=== PATIENT | female | born 1950 | race Caucasian/White ===

== ENCOUNTER 2020-09-02 12:26 | Outpatient (REF) | payer MEDICARE, OTHER, SELFPAY ==
--- NOTE | ~2020-09-02 | XR_ITS ---
EXAMINATION: XR KNEES, STANDING AP SR KNEE, RIGHT CLINICAL INFORMATION: Knee pain COMPARISON: Radiographs standing AP knees and right knee 07/14/2013. TECHNIQUE: Standing AP view of both knees is performed. The right knee is also imaged in lateral and axial patella views. FINDINGS: Right: Right knee has tricompartment osteoarthritis, greatest lateral patellofemoral joint with associated lateral tilting patella, lateralization patella, and lateral patellar spurring. There is also moderate to prominent narrowing medial knee joint compartment and fine articular chondrocalcinosis and marginal osteophytes in the medial and lateral compartments. No erosive changes. There is no fracture or dislocation or destructive process. Small suprapatellar effusion is present. Hoffa's fat pad appears normal. Left: Left knee shows degenerative changes, greater medial side with moderate to prominent narrowing medial compartment and with chondrocalcinosis articular cartilage and marginal osteophytes. No visible erosive changes. No fracture or destructive process. Bilateral arthropathy has progressed since prior exam 2013. The chondrocalcinosis articular cartilage suggests calcium pyrophosphate deposition disease. XR/XR knee standing BI IMPRESSION: Right: Tricompartment arthropathy with joint narrowing, osteophytes, and chondrocalcinosis articular cartilage. Small suprapatellar effusion. No erosive changes. Left: Similar arthropathy with narrowing medial compartment and chondrocalcinosis articular cartilage. No erosive change.
--- NOTE | ~2020-09-02 | XR_ITS ---
EXAMINATION: XR KNEES, STANDING AP SR KNEE, RIGHT CLINICAL INFORMATION: Knee pain COMPARISON: Radiographs standing AP knees and right knee 07/14/2013. TECHNIQUE: Standing AP view of both knees is performed. The right knee is also imaged in lateral and axial patella views. FINDINGS: Right: Right knee has tricompartment osteoarthritis, greatest lateral patellofemoral joint with associated lateral tilting patella, lateralization patella, and lateral patellar spurring. There is also moderate to prominent narrowing medial knee joint compartment and fine articular chondrocalcinosis and marginal osteophytes in the medial and lateral compartments. No erosive changes. There is no fracture or dislocation or destructive process. Small suprapatellar effusion is present. Hoffa's fat pad appears normal. Left: Left knee shows degenerative changes, greater medial side with moderate to prominent narrowing medial compartment and with chondrocalcinosis articular cartilage and marginal osteophytes. No visible erosive changes. No fracture or destructive process. Bilateral arthropathy has progressed since prior exam 2013. The chondrocalcinosis articular cartilage suggests calcium pyrophosphate deposition disease. XR/XR knee RT 2V IMPRESSION: Right: Tricompartment arthropathy with joint narrowing, osteophytes, and chondrocalcinosis articular cartilage. Small suprapatellar effusion. No erosive changes. Left: Similar arthropathy with narrowing medial compartment and chondrocalcinosis articular cartilage. No erosive change.
--- NOTE | ~2020-09-02 | XR_ITS ---
EXAMINATION: XR PELVIS CLINICAL INFORMATION: Hip pain COMPARISON: Radiograph pelvis 02/17/2019. TECHNIQUE: AP view of the pelvis. FINDINGS: There is no fracture, dislocation, or destructive process. Again, there are degenerative changes lower lumbar spine L3-S1 with disc narrowing and vertebral spurring. There are osteoarthritic changes bilateral hips with joint narrowing and mild subchondral sclerosis and osteophytes. Hip arthropathy has increased since 2019. There is again mild osteitis pubis. There are numerous calcifications in the central pelvis again noted likely combination of phleboliths and calcified uterine fibroids. XR/XR pelvis 1-2V IMPRESSION: 1. Osteoarthritis bilateral hips, increased in prior exam 02/17/2019. 2. Degenerative disc changes lumbosacral spine. 3. Mild osteitis pubis. 4. Numerous calcifications central pelvis likely combination of phleboliths and calcified uterine fibroids.
== END 2020-09-02 12:27 | disposition home or self-care (01) ==
LOC: HO.HOSX 12:26
PROVIDERS: Visit Provider Orthopaedic Surgery
DX: M25.561 Pain in right knee (principal); M25.552 Pain in left hip; M16.12 Unilateral primary osteoarthritis, left hip; M17.11 Unilateral primary osteoarthritis, right knee; Z86.718 Personal history of other venous thrombosis and embolism
CPT/HCPCS: 20610; 72170; 73560; 73565; 99212; J1100

== ENCOUNTER → 2020-12-24 14:46 | Outpatient (BNVA) | payer MEDICARE, OTHER, SELFPAY | PROVIDERS: PCP Internal Medicine; Visit Provider Hospitalist | DX: J45.40 Moderate persistent asthma, uncomplicated (principal); I27.82 Chronic pulmonary embolism; I26.09 Other pulmonary embolism with acute cor pulmonale; R06.00 Dyspnea, unspecified | CPT/HCPCS: Q3014 ==

== ENCOUNTER 2020-12-28 08:48 | Outpatient (REF) | payer MEDICARE, OTHER, SELFPAY ==
--- NOTE | 2020-12-28 13:25 | PFT_ITS ---
FLOWS: FEV1 92% of predicted at 2.04 L. FVC 80% of predicted at 2.36 L. FEV1 to FVC ratio of 0.86. No bronchodilator response. LUNG VOLUMES: Total lung capacity 93% of predicted at 4.55 L. Residual volume 97% of predicted at 2.06 L. Slow vital capacity 89% of predicted at 2.49 L. Expiratory reserve volume 21% of predicted at 0.15 L. Diffusion capacity is normal. IMPRESSION: No obstructive or restrictive ventilatory defect. No bronchodilator response. Decreased expiratory reserve volume suggests extrathoracic restriction likely secondary to abdominal obesity. Goyo Russell MD AP/MODL / [id number]
== END 2020-12-28 08:49 | disposition home or self-care (01) ==
LOC: HO.RESP 08:48
PROVIDERS: PCP Internal Medicine; Visit Provider Hospitalist
DX: J45.40 Moderate persistent asthma, uncomplicated (principal); R06.00 Dyspnea, unspecified; I27.82 Chronic pulmonary embolism; I26.09 Other pulmonary embolism with acute cor pulmonale
CPT/HCPCS: 94060; 94727; 94729

== ENCOUNTER → 2021-01-13 09:46 | Outpatient (BNVA) | payer MEDICARE, OTHER, SELFPAY | PROVIDERS: PCP Internal Medicine; Visit Provider Hospitalist | DX: J45.40 Moderate persistent asthma, uncomplicated (principal); I27.82 Chronic pulmonary embolism; I26.09 Other pulmonary embolism with acute cor pulmonale; R06.00 Dyspnea, unspecified; R78.89 Finding of other specified substances, not normally found in blood | CPT/HCPCS: 99212 ==

== ENCOUNTER 2021-01-17 15:03 | Outpatient (REF) | payer MEDICARE, OTHER, SELFPAY ==
--- NOTE | ~2021-01-17 | CT_ITS ---
EXAMINATION: CT ANGIOGRAM OF THE CHEST WITH AND WITHOUT CONTRAST (CT PULMONARY ANGIOGRAM FOR PE) CLINICAL INFORMATION: Reason for Exam I26.99 - Other pulmonary embolism without acute cor pulmo... COMPARISON: None TECHNIQUE: Prior to contrast administration, noncontrast localization images were obtained. Subsequently, multidetector volumetric imaging was performed from the thoracic inlet to below the diaphragms following the administration of 65 mL Omnipaque 350 intravenous contrast. No contrast reaction reported Sagittal, coronal, and MIP oblique sagittal reformatted images were obtained on the CT workstation, uploaded to PACS, and reviewed. This CT examination was performed using dose optimization techniques as appropriate, variously including the following: *Automated exposure control *Adjustment of mA and/or kV according to patient size (this includes techniques or standardized protocols for targeted exams where dose is matched to indication/reason for exam; i.e. extremities or head) *Use of iterative reconstruction technique Total exam dose-length product 127 mGy-cm FINDINGS: QUALITY OF STUDY/CONTRAST BOLUS: Satisfactory. PULMONARY ARTERIES: No central or segmental pulmonary emboli. THORACIC AORTA: No aneurysm or dissection. LUNG: The lungs are well-expanded with platelike atelectatic changes in the right lower lobe. Rest of lungs are clear. PLEURA: No pleural effusion or pneumothorax. MEDIASTINUM: Normal heart size. No pericardial effusion. No hilar or mediastinal lymphadenopathy. No evidence of septal bowing or right heart strain. CHEST WALL/AXILLA: No axillary or internal mammary lymphadenopathy. OSSEOUS STRUCTURES: There are mild degenerative disc changes with ventral spondylosis. UPPER ABDOMEN: Visualized liver, spleen, pancreas and bilateral adrenal glands are unremarkable. No reflux of contrast into the hepatic veins to suggest elevated right heart pressures. CT/CT angio chest PE protocol IMPRESSION: No evidence of PE. No evidence of aortic dissection. VTE: negative
[2021-01-17 15:53] LABS: Anion Gap 13 (12-20); Blood Urea Nitrogen 18 mg/dL (9-16); Calcium 9.7 mg/dL (8.4-10.2); Carbon Dioxide 20 mmol/L (22-29); Chloride 113 mmol/L (96-108); Estimated Glomerular Filt Rate 55; Glucose Random 94 mg/dL (60-115); Potassium 4.2 mmol/L (3.3-5.1); Sodium 142 mmol/L (135-145)
[2021-01-17] MEDS: iohexoL 350 MG/ML 100 ML INFUS..BTL IV (16:22)
== END 2021-01-17 15:04 | disposition home or self-care (01) ==
LOC: HO.CT 15:03
PROVIDERS: PCP Internal Medicine; Visit Provider Hospitalist
DX: I26.99 Other pulmonary embolism without acute cor pulmonale (principal); J45.909 Unspecified asthma, uncomplicated; R06.00 Dyspnea, unspecified; R78.89 Finding of other specified substances, not normally found in blood
CPT/HCPCS: 36415; 71275; 80048; Q9967

== ENCOUNTER → 2021-03-01 13:24 | Outpatient (BNVA) | payer MEDICARE, OTHER, SELFPAY | PROVIDERS: PCP Internal Medicine; Visit Provider Hospitalist | DX: J45.40 Moderate persistent asthma, uncomplicated (principal); R06.00 Dyspnea, unspecified | CPT/HCPCS: 99212 ==

== ENCOUNTER → 2021-07-29 11:47 | Outpatient (BNVA) | payer MEDICARE, OTHER, SELFPAY | PROVIDERS: PCP Internal Medicine; Visit Provider Orthopaedic Surgery | DX: M17.11 Unilateral primary osteoarthritis, right knee (principal) | CPT/HCPCS: 99212 ==

== ENCOUNTER → 2021-10-27 13:06 | Outpatient (BNVA) | payer MEDICARE, OTHER, SELFPAY | PROVIDERS: PCP Internal Medicine; Visit Provider Physician Assistant | DX: M17.11 Unilateral primary osteoarthritis, right knee (principal); Z96.651 Presence of right artificial knee joint | CPT/HCPCS: 99212 ==

== ENCOUNTER 2021-11-01 07:31 | Inpatient (IN) | payer MEDICARE, OTHER, SELFPAY ==
[2021-10-11 14:27] LABS: MANUAL DIFF FLAG NO
[2021-10-11 14:42] LABS: Basophils Absolute Auto 0.1 X10*3/uL (0.0-0.2); Basophils Percent Auto 0.6 % (0-2); Eosinophils Absolute Auto 0.2 X10*3/uL (0.0-0.4); Eosinophils Percent Auto 2.4 % (0-4); Hematocrit 45.8 % (37.0-47.0); Hemoglobin 15.3 g/dl (12.0-16.0); Imm Gran Abs Auto 0.02 X10*3/uL (0.00-0.03); Imm Gran Pct Auto 0.3 % (0.0-0.4); Lymphocytes Absolute Auto 3.5 X10*3/uL (1.2-4.9); Lymphocytes Percent Auto 44.9 % (20-40); Mean Corpuscular HGB Conc 33.4 g/dl (31.0-35.0); Mean Corpuscular Hemoglobin 32.1 pg (27.0-33.0); Mean Platelet Volume 9.5 fL (9.4-12.3); Monocytes Absolute Auto 0.8 X10*3/uL (0.1-1.2); Monocytes Percent Auto 10.1 % (2-11); Neutrophils Absolute Auto 3.2 x10*3/uL (2.0-8.3); Neutrophils Percent Auto 41.7 % (45-73); Platelet Count 228 X10*3/uL (160-400); Red Blood Count 4.77 X10*6/uL (4.20-5.50); Red Cell Distribution Width 13.2 % (11.0-16.0); White Blood Count 7.8 X10*3/uL (4.8-10.8)
--- NOTE | 2021-10-11 14:46 | ECG_ITS ---
Test Reason : PREOP Blood Pressure : / mmHG Vent. Rate : 076 BPM Atrial Rate : 076 BPM P-R Int : 168 ms QRS Dur : 094 ms QT Int : 398 ms P-R-T Axes : 065 -42 049 degrees QTc Int : 447 ms Normal sinus rhythm Left axis deviation Abnormal ECG No previous ECGs available Referred By: Ayad Nelson Electronically Signed By:TEE LUJAN MD
[2021-10-11 15:19] LABS: Anion Gap 14 (12-20); Blood Urea Nitrogen 15 mg/dL (9-16); Calcium 9.6 mg/dL (8.4-10.2); Carbon Dioxide 19 mmol/L (22-29); Chloride 109 mmol/L (96-108); Estimated Glomerular Filt Rate > 60; Glucose Random 94 mg/dL (60-115); Sodium 138 mmol/L (135-145)
[2021-10-25 12:18] VITALS: BP 124/84; PULSE 84; RESP 20; O2SAT 96; BMI 34.3
[2021-10-25 14:50] LABS: MRSA Nasal PCR NEGATIVE (Negative); SA Nasal PCR NEGATIVE (Negative)
[2021-11-01] VITALS (22 sets, daily range): BP systolic 94–122; BP diastolic 57–83; PULSE 59–102; RESP 17–22; TEMP 36.2–36.9; O2SAT 95–100
--- NOTE | ~2021-11-01 | XR_ITS ---
EXAMINATION: XR KNEE, RIGHT CLINICAL INFORMATION: Postop right total knee COMPARISON: None TECHNIQUE: Four views of the right knee. FINDINGS: Prosthetic components of the right total knee arthroplasty are appropriately aligned. No periprosthetic fracture. Gas from recent surgery is present in the joint and surrounding soft tissues. A joint effusion is present. XR/XR knee RT 2V IMPRESSION: Appropriate alignment of the right total knee arthroplasty.
[2021-11-01 07:54] LABS: Hematocrit 44.2 % (37.0-47.0); Hemoglobin 15.1 g/dl (12.0-16.0)
[2021-11-01 08:16] LABS: Glucose, Whole Blood 102 mg/dL (60-115)
[2021-11-01 08:18] LABS: COVID-19 Test Negative (Negative); IDNOW Serial# 16C4AD1C
--- NOTE | 2021-11-01 08:58 | PHA.MEDREC ---
Pharmacy Consult ? Medication Reconciliation Pharmacy has reviewed the medication reconciliation done by Diamond.
--- NOTE | 2021-11-01 09:45 | MHC.SHP ---
Pre-Procedural Eval Section A Date of Service: 11/01/21 The patient is an INPATIENT: No Changes since office visit: Yes Patient answered all questions; No Cold of Flu in the past 2 weeks, No New Medical Problems and No Changes in Medication The History & Physical has been completed within 30 days and I have reviewed it.: Yes Section B Chief Complaint: RTKA Allergies: Allergies Allergy/AdvReac Type Severity Reaction Status Date / Time No Known Allergies Allergy Verified 10/24/21 09:12 Plan I have reviewed the history and physical and performed a pertinent physical examination on my patient. No changes have occurred unless specified.
--- NOTE | 2021-11-01 10:22 | HO.ANESPROP2 ---
HPI - Anesthesia Eval Consult details Narrative: 71 F for tkr PMFSH Active Problems Active Problems: All Active Problems (Updated 10/25/21 @ 12:17 by Diamond Antonio RN) Status post total right knee replacement (Acute) Osteoarthritis of left hip (Acute) Primary osteoarthritis of right knee (Acute) Blood D-dimer assay positive (Acute) Asthma (Acute) Pulmonary emboli (Acute) Dyspnea (Acute) Past Medical History Medical History Arthritis Asthma Dyspnea Hearing loss Hereditary hemochromatosis History of blood clots Hypercholesterolemia Prediabetes Pulmonary emboli Family History Family history of problems with anesthesia: No Surgical History Surgical History Hx of colonoscopy History of Problems with Anesthesia: No Social History Social History Are you a primary career placement services counselor to a significant other at home: No Do you presently have visiting nurse or other home services: No Alcohol intake: current Alcohol intake frequency: a few times a week Patient Tobacco Use Status: Never used Tobacco Use of substances other than those prescribed or required for medical reasons: No Have you been hit, kicked, punched, or otherwise hurt by someone within the past year? If so, by whom?: No Are you DNR?: No Advance Directives: No (to bring DOS-) Advance Directives Information Provided: Yes (to bring DOS) Advance Directives on File: No Recently lost weight without trying: No Eating poorly because of decreased appetite: No Nutrition Risks: No Nutritional Risk Patient : No : No Poor oral hygiene: No (Intact teeth) Current occupational status: retired Current occupation: right handed Meds Allergies Allergy/AdvReac Type Severity Reaction Status Date / Time No Known Allergies Allergy Verified 10/24/21 09:12 Home Medications Medication Instructions Recorded Confirmed Last Taken Type budesonide-formoterol HFA 160 2 puff inhalation BID 09/02/20 10/24/21 Unknown History mcg-4.5 mcg/actuation aerosol inhaler (Symbicort) inhalational spacing device #1 ea 09/02/20 Unknown History montelukast 10 mg tablet 10 mg PO DAILY 09/02/20 10/24/21 Unknown History albuterol sulfate 90 mcg/actuation 2 puff inhalation Q4-6H PRN 12/24/20 10/24/21 Unknown History aerosol inhaler (Ventolin HFA) Wheezing aspirin 81 mg tablet,delayed 81 mg PO DAILY 12/24/20 10/24/21 Unknown History release cholecalciferol (vitamin D3) 25 25 mcg PO DAILY 12/24/20 10/24/21 Unknown History mcg (1,000 unit) capsule fexofenadine 60 mg tablet (Humera 60 mg PO BID 12/24/20 10/24/21 Unknown History Allergy) ginkgo biloba 120 mg tablet 120 mg PO DAILY 12/24/20 10/24/21 Unknown History magnesium 250 mg tablet 250 mg PO DAILY 12/24/20 10/24/21 Unknown History tumeric 100 mg-himanshu 150 mg-olive 1 cap PO DAILY 12/24/20 10/24/21 Unknown History 50 mg-oreg 150 mg-caprylate capsule vitamin B complex (B-Complex 1 tab PO DAILY 12/24/20 10/24/21 Unknown History tablet) metformin 500 mg tablet 1 tab PO BEDTIME 10/24/21 10/24/21 Unknown History metronidazole 0.75 % topical cream 1 appl topical BID 10/24/21 10/24/21 Unknown History docusate sodium 100 mg tablet 100 mg PO DAILY 10/25/21 10/25/21 Unknown History (Stool Softener) omega 1-iuv-dad-fish oil 1,000 mg 1 cap PO DAILY 10/25/21 10/25/21 Unknown History (120 mg-180 mg) capsule (Fish Oil) Exam Exam Date and Time: November 01, 2021 102 Height,Weight and Vital Signs: Height 5 ft 3 in Weight 194 lb Last Vital Signs Temp 97.8 F 11/01/21 08:20 Pulse 102 H 11/01/21 08:20 Resp 18 11/01/21 08:20 BP 110/75 11/01/21 08:20 Pulse Ox 96 11/01/21 08:20 O2 Del Method 11/01/21 08:20 Pertinent Lab Results Pertinent Lab Results: Laboratory Tests 10/11/21 10/11/21 10/25/21 14:26 14:26 13:08 WBC 7.8 RBC 4.77 Hgb 15.3 Hct 45.8 MCV 96.0 MCH 32.1 MCHC 33.4 RDW 13.2 Plt Count 228 MPV 9.5 Immature Gran % (Auto) 0.3 Neut % (Auto) 41.7 L Lymph % (Auto) 44.9 H [place] % (Auto) 10.1 Eos % (Auto) 2.4 Baso % (Auto) 0.6 Lymph # (Auto) 3.5 [place] # (Auto) 0.8 Eos # (Auto) 0.2 Baso # (Auto) 0.1 Abs Immat Gran (auto) 0.02 Absolute Neuts (auto) 3.2 Absolute Nucleated RBC 0.000 Nucleated RBC % (auto) 0.0 Sodium 138 Potassium 4.0 Chloride 109 H Carbon Dioxide 19 L Anion Gap 14 BUN 15 Creatinine 0.79 Estim Creat Clear Calc TNP Estimated GFR > 60 POC Glucose Random Glucose 94 Calcium 9.6 Nasal Screen MRSA (PCR) Nasal S. aureus Screen Nasal MRSA/S.aureus Interp COVID-19 ([facility]) COVID-19 Clin Com Blood Type A Positive Antibody Screen NEGATIVE 10/25/21 11/01/21 11/01/21 Unknown 07:35 07:48 WBC RBC Hgb 15.1 Hct 44.2 MCV MCH MCHC RDW Plt Count MPV Immature Gran % (Auto) Neut % (Auto) Lymph % (Auto) [place] % (Auto) Eos % (Auto) Baso % (Auto) Lymph # (Auto) [place] # (Auto) Eos # (Auto) Baso # (Auto) Abs Immat Gran (auto) Absolute Neuts (auto) Absolute Nucleated RBC Nucleated RBC % (auto) Sodium Potassium Chloride Carbon Dioxide Anion Gap BUN Creatinine Estim Creat Clear Calc Estimated GFR POC Glucose Random Glucose Calcium Nasal Screen MRSA (PCR) NEGATIVE Nasal S. aureus Screen NEGATIVE Nasal MRSA/S.aureus Interp SEE NOTE COVID-19 ([facility]) Negative COVID-19 Clin Com See Note Blood Type Antibody Screen 11/01/21 08:10 WBC RBC Hgb Hct MCV MCH MCHC RDW Plt Count MPV Immature Gran % (Auto) Neut % (Auto) Lymph % (Auto) [place] % (Auto) Eos % (Auto) Baso % (Auto) Lymph # (Auto) [place] # (Auto) Eos # (Auto) Baso # (Auto) Abs Immat Gran (auto) Absolute Neuts (auto) Absolute Nucleated RBC Nucleated RBC % (auto) Sodium Potassium Chloride Carbon Dioxide Anion Gap BUN Creatinine Estim Creat Clear Calc Estimated GFR POC Glucose 102 Random Glucose Calcium Nasal Screen MRSA (PCR) Nasal S. aureus Screen Nasal MRSA/S.aureus Interp COVID-19 ([facility]) COVID-19 Clin Com Blood Type Antibody Screen Airway Mallampati Class: II TM Dist: >3cm Neck ROM: Full Assessment and Plan Assessment Anesthesia Assessment: Anesthesia Plan Discussed and Chart Reviewed Final Anesthetic Review Family History of Problems with Anesthesia: No History of Problems with Anesthesia: No NPO: Yes ASA Class: II Final Preanesthetic Review: No Changes in Pt Med Stat, Meds/Allgs Chart Reviewed, Consent Obtained/Reviewed and Anes Risks/Benef Reviewed Patient Risk: Low Procedure Risk: Intermediate Anesthetic Plan Anesthetic Plan: MAC:, Spinal and Regional Block Disposition: Standard PACU
--- NOTE | 2021-11-01 11:28 | PM.OP ---
Brief Operative Note Date of Service: 11/01/21 Pre-op diagnosis: Right knee OA Post-op diagnosis: same Procedure: Right TKA Implants: [place] Triathalon press fit cruciate retaining 06/03/11 Surgeon: Ayad Nelson MD Anesthesia: regional and spinal Was an Barrel Ribs Solderer used for this Procedure?: Yes Barrel Ribs Solderer: Roberto Wu Estimated blood loss (mL): 150 IV fluids (mL): 1,000 Pathology: other Condition: stable Disposition: PACU
--- NOTE | 2021-11-01 11:31 | P.OP_ITS ---
Operative Note Operative Note Date of Service: 11/01/21 Narrative: Date of Service: 11/01/21 Pre-op diagnosis: Right knee OA Post-op diagnosis: same Procedure: Right TKA Implants: [place] Triathalon press fit cruciate retaining 06/03/11 Surgeon: Ayad Nelson MD Anesthesia: regional and spinal Was an Domestic Freight Forwarder used for this Procedure?: Yes Domestic Freight Forwarder: Roberto Wu Estimated blood loss (mL): 150 IV fluids (mL): 1,000 Pathology: other Condition: stable Disposition: PACU Procedure in detail: The patient was brought to the operating room and prepped and draped in standard sterile fashion. A time-out was called to identify proper site proper procedure proper surgeon and IV antibiotics were administered. 1 g of IV tranexamic acid was not administered. I began by making a midline incision to the retinaculum and performed a medial parapatellar arthrotomy. The patella was translated laterally and the knee was flexed up.There was tricompartmental eburnation. I performed a small medial peel and resected the infrapatellar fat pad. Tr's line was then used to drill my intramedullary femoral guide and my distal femur cut of 10 mm was made in 5 degrees of valgus while protecting the soft tissues. I then measured a # 3 femur and placed my cutting guide and made my anterior posterior and chamfer cuts protecting the soft tissues at all times. Once I was satisfied with my cuts I turned my attention to the tibia. I removed the meniscus medially and laterally and , using an external cutting guide, in line with the tibial crest and the third ray, I made my distal tibial cut in 3 deg slope of while protecting the PCL the posterior soft tissues at all times. An extension block was used to confirm appropriate amount of bony resection. I then sized a #3 tibia and once I was satisfied that there was complete tibial coverage I placed my trial and with the trial femur in place took the knee through range of motion. I was satisfied with the extension and flexion as well as the stability and balance at 0, 30 and 90 degrees. I then turned my attention to the patella where I removed 1 cm from the undersurface of the patella and then trialed a 29a patellar button. Again the knee was taken through range of motion I was satisfied with the tracking. I then returned to the femur and drilled my femoral lug holes and prepared the tibia. A femoral bone plug was placed and the knee was irrigated copiously. I then press fit the patella, tibia and femur in standard fashion. I trialed different inserts until I selected a #12 insert. The final insert was placed and a 3 minutes iodine soak with local TXA was performed. The knee was then closed with a running Quill suture, a 3 0 Vicryl and nikki on the skin. Patient was then placed in sterile dressing and brought to recovery room in stable condition there were no known complications.
[2021-11-01] MEDS: HYDROmorphone HCl 0.5 MG/0.5 ML SYRINGE 0.25 MG IVPUSH ×6 (12:04→23:31)
[2021-11-01] MEDS: ondansetron HCL 4 MG/2 ML VIAL IVPUSH (12:07)
[2021-11-01] MEDS: HYDROmorphone HCl 0.5 MG/0.5 ML SYRINGE IVPUSH ×4 (12:33→14:40)
[2021-11-01] MEDS: Lactated Ringers 1,000 ML 100 ML IVCONT (15:23)
[2021-11-01] MEDS: ceFAZolin Sodium/Dextrose,Iso 2 GM/50 ML PIGGYBACK IV (15:24)
[2021-11-01] MEDS: Celecoxib 200 MG CAPSULE PO (20:56)
[2021-11-01] MEDS: oxyCODONE HCl ER 10 MG TAB.ER.12H PO (20:56)
[2021-11-01] MEDS: Docusate Sodium 100 MG CAPSULE PO (20:56)
[2021-11-01] MEDS: oxyCODONE HCl Immed Release 5 MG TABLET PO (21:07)
[2021-11-02] VITALS (9 sets, daily range): BP systolic 112–142; BP diastolic 56–84; PULSE 66–93; RESP 16–18; TEMP 35.9–37.3; O2SAT 94–99
[2021-11-02] MEDS: Lactated Ringers 1,000 ML 100 ML IVCONT ×3 (01:05→21:33)
[2021-11-02] MEDS: oxyCODONE HCl Immed Release 5 MG TABLET PO ×2 (01:05→06:19)
[2021-11-02] MEDS: HYDROmorphone HCl 0.5 MG/0.5 ML SYRINGE 0.25 MG IVPUSH ×4 (03:54→19:50)
[2021-11-02 06:06] LABS: MANUAL DIFF FLAG NO
[2021-11-02 06:23] LABS: Basophils Percent Auto 0.5 % (0-2); Eosinophils Absolute Auto 0.1 X10*3/uL (0.0-0.4); Eosinophils Percent Auto 0.9 % (0-4); Hematocrit 35.5 % (37.0-47.0); Hemoglobin 12.2 g/dl (12.0-16.0); Imm Gran Abs Auto 0.03 X10*3/uL (0.00-0.03); Imm Gran Pct Auto 0.3 % (0.0-0.4); Lymphocytes Absolute Auto 3.2 X10*3/uL (1.2-4.9); Mean Corpuscular HGB Conc 34.4 g/dl (31.0-35.0); Mean Corpuscular Hemoglobin 33.2 pg (27.0-33.0); Mean Corpuscular Volume 96.5 fL (80.0-98.0); Mean Platelet Volume 9.8 fL (9.4-12.3); Monocytes Percent Auto 11.9 % (2-11); Neutrophils Absolute Auto 4.3 x10*3/uL (2.0-8.3); Neutrophils Percent Auto 49.4 % (45-73); Platelet Count 204 X10*3/uL (160-400); Red Blood Count 3.68 X10*6/uL (4.20-5.50); Red Cell Distribution Width 12.7 % (11.0-16.0); White Blood Count 8.8 X10*3/uL (4.8-10.8)
[2021-11-02 06:34] LABS: Anion Gap 14 (12-20); Blood Urea Nitrogen 17 mg/dL (9-16); Calcium 8.5 mg/dL (8.4-10.2); Carbon Dioxide 23 mmol/L (22-29); Chloride 106 mmol/L (96-108); Creatinine Clr Calc Pharmacy 76.5; Estimated Glomerular Filt Rate > 60; Glucose Fasting 137 mg/dL (60-99); Potassium 4.1 mmol/L (3.3-5.1); Sodium 139 mmol/L (135-145)
--- NOTE | 2021-11-02 07:40 | P.PNOP_ITS ---
Subjective Subjective Date of Service: 11/02/21 Interval history: POD 1 s/p RT TKA No overnight events she states she had diff controlling her pain has not been out of bed with PT as of yet denies sob, cp, palpitations Physical Exam Vital Signs: Vital Signs: Last Vital Signs Temp 96.7 F L 11/02/21 07:39 Pulse 66 11/02/21 07:39 Resp 18 11/02/21 07:39 BP 112/61 11/02/21 07:39 Pulse Ox 98 11/02/21 07:39 O2 Del Method 11/02/21 07:39 O2 Flow Rate 2 11/02/21 04:06 BMI result Body Mass Index 34.3 Const: General: cooperative, healthy appearing and no acute distress Resp: Effort & Inspection: normal respiratory effort and able to speak in complete sentences Cardio: Rate: regular rate Peripheral pulses: Peripheral pulses 2+ throughout GI: Palpation (GI): Soft to palpation Skin: General skin exam: no rashes or lesions noted Extrem: Other: bandage clean dry and intact. [place] intact. No erythema or joint effusion. Calf supple nontender. Neurovascularly intact. Procedures Date of Service Date of Service: 11/02/21 Progress Note: A&P Assessment and plan (1) Status post total right knee replacement: Status: Acute Assessment and Plan: * Continue pain mgmnt * Begin lovenox for dvt ppx * begin PT for RT TKA * Dispo planning-Pending PT eval, pain mgmnt Time Spent With Patient Time: Total time spent is greater than 50% in coordination of care (as documented) at patient's floor/unit and/or counseling patient: Quality Stroke Does the patient have a stroke diagnosis?: No VTE Prior VTE?: Yes VTE Risk Level:: Surgical - very high VTE Device Contraindication: N/A - Device Ordered VTE Drug Contraindication: N/A - Med Ordered
[2021-11-02] MEDS: Celecoxib 200 MG CAPSULE PO ×2 (07:51→21:28)
[2021-11-02] MEDS: Magnesium Oxide 400 MG TABLET 200 MG PO (07:51)
[2021-11-02] MEDS: Docusate Sodium 100 MG CAPSULE PO ×2 (07:52→21:28)
[2021-11-02] MEDS: Montelukast Sodium 10 MG TABLET PO (07:52)
[2021-11-02] MEDS: oxyCODONE HCl ER 10 MG TAB.ER.12H PO ×2 (07:52→21:28)
[2021-11-02] MEDS: Loratadine 10 MG TABLET PO (07:53)
[2021-11-02] MEDS: 0.9 % Sodium Chloride Flush 3 ML SYRINGE IVFLUSH (07:54)
--- NOTE | 2021-11-02 09:06 | HO.PM.IMCN ---
History of Present Illness Data of Consult Service Date: 11/02/21 Primary Care Provider: Daniela Mariscal MD HPI Reason for consult: Diabetes This is a 71 year old female with a PMH of prior PE (in 2017, off OAC now), asthma, pre-DM, OA who is admitted under the orthopedic services post R TKA. Medical consult requested for mgmt of her DM. Pt seen and examined this AM. She reports her pain is better controlled with the adjustments made by the ortho team this AM. SHe worked up PT this AM which she was able to tolerate with some shortness of breath and pain. Review of Systems Review of Systems: negative except [facility]PI [facility] Medical History Arthritis Asthma Dyspnea Hearing loss Hereditary hemochromatosis History of blood clots Hypercholesterolemia Prediabetes Pulmonary emboli Surgical History Hx of colonoscopy Social History Household Members: Spouse Housing: House Are you a primary animal care provider to a significant other at home: No Do you presently have visiting nurse or other home services: No Alcohol intake: current Alcohol intake frequency: a few times a week Patient Tobacco Use Status: Never used Tobacco Smoked in Last 30 Days: No Use of substances other than those prescribed or required for medical reasons: No Have you been hit, kicked, punched, or otherwise hurt by someone within the past year? If so, by whom?: No Do you feel safe in your current relationship?: Yes Is there a partner from a previous relationship who is making you feel unsafe now?: No Are you made to feel afraid or neglected: No Are you DNR?: No Advance Directives: No (to bring DOS-) Advance Directives Information Provided: Yes (to bring DOS) Advance Directives on File: No Do you have thoughts of harming others: None Do you have a plan to hurt others: No Plan Recently lost weight without trying: No Eating poorly because of decreased appetite: No Nutrition Risks: No Nutritional Risk Patient : No : No Poor oral hygiene: No Current occupational status: retired Current occupation: right handed Meds Allergies Allergy/AdvReac Type Severity Reaction Status Date / Time No Known Allergies Allergy Verified 10/24/21 09:12 Active Medications: Current Medications Acetaminophen (Acetaminophen 325 Mg Tablet) 650 mg PO Q6H PRN PRN Reason: Pain, Mild (Pain Scale 1-3) Albuterol Sulfate (Albuterol Sulfate 90 Mcg 8 Gm Inhaler) 2 puff INHALE Q4H PRN PRN Reason: Wheezing Celecoxib (Celecoxib 200 Mg Capsule) 200 mg PO BID [facility] Last Admin: 11/02/21 07:51 Dose: 200 mg Docusate Sodium (Docusate Sodium 100 Mg Capsule) 100 mg PO BID [facility] Last Admin: 11/02/21 07:52 Dose: 100 mg Enoxaparin Sodium (Enoxaparin Sodium 40 Mg/0.4 Ml Syringe) 40 mg SUBCUT Q24H [facility] Hydromorphone HCl (Hydromorphone Hcl 0.5 Mg/0.5 Ml Syringe) 0.5 mg IVPUSH Q10M PRN; Protocol PRN Reason: Pain, Moderate (Pain Scale 4-6 Last Admin: 11/01/21 14:30 Dose: 0.5 mg Hydromorphone HCl (Hydromorphone Hcl 0.5 Mg/0.5 Ml Syringe) 0.5 mg IVPUSH Q10M PRN; Protocol PRN Reason: Pain, Moderate (Pain Scale 4-6 Last Admin: 11/01/21 14:40 Dose: 0.5 mg Hydromorphone HCl (Hydromorphone Hcl 0.5 Mg/0.5 Ml Syringe) 0.25 mg IVPUSH Q4H PRN; Protocol PRN Reason: Pain, Severe (Pain Scale 7-10) Last Admin: 11/02/21 07:55 Dose: 0.25 mg Lactated Ringer's (Lr) 1,000 mls @ 100 mls/hr IVCONT .Q10H [facility] Last Admin: 11/02/21 01:05 Dose: 100 mls/hr Loratadine (Loratadine 10 Mg Tablet) 10 mg PO DAILY [facility] Last Admin: 11/02/21 07:53 Dose: 10 mg Magnesium Oxide (Magnesium Oxide 400 Mg Tablet) 200 mg PO DAILY [facility] Last Admin: 11/02/21 07:51 Dose: 200 mg Montelukast Sodium (Montelukast Sodium 10 Mg Tablet) 10 mg PO DAILY [facility] Last Admin: 11/02/21 07:52 Dose: 10 mg Pt Own Med ( Levalbuterol Tartrate 45 Mcg/Actuation Hfa Aerosol Inhaler) 2 puff INHALE RDAILY [facility] Non-Formulary Medication (Metronidazole) 1 appl TOPICAL BID [facility] Non-Formulary Medication (Symbicort 160/4.5) 2 puff INHALE RBID [facility] Ondansetron HCl (Ondansetron Hcl 4 Mg/2 Ml Vial) 4 mg IVPUSH Q8H PRN PRN Reason: Nausea and Vomiting Oxycodone HCl (Oxycodone Hcl Er 10 Mg Tab.Er.12h) 10 mg PO BID [facility] Last Admin: 11/02/21 07:52 Dose: 10 mg Oxycodone HCl (Oxycodone Hcl Immed Release 5 Mg Tablet) 10 mg PO Q4H PRN PRN Reason: Pain, Moderate (Pain Scale 4-6 Sodium Chloride (0.9 % Sodium Chloride Flush 3 Ml Syringe) 3 ml IVFLUSH QSHIFT [facility] Last Admin: 11/02/21 07:54 Dose: 3 ml Home Medications Medication Instructions Recorded Confirmed Last Taken Type budesonide-formoterol HFA 160 2 puff inhalation BID 09/02/20 10/24/21 Unknown History mcg-4.5 mcg/actuation aerosol inhaler (Symbicort) inhalational spacing device #1 ea 09/02/20 Unknown History montelukast 10 mg tablet 10 mg PO DAILY 09/02/20 10/24/21 Unknown History albuterol sulfate 90 mcg/actuation 2 puff inhalation Q4-6H PRN 12/24/20 10/24/21 Unknown History aerosol inhaler (Ventolin HFA) Wheezing aspirin 81 mg tablet,delayed 81 mg PO DAILY 12/24/20 10/24/21 Unknown History release cholecalciferol (vitamin D3) 25 25 mcg PO DAILY 12/24/20 10/24/21 Unknown History mcg (1,000 unit) capsule fexofenadine 60 mg tablet (Humera 60 mg PO BID 12/24/20 10/24/21 Unknown History Allergy) ginkgo biloba 120 mg tablet 120 mg PO DAILY 12/24/20 10/24/21 Unknown History magnesium 250 mg tablet 250 mg PO DAILY 12/24/20 10/24/21 Unknown History tumeric 100 mg-himanshu 150 mg-olive 1 cap PO DAILY 12/24/20 10/24/21 Unknown History 50 mg-oreg 150 mg-caprylate capsule vitamin B complex (B-Complex 1 tab PO DAILY 12/24/20 10/24/21 Unknown History tablet) metformin 500 mg tablet 1 tab PO BEDTIME 10/24/21 10/24/21 Unknown History metronidazole 0.75 % topical cream 1 appl topical BID 10/24/21 10/24/21 Unknown History docusate sodium 100 mg tablet 100 mg PO DAILY 10/25/21 10/25/21 Unknown History (Stool Softener) omega 4-uoi-zbs-fish oil 1,000 mg 1 cap PO DAILY 10/25/21 10/25/21 Unknown History (120 mg-180 mg) capsule (Fish Oil) Physical Exam Vital Signs and Narrative: Vital Signs: Last Vital Signs Temp 96.7 F L 11/02/21 07:39 Pulse 66 11/02/21 07:45 Resp 18 11/02/21 07:39 BP 112/61 11/02/21 07:45 Pulse Ox 98 11/02/21 07:45 O2 Del Method 11/02/21 07:39 O2 Flow Rate 2 11/02/21 04:06 BMI result Body Mass Index 34.3 Const: Other: General - no acute distress, appears comfortable Cardiovascular - regular rate and rhythm, S1-S2 Lungs - normal respiratory effort, clear to auscultation bilaterally, no wheezing Abdomen - soft, nontender, no rebound or guarding Extremities - no edema bilaterally Neuro - awake and alert, no focal deficits Results Labs CBC and Chem 7: 11/02/21 05:40 11/02/21 05:40 Labs: Laboratory Results - last 24 hr 11/02/21 11/02/21 05:40 05:40 MCV 96.5 MCH 33.2 H MCHC 34.4 RDW 12.7 Plt Count 204 MPV 9.8 Immature Gran % (Auto) 0.3 Neut % (Auto) 49.4 Lymph % (Auto) 37.0 [place] % (Auto) 11.9 H Eos % (Auto) 0.9 Baso % (Auto) 0.5 Lymph # (Auto) 3.2 [place] # (Auto) 1.0 Eos # (Auto) 0.1 Baso # (Auto) 0.0 Abs Immat Gran (auto) 0.03 Absolute Neuts (auto) 4.3 Absolute Nucleated RBC 0.000 Nucleated RBC % (auto) 0.0 Anion Gap 14 Estim Creat Clear Calc 76.5 Estimated GFR > 60 Fasting Glucose 137 H Calcium 8.5 D Imaging Radiologist's Impressions: Impressions Knee X-Ray 11/01/21 12:48 IMPRESSION: Appropriate alignment of the right total knee arthroplasty. Assessment and Plan (1) Status post total right knee replacement: Status: Acute Plan 71 yo F admitted post R TKA. Medical consult requested for mgmt of Diabetes 1. Pre-DM (per documented history) continue metformin upon d/c for now, sliding scale + humalog as needed diabetic diet 2. Asthma continue her baseline inhalers 3. R TKA mgmt per ortho Will sign off. Please reconsult/tigerconnect with questions.
[2021-11-02] MEDS: Enoxaparin Sodium 40 MG/0.4 ML SYRINGE SUBCUT (10:50)
[2021-11-02 11:32] LABS: Glucose, Whole Blood 111 mg/dL (60-115)
--- NOTE | 2021-11-02 14:37 | HO.POSTANES ---
Post Anesthesia Evaluation Post Anesthesia Evaluation Vital Signs: Vital Signs Temp Pulse Resp BP Pulse Ox O2 Del Method O2 Flow Rate 11/02/21 13:50 75 118/57 L 97 11/02/21 11:51 97.3 F 75 17 118/57 L 97 Room Air 11/02/21 07:45 66 112/61 98 11/02/21 07:39 96.7 F L 66 18 112/61 98 Room Air 11/02/21 04:06 97.9 F 73 17 122/60 99 Nasal Cannula 2 Anesthesia: Spinal and Nerve Block Mental Status: Awake Pain Control: Satisfactory (difficulty controlling pain) Nausea/Vomiting: None Hydration: Adequate Anesthesia-Related Issues: No Anes. Related Issues
--- NOTE | 2021-11-02 14:43 | MHC.CM.PN ---
IMM 11/02/21, EMR REVIEWED, PT ADMITTED S/P R TKA, CM MET WITH PT WHO REPORTS SHE LIVES W/HER , PT REPORTS SHE HAS A WALKER WITH WHEELS AND GRAB BARS IN [place], PT DENIES HOME SERVICES AND REPORTS SHE WOULD LIKE TO D/C HOME W/HVNA, PT VERIFIES [facility] X4, HCP IS EZEKIEL TUCKER [phone] OR [phone], COPY REQUESTED AND PCP ON FILE IS CORRECT. D/C PLAN: HOME W/NEW [facility] IN 1-2 DAYS W/ FOR TRANSPORT
[2021-11-02] MEDS: oxyCODONE HCl Immed Release 5 MG TABLET 10 MG PO ×2 (15:37→21:29)
[2021-11-02 15:56] LABS: Glucose, Whole Blood 124 mg/dL (60-115)
[2021-11-02 20:08] LABS: Glucose, Whole Blood 101 mg/dL (60-115)
[2021-11-03] MEDS: HYDROmorphone HCl 0.5 MG/0.5 ML SYRINGE 0.25 MG IVPUSH ×2 (00:08→05:01)
[2021-11-03 04:38] VITALS: BP 116/56; PULSE 92; RESP 18; TEMP 36.8; O2SAT 94
[2021-11-03 05:50] LABS: MANUAL DIFF FLAG NO
[2021-11-03 05:57] LABS: Basophils Absolute Auto 0.1 X10*3/uL (0.0-0.2); Basophils Percent Auto 0.7 % (0-2); Eosinophils Absolute Auto 0.3 X10*3/uL (0.0-0.4); Eosinophils Percent Auto 3.2 % (0-4); Hematocrit 32.5 % (37.0-47.0); Hemoglobin 10.9 g/dl (12.0-16.0); Imm Gran Abs Auto 0.03 X10*3/uL (0.00-0.03); Imm Gran Pct Auto 0.4 % (0.0-0.4); Lymphocytes Absolute Auto 3.1 X10*3/uL (1.2-4.9); Lymphocytes Percent Auto 37.7 % (20-40); Mean Corpuscular HGB Conc 33.5 g/dl (31.0-35.0); Mean Corpuscular Hemoglobin 32.2 pg (27.0-33.0); Mean Corpuscular Volume 96.2 fL (80.0-98.0); Mean Platelet Volume 9.7 fL (9.4-12.3); Monocytes Percent Auto 12.9 % (2-11); Neutrophils Absolute Auto 3.7 x10*3/uL (2.0-8.3); Neutrophils Percent Auto 45.1 % (45-73); Platelet Count 174 X10*3/uL (160-400); Red Blood Count 3.38 X10*6/uL (4.20-5.50); Red Cell Distribution Width 12.9 % (11.0-16.0); White Blood Count 8.1 X10*3/uL (4.8-10.8)
[2021-11-03 06:24] LABS: Anion Gap 14 (12-20); Blood Urea Nitrogen 12 mg/dL (9-16); Calcium 8.1 mg/dL (8.4-10.2); Carbon Dioxide 24 mmol/L (22-29); Chloride 108 mmol/L (96-108); Creatinine Clr Calc Pharmacy 78.6; Estimated Glomerular Filt Rate > 60; Glucose Fasting 115 mg/dL (60-99); Potassium 3.9 mmol/L (3.3-5.1); Sodium 142 mmol/L (135-145)
[2021-11-03] MEDS: Lactated Ringers 1,000 ML 100 ML IVCONT (06:43)
[2021-11-03 07:22] LABS: Glucose, Whole Blood 105 mg/dL (60-115)
[2021-11-03 07:49] VITALS: PULSE 78; RESP 18; O2SAT 96
[2021-11-03] MEDS: Acetaminophen 325 MG TABLET 650 MG PO (07:57)
[2021-11-03] MEDS: Docusate Sodium 100 MG CAPSULE PO (07:58)
[2021-11-03] MEDS: Celecoxib 200 MG CAPSULE PO (07:58)
[2021-11-03] MEDS: Loratadine 10 MG TABLET PO (07:58)
[2021-11-03] MEDS: Magnesium Oxide 400 MG TABLET 200 MG PO (07:58)
[2021-11-03] MEDS: Montelukast Sodium 10 MG TABLET PO (07:58)
[2021-11-03] MEDS: oxyCODONE HCl ER 10 MG TAB.ER.12H PO (07:58)
[2021-11-03] MEDS: oxyCODONE HCl Immed Release 5 MG TABLET 10 MG PO ×2 (07:59→12:21)
[2021-11-03 08:44] VITALS: PULSE 78
--- NOTE | 2021-11-03 08:49 | P.DS_ITS ---
DS: Providers Provider Date of Service: 11/03/21 Date of admission: 11/01/21 07:31 Primary care physician: Daniela Mariscal MD Consults: 11/01/21 17:14 Consult to Hospitalist Routine Consulting Provider: Hospitalist Reason For Exam: diabetes DS: Diagnosis Discharge Diagnosis (1) Status post total right knee replacement: Status: Acute DS: Summary Hospital Course Hospital Course: The patient underwent a successful right total knee arthroplasty, they were transferred to PACU and then to the floor to recover. During their stay, their vitals were stable, afebrile at 98.3. Labs were unremarkable, H/H 10.9/32.5. POD 1 they were started on Lovenox due to history of PE for DVT ppx, they also received Physical Therapy services twice a day. Prior to discharge, their dressing was changed, incision clean dry and intact, new Aquacel dressing applied and the plan was to be discharged home with VNA services. Time Spent with Patient Time attestation: Total time spent providing and/or coordinating discharge services: Discharge coordination time: Less than 30 minutes Quality: Safe Use of Opioids Does Pt have an Active Cancer Diagnosis on the Problem List?: No Quality: Stroke Does the patient have a stroke diagnosis?: No Physical Exam Vital Signs: Vital Signs: Last Vital Signs Temp 98.3 F 11/03/21 04:38 Pulse 78 11/03/21 08:44 Resp 18 11/03/21 07:49 BP 116/56 L 11/03/21 04:38 Pulse Ox 94 11/03/21 04:38 O2 Del Method 11/03/21 04:38 O2 Flow Rate 2 11/02/21 04:06 BMI result Body Mass Index 34.3 Const: General: cooperative, healthy appearing and no acute distress Resp: Effort & Inspection: normal respiratory effort and able to speak in complete sentences Cardio: Rate: regular rate Peripheral pulses: Peripheral pulses 2+ throughout GI: Palpation (GI): Soft to palpation Skin: Lesions: no lesions Rashes: no rashes Extrem: Other: Right knee NEw Aquacel dressing applied. Marcelo intact. No drainage. Able to dorsiflex and plantarflex. NVI. DS: Data Data Completed and Pending Pending studies at discharge: Pending at discharge 11/01/21 11:12 Surgical [PTH] Routine Labs on day of discharge: Laboratory Results - last 24 hr 11/02/21 11/02/21 11/02/21 11:28 15:30 19:49 WBC RBC Hgb Hct MCV MCH MCHC RDW Plt Count MPV Immature Gran % (Auto) Neut % (Auto) Lymph % (Auto) [place] % (Auto) Eos % (Auto) Baso % (Auto) Lymph # (Auto) [place] # (Auto) Eos # (Auto) Baso # (Auto) Abs Immat Gran (auto) Absolute Neuts (auto) Absolute Nucleated RBC Nucleated RBC % (auto) Sodium Potassium Chloride Carbon Dioxide Anion Gap BUN Creatinine Estim Creat Clear Calc Estimated GFR POC Glucose 111 124 H 101 Fasting Glucose Calcium 11/03/21 11/03/21 11/03/21 05:19 05:19 07:12 WBC 8.1 RBC 3.38 L Hgb 10.9 L Hct 32.5 L MCV 96.2 MCH 32.2 MCHC 33.5 RDW 12.9 Plt Count 174 MPV 9.7 Immature Gran % (Auto) 0.4 Neut % (Auto) 45.1 Lymph % (Auto) 37.7 [place] % (Auto) 12.9 H Eos % (Auto) 3.2 Baso % (Auto) 0.7 Lymph # (Auto) 3.1 [place] # (Auto) 1.0 Eos # (Auto) 0.3 Baso # (Auto) 0.1 Abs Immat Gran (auto) 0.03 Absolute Neuts (auto) 3.7 Absolute Nucleated RBC 0.000 Nucleated RBC % (auto) 0.0 Sodium 142 Potassium 3.9 Chloride 108 Carbon Dioxide 24 Anion Gap 14 BUN 12 Creatinine 0.71 Estim Creat Clear Calc 78.6 Estimated GFR > 60 POC Glucose 105 Fasting Glucose 115 H Calcium 8.1 L Discharge Plan Discharge Patient Disposition: Home Health Service Discharge Diagnosis: s/p RTKA Referrals: Roberto Wu PA-C [Physician [employer] [place]] - 2 Weeks (11/17/21 1:30 [facility] Roberto Wu PA-C) Discharge Medications: New celecoxib 200 mg Capsule 200 mg PO BID 30 Days Qty: 60 0RF acetaminophen 325 mg Tablet 650 mg PO Q6H PRN (Reason: Pain, Mild (Pain Scale 1-3)) 30 Days Qty: 240 0RF docusate sodium 100 mg Capsule 100 mg PO BID 30 Days Qty: 60 0RF oxycodone 5 mg Tablet 10 mg PO Q4H PRN (Reason: Pain, Moderate (Pain Scale 4-6) 7 Days Qty: 42 0RF Rx Instructions: Partial Fill upon patient request. enoxaparin 40 mg/0.4 mL Syringe 40 mg subcut Q24H 42 Days Qty: 16.8 0RF Continued levalbuterol tartrate 45 mcg/actuation HFA aerosol inhaler 2 puff inhalation DAILY Qty: 15 0RF metformin 500 mg tablet 1 tab PO BEDTIME metronidazole 0.75 % cream 1 appl topical BID docusate sodium [Stool Softener] 100 mg Tablet 100 mg PO DAILY omega 8-qrk-cdi-fish oil [Fish Oil] 1,000 mg (120 mg-180 mg) Capsule 1 cap PO DAILY budesonide-formoterol [Symbicort] 160-4.5 mcg/actuation HFA aerosol inhaler 2 puff inhalation BID (DME) inhalational spacing device Spacer See Rx Instructions inhalation .MEDSUPPLY Qty: 1 Rx Instructions: As directed montelukast 10 mg tablet 10 mg PO DAILY magnesium 250 mg tablet 250 mg PO DAILY vitamin B complex [B-Complex] Tablet 1 tab PO DAILY fexofenadine [Humera Allergy] 60 mg tablet 60 mg PO BID cholecalciferol (vitamin D3) 25 mcg (1,000 unit) capsule 25 mcg PO DAILY albuterol sulfate [Ventolin HFA] 90 mcg/actuation HFA aerosol inhaler 2 puff inhalation Q4-6H PRN (Reason: Wheezing) mbajsbx-zfoh-ezbgy-oreg-capryl 100 mg-150 mg- 50 mg-150 mg capsule 1 cap PO DAILY ginkgo biloba 120 mg tablet 120 mg PO DAILY Rx Instructions: give with meal/snack Discontinued aspirin 81 mg tablet,delayed release (DR/EC) 81 mg PO DAILY Discharge Orders: Discharge Order (Routine); Ordered 11/03/21 Ordered By: Bianca Victoria Diet: Regular diet Activity on Discharge: Use cane or walker Stand Alone Forms: Patient Portal Discharge page Care Plan Goals: Restore function of joint Health Concerns: none Plan of Treatment: Physical Therapy Pain management DVT prophylaxis Assessment: Physical Therapy for Total knee arthroplasty: WBAT, gait training, ROM 0-12, quad strength * Limit stair climbing * No showering, no tub bath-keep dressing clean, dry and intact * No driving x6 weeks * Continue Lovenox once a day x 6 weeks * Follow up with [facility] in 2 weeks: * --you will also have your first out patient PT eval on the day of your post op appt-so please plan on being in the office that day for an extended period of time.
--- NOTE | 2021-11-03 08:51 | P.F2F_ITS ---
Service Date Service Date: 11/03/21 Encounter Date of encounter: 11/03/21 Reasons for Services Signs and symptoms assessed: Pt. is considered homebound due to recent surgery. Unable to drive, poor balance, poor gait mechanics. Reason for jail: other (lovenox injections) Reason for physical therapy: home safety and mobility, therapeutic exercises, restore joint function, gait/transfer training, assess need for DME and ADL training Homebound: Leaving the home is medically contraindicated at this time without the asist of a device and/or another person due th the listed conditions above and below. Reason homebound: unsteady gait / fall risk, leg weakness, pain with ambulation, pain with transfers, poor balance / fall risk and unable to drive Homebound supporting statement: Pt. is considered homebound due to recent surgery. Unable to drive, poor balance, poor gait mechanics. Certification: Based on the above findings, I certify that this patient is confined to the home and needs intermittent jail care, physical therapy and/or speech therapy, or continues to need occupational therapy. The patient is under my care, and I have initiated the establishment of the plan of care. The patient will be followed by a physician who will periodically review the plan of care.
[2021-11-03 09:00] VITALS: BP 124/62; PULSE 80; RESP 18; TEMP 36.4; O2SAT 96
--- NOTE | 2021-11-03 09:19 | MHC.CM.PN ---
PT MEDICALLY CLEARED FOR D/C HOME W/NEW [facility]NA FOR HALFWAY AND HOME PT, FAMILY FOR TRANSPORT.
[2021-11-03] MEDS: Enoxaparin Sodium 40 MG/0.4 ML SYRINGE SUBCUT (10:32)
[2021-11-03 11:25] LABS: Glucose, Whole Blood 116 mg/dL (60-115)
== END 2021-11-03 12:56 | disposition home health service (06) | DRG 470 ==
LOC: HO.SSSA 08:56 → HO.S3 14:47
PROVIDERS: Physician Assistant; Absent Provider Physician Assistant; Admitting Provider Physician Assistant; PCP Internal Medicine; Visit Provider Orthopaedic Surgery
PROC: 0SRC0JA Replacement of Right Knee Joint with Synthetic Substitute, Uncemented, Open Approach (ICD-10-PCS; CPT 27447; principal; 2021-11-01 09:30)
DX: M17.11 Unilateral primary osteoarthritis, right knee (principal); E83.110 Hereditary hemochromatosis; R73.03 Prediabetes; Z20.822 Contact with and (suspected) exposure to COVID-19; Z86.711 Personal history of pulmonary embolism; Z79.84 Long term (current) use of oral hypoglycemic drugs; Z79.899 Other long term (current) drug therapy
CPT/HCPCS: 27447; 36415; 73560; 80048; 82947; 85014; 85018; 85025; 86850; 86900; 86901; 87635; 87640; 87641; 88305; 88311; 93005; 94640; 97110; 97116; 97162; 97530; C1776; J0690; J1100; J1170; J1650; J2250; J2405; J2795

== ENCOUNTER → 2021-11-17 13:24 | Outpatient (BNVA) | payer MEDICARE, OTHER, SELFPAY | PROVIDERS: PCP Internal Medicine; Visit Provider Physician Assistant | DX: Z96.651 Presence of right artificial knee joint (principal) | CPT/HCPCS: 99212 ==

== ENCOUNTER → 2021-11-21 14:43 | Outpatient (BNVA) | payer MEDICARE, OTHER, SELFPAY | PROVIDERS: PCP Internal Medicine; Visit Provider Physician Assistant | DX: M25.561 Pain in right knee (principal); R60.0 Localized edema; Z96.651 Presence of right artificial knee joint | CPT/HCPCS: 99212 ==

== ENCOUNTER 2021-11-21 14:50 | Outpatient (REF) | payer MEDICARE, OTHER, SELFPAY ==
--- NOTE | ~2021-11-21 | XR_ITS ---
EXAMINATION: XR KNEE, BILATERAL XR KNEE, RIGHT CLINICAL INFORMATION: Pain COMPARISON: 11/01/2021 TECHNIQUE: AP standing view of both knees. Lateral and sunrise views of the right knee. FINDINGS: Total right knee arthroplasty. The femoral component articulates appropriately with the tibial and patellar components. No periprosthetic lucency or fracture. Small joint effusion. The left knee is appropriately aligned. Moderate medial compartment joint space narrowing with marginal osteophytes of the medial and lateral compartments. Chondrocalcinosis noted. XR/XR knee RT 2V IMPRESSION: Total right knee arthroplasty in typical positioning and alignment.
--- NOTE | ~2021-11-21 | XR_ITS ---
EXAMINATION: XR KNEE, BILATERAL XR KNEE, RIGHT CLINICAL INFORMATION: Pain COMPARISON: 11/01/2021 TECHNIQUE: AP standing view of both knees. Lateral and sunrise views of the right knee. FINDINGS: Total right knee arthroplasty. The femoral component articulates appropriately with the tibial and patellar components. No periprosthetic lucency or fracture. Small joint effusion. The left knee is appropriately aligned. Moderate medial compartment joint space narrowing with marginal osteophytes of the medial and lateral compartments. Chondrocalcinosis noted. XR/XR knee standing BI IMPRESSION: Total right knee arthroplasty in typical positioning and alignment.
== END 2021-11-21 14:51 | disposition home or self-care (01) ==
LOC: HO.HOSX 14:50
PROVIDERS: Visit Provider Physician Assistant
DX: M25.561 Pain in right knee (principal); M25.562 Pain in left knee
CPT/HCPCS: 73560; 73565

== ENCOUNTER 2021-12-08 07:41 | Outpatient (REF) | payer MEDICARE, OTHER, SELFPAY ==
--- NOTE | ~2021-12-08 | XR_ITS ---
EXAMINATION: XR BOTH KNEES AP STANDING XR RIGHT KNEE, 2 VIEWS CLINICAL INFORMATION: Pain COMPARISON: Right knee radiographs dated 11/21/2021. TECHNIQUE: Standing AP view of both knees and lateral and sunrise views of the right knee. FINDINGS: Right knee: Total right knee arthroplasty in expected anatomic alignment. No hardware fracture. No perihardware lucency to suggest loosening or infection. No significant joint effusion. No osseous fracture. No abnormal soft tissue calcification. Left knee: Moderate medial compartment joint space narrowing. Medial and lateral compartment marginal osteophytes and chondrocalcinosis. No acute fracture or dislocation. No concerning lytic or blastic osseous lesion. XR/XR knee RT 2V IMPRESSION: Right knee: Total right knee arthroplasty without evidence of complication. Left knee: Medial and lateral compartment osteoarthritis with chondrocalcinosis, unchanged.
--- NOTE | ~2021-12-08 | XR_ITS ---
EXAMINATION: XR BOTH KNEES AP STANDING XR RIGHT KNEE, 2 VIEWS CLINICAL INFORMATION: Pain COMPARISON: Right knee radiographs dated 11/21/2021. TECHNIQUE: Standing AP view of both knees and lateral and sunrise views of the right knee. FINDINGS: Right knee: Total right knee arthroplasty in expected anatomic alignment. No hardware fracture. No perihardware lucency to suggest loosening or infection. No significant joint effusion. No osseous fracture. No abnormal soft tissue calcification. Left knee: Moderate medial compartment joint space narrowing. Medial and lateral compartment marginal osteophytes and chondrocalcinosis. No acute fracture or dislocation. No concerning lytic or blastic osseous lesion. XR/XR knee standing BI IMPRESSION: Right knee: Total right knee arthroplasty without evidence of complication. Left knee: Medial and lateral compartment osteoarthritis with chondrocalcinosis, unchanged.
== END 2021-12-08 07:42 | disposition home or self-care (01) ==
LOC: HO.HOSX 07:41
PROVIDERS: Visit Provider Physician Assistant
DX: M25.561 Pain in right knee (principal)
CPT/HCPCS: 73560; 73565

== ENCOUNTER → 2021-12-08 14:39 | Outpatient (BNVA) | payer MEDICARE, OTHER, SELFPAY | PROVIDERS: PCP Internal Medicine; Visit Provider Physician Assistant | DX: Z47.1 Aftercare following joint replacement surgery (principal); Z96.651 Presence of right artificial knee joint | CPT/HCPCS: 99212 ==

== ENCOUNTER → 2022-01-12 13:02 | Outpatient (BNVA) | payer MEDICARE, OTHER, SELFPAY | PROVIDERS: PCP Internal Medicine; Visit Provider Orthopaedic Surgery | DX: Z47.1 Aftercare following joint replacement surgery (principal); Z96.651 Presence of right artificial knee joint | CPT/HCPCS: 99212 ==

== ENCOUNTER → 2022-02-02 14:46 | Outpatient (BNVA) | payer MEDICARE, OTHER, SELFPAY | PROVIDERS: PCP Internal Medicine; Visit Provider Hospitalist | DX: J45.41 Moderate persistent asthma with (acute) exacerbation (principal); J40 Bronchitis, not specified as acute or chronic; R06.00 Dyspnea, unspecified | CPT/HCPCS: 99212 ==

== ENCOUNTER 2022-02-09 06:07 | Outpatient (REF) | payer MEDICARE, OTHER, SELFPAY ==
--- NOTE | ~2022-02-09 | XR_ITS ---
EXAMINATION: CR X-RAY KNEES BILATERAL AND 2 VIEWS OF THE RIGHT KNEE CLINICAL INFORMATION: Right knee pain. COMPARISON: 12/08/2021 right knee radiographs. TECHNIQUE: Bilateral standing AP views of the kidneys and lateral and axial views of the right knee were also obtained. FINDINGS: The patient is status post right knee arthroplasty showing good anatomic alignment and no evidence for hardware malfunction. There is no acute fracture. Mild to moderate left knee femoral-tibial degenerative joint changes are seen with mild chondrocalcinosis. There is no acute fracture. The soft tissues are unremarkable. XR/XR knee standing BI IMPRESSION: 1. No right knee hardware abnormality. No significant change. 2. Mild to moderate left knee degenerative joint changes.
--- NOTE | ~2022-02-09 | XR_ITS ---
EXAMINATION: CR X-RAY KNEES BILATERAL AND 2 VIEWS OF THE RIGHT KNEE CLINICAL INFORMATION: Right knee pain. COMPARISON: 12/08/2021 right knee radiographs. TECHNIQUE: Bilateral standing AP views of the kidneys and lateral and axial views of the right knee were also obtained. FINDINGS: The patient is status post right knee arthroplasty showing good anatomic alignment and no evidence for hardware malfunction. There is no acute fracture. Mild to moderate left knee femoral-tibial degenerative joint changes are seen with mild chondrocalcinosis. There is no acute fracture. The soft tissues are unremarkable. XR/XR knee RT 2V IMPRESSION: 1. No right knee hardware abnormality. No significant change. 2. Mild to moderate left knee degenerative joint changes.
== END 2022-02-09 06:08 | disposition home or self-care (01) ==
LOC: HO.HOSX 06:07
PROVIDERS: Visit Provider Physician Assistant
DX: M25.561 Pain in right knee (principal); M25.562 Pain in left knee; Z96.651 Presence of right artificial knee joint
CPT/HCPCS: 73560; 73565; 99212

== ENCOUNTER → 2022-08-16 13:19 | Outpatient (BNVA) | payer MEDICARE, OTHER, SELFPAY | PROVIDERS: PCP Internal Medicine; Visit Provider Nurse Practitioner Family | DX: J45.41 Moderate persistent asthma with (acute) exacerbation (principal); J40 Bronchitis, not specified as acute or chronic; Z86.711 Personal history of pulmonary embolism | CPT/HCPCS: 99212 ==

== ENCOUNTER 2022-12-01 09:48 | Outpatient (REF) | payer MEDICARE, OTHER, SELFPAY ==
--- NOTE | ~2022-12-01 | XR_ITS ---
EXAMINATION: Knee x-ray CLINICAL INFORMATION: Pain COMPARISON: Previous x-ray most recent from 2021 TECHNIQUE: 3 views of each knee FINDINGS: Right: There is a 3 component right knee replacement satisfactory position. No fracture or dislocation. There is a soft tissue ossification inferior to the patellar component. There is a small joint effusion. Left: Bone alignment is normal. No fracture or dislocation. Tricompartment arthritis and degenerative meniscal calcification. Small significant joint effusion. XR/XR knee LT 2V IMPRESSION: Right knee: Satisfactory appearance of right knee replacement Left knee: Severe arthritis.
--- NOTE | ~2022-12-01 | XR_ITS ---
EXAMINATION: Knee x-ray CLINICAL INFORMATION: Pain COMPARISON: Previous x-ray most recent from 2021 TECHNIQUE: 3 views of each knee FINDINGS: Right: There is a 3 component right knee replacement satisfactory position. No fracture or dislocation. There is a soft tissue ossification inferior to the patellar component. There is a small joint effusion. Left: Bone alignment is normal. No fracture or dislocation. Tricompartment arthritis and degenerative meniscal calcification. Small significant joint effusion. XR/XR knee standing BI IMPRESSION: Right knee: Satisfactory appearance of right knee replacement Left knee: Severe arthritis.
--- NOTE | ~2022-12-01 | XR_ITS ---
EXAMINATION: Knee x-ray CLINICAL INFORMATION: Pain COMPARISON: Previous x-ray most recent from 2021 TECHNIQUE: 3 views of each knee FINDINGS: Right: There is a 3 component right knee replacement satisfactory position. No fracture or dislocation. There is a soft tissue ossification inferior to the patellar component. There is a small joint effusion. Left: Bone alignment is normal. No fracture or dislocation. Tricompartment arthritis and degenerative meniscal calcification. Small significant joint effusion. XR/XR knee RT 2V IMPRESSION: Right knee: Satisfactory appearance of right knee replacement Left knee: Severe arthritis.
== END 2022-12-01 09:49 | disposition home or self-care (01) ==
LOC: HO.HOSX 09:48
PROVIDERS: Visit Provider Orthopaedic Surgery
DX: M17.12 Unilateral primary osteoarthritis, left knee (principal); Z96.651 Presence of right artificial knee joint
CPT/HCPCS: 20610; 73560; 73565; 99212; J1100

== ENCOUNTER 2022-12-01 11:16 | Outpatient (AMB) | payer MEDICARE, OTHER, SELFPAY ==
--- NOTE | 2022-12-01 11:49 | A.OFFVIS_ITS ---
Intake Vital Signs 12/01/22 11:50 Height 5 ft 3 in Weight 190 lb BMI 33.7 Intake Visit Reasons: OV-B/L knee pain Intake Note: Erika is a 72 year old female who presents today with new concerns of left knee pain. Hx of Right TKA 11/01/21. Patient reports that the right knee is feeling worse than it did prior to surgery. The left knee is feeling quite painful she knows that she will need a TKA but she is hoping to get an injetion today. Allergies No Known Allergies Allergy (Verified 08/16/22 13:28) HPI OV-B/L knee pain HPI Details Erika is a 72 year old woman who presents with complaints of bilateral knee pain. She is 13 months S/P right TKA. She says her right knee feels occasionally painful to go up and down stairs. otherwise no complaints.. She has good ROM but feels limited with climbing activities. She says descending stairs is particularly painful and difficult for her. She has worsening pain in her left knee as well and would like to get an injection today if possible prior to her vacation. She is active and walks on vacation a lot. FOR[facility]LY [facility] Medical History Arthritis Asthma Dyspnea (~02/02/22) Hearing loss Hereditary hemochromatosis History of blood clots Hypercholesterolemia Prediabetes Pulmonary emboli Surgical History Hx of colonoscopy Social History Household Members: Spouse Housing: House Are you a primary patient care coordinator to a significant other at home: No Do you presently have visiting nurse or other home services: No Alcohol intake: current Alcohol intake frequency: a few times a week Patient Tobacco Use Status: Never used Tobacco service: No Current occupational status: retired Current occupation: right handed Review of Systems Const All systems reviewed & are unremarkable except as noted in HPI and below Physical Exam Vital Signs: BMI result Body Mass Index 33.7 Const General: no acute distress, alert and awake Orientation/consciousness: patient oriented x3 HEENT Head: Yes normocephalic and Yes atraumatic Eyes EOM: EOMs intact bilaterally Resp Effort & Inspection: normal respiratory effort and able to speak in complete sentences Cardio Jugular venous distension: no JVD Skin General skin exam: turgor normal Rashes: no rashes Neuro General: patient oriented x3 Extrem Other: Right Knee: Well-healed incision. 0-130 deg motion. stable to v/v stress Left Knee: TTP medial compartment. 5-125 deg motion Psych Appearance: grossly normal Affect: normal affect Attitude: cooperative Office Procedures Joint Injection/Drain Joint Injection/Drain Details: Injected 1 mL of Decadron and 3 mL 1% lidocaine and 3 mL of 0.25% Marcaine. Site was prepped using aseptic technique. Patient tolerated the procedure well. Primary Site: left knee Approach Used: anterolateral Coding 48409 - Large joint Procedure code (CPT) selection complete Results Reviewed Results Reviewed: 12/01/22 12:17 BUPivacaine MPF 0.25 % [Sensorcaine-MPF 0.25% 10 ML] 10 ml .ROUTE .STK-MED ONE Lidocaine HCl 2 % MPF [Xylocaine 2 % MPF] 5 ml .ROUTE .STK-MED ONE 12/01/22 12:18 dexAMETHasone sod phosphate [Decadron] 4 mg .ROUTE .STK-MED ONE I personally reviewed relevant radiographs. Right total knee arthroplasty in expected post operative position with no hardware complications or evidence of loosening Moderate left knee osteoarthritis Assessment & Plan Assessment & Plan (1) History of total right knee replacement: Comment: 11/01/21 Code(s): Z96.651 - Presence of right artificial knee joint Plan: This is a 72 year old woman with ongoing right knee pain, S/P right TKA, DOS: 11/01/21. She has discomfort descending stairs or standing from a seated position.I ordered PT for strengthening and stabilization. (2) Osteoarthritis of left knee: Code(s): M17.12 - Unilateral primary osteoarthritis, left knee Plan: Moderate-severe left knee OA. Injected today, which she tolerated well. Plan Scribed for Ayad Nelson MD by Ned House medical office asst, on 12/01/22 at 12:10 PM, EST. Orders: Orders XR knee LT 2V 12/01/22 M25.569 - Pain in unspecified knee XR knee RT 2V 12/01/22 M25.569 - Pain in unspecified knee XR knee standing BI 12/01/22 M25.569 - Pain in unspecified knee Coding Level of Care Code Est Pt Level 4 (26609) Diagnoses History of total right knee replacement Z96.651 Osteoarthritis of left knee M17.12 CPT Codes Coding - 41139 Large joint: 74025 - Large joint ([id number])
[2022-12-01 11:50] VITALS: BMI 33.7
== END 2022-12-01 13:37 | disposition home or self-care (01) ==
PROVIDERS: PCP Internal Medicine; Visit Provider Orthopaedic Surgery
DX: M17.12 Unilateral primary osteoarthritis, left knee (principal); Z96.651 Presence of right artificial knee joint
CPT/HCPCS: 20610; 99214

== ENCOUNTER 2023-04-11 09:41 | Outpatient (AMB) | payer MEDICARE, OTHER, SELFPAY ==
--- NOTE | 2023-04-11 09:51 | MHC.OFFVIS ---
Intake Vital Signs 04/11/23 09:52 Height 5 ft 3 in Weight 212 lb BMI 37.6 Pulse 76 Pulse Source Pulse Oximeter Pulse Oximetry (%) 95 Oxygen Delivery Method Room Air Intake Visit Reasons: Asthma Customer Service Rep Required: No Allergies No Known Allergies Allergy (Verified 04/11/23 09:54) HPI HPI Comments History of Present Illness Details The patient is a 72-year-old woman with a known history of asthma in addition to pulmonary emboli. the patient states that back in 2017 she was becoming progressively short of breath. She had an abnormal D-dimer initially referred to the hospital where she had a CTA. She actually had extensive bilateral pulmonary emboli. We personally reviewed the CT scan in the office. She did have central emboli with significant clot burden and a dilated right ventricle along with a dilated pulmonary trunk. the patient was placed on anticoagulation and did not require lysis. Ultimately her echocardiogram normalized and she did follow-up with cardiology. Based on the description it appears that she has an unprovoked pulmonary emboli putting her at risk for additional clots. After an extensive evaluation and management it was decided to take her off anticoagulation. She has done well ever since. Has not had any evidence of any recurrence. Now however she is developing increasing shortness of breath again. Denies any chest pains. Denies any leg swellings. She did have a lower extremity Doppler about a year ago that did demonstrate she had a left Ernst cyst but no evidence of any blood clots. She continues to use her respiratory therapy which includes Symbicort in addition to Xopenex. apparently she had gone to the ER at some point and they did prescribe her Advair but she has not used it. She also uses her allergy medications. 01/13/2021 the patient is here for a pulmonary follow-up visit. The patient continues to have some dyspnea on exertion. She is also describes chest discomfort. At this moment she does not have any chest discomfort. She did undergo blood work recently demonstrating an elevated D-dimer. With a history of blood clots in the elevated D-dimer she needs to have a repeat CT scan of the chest PE protocol. We will request 1 as soon as possible. In the meantime she continues to use Symbicort with good effect. She has not had to use her rescue inhaler at this time. We also reviewed her pulmonary function studies demonstrating normal diffusing capacity was issue reassuring in addition to that no obstructive nor restrictive ventilatory defects. 03/01/2021 the patient is here for a pulmonary follow-up visit. Since we last spoke the patient has been doing better. She has been using her respiratory inhalers with good response. Due to the fact that she had an elevated D-dimer she did undergo a CTA. No evidence of any blood clots which is reassuring and her lung parenchyma appear to be normal without any evidence of any interstitial lung disease. However she did have some degree of atelectasis at the bases. She does have some slight elevations of the diaphragm particularly the right 1 due to increased abdominal pressures. We did review her pulmonary function studies with no definitive obstructive nor restrictive ventilatory defects and a normal diffusing capacity. Her forced vital capacity was decreased and also her expiratory reserve volume. Overall the patient has been doing well at this point will continue with current therapy. will plan to continue current respiratory therapy until we follow-up in the fall of 2021. If she has any issues prior to that she needs to call the office for an earlier evaluation. 02/02/2022 the patient is here for a pulmonary follow-up visit. The patient had been doing very well until recently when she developed COVID-19. the patient did take her antiviral medicine. She tolerated for the 5 days except for the medical taste in her mouth. Subsequently after that he started developing a cough chest congestion with yellow sputum. Moderate severity. She has been using her rescue inhaler more often. On examination she does have increased rhonchi and wheezing. Patient definitely has postviral bacterial bronchitis along with bronchospasms. She does not have a nebulizer right now home. If her symptoms do not improve she is to call the office and at that point nebulized the will be helpful. In the meantime she is going to continue with rescue inhaler send her a Medrol pack in some doxycycline. 04/11/2023 the patient is here for a pulmonary follow-up visit. Overall the patient complains of a cough. The cough is moderate severe. Typically nonproductive but sometimes she does expectorate some. Not like her bronchitis. She has been using Symbicort. Symbicort does not seem to work in all the way and now is not covered by insurance. Which will further optimize respiratory therapy at this time. She is also looking to having total knee replacement so will optimize respiratory therapy in order for to tolerated surgery well. Will go ahead and start her on Trelegy 200. We did teach how to use it. In the meantime she did have a chest x-ray back from 2021 will have the repeat her x-ray. The patient also will continue with her rescue inhaler and her Singulair. Once the patient recovers from her surgery and rehabilitation she will return with perform PFTs at that time. [facility] Medical History (Updated 04/11/23 @ 12:24 by Adebayo Quinonez MD) Chronic cough Hearing loss Arthritis Prediabetes Hereditary hemochromatosis Hypercholesterolemia Asthma Pulmonary emboli Dyspnea (~02/02/22) History of blood clots Surgical History (Updated 12/01/22 @ 11:58 by Ned House) Hx of colonoscopy Social History Household Members: Spouse Housing: House Are you a primary health care analyst to a significant other at home: No Do you presently have visiting nurse or other home services: No Alcohol intake: current Alcohol intake frequency: a few times a week Patient Tobacco Use Status: Never used Tobacco service: No Current occupational status: retired Current occupation: right handed Review of Systems Const Denies night sweats ENT Denies change in voice, Denies lip swelling, Denies mouth pain, Reports nasal congestion, Reports nasal discharge and Denies tongue swelling Card Denies chest pain and Reports dyspnea on exertion Resp Denies change in phlegm color, Denies chest congestion, Reports cough, Reports dyspnea on exertion and Reports wheezing GI Denies abdominal pain Musc Denies no additional complaints Neuro Denies Neuro-related abnormal movements Psych Denies no additional complaints Bandar/Lymph Denies easy bleeding and Denies lymphadenopathy Aller/Immun Denies lip swelling, Denies tongue swelling and Reports wheezing Physical Exam Vital Signs: Last Vital Signs Pulse 76 04/11/23 09:52 Pulse Ox 95 04/11/23 09:52 Oxygen Delivery Method Room Air 04/11/23 09:52 BMI result Body Mass Index 37.6 Const General: alert Neck Neck: Yes normal visual inspection, Yes full ROM and Yes no lymphadenopathy Chest Chest palpation & inspection: normal inspection of the chest Resp Effort & Inspection: prolonged expiratory phase Auscultation: no rhonchi, no wheezes and diminished lung sounds Cardio Rate: regular rate Rhythm: regular rhythm Heart sounds: S1 normal heart sound present and S2 normal heart sound present GI Palpation (GI): Soft to palpation and nontender Auscultation: normal bowel sounds Skin General skin exam: rashes and/or lesions noted Assessment & Plan Assessment & Plan (1) Asthma: Code(s): J45.909 - Unspecified asthma, uncomplicated Qualifiers: Asthma complication type: with acute exacerbation Asthma persistence: persistent Asthma severity: moderate Qualified Code(s): J45.41 - Moderate persistent asthma with (acute) exacerbation (2) Dyspnea: Onset Date: ~02/02/22 Code(s): R06.00 - Dyspnea, unspecified Qualifiers: Dyspnea type: dyspnea on exertion Qualified Code(s): R06.09 - Other forms of dyspnea (3) Chronic cough: Code(s): R05.3 - Chronic cough (4) Pre-op chest exam: Code(s): Z01.811 - Encounter for preprocedural respiratory examination Plan The patient is being evaluated for an orthopedic surgery. Patient does have history of asthma and will go ahead and further optimize her asthma therapy. She does have a chronic cough likely from cough variant asthma. at this point the patient may able to proceed with anesthesia and surgery. the patient does have increased risk for perioperative pulmonary complications which includes bronchospasms, atelectasis, hypoxia and pneumonia. Please provide bronchodilator therapy pre and post surgery as needed. Early mobilization is dyer. stop Symbicort start Trelegy 200 Xopenex as needed Continue Singulair in addition to antihistamine therapy PFTs prior to the next visit CXR Follow up 5-6 months Orders: Orders PFT pulmonary function test 4 Months J45.41 - Moderate persistent asthma with (acute) exacerbation XR chest 2V Today J45.41 - Moderate persistent asthma with (acute) exacerbation Medications: New umeclidinium 62.5 mcg/actuation (Incruse Ellipta) 1 inh inhalation DAILY 30 ea 11RF 30 days J45.909 - Unspecified asthma, uncomplicated atxpushasyv-iampzsbks-nnklqgrp 200-62.5-25 mcg (Trelegy Ellipta) 1 inh inhalation DAILY 60 ea 12RF 30 days benzonatate 200 mg PO BID PRN 30 caps 6RF cough 30 days R05.3 - Chronic cough Coding Level of Care Code Est Pt Level 4 (94893) Diagnoses Moderate persistent asthma with acute exacerbation J45.41 Asthma complication type: with acute exacerbation Asthma persistence: persistent Asthma severity: moderate Dyspnea on exertion R06.09 Dyspnea type: dyspnea on exertion Chronic cough R05.3 Pre-op chest exam Z01.811 Time Spent (min) 17
[2023-04-11 09:52] VITALS: PULSE 76; O2SAT 95; BMI 37.6
== END 2023-04-11 10:19 | disposition home or self-care (01) ==
PROVIDERS: PCP Student in an Organized Health Care Education/Training Program; Visit Provider Hospitalist
DX: J45.41 Moderate persistent asthma with (acute) exacerbation (principal); R06.09 Other forms of dyspnea; R05.3 Chronic cough; Z01.811 Encounter for preprocedural respiratory examination
CPT/HCPCS: 99214

== ENCOUNTER → 2023-04-11 09:41 | Outpatient (BNVA) | payer MEDICARE, OTHER, SELFPAY | PROVIDERS: PCP Internal Medicine; Visit Provider Hospitalist | DX: Z01.811 Encounter for preprocedural respiratory examination (principal); J45.41 Moderate persistent asthma with (acute) exacerbation; R06.09 Other forms of dyspnea; R05.3 Chronic cough | CPT/HCPCS: 99212 ==

== ENCOUNTER 2023-04-19 07:49 | Outpatient (REF) | payer MEDICARE, OTHER, SELFPAY ==
--- NOTE | ~2023-04-19 | XR_ITS ---
EXAMINATION: XR CHEST 2 VIEWS CLINICAL INFORMATION: Acute asthma exacerbation.. COMPARISON: None. TECHNIQUE: Frontal and lateral views of the chest were obtained. FINDINGS: The heart, great vessels, pulmonary vasculature and mediastinum are normal. The lungs show no focal infiltrate, effusion or pneumothorax. There is no acute osseous abnormality. XR/XR chest 2V IMPRESSION: No active cardiopulmonary disease.
--- NOTE | ~2023-04-19 | XR_ITS ---
EXAMINATION: Left knee x-ray. Right knee x-ray. Upright x-rays of bilateral knees. INDICATION: Status post total knee arthroplasty, knee pain. COMPARISON: Bilateral knee x-rays on 02/09/2022. TECHNIQUE: Upright Frontal, lateral and sunrise view X-rays of right and left knees. Frontal upright x-rays of right and left knees. FINDINGS: BONES: Bony structures are intact. Left medial and lateral femoral condyles, right medial tibial plateau osteophytes are present. Prominent sharp osteophytes are seen in left patellar articular border and distal left femoral articular trochlea. There is no focal bone destruction or periosteal reaction seen. JOINTS: There is normal alignment of right total knee arthroplasty prostheses with patellar resurfacing. SOFT TISSUE: Soft tissue is normal. No abnormal air collection is seen. XR/XR knee LT 2V IMPRESSION: 1. Unchanged advanced left medial compartment tibiofemoral joint and patellofemoral joint osteoarthritis. 2. Unchanged Normal alignment of right total knee arthroplasty prostheses.
--- NOTE | ~2023-04-19 | XR_ITS ---
EXAMINATION: Left knee x-ray. Right knee x-ray. Upright x-rays of bilateral knees. INDICATION: Status post total knee arthroplasty, knee pain. COMPARISON: Bilateral knee x-rays on 02/09/2022. TECHNIQUE: Upright Frontal, lateral and sunrise view X-rays of right and left knees. Frontal upright x-rays of right and left knees. FINDINGS: BONES: Bony structures are intact. Left medial and lateral femoral condyles, right medial tibial plateau osteophytes are present. Prominent sharp osteophytes are seen in left patellar articular border and distal left femoral articular trochlea. There is no focal bone destruction or periosteal reaction seen. JOINTS: There is normal alignment of right total knee arthroplasty prostheses with patellar resurfacing. SOFT TISSUE: Soft tissue is normal. No abnormal air collection is seen. XR/XR knee RT 2V IMPRESSION: 1. Unchanged advanced left medial compartment tibiofemoral joint and patellofemoral joint osteoarthritis. 2. Unchanged Normal alignment of right total knee arthroplasty prostheses.
--- NOTE | ~2023-04-19 | XR_ITS ---
EXAMINATION: Left knee x-ray. Right knee x-ray. Upright x-rays of bilateral knees. INDICATION: Status post total knee arthroplasty, knee pain. COMPARISON: Bilateral knee x-rays on 02/09/2022. TECHNIQUE: Upright Frontal, lateral and sunrise view X-rays of right and left knees. Frontal upright x-rays of right and left knees. FINDINGS: BONES: Bony structures are intact. Left medial and lateral femoral condyles, right medial tibial plateau osteophytes are present. Prominent sharp osteophytes are seen in left patellar articular border and distal left femoral articular trochlea. There is no focal bone destruction or periosteal reaction seen. JOINTS: There is normal alignment of right total knee arthroplasty prostheses with patellar resurfacing. SOFT TISSUE: Soft tissue is normal. No abnormal air collection is seen. XR/XR knee standing BI IMPRESSION: 1. Unchanged advanced left medial compartment tibiofemoral joint and patellofemoral joint osteoarthritis. 2. Unchanged Normal alignment of right total knee arthroplasty prostheses.
== END 2023-04-19 07:50 | disposition home or self-care (01) ==
LOC: HO.HOSX 07:49
PROVIDERS: Absent Provider Hospitalist; PCP Student in an Organized Health Care Education/Training Program; Visit Provider Orthopaedic Surgery
DX: M25.562 Pain in left knee (principal); M17.12 Unilateral primary osteoarthritis, left knee; J45.41 Moderate persistent asthma with (acute) exacerbation; Z96.651 Presence of right artificial knee joint
CPT/HCPCS: 71046; 73560; 73565; 99212

== ENCOUNTER 2023-04-19 09:13 | Outpatient (AMB) | payer MEDICARE, OTHER, SELFPAY ==
--- NOTE | 2023-04-19 09:16 | MHC.OFFVIS ---
Intake Vital Signs 04/19/23 09:28 Height 5 ft 3 in Weight 218 lb BMI 38.6 Intake Visit Reasons: OV-B/L knee pain Intake Note: Erika is a 72 year old female who presents today with new concerns of left knee pain. Hx of Right TKA 11/01/21. Last injected on 12/01/22. X rays updated in the office today. She would like to discuss surgery. Allergies No Known Allergies Allergy (Verified 04/19/23 09:29) Medication List - Last Reconciled 04/19/23 by Chinyere Gaming RN acetaminophen 650 mg (2 x 325 mg) PO Q6H PRN 30 days aspirin (Adult Low Dose Aspirin) 81 mg PO DAILY benzonatate 200 mg PO BID PRN 30 days cholecalciferol (vitamin D3) 25 mcg PO DAILY docusate sodium 100 mg PO BID 30 days esomeprazole magnesium 20 mg PO DAILY fexofenadine (Humera Allergy) 60 mg PO BID mrwbpmagizg-aopiqqlvk-sonnyneo 200-62.5-25 mcg (Trelegy Ellipta) 1 inh inhalation DAILY 30 days inhalational spacing device As directed levalbuterol tartrate 45 mcg/actuation 2 puffs inhalation DAILY montelukast 10 mg PO DAILY umeclidinium 62.5 mcg/actuation (Incruse Ellipta) 1 inh inhalation DAILY 30 days HPI OV-B/L knee pain HPI Details Erika is a 72 year old woman who returns to discuss her left knee OA. She continues to complain of pain with daily activity, and feels limited in her ADLs. She had some relief from her last injection on 12/01/22, prior to leaving on vacation, but she would like to discuss surgery at this time. She is S/P right TKA, DOS: 11/01/21, and says this went well for her. Can't exercise because of her left knee. Can't walk more than 10 minutes. Having breathing difficulty due to wheezing. Recently changed asthma medication. [facility]LY [facility] Medical History (Updated 04/11/23 @ 12:24 by Adebayo Quinonez MD) Chronic cough Hearing loss Arthritis Prediabetes Hereditary hemochromatosis Hypercholesterolemia Asthma Pulmonary emboli Dyspnea (~02/02/22) History of blood clots Surgical History (Updated 12/01/22 @ 11:58 by Ned House) Hx of colonoscopy Social History Household Members: Spouse Housing: House Are you a primary laboratory animal caretaker to a significant other at home: No Do you presently have visiting nurse or other home services: No Alcohol intake: current Alcohol intake frequency: a few times a week Patient Tobacco Use Status: Never used Tobacco service: No Current occupational status: retired Current occupation: right handed Review of Systems Const All systems reviewed & are unremarkable except as noted in HPI and below Physical Exam Vital Signs: BMI result Body Mass Index 38.6 Const General: no acute distress, alert and awake Orientation/consciousness: patient oriented x3 HEENT Head: Yes normocephalic and Yes atraumatic Eyes EOM: EOMs intact bilaterally Resp Effort & Inspection: normal respiratory effort and able to speak in complete sentences Cardio Jugular venous distension: no JVD Skin General skin exam: turgor normal Rashes: no rashes Neuro General: patient oriented x3 Extrem Other: Left knee 0-130 TTP medial joint line + gait antalgia Psych Appearance: grossly normal Affect: normal affect Attitude: cooperative Results Reviewed Results Reviewed: I personally reviewed relevant radiographs. Right total knee arthroplasty in expected post operative position with no hardware complications or evidence of loosening Left knee medial compartment OA Assessment & Plan Assessment & Plan (1) Osteoarthritis of left knee: Code(s): M17.12 - Unilateral primary osteoarthritis, left knee Plan: Injections failing to be helpful. Right knee doing well after right right TKA. Feels that her QOL is diminished with her left knee and would like to proceed forward with arthroplasty. She understands the process as she had a right TKA < 2 years ago. I discussed the risks benefits and alternatives including but not limited to the risk of pain, infection, stiffness, need for further surgery as well as potential medical complications such as blood clots, pulmonary embolism and cardiac complications. She expressed understanding. (2) History of total right knee replacement: Comment: 11/01/21 Code(s): Z96.651 - Presence of right artificial knee joint Plan Prepared for Ayad Nelson MD by Ned House, medical office assistant instructor, on 04/19/23 at 9:28 AM, EST. Orders: Orders XR knee LT 2V Today M25.569 - Pain in unspecified knee XR knee standing BI Today M25.569 - Pain in unspecified knee XR knee RT 2V Today M25.569 - Pain in unspecified knee Coding Level of Care Code Est Pt Level 4 (36987) Diagnoses Osteoarthritis of left knee M17.12 History of total right knee replacement Z96.651
[2023-04-19 09:28] VITALS: BMI 38.6
== END 2023-04-19 09:54 | disposition home or self-care (01) ==
PROVIDERS: PCP Student in an Organized Health Care Education/Training Program; Visit Provider Orthopaedic Surgery
DX: M17.12 Unilateral primary osteoarthritis, left knee (principal); Z96.651 Presence of right artificial knee joint
CPT/HCPCS: 99214

== ENCOUNTER 2023-05-17 10:01 | Outpatient (AMB) | payer MEDICARE, OTHER, SELFPAY ==
--- NOTE | 2023-05-17 10:06 | MHC.OFFVIS ---
Intake Intake Visit Reasons: Pre Op LT TKA 05/23/23 NE Intake Note: Erika is a 72 year old female who presents today for a pre op appointment for her LT TKA 05/23/23 NE. Allergies No Known Allergies Allergy (Verified 05/17/23 10:08) HPI Pre Op LT TKA 05/23/23 NE HPI Details 72-year-old right hand dominant female who presents in the office today for her preoperative history and physical exam prior to a left total knee arthroplasty to be performed on 05/23/[address] Ayad Nelson. Patient has no known allergy history. Patient is currently taking, as follows: -Acetaminophen 650 mg PO Q6H PRN -Aspirin 81 mg PO Daily -Benzonatate 200 mg PO BID PRN -Cholecalciferol 25 mcg PO Daily -Cyanocobalamin 2,500 mcg sublingual Daily -Docusate sodium 100 mg PO BID PRN -Vzcuzegdvhy-jjpurkxbf-lnkztqaf 200-62.5-25 mcg 1 inhalation Daily -Levalbuterol tartrate 45 mcg/actuation 2 puffs inhalation Daily PRN -Loratadine 10 mg PO Daily -Montelukast 10 mg PO Daily -Umeclidinium 62.5 mcg/actuation 1 inhalation Daily Patient has a medical history, as follows: -Hearing loss -Prediabetes -Hereditary hemochromatosis -Hypercholesterolemia -Asthma -Pulmonary emboli; was on warfarin for 6 months in 2016. -Dyspnea Patient has a surgical history, as follows: -History of total right knee replacement (TKR) 10/2021 -Hx of colonoscopy 2012 [facility] Medical History (Updated 05/16/23 @ 12:02 by Lolis Womack RN) Personal history of COVID-19 (~12/2021) Chronic cough Hearing loss Arthritis Prediabetes Hereditary hemochromatosis Hypercholesterolemia Asthma Pulmonary emboli Dyspnea (~02/02/22) History of blood clots Surgical History (Updated 05/17/23 @ 10:34 by Bianca Victoria PA-C) History of total right knee replacement (TKR) (~10/2021) Hx of colonoscopy Social History (Updated 05/16/23 @ 12:02 by Lolis Womack RN) Household Members: Spouse Housing: House Are you a primary after school caregiver to a significant other at home: No Do you presently have visiting nurse or other home services: No 75 years or older and lives alone: No Alcohol intake: current Alcohol intake frequency: a few times a week Comment: aware of trip hazard Patient Tobacco Use Status: Never used Tobacco Use of substances other than those prescribed or required for medical reasons: No service: No Current occupational status: retired Current occupation: right handed Review of Systems Const All systems reviewed & are unremarkable except as noted in HPI and below Physical Exam Const General: cooperative, healthy appearing, comfortable, no acute distress, well developed, alert and awake Orientation/consciousness: patient oriented x3 HEENT Head: Yes normal to inspection, Yes normocephalic and Yes atraumatic Eyes General: appearance normal, both eyes and all related structures EOM: EOMs intact bilaterally Neck Neck: Yes normal visual inspection and Yes no lymphadenopathy Resp Effort & Inspection: normal respiratory effort and able to speak in complete sentences Cardio Jugular venous distension: no JVD Rate: regular rate Peripheral pulses: Peripheral pulses 2+ throughout GI Inspection: Yes normal to inspection Palpation (GI): Soft to palpation Skin General skin exam: no rashes or lesions noted Rashes: no rashes Neuro General: patient oriented x3 Extrem Other: Left knee 0-130 TTP medial joint line + gait antalgia Psych Appearance: grossly normal Mental Status: mental status grossly normal Affect: normal affect Attitude: cooperative Assessment & Plan Assessment & Plan (1) Osteoarthritis of left knee: Code(s): M17.12 - Unilateral primary osteoarthritis, left knee Plan Ms. Harry Hough is a 72-year-old right hand dominant female who presents in the office today for her preoperative history and physical exam prior to a left total knee arthroplasty to be performed on 05/23/[address] Ayad Nelson. Patient has no known allergy history. Patient is currently taking, as follows: -Acetaminophen 650 mg PO Q6H PRN -Aspirin 81 mg PO Daily -Benzonatate 200 mg PO BID PRN -Cholecalciferol 25 mcg PO Daily -Cyanocobalamin 2,500 mcg sublingual Daily -Docusate sodium 100 mg PO BID PRN -Wyqxwwklxam-bmsqcrsmt-uvupwfbl 200-62.5-25 mcg 1 inhalation Daily -Levalbuterol tartrate 45 mcg/actuation 2 puffs inhalation Daily PRN -Loratadine 10 mg PO Daily -Montelukast 10 mg PO Daily -Umeclidinium 62.5 mcg/actuation 1 inhalation Daily Patient has a medical history, as follows: -Hearing loss -Prediabetes -Hereditary hemochromatosis -Hypercholesterolemia -Asthma -Pulmonary emboli; was on warfarin for 6 months in 2017. -Dyspnea Patient has a surgical history, as follows: -History of total right knee replacement (TKR) 10/2021 -Hx of colonoscopy 2012 I discussed in detail the procedure and what to expect pre and post operatively. We discussed the risks, benefits and alternatives to the surgery as well as the rehabilitation course. The risks; which include, but are not limited to infection, bleeding, nerve injury, ongoing pain, swelling, and stiffness, perioperative risk of injury to bones and soft tissues, and blood clots. I have answered all questions and with their understanding they have consented to move forward with a left total knee arthroplasty to be performed on 05/23/[address] Ayad Nelson. Patient states she intend to go home after surgery. She wished to attend physical therpay at [facility] in [facility] A paper prescription was supplied to the patient in office today. She was instructed to schedule the PT around 3 weeks postop to allow for 2 weeks of at home therapy. Follow up will be at the post operative appointment on 06/07/2023 at 12:30 pm, or sooner if needed. Of note: Recommend Lovenox injections post operative due to history of PE and use status post the right total knee arthroplasty. Please call , Tyrese, after surgery. Orders: Orders PT Evaluation and Treatment Today Z96.652 - Presence of left artificial knee joint Patient Instructions: Scribed by Eun Archer certified medical aide, for Bianca Victoria PA-C on 05/17/2023 at 10:16 am, EST. Coding Level of Care Code Global (35287) Diagnoses Osteoarthritis of left knee M17.12
== END 2023-05-17 10:40 | disposition home or self-care (01) ==
PROVIDERS: PCP Student in an Organized Health Care Education/Training Program; Visit Provider Physician Assistant
DX: M17.12 Unilateral primary osteoarthritis, left knee (principal)
CPT/HCPCS: 99024

== ENCOUNTER → 2023-05-17 10:01 | Outpatient (BNVA) | payer MEDICARE, OTHER, SELFPAY | PROVIDERS: PCP Student in an Organized Health Care Education/Training Program; Visit Provider Physician Assistant | DX: M17.12 Unilateral primary osteoarthritis, left knee (principal) | CPT/HCPCS: 99212 ==

== ENCOUNTER 2023-05-23 08:56 | Inpatient (IN) | payer MEDICARE, OTHER, SELFPAY ==
[2023-05-16 11:44] VITALS: BP 147/92; PULSE 82; RESP 16; O2SAT 95; BMI 38.6
--- NOTE | 2023-05-16 12:07 | HO.ANESPROP2 ---
Documented by User: Ese Snyder NP 05/16/23 12:16 HPI - Anesthesia Eval Consult details Narrative: 72yo F for Left Knee Replacement Total PCP Pulmo cleared. Follows asthma. Chronic cough post-covid. No CP. Mild ABRAHAM (improving with new pulmo regimine. Daily albuterol) s/p Right TKA 2021 with spinal/block Hx PE 2016. No anticoag now. PMFSH Active Problems Active Problems: All Active Problems (Updated 05/16/23 @ 12:02 by Lolis Womack RN) Pre-op chest exam (Acute) Right knee pain (Acute) History of total right knee replacement (Acute) Osteoarthritis of left knee (Acute) Bronchitis (Acute) Status post total right knee replacement (Acute) Blood D-dimer assay positive (Acute) Primary osteoarthritis of right knee (Acute) Osteoarthritis of left hip (Acute) Chronic cough (Acute) Asthma (Acute) Pulmonary emboli (Acute) Dyspnea (Acute ~02/02/22) Past Medical History Medical History Personal history of COVID-19 (~12/2021) Chronic cough Hearing loss Arthritis Prediabetes Hereditary hemochromatosis Hypercholesterolemia Asthma Pulmonary emboli Dyspnea (~02/02/22) History of blood clots Family History Family history of problems with anesthesia: No Surgical History Surgical History History of total right knee replacement (TKR) (~10/2021) Hx of colonoscopy History of Problems with Anesthesia: No Social History Social History Household Members: Spouse Housing: House Are you a primary child care education coordinator to a significant other at home: No Do you presently have visiting nurse or other home services: No Alcohol intake: current Alcohol intake frequency: a few times a week Comment: aware of trip hazard Patient Tobacco Use Status: Never used Tobacco Use of substances other than those prescribed or required for medical reasons: No Have you been hit, kicked, punched, or otherwise hurt by someone within the past year? If so, by whom?: No Are you DNR?: No Advance Directives: No Advance Directives on File: No Recently lost weight without trying: No Nutrition Risks: No Nutritional Risk service: No Current occupational status: retired Current occupation: right handed Meds Allergies Allergy/AdvReac Type Severity Reaction Status Date / Time No Known Allergies Allergy Verified 05/17/23 10:08 Home Medications Medication Instructions Recorded Confirmed Last Taken Type inhalational spacing device #1 ea 09/02/20 04/19/23 Unknown History montelukast 10 mg tablet 10 mg PO DAILY 09/02/20 05/15/23 05/19/23 History cholecalciferol (vitamin D3) 25 25 mcg PO DAILY 12/24/20 05/15/23 05/19/23 History mcg (1,000 unit) capsule aspirin 81 mg tablet,delayed 81 mg PO DAILY 04/19/23 05/15/23 05/15/23 History release (Adult Low Dose Aspirin) cyanocobalamin (vitamin B-12) 2,500 mcg sublingual DAILY 05/15/23 05/15/23 05/19/23 History 2,500 mcg sublingual tablet (Vitamin B-12) docusate sodium 100 mg capsule 100 mg PO BID PRN Constipation 05/15/23 05/15/23 05/19/23 History levalbuterol tartrate 45 2 puff inhalation DAILY PRN 05/15/23 05/15/23 05/23/23 History mcg/actuation aerosol inhaler Shortness Of Breath Or Wheezing loratadine 10 mg tablet 10 mg PO DAILY 05/16/23 05/16/23 05/23/23 History Exam Height,Weight and Vital Signs: Height 5 ft 3 in Weight 98.9 kg Last Vital Signs Pulse 82 05/16/23 11:44 Resp 16 05/16/23 11:44 BP 147/92 H 05/16/23 11:44 Pulse Ox 95 05/16/23 11:44 Airway Mallampati Class: II TM Dist: >3cm Neck ROM: Full Loose/Missing/Broken Teeth: Yes (2 x molars pulled, crowns in molars) Heart: RRR Lungs: CTAB Assessment and Plan Assessment Anesthesia Assessment: Anesthesia Plan Discussed and PAT Visit Final Anesthetic Review Family History of Problems with Anesthesia: No History of Problems with Anesthesia: No Documented by User: Aide Evans MD 05/23/23 10:44 [facility] Past Medical History Medical History Personal history of COVID-19 (~12/2021) Chronic cough Hearing loss Arthritis Prediabetes Hereditary hemochromatosis Hypercholesterolemia Asthma Pulmonary emboli Dyspnea (~02/02/22) History of blood clots Surgical History Surgical History History of total right knee replacement (TKR) (~10/2021) Hx of colonoscopy Social History Social History Household Members: Spouse Housing: House Are you a primary child care education coordinator to a significant other at home: No Do you presently have visiting nurse or other home services: No Alcohol intake: current Alcohol intake frequency: a few times a week Comment: aware of trip hazard Patient Tobacco Use Status: Never used Tobacco Use of substances other than those prescribed or required for medical reasons: No Have you been hit, kicked, punched, or otherwise hurt by someone within the past year? If so, by whom?: No Are you DNR?: No Advance Directives: No Advance Directives on File: No Recently lost weight without trying: No Nutrition Risks: No Nutritional Risk service: No Current occupational status: retired Current occupation: right handed Meds Allergies Allergy/AdvReac Type Severity Reaction Status Date / Time No Known Allergies Allergy Verified 05/17/23 10:08 Home Medications Medication Instructions Recorded Confirmed Last Taken Type inhalational spacing device #1 ea 09/02/20 04/19/23 Unknown History montelukast 10 mg tablet 10 mg PO DAILY 09/02/20 05/15/23 05/19/23 History cholecalciferol (vitamin D3) 25 25 mcg PO DAILY 12/24/20 05/15/23 05/19/23 History mcg (1,000 unit) capsule aspirin 81 mg tablet,delayed 81 mg PO DAILY 01/05/15/23 05/15/23 History release (Adult Low Dose Aspirin) cyanocobalamin (vitamin B-12) 2,500 mcg sublingual DAILY 05/15/23 05/15/23 05/19/23 History 2,500 mcg sublingual tablet (Vitamin B-12) docusate sodium 100 mg capsule 100 mg PO BID PRN Constipation 05/15/23 05/15/23 05/19/23 History levalbuterol tartrate 45 2 puff inhalation DAILY PRN 05/15/23 05/15/23 05/23/23 History mcg/actuation aerosol inhaler Shortness Of Breath Or Wheezing loratadine 10 mg tablet 10 mg PO DAILY 05/16/23 05/16/23 05/23/23 History Assessment and Plan Final Anesthetic Review NPO: Yes ASA Class: III Final Preanesthetic Review: No Changes in Pt Med Stat, Meds/Allgs Chart Reviewed, Consent Obtained/Reviewed and Anes Risks/Benef Reviewed Patient Risk: Intermediate Procedure Risk: Intermediate Anesthetic Plan Anesthetic Plan: Spinal and Regional Block Disposition: Standard PACU
[2023-05-16 14:00] LABS: MRSA Nasal PCR NEGATIVE (Negative); SA Nasal PCR POSITIVE (Negative)
[2023-05-23] VITALS (16 sets, daily range): BP systolic 94–150; BP diastolic 54–102; PULSE 61–84; RESP 14–20; TEMP 36.3–36.9; O2SAT 92–99
--- NOTE | ~2023-05-23 | XR_ITS ---
EXAMINATION: XR KNEE, LEFT CLINICAL INFORMATION: Status post left total knee arthroplasty. COMPARISON: Radiograph left knee 04/19/2023. TECHNIQUE: Three views of the left knee. FINDINGS: Prosthetic components of the total knee arthroplasty are appropriately aligned. No periprosthetic fracture. Gas from recent surgery is present in the joint and surrounding soft tissues. A joint effusion is present. XR/XR knee LT 2V IMPRESSION: Appropriate alignment of the left total knee arthroplasty.
--- OUTSIDE RECORDS SUMMARY | 2023-05-23 08:58 | XMS_ITS | Continuity of Care Document ---
Author Name Unknown Organization [facility] Address [address] [place] [address]- Care Team Providers Care Electric Welder Helper Name Role Phone Tanya Barron MD Primary Care Physician [phone] [place] [facility] [place] [id number] Date(s): 05/14/23 - 05/21/23 [facility] [address] [place] [address] Attending Physician: Navi Rolon MD Referring Physician: Ayad Nelson MD Allergies, Adverse Reactions, Alerts No Known Allergies Medications aspirin 81 mg oral tablet 1 tablet = 81 mg, By Mouth, Daily, 0 Refills, Maintenance, 01/31/19 13:08:49 EDT Start Date: 01/31/19 Status: Ordered benzonatate 200 mg oral capsule TAKE 1 CAPSULE (200MG) BY MOUTH TWICE A DAY NEEDED FOR COUGH Start Date: 05/14/23 Status: Ordered Dulcolax Stool Softener = 100 mg, By Mouth, 2 times a day, 0 Refills, Maintenance, 05/14/23 9:30:00 EST, Partial fill upon patient request if the prescription is for a schedule II opioid drug. Start Date: 05/14/23 Status: Ordered Incruse Ellipta 62.5 mcg/inh inhalation powder INHALE 1 PUFF BY MOUTH DAILY FOR 30 DAYS Start Date: 05/14/23 Status: Ordered levalbuterol 45 mcg/inh inhalation aerosol INHALE 2 PUFFS BY MOUTH DAILY Start Date: 05/14/23 Status: Ordered magnesium glycinate 100 mg oral capsule 2 capsule = 200 mg, By Mouth, Daily, # 60 capsule, 0 Refills, Maintenance, 05/14/23 9:30:00 EST, Capsule, Partial fill upon patient request if the prescription is for a schedule II opioid drug. Start Date: 05/14/23 Status: Ordered Misc Rx Dynamic brain, Allergy, Refills 0, Maintenance, 05/14/23 9:30:00 EST, Supply Start Date: 05/14/23 Status: Ordered Singulair 10 mg oral tablet 50 mg, 5, tablet, By Mouth, Daily, Refills 0, Maintenance, 04/08/16 16:13:50 Start Date: 04/08/16 Status: Ordered Trelegy Ellipta 200 mcg-62.5 mcg-25 mcg/inh inhalation powder INHALE 1 PUFF BY MOUTH DAILY FOR 30 DAYS Start Date: 05/14/23 Status: Ordered Ventolin 90 mcg Inhaler 2, puffs, Inhalation, 4 times a day, Refills 0, Maintenance, 04/13/16 8:12:17 Start Date: 04/13/16 Status: Ordered Vitamin B12 2500 mcg sublingual tablet 1 tablet = 2,500 mcg, Sublingual, Daily, # 30 tablet, 0 Refills, Maintenance, 05/14/23 9:30:00 EST,Tablet, Partial fill upon patient request if the prescription is for a schedule II opioid drug. Start Date: 05/14/23 Status: Ordered Vitamin D3 5000 intl units oral tablet 1 tablet = 5,000 International_Units, By Mouth, Daily, # 100 tablet, 0 Refills, Maintenance, 04/08/16 16:13:26, Tablet Start Date: 04/08/16 Status: Ordered Problem List Condition Confirmation Course Effective Dates Status Health St atus Informant Arthritis 1 Confirmed Active Asthma Confirmed Active Uterine bleeding Confirmed Active Obese class II Confirmed Active Pulmonary embolus Confirmed Active Fibroids Confirmed Active 1knees Procedures Procedure Date Related Diagnosis Body Site Status Right TKR Completed Vital Signs Most recent to oldest [Reference Range]: 1 Height 160 cm (05/14/23 9:20 AM) Weight 100 kg (05/14/23 9:20 AM) Oxygen Saturation [94-100 %] 98 % (05/14/23 9:20 AM) Pulse Rate [55-90 bpm] 77 bpm (05/14/23 9:20 AM) Body Mass Index [18.5-24.99 kg/m2] 39.06 kg/m2 *>HHI* (05/14/23 9:20 AM) Blood Pressure [90-138/55-84 mm Hg] 150/ 85mm Hg *H* (05/14/23 9:20 AM) Respiratory Rate [16-30 br/min] 18 br/mi n (05/14/23 9:20 AM) Mode of Delivery (Oxygen) Room air (05/14/23 9:20 AM) Blood pressure sites Arm, left (05/14/23 9:20 AM) Weight Obtained Via Standing scale (05/14/23 9:20 AM) Social History Social History Type Response Smoking Status Never smoker entered on: 05/04/16 Sex EKG study * Event Display: ECG 12-Lead Authored Date: Please click on pdf link to open report * Event Display: ECG 12-Lead Authored Date: [id number] Ventricular Rate: 65 BPM Atrial Rate: 65 BPM P-R Interval: 168 ms QRS Duration: 90 ms Q-T Interval: 414 ms QTC Calculation(Bazett): 430 ms P [place]: 35 degrees R [place]: -25 degrees T [place]: -12 degrees Normal sinus rhythm Normal ECG When compared with ECG of 04-MAY-2016 16:24, Premature atrial complexes are no longer Present Confirmed by BRTITNEY MALDONADO MD ([id number]) on 05/16/2023 8:53:36 AM Benson: BRITTNEY MALDONADO MD Patient Care team information Care Team Personnel Name: Tanya Barron MD Position: Reference Physician Member Role: PCP Address: Address: [address] [place] [address]- Name: Kennedy Morgan III, RN Position: S RN Member Role: Primary Care Nurse Care Team Related Persons Name: EZEKIEL TUCKER Address: [address] [address]
--- OUTSIDE RECORDS SUMMARY | 2023-05-23 08:58 | XMS_ITS | Continuity of Care Document ---
Author Name Unknown Organization [facility] Address [address] [facility] [place] [address]- Care Team Providers Care Balance Wheel Facer Name Role Phone Loida MUHAMMAD, Daniela Aly Primary Care Physic ryan Encounter 10/11/19 - 10/18/19 [facility] [address], [facility] [address] [place] [address]- [phone] Attending Physician: Colt Beverly MD Admitting Physician: Colt Beverly MD Referring Physician: Colt Beverly MD Allergies, Adverse Reactions, Alerts Substance Reaction Severity Status NKA Active Medications aspirin 81 mg oral tablet 1 tablet = 81 mg, By Mouth, Daily, 0 Refills, Maintenance, 01/31/19 13:08:49 EDT Start Date: 01/31/19 Status: Ordered B 100 Complex 1 tablet, By Mouth, Daily, 0 Refills, Maintenance, 01/31/19 13:09:12 EDT Start Date: 01/31/19 Status: Ordered Singulair 10 mg oral tablet 50 mg, 5, tablet, By Mouth, Daily, Refills 0, Maintenance, 04/08/16 16:13:50 Start Date: 04/08/16 Status: Ordered Symbicort 160mcg/4.5mcg Inhaler 2, puffs, Inhalation, 2 times a day, Refills 0, Maintenance, 04/13/16 8:11:37 Start Date: 04/13/16 Status: Ordered Ventolin 90 mcg Inhaler 2, puffs, Inhalation, 4 times a day, Refills 0, Maintenance, 04/13/16 8:12:17 Start Date: 04/13/16 Status: Ordered Vitamin D3 5000 intl units oral tablet 1 tablet = 5,000 International_Units, By Mouth, Daily, # 100 tablet, 0 Refills, Maintenance, 04/08/16 16:13:26, Tablet Start Date: 04/08/16 Status: Ordered Xarelto 20 mg oral tablet See Instructions, 1 tablet By Mouth evening before airline travel, & day of travel (pm), # 4 tablet, 1 Refills, Maintenance, 12/27/17 14:34:36 EDT Start Date: 12/27/17 Status: Ordered Zinc = 140 mg, By Mouth, Daily, 0 Refills, Maintenance, 09/06/16 9:51:38 Start Date: 09/06/16 Status: Ordered Problem List Condition Effective Dates Status Health Status Inform ant Arthritis(Confirmed) 1 Active Asthma(Confirmed) Active Uterine bleeding(Confirmed) Active Pulmonary embolus(Confirmed) Active Fibroids(Confirmed) Active 1knees Social History Social History Type Response Smoking Status Never smoker entered on: 05/04/16 Sex
--- OUTSIDE RECORDS SUMMARY | 2023-05-23 08:58 | XMS_ITS | Continuity of Care Document ---
Author Name Unknown Organization [facility] Address [address] [facility], [address] [place] [address]- Care Team Providers Care Van Driver Name Role Phone Daniela Mariscal MD Primary Care Physic ryan Encounter 10/15/20 - 10/22/20 [facility] [address], [address] [place], [place] [address] Attending Physician: Daniela Mariscal MD Admitting Physician: Daniela Mariscal MD Referring Physician: Daniela Mariscal MD Allergies, Adverse Reactions, Alerts Substance Reaction [...]
--- OUTSIDE RECORDS SUMMARY | 2023-05-23 08:58 | XMS_ITS | Continuity of Care Document ---
Author Name Unknown Organization [facility] Address [address] [facility] [place] [address] [place] [address]- Care Team Providers Care Circular Tank Cooper Name Role Phone Daniela Mariscal MD Primary Care Physic ryan Encounter 10/20/21 - 10/27/21 [facility] [address], [facility] [address] [place], [place] [address] Attending Physician: Daniela Mariscal MD Admitting Physician: Daniela Mariscal MD Referring Physician: Daniela Mariscal MD Allergies, Adverse Reactions, Alerts No Known [...]
--- OUTSIDE RECORDS SUMMARY | 2023-05-23 08:58 | XMS_ITS | Continuity of Care Document ---
Author Name Unknown Organization [facility] Address [address] [place] [address]- Care Team Providers Care Capital Markets Specialist Name Role Phone Loida MUHAMMAD, Daniela Aly Primary Care Physic ryan Encounter [facility] ACCT R [id number] Date(s): 05/10/21 - 05/10/[address] [address]- Discharge Disposition: A-D/C Home Attending Physician: Darrell Merrill DO Admitting Physician: Darrell Merrill DO Referring Physician: Not on Staff, Referring MD Allergies, Adverse Reactions, Alerts No Known [...] Active Pulmonary embolus(Confirmed) Active Fibroids(Confirmed) Active 1knees Vital Signs Most recent to oldest [Reference Range]: 1 2 3 Oxygen Saturation [94-100 %] 96 % (05/10/21 1:15 PM) 96 % (05/10/21 11:48 AM) 96 % (05/10/21 10:38 AM) Pulse Rate [55-90 bpm] 96 bpm *H* (05/10/21 1:15 PM) 107 bpm *H* (05/10/21 11:48 AM) 102 bpm *H* (05/10/21 10:38 AM) Blood Pressure [90-138/55-84 mm Hg] 116/89mm Hg (05/10/21 1:15 PM) 140/92mm Hg *H* (05/10/21 11:48 AM) 149/90mm Hg *H* (05/10/21 10:38 AM) Respiratory Rate [16-30 br/min] 18 br/min (05/10/21 11:48 AM) 16 br/min (05/10/21 10:38 AM) Temperature [96.8-100.4 DegF] 98.2 DegF (05/10/21 11:48 AM) Mode of Delivery (Oxygen) Room air (05/10/21 1:15 PM) Room air (05/10/21 11:48 AM) Blood pressure sites Arm, left (05/10/21 1:15 PM) Arm, left (05/10/21 11:48 AM) Temperature Route Oral (05/10/21 11:48 AM) Social History Social History Type Response Smoking Status Never smoker entered on: 05/04/16 Sex
--- OUTSIDE RECORDS SUMMARY | 2023-05-23 08:58 | XMS_ITS | Continuity of Care Document ---
Author Name Unknown Organization [facility] [place] [address] [facility] [place] [address]- Care Team Providers Care Blow Molding Machine Operator Name Role Phone Daniela Mariscal MD Primary Care Physic ryan Encounter 11/16/22 - 11/23/22 [facility] [address], [facility] [address] [place], [place] [address] Attending Physician: Daniela Mariscal MD Admitting Physician: [...] Date: 09/06/16 Status: Ordered Problem List Condition Confirmation Course Effective Dates Status Health St atus Informant Arthritis 1 Confirmed Active Asthma Confirmed Active Uterine bleeding Confirmed Active Pulmonary embolus Confirmed Active Fibroids Confirmed Active 1knees Results Radiology Reports * Exam Date Time Procedure Performing Provider Status 11/16/22 9:47 AM MM Digital Mammo Screening Arlene Montanez; Auth (Verified) Notes: (MM Digital Mammo Screening) Reason For Exam: Z12.31 SCREENING RESULT: MM Digital Mammo Screening PROCEDURE: MM Digital Mammo Screening INDICATION: Screening for breast cancer. COMPARISON: Multiple priors most recently 10/20/2021 TECHNIQUE: Full-field digital CC and MLO 3D tomosynthesis images of both breasts were acquired. Computer-aided detection (CAD) was utilized in the interpretation of this study. DENSITY: The breast tissue contains scattered areas of fibroglandular density. FINDINGS: No suspicious masses, suspicious microcalcifications, or areas of architectural distortion are seen in either breast to suggest malignancy. IMPRESSION: No mammographic evidence of malignancy. RECOMMENDATION: Annual mammographic screening BI-RADS: 1 (Negative) Lay letter mailed to patient I have personally reviewed the images and I agree with this report. WSN: [id number] Ordering Physician: Daniela Mariscal Dictated By: Ernie Carrillo DO Dictated Date/Time: 11/16/22 11:14 am Reviewed By: Carlos Valera MD Signed By: Carlos Valera MD Signed Date/Time: 11/16/22 11:19 am Transcribed By: ROSALINA Head Turbine Operator Date/Time: 11/16/22 10:53 am Birads: Social History Social History Type Response Smoking Status Never smoker entered on: 05/04/16 Sex Patient Care team information Care Team Personnel Name: Loida MUHAMMAD, Daniela Aly Position: [facility] Outreach Member Role: PCP Address: Address: [address] [place] [address], [place] [address]- Name: Kennedy Morgan III, RN Position: [facility] RN Member Role: Primary Care Nurse Care Team Related Persons Name: EZEKIEL TUCKER Address: [address] [place] [address]
[2023-05-23] MEDS: Lactated Ringers 1,000 ML 100 ML IVCONT ×2 (10:02→16:00)
--- NOTE | 2023-05-23 10:19 | PC.NURSE ---
nerve block initiated by anesthesia pt tolerated well vss
--- NOTE | 2023-05-23 11:26 | MHC.SHP ---
Pre-Procedural Eval Section A - 24 Hr Update-Section A only Date of Service: 05/23/23 The patient is an INPATIENT: No Changes since office visit: No Cold of Flu in the past 2 weeks, No New Medical Problems, No Changes in Medication and No Patient answered all questions The patient has been examined within 24 hours of the surgical procedure. The History & Physical has been completed within 30 days and I have reviewed it.: Yes Section B - Complete if H&P > 30 days Chief Complaint: LTKA Allergies: Allergies Allergy/AdvReac Type Severity Reaction Status Date / Time No Known Allergies Allergy Verified 05/17/23 10:08 Plan I have reviewed the history and physical and performed a pertinent physical examination on my patient. No changes have occurred unless specified. Time Spent With Patient Time: Total time managing care of this patient today ____ minutes.
--- NOTE | 2023-05-23 13:12 | PM.OP ---
Brief Operative Note Date of Service: 05/23/23 Pre-op diagnosis: Left knee OA Post-op diagnosis: same Procedure: Left TKA Implants: [place] Triathlon press fit 06/02/10 Surgeon: Ayad Nelson MD Anesthesia: regional and spinal Was an Processor Inspector used for this Procedure?: Yes Processor Inspector: Bianca Victoira Estimated blood loss (mL): 25 Tourniquet time (min): 53 IV fluids (mL): 1,000 Pathology: other Condition: stable Disposition: PACU
--- NOTE | 2023-05-23 13:13 | W.PM.OPN ---
Operative Note Operative Note Date of Service: 05/23/23 Narrative: Date of Service: 05/23/23 Pre-op diagnosis: Left knee OA Post-op diagnosis: same Procedure: Left TKA Implants: [place] Triathlon press fit 06/02/10/a Surgeon: Ayad Nelson MD Anesthesia: regional and spinal Was an Price Accuracy Supervisor used for this Procedure?: Yes Price Accuracy Supervisor: Bianca Victoria Estimated blood loss (mL): 25 Tourniquet time (min): 53 IV fluids (mL): 1,000 Pathology: other Condition: stable Disposition: PACU Procedure in detail: The patient was brought to the operating room and prepped and draped in standard sterile fashion. A time-out was called to identify proper site proper procedure proper surgeon and IV antibiotics were administered. 1 g of IV tranexamic acid was administered. I began by making a midline incision to the retinaculum and performed a medial parapatellar arthrotomy. The patella was translated laterally and the knee was flexed up. THere was t\ricompartmental eburnation and lateral patellar facet deformity . I performed a small medial peel and resected the infrapatellar fat pad. Strafford's line was then used to drill my intramedullary femoral guide and my distal femur cut of 12 mm (5-10 deg flexion contracture) was made in 5 degrees of valgus while protecting the soft tissues. I then measured a # 3 femur and placed my cutting guide and made my anterior posterior and chamfer cuts protecting the soft tissues at all times. Once I was satisfied with my cuts I turned my attention to the tibia. I removed the meniscus medially and laterally and , using an external cutting guide, in line with the tibial crest and the third ray, I made my distal tibial cut in 3 deg slope of while protecting the PCL the posterior soft tissues at all times. An extension block was used to confirm appropriate amount of bony resection. I then sized a #3 tibia and once I was satisfied that there was complete tibial coverage I placed my trial and with the trial femur in place took the knee through range of motion. I was satisfied with the extension and flexion as well as the stability and balance at 0, 30 and 90 degrees. I then turned my attention to the patella where I removed 8mm from the undersurface of the patella and then trialed a 29a patellar button. Again the knee was taken through range of motion I was satisfied with the tracking. I then returned to the femur and drilled my femoral lug holes and prepared the tibia. A femoral bone plug was placed and the knee was irrigated copiously. A Werewolf cautery wand was used to maintain hemostasis over the capsule and meniscal beds, the gutters and peripatellar soft tissues. I then press fit the patella, tibia and femur in standard fashion. I trialed different inserts until I selected a #11 insert. The final insert was placed and local TXA was administered. The knee was then closed with a running Quill suture, a 3 0 Vicryl and nikki on the skin. Patient was then placed in sterile dressing and brought to recovery room in stable condition there were no known complications.
--- NOTE | 2023-05-23 15:02 | PHA.MEDREC ---
Pharmacy Consult ? Medication Reconciliation Pharmacy has completed the medication reconciliation. Reviewed med rec done by nursing
[2023-05-23] MEDS: HYDROmorphone HCl 0.5 MG/0.5 ML SYRINGE IVPUSH (15:05)
[2023-05-23] MEDS: oxyCODONE HCl Immed Release 5 MG TABLET PO ×2 (16:06→22:35)
[2023-05-23 16:40] LABS: Creatinine Clr Calc Pharmacy 74.2; Estimated Glomerular Filt Rate > 60
[2023-05-23] MEDS: Acetaminophen 325 MG TABLET 650 MG PO (17:16)
[2023-05-23] MEDS: ceFAZolin Sodium/Dextrose,Iso 2 GM/50 ML PIGGYBACK IV (17:20)
[2023-05-23] MEDS: HYDROmorphone HCl 0.5 MG/0.5 ML SYRINGE 0.25 MG IVPUSH (19:38)
[2023-05-23] MEDS: 0.9 % Sodium Chloride Flush 3 ML SYRINGE IVFLUSH (19:39)
[2023-05-23] MEDS: Celecoxib 200 MG CAPSULE PO (19:39)
[2023-05-23] MEDS: oxyCODONE HCl ER 10 MG TAB.ER.12H PO (19:39)
--- NOTE | 2023-05-23 22:13 | P.CONHOSP_ITS ---
History of Present Illness Data of Consult Service Date: 05/23/23 Primary Care Provider: Unknown Physician HPI Reason for consult: Medical management Patient is a 72-year-old female with a PMH significant for moderate persistent asthma, osteoarthritis, hemochromatosis, and prior PE (in 2017, no longer on OAC) who is admitted to Orthopedics for elective left TKA. POD #0. Hospitalist consult medical management. Patient seen and examined at bedside where she is resting comfortably in bed. Patient states she is overall doing well and left leg pain is moderately well controlled with current pain regimen. Patient denies any other acute medical complaints at this time. Denies shortness of breath, difficulty breathing. No chest pain/pressure, palpitations. Denies fever, chills, nausea, vomiting, abdominal pain. Patient reports that she has already been up and out of bed and walked to the bathroom. Review of Systems 2 Review of Systems: Pain moderately well controlled Patient has no acute medical complaints at this time [facility] Medical History Personal history of COVID-19 (~12/2021) Chronic cough Hearing loss Arthritis Prediabetes Hereditary hemochromatosis Hypercholesterolemia Asthma Pulmonary emboli Dyspnea (~02/02/22) History of blood clots Surgical History History of total right knee replacement (TKR) (~10/2021) Hx of colonoscopy Social History Household Members: Spouse Housing: House Are you a primary rn long term care to a significant other at home: No Do you presently have visiting nurse or other home services: No Alcohol intake: current Alcohol intake frequency: a few times a week Comment: aware of trip hazard Patient Tobacco Use Status: Never used Tobacco Use of substances other than those prescribed or required for medical reasons: No Have you been hit, kicked, punched, or otherwise hurt by someone within the past year? If so, by whom?: No Do you feel safe in your current relationship?: Yes Is there a partner from a previous relationship who is making you feel unsafe now?: No Are you made to feel afraid or neglected: No Are you DNR?: No Advance Directives: No Advance Directives on File: No Do you have thoughts of harming others: None Do you have a plan to hurt others: No Plan Recently lost weight without trying: No Nutrition Risks: No Nutritional Risk Patient : No : No Poor oral hygiene: No service: No Current occupational status: retired Current occupation: right handed Meds Allergies Allergy/AdvReac Type Severity Reaction Status Date / Time No Known Allergies Allergy Verified 05/17/23 10:08 Active Medications: Current Medications Acetaminophen (Acetaminophen 325 Mg Tablet) 650 mg PO Q6H PRN PRN Reason: Pain, Mild (Pain Scale 1-3) Last Admin: 05/23/23 17:16 Dose: 650 mg Benzonatate (Benzonatate 100 Mg Capsule) 200 mg PO BID PRN PRN Reason: cough Celecoxib (Celecoxib 200 Mg Capsule) 200 mg PO BID KINA Last Admin: 05/23/23 19:39 Dose: 200 mg Cyanocobalamin (Cyanocobalamin (Vitamin B-12) 500 Mcg Tablet) 2,500 mcg PO DAILY KINA Docusate Sodium (Docusate Sodium 100 Mg Capsule) 100 mg PO BID PRN PRN Reason: Constipation Enoxaparin Sodium (Enoxaparin Sodium 40 Mg/0.4 Ml Syringe) 40 mg SUBCUT Q24H KINA Fluticasone/Umeclidinium/Vilanterol (Fluticasone/Umeclidinium/Vilanterol 200/62.5/25 Blst.W.Dev) 1 puff INHALE RDAILY [facility] Hydromorphone HCl (Hydromorphone Hcl 0.5 Mg/0.5 Ml Syringe) 0.25 mg IVPUSH Q4H PRN; Protocol PRN Reason: Pain, Severe (Pain Scale 7-10) Last Admin: 05/23/23 19:38 Dose: 0.25 mg Lactated Ringer's (Lr) 1,000 mls @ 100 mls/hr IVCONT .Q10H KINA Last Admin: 05/23/23 16:00 Dose: 100 mls/hr Lactated Ringer's (Lr) 1,000 mls @ 100 mls/hr IVCONT .Q10H KINA Last Admin: 05/23/23 17:20 Dose: Not Given Loratadine (Loratadine 10 Mg Tablet) 10 mg PO DAILY [facility] Montelukast Sodium (Montelukast Sodium 10 Mg Tablet) 10 mg PO DAILY [facility] Pt Own (Levalbuterol Tartrate 45 Mcg/Actuation Hfa Aerosol Inhaler) 2 puff INHALE DAILY PRN PRN Reason: Shortness Of Breath Or Wheezing Ondansetron HCl (Ondansetron Hcl 4 Mg/2 Ml Vial) 4 mg IVPUSH ONCE PRN PRN Reason: Nausea and Vomiting Ondansetron HCl (Ondansetron Hcl 4 Mg/2 Ml Vial) 4 mg IVPUSH Q8H PRN PRN Reason: Nausea and Vomiting Oxycodone HCl (Oxycodone Hcl Immed Release 5 Mg Tablet) 5 mg PO Q4H PRN PRN Reason: Pain, Moderate(Pain Scale 4-6) Last Admin: 05/23/23 16:06 Dose: 5 mg Oxycodone HCl (Oxycodone Hcl Er 10 Mg Tab.Er.12h) 10 mg PO BID [facility] Last Admin: 05/23/23 19:39 Dose: 10 mg Sodium Chloride (0.9 % Sodium Chloride Flush 3 Ml Syringe) 3 ml IVFLUSH QSHIFT [facility] Last Admin: 05/23/23 19:39 Dose: 3 ml Tiotropium Flint (Tiotropium Flint 2.5 Mcg 1 Puff/2.5 Mcg Mist.Inhal) 1 puff INHALE RDAILY [facility] Vitamin D (Cholecalciferol (Vitamin D3) 25 Mcg Tablet) 25 mcg PO DAILY [facility] Home Medications Medication Instructions Recorded Confirmed Last Taken Type inhalational spacing device #1 ea 09/02/20 04/19/23 Unknown History montelukast 10 mg tablet 10 mg PO DAILY 09/02/20 05/15/23 05/19/23 History cholecalciferol (vitamin D3) 25 25 mcg PO DAILY 12/24/20 05/15/23 05/19/23 History mcg (1,000 unit) capsule aspirin 81 mg tablet,delayed 81 mg PO DAILY 04/19/23 05/15/23 05/15/23 History release (Adult Low Dose Aspirin) cyanocobalamin (vitamin B-12) 2,500 mcg sublingual DAILY 05/15/23 05/15/23 05/19/23 History 2,500 mcg sublingual tablet (Vitamin B-12) docusate sodium 100 mg capsule 100 mg PO BID PRN Constipation 05/15/23 05/15/23 05/19/23 History levalbuterol tartrate 45 2 puff inhalation DAILY PRN 05/15/23 05/15/23 05/23/23 History mcg/actuation aerosol inhaler Shortness Of Breath Or Wheezing loratadine 10 mg tablet 10 mg PO DAILY 05/16/23 05/16/23 05/23/23 History Physical Exam 2 Vital Signs and Narrative: Vital Signs: Last Vital Signs Temp 97.6 F 05/23/23 19:24 Pulse 72 05/23/23 19:24 Resp 17 05/23/23 19:24 BP 134/84 05/23/23 19:24 Pulse Ox 92 05/23/23 19:24 O2 Del Method Room Air 05/23/23 19:24 O2 Flow Rate 5 05/23/23 13:40 BMI result Body Mass Index 38.6 General: AOx3, resting comfortably in bed, in no acute distress Resp: CTA bilaterally CVS: S1, S2, RRR GI: +BS, NT, no distention Skin: Warm, dry Neuro: Cranial nerves II-XII grossly intact bilaterally. Motor grossly intact bilaterally Extremities: No edema. Left knee wrapped in clean dressing Psych: Appropriate affect Results Labs 05/23/23 16:17 Labs: Laboratory Results - last 24 hr 05/23/23 16:17 Estim Creat Clear Calc 74.2 Estimated GFR > 60 Imaging Radiologist's Impressions: Impressions Knee X-Ray 05/23/23 13:48 IMPRESSION: Appropriate alignment of the left total knee arthroplasty. Assessment and Plan (1) Status post total left knee replacement: Status: Acute Plan Patient is a 72-year-old female with a PMH significant for moderate persistent asthma, osteoarthritis, hemochromatosis, and prior PE (in 2017, no longer on OAC) who is admitted to Orthopedics for elective left TKA. POD #0. Hospitalist consult medical management. Left TKA Plan as per Orthopedics Moderate persistent asthma Not in acute exacerbation Continue home inhalers Incentive spirometry Hemochromatosis Not on therapeutic phlebotomy Pt otherwise has no chronic medical conditions or acute medical complaints. Thank you for allowing us to participate in the care of this patient. Signing off at this time. Please re-consult if any acute complaints or issues arise.
[2023-05-24] MEDS: Lactated Ringers 1,000 ML 100 ML IVCONT (01:57)
[2023-05-24] MEDS: HYDROmorphone HCl 0.5 MG/0.5 ML SYRINGE 0.25 MG IVPUSH ×2 (02:02→07:34)
[2023-05-24 03:10] VITALS: BP 99/62; PULSE 59; RESP 18; TEMP 36.7; O2SAT 96
[2023-05-24] MEDS: Acetaminophen 325 MG TABLET 650 MG PO ×2 (05:51→11:44)
[2023-05-24] MEDS: oxyCODONE HCl Immed Release 5 MG TABLET PO ×2 (05:52→11:44)
[2023-05-24 07:03] LABS: MANUAL DIFF FLAG NO
[2023-05-24 07:05] LABS: Basophils Percent Auto 0.4 % (0-2); Eosinophils Percent Auto 0.2 % (0-4); Hematocrit 40.5 % (37.0-47.0); Hemoglobin 13.6 g/dl (12.0-16.0); Imm Gran Abs Auto 0.04 X10*3/uL (0.00-0.03); Imm Gran Pct Auto 0.5 % (0.0-0.4); Lymphocytes Absolute Auto 1.9 X10*3/uL (1.2-4.9); Lymphocytes Percent Auto 22.9 % (20-40); Mean Corpuscular HGB Conc 33.6 g/dl (31.0-35.0); Mean Corpuscular Hemoglobin 32.6 pg (27.0-33.0); Mean Corpuscular Volume 97.1 fL (80.0-98.0); Mean Platelet Volume 9.7 fL (9.4-12.3); Monocytes Percent Auto 11.8 % (2-11); Neutrophils Absolute Auto 5.3 x10*3/uL (2.0-8.3); Neutrophils Percent Auto 64.2 % (45-73); Platelet Count 214 X10*3/uL (160-400); Red Blood Count 4.17 X10*6/uL (4.20-5.50); Red Cell Distribution Width 12.5 % (11.0-16.0); White Blood Count 8.2 X10*3/uL (4.8-10.8)
[2023-05-24] MEDS: Cyanocobalamin (Vitamin B-12) 500 MCG TABLET 2500 MCG PO (07:28)
[2023-05-24] MEDS: Cholecalciferol (Vitamin D3) 25 MCG TABLET PO (07:29)
[2023-05-24] MEDS: oxyCODONE HCl ER 10 MG TAB.ER.12H PO (07:29)
[2023-05-24] MEDS: Celecoxib 200 MG CAPSULE PO (07:29)
[2023-05-24] MEDS: Montelukast Sodium 10 MG TABLET PO (07:29)
[2023-05-24] MEDS: Loratadine 10 MG TABLET PO (07:29)
[2023-05-24 07:34] LABS: Anion Gap 13 (12-20); Blood Urea Nitrogen 18 mg/dL (9-16); Calcium 9.5 mg/dL (8.4-10.2); Carbon Dioxide 25 mmol/L (22-29); Chloride 105 mmol/L (96-108); Creatinine Clr Calc Pharmacy 82.6; Estimated Glomerular Filt Rate > 60; Glucose Fasting 124 mg/dL (60-99); Potassium 4.3 mmol/L (3.3-5.1); Sodium 139 mmol/L (135-145)
[2023-05-24 07:42] VITALS: BP 133/86; PULSE 63; RESP 18; TEMP 36.7; O2SAT 93
--- NOTE | 2023-05-24 08:32 | PM.PNORT ---
Subjective Subjective Date of Service: 05/24/23 Interval history: POD1 s/p LTKA Patient is resting in bed comfortably No overnight events Pain is managed No additional complaints Physical Exam Vital Signs: Vital Signs: Last Vital Signs Temp 98.0 F 05/24/23 07:42 Pulse 63 05/24/23 07:42 Resp 18 05/24/23 07:42 BP 133/86 05/24/23 07:42 Pulse Ox 93 05/24/23 07:42 O2 Del Method Room Air 05/24/23 07:42 O2 Flow Rate 5 05/23/23 13:40 BMI result Body Mass Index 38.6 Const: General: cooperative, healthy appearing and no acute distress Resp: Effort & Inspection: normal respiratory effort and able to speak in complete sentences Cardio: Rate: regular rate Peripheral pulses: Peripheral pulses 2+ throughout GI: Palpation (GI): Soft to palpation Skin: Lesions: no lesions Rashes: no rashes Extrem: Other: left knee dressing is c/d/i. Able to dorsi/plantar flex. Calf is supple and nontender. Sensation intact. Pedal pulse intact. Procedures Date of Service Date of Service: 05/24/23 Progress Note: A&P Assessment and plan (1) Status post total left knee replacement: Status: Acute Assessment and Plan: Continue pain mgmnt Begin Lovenox dvt ppx - Hx DVT/PE begin PT for LTKA Dispo planning-Pending PT eval, pain mgmnt Time Spent With Patient Time: Total time managing care of this patient today ____ minutes. Quality Stroke Does the patient have a stroke diagnosis?: No VTE Prior VTE?: Yes VTE Risk Level:: Medical - moderate - high VTE Device Contraindication: N/A - Device Ordered VTE Drug Contraindication: N/A - Med Ordered
--- NOTE | 2023-05-24 08:41 | PM.DS ---
DS: Providers Provider Date of Service: 05/24/23 Date of admission: 05/23/23 08:56 Primary care physician: Unknown Physician Consults: 05/23/23 15:48 Consult to Hospitalist Routine Comment: Consulting Provider: Hospitalist Reason For Exam: routine medical management DS: Diagnosis Discharge Diagnosis (1) Status post total left knee replacement: Status: Acute DS: Summary Hospital Course Hospital Course: The patient underwent a successful left total knee arthroplasty, they were transferred to PACU and then to the floor to recover. During their stay, their vitals were stable, afebrile at 98.0. Labs were unremarkable, H/H 13.6/40.5. POD 1 they were started on Lovenox for DVT ppx due to the patients history of DVT/PE, they also received Physical Therapy services twice a day. Prior to discharge, their dressing was clean dry and intact, and the plan was to be discharged home with VNA services. Time Attestation Discharge coordination time: Less than 30 minutes Quality: Safe Use of Opioids Does Pt have an Active Cancer Diagnosis on the Problem List?: No Quality: Stroke Does the patient have a stroke diagnosis?: No Physical Exam Vital Signs: Vital Signs: Last Vital Signs Temp 98.0 F 05/24/23 07:42 Pulse 63 05/24/23 07:42 Resp 18 05/24/23 07:42 BP 133/86 05/24/23 07:42 Pulse Ox 93 05/24/23 07:42 O2 Del Method Room Air 05/24/23 07:42 O2 Flow Rate 5 05/23/23 13:40 BMI result Body Mass Index 38.6 Const: General: cooperative, healthy appearing and no acute distress Resp: Effort & Inspection: normal respiratory effort and able to speak in complete sentences Cardio: Rate: regular rate Peripheral pulses: Peripheral pulses 2+ throughout GI: Palpation (GI): Soft to palpation Skin: Lesions: no lesions Rashes: no rashes Extrem: Other: left knee dressing is c/d/i. Able to dorsi/plantar flex. Calf is supple and nontender. Sensation intact. Pedal pulse intact. DS: Data Data Completed and Pending Completed studies during hospitalization [Text1]: Procedures Replacement of Right Knee Joint with Synthetic Substitute, Uncemented, Open Approach (11/01/21) Pending studies at discharge: Pending at discharge 05/23/23 12:45 Surgical [PTH] Routine Labs on day of discharge: Laboratory Results - last 24 hr 05/23/23 05/24/23 16:17 05:38 WBC 8.2 RBC 4.17 L D Hgb 13.6 D Hct 40.5 D MCV 97.1 MCH 32.6 MCHC 33.6 RDW 12.5 Plt Count 214 MPV 9.7 Immature Gran % (Auto) 0.5 H Neut % (Auto) 64.2 Lymph % (Auto) 22.9 [place] % (Auto) 11.8 H Eos % (Auto) 0.2 Baso % (Auto) 0.4 Lymph # (Auto) 1.9 [place] # (Auto) 1.0 Eos # (Auto) 0.0 Baso # (Auto) 0.0 Abs Immat Gran (auto) 0.04 H Absolute Neuts (auto) 5.3 Absolute Nucleated RBC 0.000 Nucleated RBC % (auto) 0.0 Sodium 139 Potassium 4.3 Chloride 105 Carbon Dioxide 25 Anion Gap 13 BUN 18 H Creatinine 0.79 0.71 Estim Creat Clear Calc 74.2 82.6 Estimated GFR > 60 > 60 Fasting Glucose 124 H Calcium 9.5 D Discharge Plan Discharge Anticipated Discharge Date/Time: 05/24/23 15:30 Patient Disposition: Home Health Service Discharge Diagnosis: s/p LTKA Referrals: Bianca Victoria PA-C [Physician Senior Software Architect] - 06/07/23 12:30 pm Physician,Unknown J [Primary Care Provider] - 1 Week Discharge Medications: New celecoxib 200 mg Capsule 200 mg PO BID 30 Days Qty: 60 0RF acetaminophen 325 mg Tablet 650 mg PO Q6H PRN (Reason: Pain, Mild (Pain Scale 1-3)) 30 Days Qty: 240 0RF oxycodone 5 mg Tablet 5 mg PO Q4H PRN (Reason: Pain, Moderate(Pain Scale 4-6)) 7 Days Qty: 42 0RF Rx Instructions: Partial Fill upon patient request. enoxaparin 40 mg/0.4 mL Syringe 40 mg subcut Q24H 42 Days Qty: 16.8 0RF Continued docusate sodium 100 mg capsule 100 mg PO BID PRN (Reason: Constipation) levalbuterol tartrate 45 mcg/actuation HFA aerosol inhaler 2 puff inhalation DAILY PRN (Reason: Shortness Of Breath Or Wheezing) cyanocobalamin (vitamin B-12) [Vitamin B-12] 2,500 mcg Tablet, Sublingual 2,500 mcg SUBLINGUAL DAILY loratadine 10 mg Tablet 10 mg PO DAILY (DME) inhalational spacing device Spacer See Rx Instructions inhalation .MEDSUPPLY Qty: 1 Rx Instructions: As directed montelukast 10 mg tablet 10 mg PO DAILY cholecalciferol (vitamin D3) 25 mcg (1,000 unit) capsule 25 mcg PO DAILY Incruse Ellipta 62.5 mcg/actuation blister with device 1 inh inhalation DAILY 30 Days Qty: 30 11RF Trelegy Ellipta 200-62.5-25 mcg blister with device 1 inh inhalation DAILY 30 Days Qty: 60 12RF benzonatate 200 mg capsule 200 mg PO BID PRN (Reason: cough) 30 Days Qty: 30 6RF Held aspirin [Adult Low Dose Aspirin] 81 mg tablet,delayed release (DR/EC) 81 mg PO DAILY Hold Instructions: Resume on 07/06/23. Discontinued acetaminophen 325 mg Tablet 650 mg PO Q6H PRN (Reason: Pain, Mild (Pain Scale 1-3)) 30 Days Qty: 240 0RF Discharge Orders: Discharge Order (Routine); Ordered 05/24/23 Ordered By: Bianca Victoria Diet: Advance to usual diet Activity on Discharge: Use cane or walker Stand Alone Forms: Patient Portal Discharge page Care Plan Goals: restore fxn to left knee Health Concerns: none Plan of Treatment: Physical Therapy for ROM 0-120, quad strength, gait training. Use walker for ambulation Limit stair climbing, No shower, No tub bath, No driving Continue anticoagulant Lovenox for 6 weeks Keep Aquacel dressing clean, dry and intact. Follow up with orthopedics in 2 weeks Assessment: stable for d/c
--- NOTE | 2023-05-24 08:47 | P.F2F_ITS ---
Service Date Service Date: 05/24/23 Encounter Date of encounter: 05/24/23 Reasons for Services Signs and symptoms assessed: s/p LTKA. Pt. is considered homebound due to recent surgery. Unable to drive, poor balance, poor gait mechanics. Reason for physical therapy: home safety and mobility, therapeutic exercises, restore joint function, gait/transfer training, assess need for DME and ADL training Homebound: Leaving the home is medically contraindicated at this time without the asist of a device and/or another person due th the listed conditions above and below. Reason homebound: unsteady gait / fall risk, leg weakness, pain with ambulation, pain with transfers, poor balance / fall risk and unable to drive Certification: Based on the above findings, I certify that this patient is confined to the home and needs intermittent long term care, physical therapy and/or speech therapy, or continues to need occupational therapy. The patient is under my care, and I have initiated the establishment of the plan of care. The patient will be followed by a physician who will periodically review the plan of care. Time Spent With Patient Time: Total time managing care of this patient today ____ minutes.
--- NOTE | 2023-05-24 08:55 | HO.POSTANES ---
Post Anesthesia Evaluation Post Anesthesia Evaluation Date of Service: 05/24/23 Vital Signs: Vital Signs Temp Pulse Resp BP Pulse Ox O2 Del Method 05/24/23 07:42 98.0 F 63 18 133/86 93 Room Air 05/24/23 03:10 98.0 F 59 18 99/62 96 Room Air 05/23/23 23:20 98.5 F 69 17 116/67 94 Room Air Anesthesia: Spinal and Nerve Block Mental Status: Awake Pain Control: Satisfactory Nausea/Vomiting: None Hydration: Adequate Anesthesia-Related Issues: No Anes. Related Issues
[2023-05-24] MEDS: Tiotropium Bromide 2.5 mcg 1 PUFF/2.5 MCG MIST.INHAL INHALE (10:21)
[2023-05-24] MEDS: Fluticasone/Umeclidinium/Vilanterol 200/62.5/25 BLST.W.DEV 1 PUFF INHALE (10:22)
--- NOTE | 2023-05-24 10:34 | MHC.CM.PN ---
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
[2023-05-24 12:00] VITALS: BP 144/86; PULSE 70; RESP 18; TEMP 36.5; O2SAT 94
[2023-05-24] MEDS: Enoxaparin Sodium 40 MG/0.4 ML SYRINGE SUBCUT (13:58)
== END 2023-05-24 14:19 | disposition home health service (06) | DRG 470 ==
LOC: HO.SSSA 08:57 → HO.S3 14:28
PROVIDERS: Physician Assistant; Admitting Provider Orthopaedic Surgery; PCP Student in an Organized Health Care Education/Training Program; Visit Provider Orthopaedic Surgery
PROC: 0SRD0JA Replacement of Left Knee Joint with Synthetic Substitute, Uncemented, Open Approach (ICD-10-PCS; CPT 27447; principal; 2023-05-23 11:50)
DX: M17.12 Unilateral primary osteoarthritis, left knee (principal); G89.18 Other acute postprocedural pain; E83.110 Hereditary hemochromatosis; J45.40 Moderate persistent asthma, uncomplicated; Z86.711 Personal history of pulmonary embolism; Z79.82 Long term (current) use of aspirin; Z79.51 Long term (current) use of inhaled steroids; Z79.899 Other long term (current) drug therapy
CPT/HCPCS: 27447; 36415; 73560; 80048; 82565; 85025; 86850; 86900; 86901; 87640; 87641; 88305; 88311; 97110; 97116; 97161; C1776; J0131; J0665; J0690; J1100; J1170; J1650; J1885; J2250; J2704; J2795; J7120

== ENCOUNTER → 2023-05-23 08:56 | Outpatient (BNV) | payer MEDICARE, OTHER, SELFPAY | PROVIDERS: Admitting Provider Orthopaedic Surgery; Visit Provider Orthopaedic Surgery | DX: Z47.1 Aftercare following joint replacement surgery (principal); Z96.652 Presence of left artificial knee joint | CPT/HCPCS: 27447; 99024; G0180 ==

== ENCOUNTER → 2023-05-23 08:56 | Outpatient (BNV) | payer MEDICARE, OTHER, SELFPAY | PROVIDERS: Admitting Provider Orthopaedic Surgery; Visit Provider Student in an Organized Health Care Education/Training Program | DX: J45.40 Moderate persistent asthma, uncomplicated (principal); Z96.652 Presence of left artificial knee joint | CPT/HCPCS: 99221 ==

== ENCOUNTER 2023-06-07 09:37 | Outpatient (RCR) | payer MEDICARE, OTHER, SELFPAY | END 2023-08-20 13:31 | disposition home or self-care (01) | LOC: HO.PT 09:37 | PROVIDERS: PCP Student in an Organized Health Care Education/Training Program; Visit Provider Physician Assistant | DX: Z96.652 Presence of left artificial knee joint (principal) ==

== ENCOUNTER 2023-06-07 12:23 | Outpatient (AMB) | payer MEDICARE, OTHER, SELFPAY ==
--- NOTE | 2023-06-07 12:25 | A.OFFVIS_ITS ---
Intake Intake Visit Reasons: PO LT TKA 05/23/23 NE Intake Note: Erika is a 72 year old female who presents today for a post appointment for her Left TKA 05/23/23 NE. Patient reports she is doing well . At times some mild pain.. Allergies No Known Allergies Allergy (Verified 06/07/23 12:37) HPI PO LT TKA 05/23/23 NE HPI Details 72-year-old female who presents in the [facility] today 2 weeks status post left total knee arthroplasty, which was performed on 05/23/[address] Nelson. [facility] Medical History Personal history of COVID-19 (~12/2021) Chronic cough Hearing loss Arthritis Prediabetes Hereditary hemochromatosis Hypercholesterolemia Asthma Pulmonary emboli Dyspnea (~02/02/22) History of blood clots Surgical History History of total right knee replacement (TKR) (~10/2021) Hx of colonoscopy Social History Household Members: Spouse Housing: House Are you a primary geriatric care manager to a significant other at home: No Do you presently have visiting nurse or other home services: No 75 years or older and lives alone: No Alcohol intake: current Alcohol intake frequency: a few times a week Comment: aware of trip hazard Patient Tobacco Use Status: Never used Tobacco service: No Current occupational status: retired Current occupation: right handed Review of Systems Const All systems reviewed & are unremarkable except as noted in HPI and below Physical Exam Const General: cooperative, healthy appearing and no acute distress Resp Effort & Inspection: normal respiratory effort and able to speak in complete sentences Cardio Rate: regular rate Peripheral pulses: Peripheral pulses 2+ throughout GI Palpation (GI): Soft to palpation Skin Lesions: no lesions Rashes: no rashes Extrem Other: Left knee: Incision site is clean, dry, and intact. Ledbetter intact. No surrounding erythema or drainage. No signs of infection. ROM is 0-90 degrees. NVI. Assessment & Plan Assessment & Plan (1) Status post total left knee replacement: Onset Date: ~05/23/23 Comment: Dr. Ayad Nelson Code(s): Z96.652 - Presence of left artificial knee joint Plan Ms. Harry Hough is a 72-year-old female who presents in the office today 2 weeks status post left total knee arthroplasty, which was performed on 05/23/[address] Nelson. Patient has her first outpatient physical therapy appointment at [facility] in [place] tomorrow, 06/07/2023. She will continue the use of the Lovenox for a total of six weeks post op. She will follow up with Dr. Nelson in 4 weeks. A refill for Oxycodone 5 mg PO Q4H PRN with 42 tabs was sent to the pharmacy today. Follow up will be in [address] Nelson, or sooner if needed. Medications: Refilled oxycodone Partial Fill upon patient request. 5 mg PO Q4H 7 days PRN 42 tabs 0RF Pain, Moderate(Pain Scale 4-6) Coding Level of Care Code Global (77811) Diagnoses Status post total left knee replacement Z96.652
== END 2023-06-07 12:37 | disposition home or self-care (01) ==
PROVIDERS: PCP Student in an Organized Health Care Education/Training Program; Visit Provider Physician Assistant
DX: Z96.652 Presence of left artificial knee joint (principal)
CPT/HCPCS: 99024

== ENCOUNTER → 2023-06-07 12:23 | Outpatient (BNVA) | payer MEDICARE, OTHER, SELFPAY | PROVIDERS: PCP Student in an Organized Health Care Education/Training Program; Visit Provider Physician Assistant | DX: Z47.1 Aftercare following joint replacement surgery (principal); Z96.652 Presence of left artificial knee joint | CPT/HCPCS: 99212 ==

== ENCOUNTER 2023-07-02 11:27 | Outpatient (AMB) | payer MEDICARE, OTHER, SELFPAY ==
--- NOTE | 2023-07-02 11:34 | A.OFFVIS_ITS ---
Intake Vital Signs 07/02/23 11:38 Height 5 ft 3 in Weight 200 lb BMI 35.4 Intake Visit Reasons: PO 6 week LT TKA 05/23/23 NE Intake Note: Erika is a 72 year old female who presents today for a follow up of her left knee, s/p left TKA 05/23/23. Patient reports she is doing well post operatively, at this point she has no concerns. Allergies No Known Allergies Allergy (Verified 07/02/23 11:42) HPI PO 6 week LT TKA 05/23/23 NE HPI Details Erika is a 72 year old female who presents today for a follow up of her left knee, s/p left TKA 05/23/23. Patient reports she is doing well post operatively, at this point she has no concerns. [facility] Medical History Personal history of COVID-19 (~12/2021) Chronic cough Hearing loss Arthritis Prediabetes Hereditary hemochromatosis Hypercholesterolemia Asthma Pulmonary emboli Dyspnea (~02/02/22) History of blood clots Surgical History History of total right knee replacement (TKR) (~10/2021) Hx of colonoscopy Social History Household Members: Spouse Housing: House Are you a primary health care marketing specialist to a significant other at home: No Do you presently have visiting nurse or other home services: No 75 years or older and lives alone: No Alcohol intake: current Alcohol intake frequency: a few times a week Comment: aware of trip hazard Patient Tobacco Use Status: Never used Tobacco service: No Current occupational status: retired Current occupation: right handed Physical Exam Vital Signs: BMI result Body Mass Index 35.4 Extrem Other: Incision clean dry and intact 0-110 degrees motion Stable to varus valgus stress lesion Assessment & Plan Assessment & Plan (1) Status post total left knee replacement: Onset Date: ~05/23/23 Comment: Dr. Ayad Nelson Code(s): Z96.652 - Presence of left artificial knee joint Plan: Doing well status post left knee replacement 6 weeks ago. She may follow-up in 6 weeks. She may discontinue chemo prophylaxis. Continue physical therapy. Coding Level of Care Code Global (10243) Diagnoses Status post total left knee replacement Z96.652
[2023-07-02 11:38] VITALS: BMI 35.4
== END 2023-07-02 12:27 | disposition home or self-care (01) ==
PROVIDERS: PCP Student in an Organized Health Care Education/Training Program; Visit Provider Orthopaedic Surgery
DX: Z96.652 Presence of left artificial knee joint (principal)
CPT/HCPCS: 99024

== ENCOUNTER → 2023-07-02 11:27 | Outpatient (BNVA) | payer MEDICARE, OTHER, SELFPAY | PROVIDERS: PCP Student in an Organized Health Care Education/Training Program; Visit Provider Orthopaedic Surgery | DX: Z96.652 Presence of left artificial knee joint (principal) | CPT/HCPCS: 99212 ==

== ENCOUNTER 2023-08-16 11:52 | Outpatient (REF) | payer MEDICARE, OTHER, SELFPAY ==
--- NOTE | ~2023-08-16 | XR_ITS ---
EXAMINATION: XR KNEE, LEFT CLINICAL INFORMATION: Left knee pain COMPARISON: Left knee x-ray on 05/23/2023 TECHNIQUE: 3 view x-rays of the left knee, frontal x-rays of bilateral knees. FINDINGS: BONES: Bony structures are intact. There is no focal bone destruction or periosteal reaction seen. JOINTS: There is normal alignment of right and left total knee arthroplasty prostheses with patellar resurfacing and prosthesis. SOFT TISSUE: Soft tissue is normal. No abnormal air collection is seen. XR/XR knee LT 3V IMPRESSION: 1. Unchanged Normal alignment of left total knee arthroplasty prostheses. 2. No evidence of acute fracture or dislocation. 3. Interval removal of left knee surgical skin nikki, resolution of postsurgical air and fluid collection.
== END 2023-08-16 11:53 | disposition home or self-care (01) ==
LOC: HO.HOSX 11:52
PROVIDERS: Visit Provider Orthopaedic Surgery
DX: Z47.1 Aftercare following joint replacement surgery (principal); Z96.652 Presence of left artificial knee joint
CPT/HCPCS: 73562; 99212

== ENCOUNTER 2023-08-16 11:56 | Outpatient (AMB) | payer MEDICARE, OTHER, SELFPAY ==
--- NOTE | 2023-08-16 12:06 | MHC.OFFVIS ---
Vital Signs 08/16/23 12:08 Height 5 ft 3 in Weight 200 lb BMI 35.4 Intake Visit Reasons: PO 6 week LT TKA 05/23/23 NE Intake Note: Erika is a 72 year old female who presents today for a follow up of her left knee, s/p left TKA 05/23/23. Patient reports she is doing well post operatively until she took a fall about 3 weeks where she landed on the knee. increased pain since this fall which has set her healing back a bit. Allergies No Known Allergies Allergy (Verified 08/16/23 12:08) HPI HPI PO 6 week LT TKA 05/23/23 NE: Details: Erika is a 72 year old female who presents today for a follow up of her left knee, s/p left TKA 05/23/23. Patient reports she is doing well post operatively until she took a fall about 3 weeks where she landed on the knee. increased pain since this fall which has set her healing back a bit. [facility] Medical History Personal history of COVID-19 (~12/2021) Chronic cough Hearing loss Arthritis Prediabetes Hereditary hemochromatosis Hypercholesterolemia Asthma Pulmonary emboli Dyspnea (~02/02/22) History of blood clots Surgical History History of total right knee replacement (TKR) (~10/2021) Hx of colonoscopy Social History Household Members: Spouse Housing: House Are you a primary veterinarian laboratory animal care to a significant other at home: No Do you presently have visiting nurse or other home services: No 75 years or older and lives alone: No Alcohol intake: current Alcohol intake frequency: a few times a week Comment: aware of trip hazard Patient Tobacco Use Status: Never used Tobacco service: No Current occupational status: retired Current occupation: right handed Physical Exam Vital Signs: BMI result Body Mass Index 35.4 Extrem Other: Incision clean dry and intact Full extension with good strength and intact quad Flexion to 120 degrees Results Reviewed Results Reviewed: I personally reviewed relevant radiographs. Left total knee arthroplasty in expected post operative position with no hardware complications or evidence of loosening Assessment & Plan Assessment & Plan (1) Status post total left knee replacement: Onset Date: ~05/23/23 Comment: Dr. Ayad Nelson Code(s): Z96.652 - Presence of left artificial knee joint Category: Surgical Plan: This is a 73-year-old woman who is 3 months status post left knee replacement. She feels like she has not doing as well as she was doing before she fell but her radiographic and clinical exam are unremarkable and she is doing well. She has some slight stiffness in flexion and I reviewed this with her and recommend flexion exercises. She will follow up in 9 months or as needed. Orders: Orders XR knee LT 3V 08/16/23 M25.562 - Pain in left knee Coding Level of Care Code Global (30105) Diagnoses Status post total left knee replacement Z96.652
[2023-08-16 12:08] VITALS: BMI 35.4
== END 2023-08-16 12:57 | disposition home or self-care (01) ==
PROVIDERS: PCP Student in an Organized Health Care Education/Training Program; Visit Provider Orthopaedic Surgery
DX: Z96.652 Presence of left artificial knee joint (principal)
CPT/HCPCS: 99024

== ENCOUNTER 2023-10-01 12:06 | Outpatient (AMB) | payer MEDICARE, OTHER, SELFPAY ==
--- NOTE | 2023-10-01 12:10 | MHC.OFFVIS ---
Vital Signs 10/01/23 12:12 Height 5 ft 3 in Weight 200 lb BMI 35.4 Intake Visit Reasons: O/V LT TKA 05/23/23 NE Intake Note: Erika is a 73 year old female who presents today for a follow up s/p left TKA 05/23/23 NE. Patient reports she fell about 3 weeks after her left TKA and has been having pain since. In the last 3-4 weeks her pain has gradually got worse. She was on vacation and returned last Sunday so she spent about 5 hours sitting. When she stands up from sitting it takes her a couple of minutes to be able to put weight on her left leg. She is expressing numbness on the lateral side of her left foot. Allergies No Known Allergies Allergy (Verified 10/01/23 12:16) HPI HPI O/V LT TKA 05/23/23 NE: Details: Erika is a 73 year old female who presents today for a follow up s/p left TKA 05/23/23 NE. Patient reports she fell about 3 weeks after her left TKA and has been having pain since. In the last 3-4 weeks her pain has gradually got worse. She was on vacation and returned last Sunday so she spent about 5 hours sitting. When she stands up from sitting it takes her a couple of minutes to be able to put weight on her left leg. She is expressing numbness on the lateral side of her left foot. [facility] Medical History Personal history of COVID-19 (~12/2021) Chronic cough Hearing loss Arthritis Prediabetes Hereditary hemochromatosis Hypercholesterolemia Asthma Pulmonary emboli Dyspnea (~02/02/22) History of blood clots Surgical History History of total right knee replacement (TKR) (~10/2021) Hx of colonoscopy Social History Household Members: Spouse Housing: House Are you a primary account executive healthcare to a significant other at home: No Do you presently have visiting nurse or other home services: No 75 years or older and lives alone: No Alcohol intake: current Alcohol intake frequency: a few times a week Comment: aware of trip hazard Patient Tobacco Use Status: Never used Tobacco service: No Current occupational status: retired Current occupation: right handed Physical Exam Vital Signs: BMI result Body Mass Index 35.4 Extrem Other: Incision clean dry and intact Full extension with good strength and intact quad Flexion to 125 degrees Assessment & Plan Assessment & Plan (1) Status post total left knee replacement: Onset Date: ~05/23/23 Comment: Dr. Ayad Nelson Code(s): Z96.652 - Presence of left artificial knee joint Category: Surgical Plan: Doing well but still with pain. No evidence of complication. I recommend she continue activity as tolerated. She can see me back in 6 mo. Coding Level of Care Code Est Pt Level 3 (05316) Diagnoses Status post total left knee replacement Z96.652
[2023-10-01 12:12] VITALS: BMI 35.4
== END 2023-10-01 13:02 | disposition home or self-care (01) ==
PROVIDERS: PCP Student in an Organized Health Care Education/Training Program; Visit Provider Orthopaedic Surgery
DX: Z47.1 Aftercare following joint replacement surgery (principal); Z96.652 Presence of left artificial knee joint
CPT/HCPCS: 99212

== ENCOUNTER → 2023-10-01 12:06 | Outpatient (BNVA) | payer MEDICARE, OTHER, SELFPAY | PROVIDERS: PCP Student in an Organized Health Care Education/Training Program; Visit Provider Orthopaedic Surgery | DX: M79.605 Pain in left leg (principal); R20.0 Anesthesia of skin; Z96.652 Presence of left artificial knee joint; Z91.81 History of falling | CPT/HCPCS: 99212 ==

== ENCOUNTER 2023-10-09 09:46 | Outpatient (AMB) | payer MEDICARE, OTHER, SELFPAY ==
--- NOTE | 2023-10-09 09:53 | MHC.OFFVIS ---
Vital Signs 10/09/23 09:54 Height 5 ft 3 in Weight 198 lb 10.184 oz BMI 35.2 Pulse 83 Pulse Source Pulse Oximeter Pulse Oximetry (%) 96 Oxygen Delivery Method Room Air Intake Visit Reasons: Asthma Machinist Mechanic Required: No Allergies No Known Allergies Allergy (Verified 10/09/23 09:55) HPI Comments Details: The patient is a 73-year-old woman with a known history of asthma in addition to pulmonary emboli. the patient states that back in 2017 she was becoming progressively short of breath. She had an abnormal D-dimer initially referred to the hospital where she had a CTA. She actually had extensive bilateral pulmonary emboli. We personally reviewed the CT scan in the office. She did have central emboli with significant clot burden and a dilated right ventricle along with a dilated pulmonary trunk. the patient was placed on anticoagulation and did not require lysis. Ultimately her echocardiogram normalized and she did follow-up with cardiology. Based on the description it appears that she has an unprovoked pulmonary emboli putting her at risk for additional clots. After an extensive evaluation and management it was decided to take her off anticoagulation. She has done well ever since. Has not had any evidence of any recurrence. Now however she is developing increasing shortness of breath again. Denies any chest pains. Denies any leg swellings. She did have a lower extremity Doppler about a year ago that did demonstrate she had a left Ernst cyst but no evidence of any blood clots. She continues to use her respiratory therapy which includes Symbicort in addition to Xopenex. apparently she had gone to the ER at some point and they did prescribe her Advair but she has not used it. She also uses her allergy medications. 01/13/2021 the patient is here for a pulmonary follow-up visit. The patient continues to have some dyspnea on exertion. She is also describes chest discomfort. At this moment she does not have any chest discomfort. She did undergo blood work recently demonstrating an elevated D-dimer. With a history of blood clots in the elevated D-dimer she needs to have a repeat CT scan of the chest PE protocol. We will request 1 as soon as possible. In the meantime she continues to use Symbicort with good effect. She has not had to use her rescue inhaler at this time. We also reviewed her pulmonary function studies demonstrating normal diffusing capacity was issue reassuring in addition to that no obstructive nor restrictive ventilatory defects. 03/01/2021 the patient is here for a pulmonary follow-up visit. Since we last spoke the patient has been doing better. She has been using her respiratory inhalers with good response. Due to the fact that she had an elevated D-dimer she did undergo a CTA. No evidence of any blood clots which is reassuring and her lung parenchyma appear to be normal without any evidence of any interstitial lung disease. However she did have some degree of atelectasis at the bases. She does have some slight elevations of the diaphragm particularly the right 1 due to increased abdominal pressures. We did review her pulmonary function studies with no definitive obstructive nor restrictive ventilatory defects and a normal diffusing capacity. Her forced vital capacity was decreased and also her expiratory reserve volume. Overall the patient has been doing well at this point will continue with current therapy. will plan to continue current respiratory therapy until we follow-up in the fall of 2021. If she has any issues prior to that she needs to call the office for an earlier evaluation. 02/02/2022 the patient is here for a pulmonary follow-up visit. The patient had been doing very well until recently when she developed COVID-19. the patient did take her antiviral medicine. She tolerated for the 5 days except for the medical taste in her mouth. Subsequently after that he started developing a cough chest congestion with yellow sputum. Moderate severity. She has been using her rescue inhaler more often. On examination she does have increased rhonchi and wheezing. Patient definitely has postviral bacterial bronchitis along with bronchospasms. She does not have a nebulizer right now home. If her symptoms do not improve she is to call the office and at that point nebulized the will be helpful. In the meantime she is going to continue with rescue inhaler send her a Medrol pack in some doxycycline. 04/11/2023 the patient is here for a pulmonary follow-up visit. Overall the patient complains of a cough. The cough is moderate severe. Typically nonproductive but sometimes she does expectorate some. Not like her bronchitis. She has been using Symbicort. Symbicort does not seem to work in all the way and now is not covered by insurance. Which will further optimize respiratory therapy at this time. She is also looking to having total knee replacement so will optimize respiratory therapy in order for to tolerated surgery well. Will go ahead and start her on Trelegy 200. We did teach how to use it. In the meantime she did have a chest x-ray back from 2021 will have the repeat her x-ray. The patient also will continue with her rescue inhaler and her Singulair. Once the patient recovers from her surgery and rehabilitation she will return with perform PFTs at that time. 10/09/2023 the patient is here for a pulmonary follow-up visit. The patient has been doing well. She did have her total knee replacement sometime early 2023 she tolerated the surgery well. She completed physical therapy and feeling well. She also switched over from Symbicort to Trelegy. This has been affecting beneficial. She has doing the higher dose, 200 mcg. Will try to decrease it down to 100 mcg during her next visit. In the meantime she is starting to get more mobile so we will want to make any changes. From an imaging study she did have a chest x-ray this year which we personally reviewed. Appears that her lung volumes are decreased. And also has some degenerative disc disease in her back. We talked about the importance of deep breathing exercises and also stretching. She is going to be working on these things. She is also working on weight loss and exercise. Overall she is doing well will follow-up in the spring with pulmonary function studies. [facility] Medical History Personal history of COVID-19 (~12/2021) Chronic cough Hearing loss Arthritis Prediabetes Hereditary hemochromatosis Hypercholesterolemia Asthma Pulmonary emboli Dyspnea (~02/02/22) History of blood clots Surgical History History of total right knee replacement (TKR) (~10/2021) Hx of colonoscopy Social History Household Members: Spouse Housing: House Are you a primary intensive care unit registered nurse to a significant other at home: No Do you presently have visiting nurse or other home services: No 75 years or older and lives alone: No Alcohol intake: current Alcohol intake frequency: a few times a week Comment: aware of trip hazard Patient Tobacco Use Status: Never used Tobacco service: No Current occupational status: retired Current occupation: right handed Review of Systems Const Denies night sweats ENT Denies change in voice, Denies lip swelling, Denies mouth pain, Reports nasal congestion, Reports nasal discharge and Denies tongue swelling Card Denies chest pain and Reports dyspnea on exertion Resp Denies change in phlegm color, Denies chest congestion, Reports cough, Reports dyspnea on exertion and Reports wheezing GI Denies abdominal pain Musc Reports as per HPI Neuro Denies Neuro-related abnormal movements Psych Denies no additional complaints Bandar/Lymph Denies easy bleeding and Denies lymphadenopathy Aller/Immun Denies lip swelling, Denies tongue swelling and Reports wheezing Physical Exam Vital Signs: Last Vital Signs Pulse 83 10/09/23 09:54 Pulse Ox 96 10/09/23 09:54 Oxygen Delivery Method Room Air 10/09/23 09:54 BMI result Body Mass Index 35.2 Const General: alert Neck Neck: Yes normal visual inspection, Yes full ROM and Yes no lymphadenopathy Chest Chest palpation & inspection: normal inspection of the chest Resp Effort & Inspection: normal respiratory effort Auscultation: no rhonchi, no wheezes and diminished lung sounds Cardio Rate: regular rate Rhythm: regular rhythm Heart sounds: S1 normal heart sound present and S2 normal heart sound present GI Palpation (GI): Soft to palpation and nontender Auscultation: normal bowel sounds Skin General skin exam: rashes and/or lesions noted Assessment & Plan Assessment & Plan (1) Asthma: Code(s): J45.909 - Unspecified asthma, uncomplicated Category: Medical Qualifiers: Asthma complication type: uncomplicated Asthma persistence: persistent Asthma severity: moderate Qualified Code(s): J45.40 - Moderate persistent asthma, uncomplicated (2) Dyspnea: Onset Date: ~02/02/22 Code(s): R06.00 - Dyspnea, unspecified Category: Medical Qualifiers: Dyspnea type: dyspnea on exertion Qualified Code(s): R06.09 - Other forms of dyspnea (3) Chronic cough: Code(s): R05.3 - Chronic cough Category: Medical Plan continue Trelegy 200, consider decreasing 100mcg Xopenex as needed Continue Singulair in addition to antihistamine therapy PFTs prior to the next visit Follow up in the Spring 2024 Medications: Discontinued umeclidinium 62.5 mcg/actuation (Incruse Ellipta) Discontinued Reason: Doctor's Order 1 inh inhalation DAILY 30 days 30 ea 11RF J45.909 - Unspecified asthma, uncomplicated Coding Level of Care Code Est Pt Level 4 (98570) Diagnoses Moderate persistent asthma without complication J45.40 Asthma complication type: uncomplicated Asthma persistence: persistent Asthma severity: moderate Dyspnea on exertion R06.09 Dyspnea type: dyspnea on exertion Chronic cough R05.3 Time Spent (min) 16
[2023-10-09 09:54] VITALS: PULSE 83; O2SAT 96; BMI 35.2
== END 2023-10-09 10:12 | disposition home or self-care (01) ==
PROVIDERS: PCP Student in an Organized Health Care Education/Training Program; Visit Provider Hospitalist
DX: J45.40 Moderate persistent asthma, uncomplicated (principal); R06.09 Other forms of dyspnea; R05.3 Chronic cough
CPT/HCPCS: 99214

== ENCOUNTER → 2023-10-09 09:46 | Outpatient (BNVA) | payer MEDICARE, OTHER, SELFPAY | PROVIDERS: PCP Student in an Organized Health Care Education/Training Program; Visit Provider Hospitalist | DX: J45.40 Moderate persistent asthma, uncomplicated (principal); R05.3 Chronic cough; R06.09 Other forms of dyspnea | CPT/HCPCS: 99212 ==

== ENCOUNTER 2023-11-22 09:04 | Outpatient (AMB) | payer MEDICARE, OTHER, SELFPAY ==
[2023-11-22 09:27] VITALS: BMI 35.1
--- NOTE | 2023-11-22 09:27 | MHC.OFFVIS ---
Vital Signs 11/22/23 09:27 Height 5 ft 3 in Weight 198 lb BMI 35.1 Intake Visit Reasons: OV- LT TKA 05/23/23 NE-follow up Intake Note: Erika is a 73 year old female who presents today for a follow up s/p left TKA 05/23/23 w/ NE. Patient reports that she is doing well with some mild stiffness and soreness of the left knee. She went on a vacation and sat on a plane for 5+ hours which cause significant stiffness and discomfort while on vacation. Allergies No Known Allergies Allergy (Verified 11/22/23 09:27) HPI HPI OV- LT TKA 05/23/23 NE-follow up: Details: Eirka is a 73 year old female who presents today for a follow up s/p left TKA 05/23/23 w/ NE. Patient reports that she is doing well with some mild stiffness and soreness of the left knee. She went on a vacation and sat on a plane for 5+ hours which cause significant stiffness and discomfort while on vacation. REPLACED BY [facility] Medical History (Updated 10/09/23 @ 20:39 by Adebayo Quinonez MD) Personal history of COVID-19 (~12/2021) Chronic cough Hearing loss Arthritis Prediabetes Hereditary hemochromatosis Hypercholesterolemia Asthma Pulmonary emboli Dyspnea (~02/02/22) History of blood clots Surgical History (Updated 11/22/23 @ 09:33 by Lindsay Rodarte CMA) Status post total left knee replacement (05/23/23) History of total right knee replacement (TKR) (~10/2021) Hx of colonoscopy Social History Household Members: Spouse Housing: House Are you a primary healthcare translator to a significant other at home: No Do you presently have visiting nurse or other home services: No 75 years or older and lives alone: No Alcohol intake: current Alcohol intake frequency: a few times a week Comment: aware of trip hazard Patient Tobacco Use Status: Never used Tobacco service: No Current occupational status: retired Current occupation: right handed Physical Exam Vital Signs: BMI result Body Mass Index 35.1 Extrem Other: no gait antalgia inc c/d/i 0-125 Assessment & Plan Assessment & Plan (1) Status post total left knee replacement: Onset Date: 05/23/23 Comment: Dr. Ayad Nelson Code(s): Z96.652 - Presence of left artificial knee joint Category: Surgical Plan: 6 mo post op. Doing well. Progressing slowly but overall feels like she is improving. Coding Level of Care Code Est Pt Level 3 (19175) Diagnoses Status post total left knee replacement Z96.652
== END 2023-11-22 09:51 | disposition home or self-care (01) ==
PROVIDERS: PCP Student in an Organized Health Care Education/Training Program; Visit Provider Orthopaedic Surgery
DX: Z47.1 Aftercare following joint replacement surgery (principal); Z96.652 Presence of left artificial knee joint
CPT/HCPCS: 99212

== ENCOUNTER → 2023-11-22 09:04 | Outpatient (BNVA) | payer MEDICARE, OTHER, SELFPAY | PROVIDERS: PCP Student in an Organized Health Care Education/Training Program; Visit Provider Orthopaedic Surgery | DX: Z96.652 Presence of left artificial knee joint (principal) | CPT/HCPCS: 99212 ==

== ENCOUNTER 2024-03-24 10:18 | Outpatient (AMB) | payer MEDICARE, OTHER, SELFPAY ==
--- NOTE | 2024-03-24 09:48 | A.OFFVIS_ITS ---
Vital Signs 03/24/24 10:26 Height 5 ft 3 in Weight 225 lb 15.581 oz BMI 40.0 BP 114/76 Blood Pressure Location Lt brachial Position Sitting Pulse 67 Pulse Source Pulse Oximeter Pulse Oximetry (%) 96 Oxygen Delivery Method Room Air Intake Visit Reasons: chest congestion/cough Allergies No Known Allergies Allergy (Verified 03/24/24 10:30) HPI HPI chest congestion/cough: Details: Erika is a very pleasant 73 year old female followed for asthma and h/o unprovoked PE not on anticoagulation other than aspirin 81mg. At baseline she is moderately controlled on Trelegy, Singulair, levalbuterol MDI. She is under the care of and presents today for a sick visit. She reports a two weeks started with sinus symptoms and over the last week has had increased chest congestion, chest tightness, productive cough with yellow sputum and dyspnea on exertion. She denies fevers or chills. She does note with similar symptoms. 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) History of total right knee replacement (TKR) (~10/2021) Hx of colonoscopy Social History Household Members: Spouse Housing: House Are you a primary manager respiratory care to a significant other at home: No Do you presently have visiting nurse or other home services: No Alcohol intake: current Alcohol intake frequency: a few times a week Comment: aware of trip hazard Patient Tobacco Use Status: Never used Tobacco service: No Current occupational status: retired Current occupation: right handed Review of Systems Const Denies chills, Denies excessive sweating, Denies fever(s), Denies headache(s) and Denies night sweats Eyes Denies dry eyes, Denies irritation and Denies itchy eyes ENT Reports Normal hearing present, Denies headache(s), Denies nasal congestion, Denies nasal discharge, Denies post nasal drip and Denies sore throat Card Denies chest pain, Denies chest pain at rest, Denies chest pain with activity, Denies claudication, Denies leg edema, Reports dyspnea on exertion, Denies orthopnea and Denies paroxysmal nocturnal dyspnea Resp Reports chest congestion, Reports cough, Denies excessive phlegm production, Denies pain on inspiration, Denies pain with cough, Reports dyspnea on exertion and Denies stridor Neuro Reports Normal hearing present and Denies headache(s) Endo Denies excessive sweating Bandar/Lymph Denies lymphadenopathy Aller/Immun Denies itchy eyes and Denies seasonal rhinorrhea Physical Exam Vital Signs: Last Vital Signs Pulse 67 03/24/24 10:26 BP 114/76 03/24/24 10:26 Pulse Ox 96 03/24/24 10:26 Oxygen Delivery Method Room Air 03/24/24 10:26 BMI result Body Mass Index 40.0 Const General: cooperative, comfortable, no acute distress, well developed and alert Nutritional Appearance: obese Orientation/consciousness: patient oriented x3 Limitations: no limitations HEENT Head: Yes normal to inspection, Yes normocephalic and Yes atraumatic Ears: hearing grossly normal bilaterally and external ears normal Eyes General: appearance normal, both eyes and all related structures Eyelids: Yes eyelids normal Sclerae: sclerae normal EOM: EOMs intact bilaterally Neck Neck: Yes normal visual inspection and Yes no lymphadenopathy Lymphatic: no lymphadenopathy noted Chest Chest palpation & inspection: normal inspection of the chest Resp Effort & Inspection: normal respiratory effort, able to speak in complete sentences, no audible wheezes, no cough, no stridor, not tachypneic, no tripod positioning and no use of accessory muscles Auscultation: clear to auscultation bilaterally Cardio Jugular venous distension: no JVD Rate: regular rate Rhythm: regular rhythm Skin Other: warm, dry General skin exam: no rashes or lesions noted Neuro General: patient oriented x3 Cranial nerves: Yes Normal hearing present Cognition (Neuro): normal cognition Gait exam (Neuro): Normal gait present Extrem General: Yes normal to inspection, Yes capillary refill normal, Yes no clubbing, cyanosis or edema and Yes no pedal edema Psych Appearance: grossly normal and well kempt Speech and movement: Normal speech and movement present and Clear speech present Affect: normal affect Attitude: cooperative Thought process: Normal thought process present Thought content: Normal thought content present Insight: Good insight present (Psych) Judgement: Good judgement present (Psych) Assessment & Plan Assessment & Plan (1) Asthma: Code(s): J45.909 - Unspecified asthma, uncomplicated Category: Medical Qualifiers: Asthma severity: moderate Asthma persistence: persistent Asthma complication type: uncomplicated Qualified Code(s): J45.40 - Moderate persistent asthma, uncomplicated (2) Bronchitis: Code(s): J40 - Bronchitis, not specified as acute or chronic Category: Medical Plan Will treat bronchitic symptoms with azithromycin, prednisone and bezonatate, advised continue current regimen. If symptoms do not improve, she is aware to call the office. All questions were answered and patient is in agreement of plan. Will follow up with Dr. Quinonez at her regularly scheduled appointment. Medications: New prednisone 40 mg (2 x 20 mg) PO DAILY 10 tabs 0RF azithromycin For 250 mg dose pack: take 500 mg today (day 1), then 250 mg for 4 days (days 2-5) PO 6 tabs 0RF Refilled benzonatate 200 mg PO BID PRN 30 caps 6RF cough 30 days R05.3 - Chronic cough [id number] 200-62.5-25 mcg (Trelegy Ellipta) 1 inh inhalation DAILY 60 ea 12RF 30 days Coding Level of Care Code Est Pt Level 4 (04065) Diagnoses Moderate persistent asthma without complication J45.40 Asthma severity: moderate Asthma persistence: persistent Asthma complication type: uncomplicated Bronchitis J40
--- OUTSIDE RECORDS SUMMARY | 2024-03-24 10:22 | XMS_ITS | Data Portability ---
Author Organization [facility], Main Office Address [address] [place] [address] Care Team Providers Care Ethanol Operations Manager Name Role Phone [facility] Referring Provider LAMBERTO RÍOS Motor Express Clerk ANTWAN SANTANA Armhole Feller Handstitching Machine LORETTA BARKER Entry Level Installation Technician JORGE BATES Gynecological/Oncology [facility] Form Setter Helper MAGDY GUEVARA Block Mechanic [phone] CHRISTINE MCCORMACK Hand Surgeon TIFFANIE MOELLER Referring Provider GHASSAN DUMONT Medical Oncologist IRMA RICARDO 8Th Grade Mathematics Teacher EDITH VALLADARES Orthopedic Surgeon [phone] CLAUDIA VIVAS Block Mechanic [phone] SEBAS FINE Primary Care Provider Assessment No assessment recorded. Plan of Treatment Reminders Order Date Submit Date Provider Last Modified By Organization Details Last Modified Time Details Appointments None recorde d. Lab CBC w/ auto diff 2022 023 [email or web address] [facility], [address] [address], [place], [address], 4 09:01:29 HbA1c (hemogl obin A1c), blood 2022 023 ALEXIS [facility], [address], [place], [address], 3 09:42:15 BMP, serum or plasma 2022 023 [email or web address] [facility], [address], [address], [place], [address], 4 09:01:29 lipid panel, serum 2022 023 [email or web address] [facility], [address], [address], [place], [address], 4 09:01:29 HbA1c (hemogl obin A1c), blood 2023 024 ALEXIS [facility], [address], [address], [place], [address], 4 06:08:24 BMP, serum or plasma 2023 024 ALEXIS [facility], [address], [address], [place], [address], 4 06:08:23 lipid panel, serum 2023 024 ALEXIS [facility], [address], [address], [place], [address], 4 06:08:24 CBC w/ auto diff 2023 024 ALEXIS [facility], [address], [address], [place], [address], 4 06:08:22 vitamin B12, serum 2023 024 [facility], [address] [place], [address], 4 10:23:21 HbA1c (hemogl obin A1c), blood 2023 024 [facility], [address] [place] [address], [address], 4 10:23:21 folate, serum 2023 024 [facility] [email or web address] [facility], [address] [place] [address], [address], 4 10:23:21 vitamin B1 (thiami ne), blood 2023 024 [facility] [email or web address], [address] [place] [address], [address], 4 10:23:21 ESR (erythr ocyte sedimen tation rate), blood 2023 [facility], [address] [place] [address], [address], 4 10:23:21 C-react chilango protein , quantit ative, serum or plasma 2023 024 [facility] [email or web address] [facility], [address] [place] [address], [address], 4 10:23:21 lipid panel, serum 2023 024 [facility], [address] [place] [address], [address], 4 09:51:16 Referral gastroe nterolo gist referra l - due for colonos copy 2022 023 [email or web address] Nancy Patel MD, [address] [place] [address] [address], [place], [address], 3 11:55:[address]i [address] referra l - left ankle pain, lianne s tendon inserti on site. 2023 024 [email or web address] [facility] [place], [facility] [address], [place], [address], 4 10:16:42 Procedures colonos copy screeni ng (PROC) 2022 023 [email or web address] In-Office Order, Internal Use Only DO Not Attach Compendium DO Not Attach Compendium, Do Not Delete/merge, [id number] 3 11:48:50 Surgeries None recorde d. Imaging MAMMO, screeni ng, bilater al - Perform Diagnos tic Mammogr am and Breast Ultraso und if needed / Perform Ultraso und Guided Aspirat ion and/or Breast Biopsy if warrant ed 2022 023 [facility], [address], [place], [address], 3 12:00:50 bone density 2023 024 Not available 4 13:07:31 XR, lumbosa cral spine, 2 or 3 view 2023 024 [email or web address] Not available 4 11:13:25 Medication Orders montelu kast 10 mg tablet 2022 023 [facility], [address] [place], [address], 3 11:29:25 Symbico rt 160 mcg-4.5 mcg/act uation HFA aerosol inhaler 2022 023 [email or web address] [facility] #1157, [address] [place], [address], 4 08:26:08 montelu kast 10 mg tablet 2023 024 [facility], [address] [place], [address], 4 08:46:25 meloxic am 15 mg tablet 2023 024 [facility], [address] [place], [address], 4 10:12:23 Patient TargetsNo targets recorded. Patient Instructions Encounter Date Encounter Id Patient Instructions Last Modified By Organization Details Last Modified Time 07/27/2022 [id number] hemochromatosis: care instructions [email or web address] Not available 07/27/2022 11:30:46 preventing falls: care instructions [email or web address] Not available 07/27/2022 11:29:20 medicare preventive services guide (female 74yrs and under) [email or web address] Not available 07/27/2022 11:29:19 01/26/2023 [id number] medical record request* [email or web address] Not available 01/29/2023 10:26:59 07/31/2023 [id number] well visit, over 65: care instructions Not available 07/31/2023 08:43:19 preventing falls: care instructions Not available 07/31/2023 08:43:19 11/08/2023 [id number] achilles tendon: exercises [email or web address] Not available 11/08/2023 10:10:08 To call or return for worsening or concerns [email or web address] Not available 11/08/2023 10:09:32 01/10/2024 [id number] hemochromatosis: care instructions Not available 01/10/2024 09:45:16 Reason for Referral Block Mechanic Referral for Screening for malignant neoplasm of colon due for colonoscopy Referring Physician: Gayle Mariscal, Family Medicine, Encounter Date: 07/27/2022 Physical Therapist Referral for Left Achilles tendinitis left ankle pain, achilles tendon insertion site. Referring Physician: Russ Flores, Family Medicine, Encounter Date: 11/08/2023 Results Created Date Observation Date Name Description Value Unit Range Abnormal Flag Note LastModifiedBy Organization Detail LastModifiedTime 07/31/19 24 07/31/2023 CBC WITH DIFFE RENTI AL/PL ATELE T WBC 6.5 x10e3 /uL 3.4-10 .8 Not Available [facility] ([facility]) [address] [facility], [place], [address], 08/01/2023 06:08:22 07/31/19 24 07/31/2023 CBC WITH DIFFE RENTI AL/PL ATELE T RBC 4.57 x10e6 /uL 3.77-5 .28 Not Available [facility] ([facility]) [address] [facility], [place], [address], 08/01/2023 06:08:22 07/31/19 24 07/31/2023 CBC WITH DIFFE RENTI AL/PL ATELE T hemoglobin 14.8 g/dL 11.1-1 5.9 Not Available [facility] ([facility]) [address] [facility], [place], [address], 08/01/2023 06:08:22 07/31/19 24 07/31/2023 CBC WITH DIFFE RENTI AL/PL ATELE T hematocrit 44.5 % 34.0-4 6.6 Not Available [facility] ([facility]) [address] [facility], [place], [address], 08/01/2023 06:08:22 07/31/19 24 07/31/2023 CBC WITH DIFFE RENTI AL/PL ATELE T MCV 97 fL 79-97 Not Available [facility] ([facility]) [address] [place], [address], 08/01/2023 06:08:22 07/31/19 24 07/31/2023 CBC WITH DIFFE RENTI AL/PL ATELE T MCH 32.4 pg 26.6-3 3.0 Not Available [facility] ([facility]) [address] [place], [address], 08/01/2023 06:08:22 07/31/19 24 07/31/2023 CBC WITH DIFFE RENTI AL/PL ATELE T MCHC 33.3 g/dL 31.5-3 5.7 Not Available [facility] ([facility]) [address] [place], [address], 08/01/2023 06:08:22 07/31/19 24 07/31/2023 CBC WITH DIFFE RENTI AL/PL ATELE T RDW 12.1 % 11.7-1 5.4 Not Available [facility] ([facility]) [address] [facility], [place], [address], 08/01/2023 06:08:22 07/31/19 24 07/31/2023 CBC WITH DIFFE RENTI AL/PL ATELE T platelets 258 x10e3 /uL 150-45 0 Not Available [facility] ([facility]) [address] [facility], [place], [address], 08/01/2023 06:08:22 07/31/19 24 07/31/2023 CBC WITH DIFFE RENTI AL/PL ATELE T neutrophils 53 % not estab. Not Available [facility] ([facility]) [address] [facility], [place], [address], 08/01/2023 06:08:22 07/31/19 24 07/31/2023 CBC WITH DIFFE RENTI AL/PL ATELE T lymphs 34 % not estab. Not Available [facility] ([facility]) [address] [facility], [place], [address], 08/01/2023 06:08:22 07/31/19 24 07/31/2023 CBC WITH DIFFE RENTI AL/PL ATELE T monocytes 10 % not estab. Not Available [facility] ([facility]) [address] [facility], [place], [address], 08/01/2023 06:08:22 07/31/19 24 07/31/2023 CBC WITH DIFFE RENTI AL/PL ATELE T eos 2 % not estab. Not Available [facility] ([facility]) [address] [facility], [place], [address], 08/01/2023 06:08:22 07/31/19 24 07/31/2023 CBC WITH DIFFE RENTI AL/PL ATELE T basos 1 % not estab. Not Available [facility] ([facility]) [address] [facility], [place], [address], 08/01/2023 06:08:22 07/31/19 24 07/31/2023 CBC WITH DIFFE RENTI AL/PL ATELE T immature cells WINDOWS ARCHITECT Not Available [facility] ([facility]) [address] [facility], [place], [address], 08/01/2023 06:08:22 07/31/19 24 07/31/2023 CBC WITH DIFFE RENTI AL/PL ATELE T neutrophils (absolute) 3.5 x10e3 /uL 1.4-7. 0 Not Available [facility] ([facility]) [address] [facility], [place], [address], 08/01/2023 06:08:22 07/31/19 24 07/31/2023 CBC WITH DIFFE RENTI AL/PL ATELE T lymphs (absolute) 2.2 x10e3 /uL 0.7-3. 1 Not Available [facility] ([facility]) [address] [facility], [place], [address], 08/01/2023 06:08:22 07/31/19 24 07/31/2023 CBC WITH DIFFE RENTI AL/PL ATELE T monocytes(ab solute) 0.6 x10e3 /uL 0.1-0. 9 Not Available [facility] ([facility]) [address] [place], [address], 08/01/2023 06:08:22 07/31/19 24 07/31/2023 CBC WITH DIFFE RENTI AL/PL ATELE T eos (absolute) 0.1 x10e3 /uL 0.0-0. 4 Not Available [facility] ([facility]) [address] [place], [address], 08/01/2023 06:08:22 07/31/19 24 07/31/2023 CBC WITH DIFFE RENTI AL/PL ATELE T baso (absolute) 0.0 x10e3 /uL 0.0-0. 2 Not Available [facility] ([facility]) [address] [facility], [place], [address], 08/01/2023 06:08:22 07/31/19 24 07/31/2023 CBC WITH DIFFE RENTI AL/PL ATELE T immature granulocytes 0 % not estab. Not Available [facility] ([facility]) [address] [facility], [place], [address], 08/01/2023 06:08:22 07/31/19 24 07/31/2023 CBC WITH DIFFE RENTI AL/PL ATELE T immature grans (abs) 0.0 x10e3 /uL 0.0-0. 1 Not Available [facility] ([facility]) [address] [facility], [place], [address], 08/01/2023 06:08:22 07/31/19 24 07/31/2023 CBC WITH DIFFE RENTI AL/PL ATELE T NRBC WINDOWS ARCHITECT Not Available [facility] ([facility]) [address] [facility], [place], [address], 08/01/2023 06:08:22 07/31/19 24 07/31/2023 CBC WITH DIFFE RENTI AL/PL ATELE T hematology comments: WINDOWS ARCHITECT Not Available [facility] ([facility]) [address] [facility], [place], [address], 08/01/2023 06:08:22 07/31/19 24 07/31/2023 BASIC METAB OLIC PANEL (8) glucose 116 mg/dL 70-99 above high normal Not Available [facility] ([facility]) [address] [place], [address], 08/01/2023 06:08:23 07/31/19 24 07/31/2023 BASIC METAB OLIC PANEL (8) BUN 21 mg/dL 8-27 Not Available [facility] ([facility]) [address] [place], [address], 08/01/2023 06:08:23 07/31/19 24 07/31/2023 BASIC METAB OLIC PANEL (8) creatinine 0.88 mg/dL 0.57-1 .00 Not Available [facility] ([facility]) [address] [place], [address], 08/01/2023 06:08:23 07/31/19 24 07/31/2023 BASIC METAB OLIC PANEL (8) eGFR 70 mL/mi n/1.7 3 >59 Not Available [facility] ([facility]) [address] [facility] [place], [address], 08/01/2023 06:08:23 07/31/19 24 07/31/2023 BASIC METAB OLIC PANEL (8) BUN/creatini ne ratio 24 12-28 Not Available [facility] ([facility]) [address] [facility], [place], [address], 08/01/2023 06:08:23 07/31/19 24 07/31/2023 BASIC METAB OLIC PANEL (8) sodium 142 mmol/ L 134-14 4 Not Available [facility] ([facility]) [address] [facility], [place], [address], 08/01/2023 06:08:23 07/31/19 24 07/31/2023 BASIC METAB OLIC PANEL (8) potassium 4.3 mmol/ L 3.5-5. 2 Not Available [facility] ([facility]) [address] [facility] [place], [address], 08/01/2023 06:08:23 07/31/19 24 07/31/2023 BASIC METAB OLIC PANEL (8) chloride 105 mmol/ L 96-106 Not Available [facility] ([facility]) [address] [facility] [place], [address], 08/01/2023 06:08:23 07/31/19 24 07/31/2023 BASIC METAB OLIC PANEL (8) carbon dioxide, total 22 mmol/ L 20-29 Not Available [facility] ([facility]) [address] [facility] [place], [address], 08/01/2023 06:08:23 07/31/19 24 07/31/2023 BASIC METAB OLIC PANEL (8) calcium 9.7 mg/dL 8.7-10 .3 Not Available [facility] ([facility]) [address] [facility] [place], [address], 08/01/2023 06:08:23 07/31/19 24 07/31/2023 LIPID PANEL cholesterol, total 231 mg/dL 100-19 9 above high normal Not Available [facility] ([facility]) [address] [facility] [place], [address], 08/01/2023 06:08:24 07/31/19 24 07/31/2023 LIPID PANEL triglyceride s 53 mg/dL 0-149 Not Available [facility] ([facility]) [address] [facility] [place], [address], 08/01/2023 06:08:24 07/31/19 24 07/31/2023 LIPID PANEL HDL cholesterol 72 mg/dL >39 Not Available [facility] [address] [facility] [place], [address], 08/01/2023 06:08:24 07/31/19 24 07/31/2023 LIPID PANEL VLDL cholesterol sydney 9 mg/dL 5-40 Not Available [facility]) [address] [facility] [place], [address], 08/01/2023 06:08:24 07/31/19 24 07/31/2023 LIPID PANEL LDL chol calc ([facility]) 150 mg/dL 0-99 above high normal Not Available [facility] ([facility]) [address] [place], [address], 08/01/2023 06:08:24 07/31/19 24 07/31/2023 LIPID PANEL comment: WINDOWS ARCHITECT Not Available [facility] ([facility]) [address] [facility], [place], [address], 08/01/2023 06:08:24 07/31/19 24 08/01/2023 HEMOG LOBIN A1C hemoglobin A1C 5.6 % 4.8-5. 6 Predi abete s: 5.7 - 6.4 Diabe nhi: >6.4 Glyce veronica contr ol for adult s with diabe nhi: <7.0 Not Available [facility] ([facility]) [address] [facility], [place], [address], 08/01/2023 06:08:24 11/17/19 23 11/16/2022 MAMMO , scree katy, digit al, bilat eral PROCED URE: MM Digita l Mammo Screen ing INDICA TION: Screen ing for breast cancer . COMPAR ESCOBAR: Multip le priors most recent ly 022 TECHNI QUE: Full-f ield digita l CC and MLO 3D tomosy nthesi s images of both breast s were acquir ed. Comput er-aid ed detect ion (CAD) was utiliz ed in the interp retati on of this study. DENSIT Y: The breast tissue contai ns scatte red areas of fibrog landul ar densit y. FINDIN GS: No suspic ious masses , suspic ious microc alcifi cation s, or areas of marta ectura l distor tion are seen in either breast to sugges t malign ho. IMPRES PHONG: No mammog raphic eviden ce of malign ho. RECOMM ENDATI ON: Annual mammog raphic screen ing BI-RAD S: 1 (Negat chilango) Lay letter mailed to med vasquez I have person ally review ed the images and I agree with this report . WSN: [id number] Orderi ng Physic ryan: Gayle Lopez Dictat ed By: Ernie Vigil i, DO ed Date/T nica: 11:14 am Review ed By: Moraima MUHAMMAD, Kuldip Plummer Signed By: Kuldip Valera MD Signed Date/T nica: 11:19 am Transc ribed By: ROSALINA Transc riptio n Date/T nica: 10:53 am Birads : Med vasquez Class: Outpat ient [id number] [facility] ([facility]) [address], [place], [address], 11/16/2022 11:18:57 04/19/19 24 04/19/2023 XR, knee, weigh tbear ing No observ ation record ed. [address] [place], [address], 04/24/2023 13:39:11 04/19/19 24 04/19/2023 XR, knee, weigh tbear ing No observ ation record ed. [address] [place], [address], 04/24/2023 13:39:36 04/19/19 24 04/19/2023 XR, knee, weigh tbear ing No observ ation record ed. [email or web address] [place], [address], 04/24/2023 13:39:55 04/20/19 24 04/19/2023 XR, chest , 2 view No observ ation record ed. [facility] [address] [place], [address], 04/21/2023 07:59:12 11/20/19 MAMMO , scree katy, bilat eral No observ ation record ed. [email or web address] Not Available 11/19 10:40:13 11/20/19 24 11/20/2023 MAMMO , scree katy, digit al, bilat eral PROCED URE: MM Digita l Mammo Screen ing INDICA TION: Screen ing for breast cancer . No known palpab le abnorm alitie s. COMPAR ESCOBAR: Multip le priors , the most recent 023 TECHNI QUE: Full-f ield digita l CC and MLO 3D tomosy nthesi s images of both breast s were acquir ed. Comput er-aid ed detect ion (CAD) was utiliz ed in the interp retati on of this study. DENSIT Y: There are scatte red areas of fibrog landul ar densit y. FINDIN GS: No suspic ious masses , suspic ious microc alcifi cation s, or areas of marta ectura l distor tion are seen in either breast to sugges t malign ho. IMPRES PHONG: No mammog raphic eviden ce of malign ho. RECOMM ENDATI ON: Routin e mammog raphic screen ing BI-RAD S: 1 (Negat chilango) Lay letter mailed to med vasquez WSN: [id number] Orderi ng Physic yran: Milton Ware Dictat ed By: Kuldip Bourne MD Dictat ed Date/T nica: 10:32 am Review ed By: Kuldip Bourne MD Signed By: Kuldip Bourne MD Signed Date/T nica: 10:32 am Transc ribed By: ROSALINA Transc riptio n Date/T nica: 10:24 am Birads : Med pedro Class: Outpat ient [id number] [facility] ([facility]) [address] [place] [address], [address], 11/20/2023 10:43:05 11/23/1911/20/2023 DEXA, axial skele ton Name:Siri vasquez ID: [id number] Age:73 years Sex:Fe male Ethnic ity:Wh ite Date of : [birth year] Reason : screen ing for osteop orosis ; postme nopaus al. Referr ing Provid er:Rafael lemon MD Study: Dexa Bone Densit y (Axial ) Bone Densit y: Region BMD T-Scor e Z-Scor e Classi ficati on AP Spine 1.016 -0.3 1.9 Normal TOTAL HIP 0.772 -1.4 0.2 Osteop enia FEM NECK 0.683 -1.5 0.4 Osteop enia 10-yea r Fractu re Risk: 1 FRAX(R ) Versio n 3.08. Fractu re probab ility calcul ated for an untrea marcelle patien t. Fractu re probab ility may be lower if the patien t has receiv ed treatm ent. Major Osteop orotic Fractu re 9.4% Hip Fractu re 1.4% Impres phong: The patien t has osteop enia as determ ined by WHO criter ia. Based on the result s of the patien t's bone densit y assess ment, the risk of future fractu re increa ses approx imatel y two fold for each 1.0 SD decrea se in T-scor e. Howeve r, low BMD is not the only risk factor for a future fragil ity fractu re. Other clinic al risk factor s for osteop orotic fractu re should be consid ered in ascert aining this patien t's future fractu re risk includ ing the patien t's age, previo us osteop orotic (fragi lity) fractu re, estrog en defici ency/h ypogon adism, risk of fallin g, use of medica tions implic ated in bone loss (gluco cortic oids), family histor y of osteop orotic fractu re, diseas es and condit ions associ ated with bone loss, low body weight , smokin g, high bone turnov er, etc. Combin ing low BMD and other clinic al risk factor s result in a more precis e assess ment of future fractu re risk. Second chanel causes for osteop orosis , such as osteom alacia , other metabo lic bone disord ers, and diseas es and condit ions that may contri bute to accele rated bone loss may have to be consid ered depend ing on the clinic al situat ion. A repeat bone densit y assess ment should be consid ered in two years. WSN: [id number] Orderi ng Physic ryan: Milton Ware Dictat ed By: Peyton Castaneda ra, MD Dictat ed Date/T nica: 9:49 am Review ed By: Peyton Castaneda ra, MD Signed By: Peyton Castaneda ra, MD Signed Date/T nica: 9:49 am Transc ribed By: ROSALINA Transc ribed Date/T nica: 9:48 am Patien t Class: Outpat ient [facility] (Outpt Imaging) [address] [place] [address], [address], 11/24/2023 18:19:44 01/10/2001/10/2024 XR, lumba r spine Lumbar Spine 2 or 3 Views Reason : pain COMPAR ESCOBAR: None. FINDIN GS: No bone lesion s or fractu res. Severe multif ocal degene rative disc endpla te spurri ng and disc space narrow ing. Mild right convex curvat ure. Grade 1 ashley listhe sis at L5-S1. Normal soft tissue s. IMPRES PHONG: Degene rative change s but no eviden ce of an acute proces s. WSN: [id number] Orderi ng Physic ryan: Milton Ware Dictat ed By: Davonte Su MD Dictat ed Date/T nica: 7:15 pm Review ed By: Davonte Su MD Signed By: Davonte Su MD Signed Date/T nica: 7:15 pm Transc ribed By: ROSALINA Transc ribed Date/T nica: 7:15 pm Patien t Class: Outpat ient [facility] (Outpt Imaging) [address] [place] [address], [address], 01/15/2024 05:48:38 Result Notes None recorded. Problems Name Problem SNOMED Code Status Onset Date Resolution Date Notes Provider Name and Address Organization Details Recorded Time Acute bronchit is [id number] Completed 201110/21/2013 RECORDED 12/18/19 12 8:15AM BY TURNER NIEVESATI ON/ADDEN DUM Yasmeen Packer null, [facility] 6 09:04:36 Bronchos pasm [id number] Completed 200710/21/2013 RECORDED 02/12/20 08 6:53AM BY HUONG ANGEL, ANNOTATI ON/ADDEN DUM Yasmeen Packer null, [facility] 6 09:04:36 Allergic rhinitis [id number] Completed 201204/12/2016 IMPRESSI ON: CONTINUE ALLERGY MEDS AND SINGULAI R, SEEM TO BE HELPING. CONTINUE MEDS; RECORDED 03/27/20 13 9:41AM BY GAYLE Kang MD, OFFICE VISIT Alina austin, [facility] 7 16:04:21 Patient status finding [id number] Completed 201204/12/2016 [facility] 16:04:04 Asthma [id number] Completed 201207/16/2019 IMPRESSI ON: DOING WELL ON SINGULAI R CONTINUE ; RECORDED 03/27/20 13 9:41AM BY GAYLE Kang MD, OFFICE VISIT Gayle austin, [facility] 0 10:08:22 Screenin g for malignan t neoplasm of breast Completed 200810/21/2013 RECORDED 09/29/19 09 10:57AM BY ADRIANA GUERRERO MA, ANNOTATI ON/ADDEN DUM Yasmeen Packer null, [facility] 6 09:04:37 Screenin g for malignan t neoplasm of cervix Completed 201110/21/2013 RECORDED 12/18/19 12 8:16AM BY TURNER NIEVESATI ON/ADDEN DUM Yasmeen Packer null, [facility] 6 09:04:37 Screenin g for malignan t neoplasm of colon Completed 201210/21/2013 RECORDED 03/27/20 13 9:02AM BY LEATHA JOHNSON MA, ANNOTATI ON/ADDEN DUM Yasmeen austin, [facility] 6 09:04:37 Cough [id number] Completed 200810/21/2013 IMPRESSI ON: FOR ONE MONTH, SOUNDS RELATED TO ALLERGIE S,SPIROM ETRY DONE TODAY AND IS VERY NORMAL, WILL GET CXR ADD NASAL SPRAY, IF NOT BETTER 4 WEEKS RETURN FOR VISIT; RECORDED 09/29/19 09 10:57AM BY ADRIANA GUERRERO MA, ANNOTATI ON/ADDEN DUM Alina austin, [facility] 7 16:04:25 Elevated blood-pr essure reading without diagnosi s of hyperten phong [id number] Completed 201210/21/2013 RECORDED 06/15/19 13 9:26AM BY TANNER PALM ON/ADDEN DUM Yasmeen austin, [facility] 6 09:04:37 Eustachi an tube disorder [id number] Completed 201210/21/2013 RECORDED 06/15/19 13 9:26AM BY TANNER PALM ON/ADDEN DUM Yasmeen austin [facility] 6 09:04:36 Influenz a vaccine needed [id number] 06 Completed 201210/21/2013 RECORDED 03/27/20 13 9:22AM BY LEATHA JOHNSON MA, OFFICE VISIT Yasmeen austin [facility] 6 09:04:37 Adult health examinat ion Completed 201204/12/2016 IMPRESSI ON: PAP, MAMMO AND COLONSOC Y UTD, PT TO GET FLU SHOT TODAY; RECORDED 03/27/20 13 12:58PM BY GAYLE Kang MD, OFFICE VISIT Alina austin, [facility] 7 16:04:18 Pure hypercho lesterol emia [id number] Completed 201204/12/2016 Alina austin, [facility] 7 16:04:37 Shoulder joint pain [id number] Completed 201110/21/2013 IMPRESSI ON: 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 PT TO SEE ORTHO FOR INJECITO N, DO PT; RECORDED 12/18/19 12 8:15AM BY TANNER NIEVES ON/ADDEN DUM Yasmeen austin [facility] 6 09:04:37 Cramp in limb [id number] Completed 201110/21/2013 IMPRESSI ON: GETS THEM AT NIGHT, INCREASE FLUIDS, NL CALCIUM AND K, STRETCH BEFORE BED; RECORDED 12/18/19 12 8:15AM BY TANNER NIEVES ON/ADDEN DUM Yasmeen austin [facility] 6 09:04:37 Malaise and fatigue 357890413 Completed 201210/21/2013 RECORDED 06/15/19 13 9:26AM BY TANNER PALM ON/ADDEN DUM Yasmeen austin [facility] 6 09:04:37 Administ ration of bacteria l and viral vaccine Completed 200710/21/2013 RECORDED 02/12/20 08 8:11AM BY HUONG ANGEL, OFFICE VISIT Yasmeen austin [facility] 6 09:04:37 Cramp in lower leg associat ed with rest [id number] Completed 201210/21/2013 IMPRESSI ON: DO AEROBIC EXERCISE BEFORE BED. CALF STRETCH AT BEDTIME REVIEWED . I OFFERED HER LABS BUT SHE WANTS TO WAIT AND TRY THESE MEASURES FIRST AND IF NOT BETTER IN 6 MONTHS AT PHYSICAL SHE WILL DISCUSS WITH PCP ABOUT LABS.; RECORDED 03/27/20 13 9:02AM BY LEATHA JOHNSON MA, TANNER ON/ADDEN DUM Yasmeen austin [facility] 6 09:04:37 Obesity [id number] Completed 201204/29/2020 IMPRESSI ON: IS EXERCISI NG AND WORKING ON AN EATING PLAN; RECORDED 03/27/20 13 12:58PM BY GAYLE Kang MD, OFFICE VISIT Gayle austin [facility] 1 10:25:19 Osteoart hritis of knee 378081405 Completed 201210/21/2013 IMPRESSI ON: PT TO SET UP APPT; RECORDED 03/27/20 13 9:02AM BY LEATHA JOHNSON MA, ANNOTATI ON/ADDEN DUM Yasmeen austin, [facility] 6 09:04:37 Joint pain in ankle and foot Completed 200710/21/2013 IMPRESSI ON: HIGH ARCHES, NO ERYTHEMA , WILL SEE PODIATRI ST FOR EVAL, POSSIBLE ORTHOTIC S; RECORDED 02/12/20 08 6:53AM BY TURNER SOSAATI ON/ADDEN DUM Yasmeen austin [facility] 6 09:04:37 Knee pain Completed 201210/21/2013 RECORDED 06/15/19 13 9:26AM BY TURNER PALMATI ON/ADDEN DUM Yasmeen austin, [facility] 6 09:04:37 Active or passive immuniza tion Completed 201110/21/2013 RECORDED 12/18/19 12 9:16AM BY GAYLE Kang MD, OFFICE VISIT Yasmeen austin [facility] 6 09:04:37 Presbycu sis [id number] Active 2012 BILATERA L HEARING AIDS; RECORDED 03/27/20 13 9:02AM BY LEATHA JOHNSON MA, OFFICE VISIT Not Available [facility] 3 03:52:59 Adult health examinat ion Completed 201110/21/2013 IMPRESSI ON: PAP, MAMMO COLONOSC OPY UTD, IS EXERCISI NG, EATING REALLY WELL, HELPED BY HYPNOSIS , ON VIT D AND CALCIUM, DEALING WITH FIBROID WITH DBAS; RECORDED 12/18/19 12 8:15AM BY TANNER NIEVES ON/ADDEN DUM Alina austin, [facility] 7 16:04:18 Wheezing [id number] Completed 201110/21/2013 IMPRESSI ON: PT IS OFF ADVAIR AND FEELS GREAT, WEIGHT LOSS HELPING, PT WILL CONTINUE SINGULAI R, START RAGHU AND I GAVE SAMPLES OF ADVAIR 100/50 IF SHE GETS ANY WHEEZING ; RECORDED 12/18/19 12 8:15AM BY TANNER NIEVES ON/ADDEN DUM Yasmeen Packer null, [facility] 6 09:04:37 Acute bronchit is [id number] Completed 201111/10/2013 RECORDED 12/18/19 12 8:15AM BY TANNER NIEVES ON/ADDEN DUM Yasmeen Packer null, [facility] 6 09:04:36 Bronchos pasm [id number] Completed 200711/10/2013 RECORDED 02/12/20 08 6:53AM BY HUONG ANGEL, TANNER ON/ADDEN DUM Yasmeen Packer null, [facility] 6 09:04:36 Screenin g for malignan t neoplasm of breast Completed 200811/10/2013 RECORDED 09/29/19 09 10:57AM BY ADRIANA GUERRERO MA, TANNER ON/ADDEN DUM Yasmeen Packer null, [facility] 6 09:04:37 Screenin g for malignan t neoplasm of cervix Completed 201111/10/2013 RECORDED 12/18/19 12 8:16AM BY TANNER NIEVES ON/ADDEN DUM Yasmeen Packer null, [facility] 6 09:04:37 Screenin g for malignan t neoplasm of colon Completed 201211/10/2013 RECORDED 03/27/20 13 9:02AM BY LEATHA JOHNSON MA, TURNERATI ON/ADDEN DUM Yasmeen austin, [facility] 6 09:04:37 Cough [id number] Completed 200811/10/2013 IMPRESSI ON: FOR ONE MONTH, SOUNDS RELATED TO ALLERGIE S,SPIROM ETRY DONE TODAY AND IS VERY NORMAL, WILL GET CXR ADD NASAL SPRAY, IF NOT BETTER 4 WEEKS RETURN FOR VISIT; RECORDED 09/29/19 09 10:57AM BY ADRIANA GUERRERO MA, TURNERATI ON/ADDEN DUM Alina Sterling MA null, [facility] 7 16:04:25 Elevated blood-pr essure reading without diagnosi s of hyperten phong [id number] Completed 201211/10/2013 RECORDED 06/15/19 13 9:26AM BY TANNER PALM ON/ADDEN DUM Yasmeen austin [facility] 6 09:04:37 Eustachi an tube disorder [id number] Completed 201211/10/2013 RECORDED 06/15/19 13 9:26AM BY TANNER PALM ON/ADDEN DUM Yasmeen austin, [facility] 6 09:04:36 Influenz a vaccine needed [id number] 06 Completed 201211/10/2013 RECORDED 03/27/20 13 9:22AM BY LEATHA JOHNSON MA, OFFICE VISIT Yasmeen austin [facility] 6 09:04:37 Shoulder joint pain 168790490 Completed 201111/10/2013 IMPRESSI ON: 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 PT TO SEE ORTHO FOR INJECITO N, DO PT; RECORDED 12/18/19 12 8:15AM BY TANNER NIEVES ON/ADDEN DUM Yasmeen austin [facility] 6 09:04:37 Cramp in limb [id number] Completed 201111/10/2013 IMPRESSI ON: GETS THEM AT NIGHT, INCREASE FLUIDS, NL CALCIUM AND K, STRETCH BEFORE BED; RECORDED 12/18/19 12 8:15AM BY TANNER NIEVES ON/ADDEN DUM Yasmeen austin [facility] 6 09:04:37 Malaise and fatigue 466239895 Completed 201211/10/2013 RECORDED 06/15/19 13 9:26AM BY TANNER PALM ON/ADDEN DUM Yasmeen austin [facility] 6 09:04:37 Administ ration of bacteria l and viral vaccine Completed 200711/10/2013 RECORDED 02/12/20 08 8:11AM BY HUONG ANGEL, OFFICE VISIT Yasmeen austin, [facility] 6 09:04:37 Cramp in lower leg associat ed with rest [id number] Completed 201211/10/2013 IMPRESSI ON: DO AEROBIC EXERCISE BEFORE BED. CALF STRETCH AT BEDTIME REVIEWED . I OFFERED HER LABS BUT SHE WANTS TO WAIT AND TRY THESE MEASURES FIRST AND IF NOT BETTER IN 6 MONTHS AT PHYSICAL SHE WILL DISCUSS WITH PCP ABOUT LABS.; RECORDED 03/27/20 13 9:02AM BY LEATHA JOHNSON MA, ANNOTATI ON/ADDEN DUM Yasmeen austin [facility] 6 09:04:37 Osteoart hritis of knee 492062100 Completed 201211/10/2013 IMPRESSI ON: PT TO SET UP APPT; RECORDED 03/27/20 13 9:02AM BY LEATHA JOHNSON MA, ANNOTATI ON/ADDEN DUM Yasmeen austin [facility] 6 09:04:37 Joint pain in ankle and foot Completed 200711/10/2013 IMPRESSI ON: HIGH ARCHES, NO ERYTHEMA , WILL SEE PODIATRI ST FOR EVAL, POSSIBLE ORTHOTIC S; RECORDED 02/12/20 08 6:53AM BY TANNER SOSA ON/ADDEN DUM Yasmeen austin [facility] 6 09:04:37 Knee pain Completed 201211/10/2013 RECORDED 06/15/19 13 9:26AM BY TURNER PALMATI ON/ADDEN DUM Yasmeen austin [facility] 6 09:04:37 Active or passive immuniza tion Completed 201111/10/2013 RECORDED 12/18/19 12 9:16AM BY GAYLE Kang MD, OFFICE VISIT Yasmeen austin [facility] 6 09:04:37 Wheezing [id number] Completed 201111/10/2013 IMPRESSI ON: PT IS OFF ADVAIR AND FEELS GREAT, WEIGHT LOSS HELPING, PT WILL CONTINUE SINGULAI R, START RAGHU AND I GAVE SAMPLES OF ADVAIR 100/50 IF SHE GETS ANY WHEEZING ; RECORDED 12/18/19 12 8:15AM BY TANNER NIEVES ON/ADDEN DUM Yasmeen austin [facility] 6 09:04:37 Cough [id number] Completed 04/12/2016 Alina austin [facility] 7 16:04:25 Acute asthma 901480710 Completed 05/31/2016 Gayle austin [facility] 7 09:32:07 Ankle pain 317289882 Completed 04/12/2016 Alina austin [facility] 7 16:04:07 Neck pain 15831312 Completed 04/12/2016 Alina austin [facility] 7 16:04:27 Fatigue 50475083 Completed 04/12/2016 Alina austin [facility] 7 16:04:30 Hypercho lesterol emia 04130142 Active Not Available [facility] 3 03:52:59 Arthriti s [id number] Completed 04/12/2016 Alina austin [facility] 7 16:04:14 Biceps tendinit is 406245593 Completed 04/12/2016 Alina austin, [facility] 7 16:04:10 Pulmonar y embolism 36062382 Completed 201611/22/2016 Gayle FloresMaddie celeste norman [facility] 7 09:42:04 History of pulmonar y embolus 220600845 Active 2017 Not Available [facility] 3 03:52:59 Moderate persiste nt asthma 288438853 Active 2019 Not Available [facility] 3 03:52:59 Advance care planning Active 2020 Not Available [facility] 3 03:52:59 Suspecte d COVID-19 025730566 Completed 10/27/2020 Removal Reason: Problem added by user [email or web address] from the COVID-19 watch flag Eleonora Casanova norman, [facility] 1 10:29:36 Liver enzymes level above referenc e range 854926848 Active 2020 Not Available [facility] 3 03:52:59 Serum iron above referenc e range 459720879 Completed 202001/26/2023 SEBAS FINE MD [address] [facility] [address], [place], [address] , [facility] 3 06:07:16 Heredita ry hemochro matosis 14662096 Active 2020 Not Available [facility] 3 03:52:59 Prediabe nhi 099412696 Active 2020 Not Available [facility] 3 03:52:59 Left Achilles tendinit is [id number] 9102 Active 2023 BRANDON Doherty [address] [facility] [address], [place], [address] , [facility] 4 10:09:48 Osteopen ia 961586848 Active 2023 SEBAS FINE MD [address], [place], [address] , [facility] 4 16:27:35 Problem Notes None recorded. Procedures Surgical History Date Name Laterality Status Provider Name and Address Organization Details Recorded Time 4 Most Recent Mammogram completed Destinee Powell [facility] 11/20/2023 10:40:28 4 Mammogram both breasts completed Destinee Powell [facility] 11/20/2023 10:40:21 4 Advanced Care Planning completed SEBAS FINE MD [address] [facility] [address], [place], [address], [facility] 07/31/2023 07:58:31 3 Date of Last Colonoscopy completed Sirisha Crowe MA [facility] 07/31/2023 08:27:16 3 Colonoscopy completed [place] River [facility] 09/20/2022 13:31:26 2 total replacement of right knee joint completed Josseline Oh [facility] 11/04/2021 08:50:26 1 Advanced Care Planning completed Delma Jain [facility] 05/03/2020 11:02:18 1 Six-Item Cognitive Test completed Sirisha Crowe MA [facility] 04/29/2020 10:15:59 0 Mammogram Diagnostic Bilateral completed Jennifre Smith [facility] 10/16/2019 15:29:47 9 Mini-Cog Test completed Sirisha Crowe MA [facility] 03/22/2019 09:54:17 9 Advanced Care Planning completed Sirisha Crowe MA [facility] 03/22/2019 09:58:27 9 Date of Last Pap Smear completed Sirisha Crowe MA [facility] 03/22/2019 10:04:09 8 Mini-Cog Test completed Sirisha Crowe MA [facility] 03/14/2018 10:30:14 3 completed Leatha Johnson [facility] 04/01/2014 08:03:49 1 completed Leatha Johnson [facility] 04/01/2014 08:03:49 Imaging Results Imaging Date Name Status LastModified by Organization Details LastModified Time 11/16/2022 MAMMO, screening, digital, bilateral completed [email or web address] [facility] (Outpt Imaging) [address] [place] [address], [address], 11/16/2022 11:18:57 04/19/2023 XR, knee, weightbearing completed [address] [facility] [address] [place] [address] [place], [address], 04/24/2023 13:39:11 04/19/2023 XR, knee, weightbearing completed [address] [facility] [address] [place] [address] [place], [address], 04/24/2023 13:39:36 04/19/2023 XR, knee, weightbearing completed [address] [facility] [address] [place] [address] [place], [address], 04/24/2023 13:39:55 04/19/2023 XR, chest, 2 view completed [address] [facility] [address] [place] [address] [place], [id number], 04/21/2023 07:59:12 11/20/2023 MAMMO, screening, bilateral completed [email or web address] Information not available 11/20/2023 10:40:13 11/20/2023 MAMMO, screening, digital, bilateral completed [facility] (Outpt Imaging) [address] [place], [address], 11/20/2023 10:43:05 11/20/2023 DEXA, axial skeleton completed [facility] (Outpt Imaging) [address] [place], [address], 11/24/2023 18:19:44 01/10/2024 XR, lumbar spine completed [facility] (Outpt Imaging) [address] [place], [address], 01/15/2024 05:48:38 Procedure Notes None recorded. Medical Equipment None Reported. Allergies Allergen ID Allergen Name Allergen Category Reaction Reaction Severity Criticality Documentation Date Start Date Code Code System Note Provider Name and Address Organization Details Recorded Time 8072 No known allergy (situatio n) Not available Not available Not available Not available 10/14/20132011 [id number] SNOMED COMME NT: RECOR DED 12/17 8:42A M BY KYRA LEIVA VISIT ; Not Available [facility] 4 13:25:08 No known drug allergies Medications Name Sig Start Date Stop Date Status Note LastModified by Organization Details LastModified Time fexofenad ine hcl 180 mg tabs active Not Available Not Available Not Available benzonata te 100 mg caps active Not Available Not Available Not Available ventolin hfa 108 (90 base) mcg/actae rs 2 puffs as needed for asthma exacerba tion 04/05 completed Not Available Not Available Not Available ibuprofen 800 mg tabs active Not Available Not Available Not Available Prescript ion - Clarifica tion 10/28 completed Not Available Not Available Not Available monteluka st sodium 10 mg tabs active Not Available Not Available Not Available fluticaso ne propionat e 50 mcg/act susp active Not Available Not Available Not Available celecoxib 200 mg capsule TAKE 1 CAPSULE BY MOUTH TWICE A DAY FOR 30 DAYS 07/30 completed Not Available Not Available Not Available amoxicill in 500 mg capsule TAKE 4 CAPS BY MOUTH 1 HOUR BEFORE DENTAL PROCEDUR E 01/15 completed duplicat e Not Available Not Available Not Available medroxypr ogesteron e 10 mg tablet Take by oral route for 90 days. 04/18 completed Not Available Not Available Not Available metformin 500 mg tablet TAKE 1 TABLET BY MOUTH AT BEDTIME 07/27 completed Not Available Not Available Not Available acetamino phen 325 mg tablet TAKE 2 TABLETS BY MOUTH EVERY 6 HOURS NEEDED FOR PAIN active Not Available Not Available No t Available prednison e 10 mg tablet PLEASE SEE ATTACHED FOR DETAILED DIRECTIO NS 01/26 completed Not Available Not Available Not Available doxycycli ne hyclate 100 mg capsule TAKE 1 CAPSULE BY MOUTH TWICE A DAY FOR 10 DAYS 07/27 completed Not Available Not Available Not Available azithromy mina 250 mg tablet TAKE 2 TABLETS BY MOUTH TODAY, THEN TAKE 1 TABLET DAILY FOR 4 DAYS 01/26 completed Not Available Not Available Not Available ibuprofen 800 mg tablet Take 1 tablet 3 times a day by oral route with meals for 30 days. 04/24 completed Not Available Not Available Not Available benzonata te 200 mg capsule TAKE 1 CAPSULE (200MG) BY MOUTH TWICE A DAY NEEDED FOR COUGH active Not Available Not Available No t Available warfarin 7.5 mg tablet 05/08 completed Not Available Not Available Not Available Claritin 10 mg tablet Take 1 tablet every day by oral route. active Not Available Not Available No t Available meloxicam 15 mg tablet TAKE 1 TABLET BY MOUTH EVERY DAY DIRECTED 2023 active Not Available Not Available Not Avai lable prednison e 20 mg tablet TAKE 2 TABLETS BY MOUTH DAILY FOR 5 DAYS, THEN 1 TABLET BY MOUTH DAILY FOR 5 DAYS 07/27 completed Not Available Not Available Not Available warfarin 2.5 mg tablet take 3 tablets by mouth once daily 11/22 completed Not Available Not Available Not Available acetamino phen 300 mg-codein e 30 mg tablet 01/16 completed Not Available Not Available Not Available aspirin 81 mg tablet,de layed release Take 1 tablet every day by oral route. 11/03 completed per 11/03 2021 discharg e summary Not Available Not Available Not Available amoxicill in 500 mg tablet TAKE 4 TABLETS BY MOUTH 1 HOUR PRIOR TO DENTAL APPT active Not Available Not Available No t Available oxycodone -acetamin ophen 5 mg-325 mg tablet active Not Available Not Available Not Available prednisol one acetate 1 % eye drops,enma pension 01/16 completed Not Available Not Available Not Available benzonata te 100 mg capsule TAKE 2 CAPSULES BY MOUTH THREE TIMES DAILY FOR ACUTE OPIOID THERAPY DAYS NEEDED 04/10 completed Not Available Not Available Not Available oseltamiv ir 75 mg capsule 11/22 completed Not Available Not Available Not Available Flovent 220 mcg/actua tion aerosol inhaler EVERY TWELVE HOURS 08/20 completed RECORDED 10/25/19 08 4:13PM BY SALENA Arellano NP, MEDICATI ON AUTO-GUANAKO CTIVATIO N; Not Available Not Available Not Available triamcino lone acetonide 55 mcg nasal spray aerosol DAILY 09/10 completed RECORDED 09/11/19 10 10:43AM BY SIRISHA CROWE, OFFICE VISIT; Not Available Not Available Not Available warfarin 5 mg tablet Take 2 tablets every day by oral route as directed for 30 days. 11/22 completed Not Available Not Available Not Available metronida zole 0.75 % topical cream APPLY PEA SIZED AMOUNT TOPICALL Y TO FACE TWICE DAILY NEEDED active Not Available Not Available No t Available Advair Diskus 250 mcg-50 mcg/dose powder for inhalatio n USE 1 INHALATI ON BY MOUTH TWICE DAILY 10/28 completed Not Available Not Available Not Available Advair Diskus 500 mcg-50 mcg/dose powder for inhalatio n BID 06/14 completed RECORDED 06/15/19 13 9:32AM BY CHINEDU ENGLISH I, ANNOTATI ON/BERTHA DUM; Not Available Not Available Not Available monteluka st 10 mg tablet TAKE 1 TABLET BY MOUTH EVERY DAY 2023 active Not Available Not Available Not Avai lable magnesium 250 mg tablet Take 1 tablet every day by oral route. active Not Available Not Available No t Available norethind janell acetate 5 mg tablet DAILY 03/27 completed RECORDED 03/27/20 13 9:18AM BY LEATHA JOHNSON MA, OFFICE VISIT; Not Available Not Available Not Available Nasonex 50 mcg/actua tion Pearson EACH NOSTRIL DAILY 06/07 completed RECORDED 06/19/19 10 9:00AM BY CLINT GARCIA MD, MEDICATI ON AUTO-GUANAKO CTIVATIO N; Not Available Not Available Not Available ibuprofen 600 mg tablet Take 1 tablet 3 times a day by oral route as needed for 20 days. 07/27 completed Not Available Not Available Not Available levofloxa mina 500 mg tablet TAKE 1 TABLET BY MOUTH EVERY DAY FOR 8 DAYS 07/27 completed Not Available Not Available Not Available estradiol 0.01% (0.1 mg/gram) vaginal cream INSERT 2 GRAMS VAGINALL Y EVERY 72 HOURS active Not Available Not Available No t Available levofloxa mina 750 mg tablet Take 1 tablet every day by oral route for 5 days. 09/04 completed Not Available Not Available Not Available methylpre dnisolone 4 mg tablets in a dose pack TAKE 6 TABLETS ON DAY 1 DIRECTED ON PACKAGE AND DECREASE BY 1 TAB EACH DAY FOR A TOTAL OF 6 DAYS 07/27 completed Not Available Not Available Not Available fluticaso ne propionat e 50 mcg/actua tion nasal spray,enma pension Inhale 2 sprays every day by intranas al route as directed for 30 days. 05/31 completed Not Available Not Available Not Available cholecalc iferol (vitamin D3) 125 mcg (5,000 unit) capsule 1 po TID weekly orally 03/14 completed RECORDED 03/27/20 13 9:03AM BY LEATHA JOHNSON MA, OFFICE VISIT;3 TIMES A WEEK Not Available Not Available Not Available docusate sodium 100 mg tablet Take 1 tablet twice a day by oral route as directed for 30 days. 2021 active Not Available Not Available Not Avai lable Ventolin HFA 90 mcg/actua tion aerosol inhaler INHALE 2 PUFFS BY MOUTH EVERY 4 TO 6 HOURS NEEDED FOR WHEEZING 01/26 completed Not Available Not Available Not Available oxycodone 5 mg tablet TAKE 1 TABLET ORALLY EVERY 6 HOURS NEEDED FOR MODERATE PAIN (PAIN SCALE 4-6) FOR 7 DAYS 07/30 completed Not Available Not Available Not Available Low Dose Aspirin 81 mg tablet,de layed release Take 1 tablet every day by oral route. 10/28 completed Not Available Not Available Not Available albuterol (refill) 90 mcg/actua tion aerosol inhaler EVERY FOUR HOURS, NEEDED 09/10 completed RECORDED 09/11/19 10 10:43AM BY SIRISHA CROWE, OFFICE VISIT; Not Available Not Available Not Available enoxapari n 100 mg/mL subcutane ous syringe 05/01 completed Not Available Not Available Not Available enoxapari n 40 mg/0.4 mL subcutane ous syringe 40 MG (0.4 ML) SUBCUTAN EOUSLY EVERY 24 HOURS FOR 42 DAYS 07/30 completed Not Available Not Available Not Available Asprin Ec Low Dose 81 mg tablet,de layed release Take 1 tablet every day by oral route. active Not Available Not Available No t Available Vitamin D3 25 mcg (1,000 unit) tablet Take 1 tablet every day by oral route in the morning for 30 days. active Not Available Not Available No t Available Mucinex DM 30 mg-600 mg tablet,ex tended release 12 hr TAKE 1 TABLET BY MOUTH EVERY 12 HOURS FOR ACUTE OPIOID THERAPY DAYS NEEDED 04/10 completed Not Available Not Available Not Available levalbute rol HFA 45 mcg/actua tion aerosol inhaler INHALE 2 PUFFS BY MOUTH DAILY active Not Available Not Available No t Available Flonase QD 09/10 completed RECORDED 09/11/19 10 10:43AM BY SIRISHA CROWE, OFFICE VISIT; Not Available Not Available Not Available calcium 1 po qd active Not Available Not Avai lable Not Available zinc 50 po qd 04/10 completed Not Available Not Available Not Available Stool Softener po prn 07/27 completed Not Available Not Available Not Available Multi-Day EVERY OTHER DAY 04/24 completed RECORDED 03/27/20 13 9:03AM BY LEATHA JOHNSON MA, OFFICE VISIT; Not Available Not Available Not Available Medroxypr og Daren (Antineop last) DAILY 03/27 completed RECORDED 03/27/20 13 9:18AM BY LEATHA JOHNSON MA, OFFICE VISIT; Not Available Not Available Not Available blood pressure monitor DAILY MONITORI NG OF BP FOR HTN 09/05 completed RECORDED 12/15/19 11 8:37AM BY SIRISHA CROWE, MEDICATI ON AUTO-GUANAKO CTIVATIO N; Not Available Not Available Not Available Sea Kelp DAILY 05/31 completed RECORDED 03/27/20 13 9:20AM BY LEATHA JOHNSON MA, OFFICE VISIT;15 MG Not Available Not Available Not Available norethind janell acetate 0.5 mg-ethiny l estradiol 2.5 mcg tablet 07/08 completed RECORDED 07/09/19 11 8:36AM BY SIRISHA CROWE, OFFICE VISIT; Not Available Not Available Not Available Symbicort 160 mcg-4.5 mcg/actua tion HFA aerosol inhaler TAKE 2 PUFFS BY MOUTH TWICE A DAY active Not Available Not Available No t Available Symbicort 80 mcg-4.5 mcg/actua tion HFA aerosol inhaler INHALE 2 PUFFS PO BID DIRECTED 04/29 completed Not Available Not Available Not Available oxycodone 10 mg tablet TAKE 1 TABLET BY MOUTH EVERY 6 HOURS NEEDED MODERATE PAIN 01/17 completed Not Available Not Available Not Available GaviLyte- G 236 gram-22.7 4 gram-6.74 gram-5.86 gram oral solution TAKE 8 OUNCE BY MOUTH DIRECTED FOLLOW INSTRUCT IONS PROVIDED TO YOU BY DOCTORS OFFICE 01/26 completed Not Available Not Available Not Available Allergy Relief (fexofena dine) 180 mg tablet take 1 tablet by mouth once daily 10/28 completed Not Available Not Available Not Available Xarelto 20 mg tablet 03/14 completed Not Available Not Available Not Available OptiChamb er [place] [facility] spacer active Not Available Not Available Not Available Minivelle 0.0375 mg/24 hr transderm al patch 04/18 completed Not Available Not Available Not Available Ilevro 0.3 % eye drops,enma pension 08/01 completed Not Available Not Available Not Available Incruse Ellipta 62.5 mcg/actua tion powder for inhalatio n INHALE 1 PUFF BY MOUTH DAILY FOR 30 DAYS 01/09 completed Not Available Not Available Not Available Afluria [id number] (PF) 45 mcg(15 mcg x 3)/0.5 mL intramusc ular syringe 04/05 completed Not Available Not Available Not Available Shingrix (PF) 50 mcg/0.5 mL intramusc ular suspensio n, kit 03/14 completed Not Available Not Available Not Available turmeric 1,650 mg -1 tablet po daily active with himanshu and curcumin - Brain suppleme nt Not Available Not Available Not Available Fluad 65yr up(PF)45 mcg(15 mcgx3)/0. 5 mL intramusc ular syringe 01/16 completed Not Available Not Available Not Available Fluzone High-Dose Quad (PF) 240 mcg/0.7 mL IM syringe INJECT IM 03/04 completed Not Available Not Available Not Available Brittney Ellipta 200 mcg-62.5 mcg-25 mcg powder for inhalatio n INHALE 1 PUFF BY MOUTH DAILY FOR 30 DAYS active Not Available Not Available No t Available BinaxNOW COVID-19 Ag Self Test kit TEST DIRECTED TODAY 07/27 completed Not Available Not Available Not Available Paxlovid 300 mg (150 mg x 2)-100 mg tablets in a dose pack TAKE 3 TABLETS BY MOUTH TWICE A DAY DIRECTED FOR 5 DAYS 01/26 completed Not Available Not Available Not Available Vitals Date Recorded Body height Body mass index (BMI) Body weight Oxygen saturation Oxygen saturation in Arterial blood by Pulse oximetry Heart rate Body temperature Systolic blood pressure Diastolic blood pressure Provider Name and Address Organization Details Last Updated DateTime 3 157.48 cm 39 kg/m2 98630.1 7 g 95 % 95 % 75 /min 98 [degF] 121 mm[Hg] 78 mm[Hg] Sirisha Crowe MA [facility] 3 11:08:48 Date Recorded Body height Body mass index (BMI) Body weight Oxygen saturation Oxygen saturation in Arterial blood by Pulse oximetry Heart rate Body temperature Systolic blood pressure Diastolic blood pressure Provider Name and Address Organization Details Last Updated DateTime 3 157.48 cm 39.2 kg/m2 95853.8 7 g 98 % 98 % 69 /min 98.3 [degF] 126 mm[Hg] 82 mm[Hg] Sirisha Crowe MA [facility] 3 09:30:31 Date Recorded Body height Body mass index (BMI) Body weight Oxygen saturation Oxygen saturation in Arterial blood by Pulse oximetry Heart rate Body temperature Systolic blood pressure Diastolic blood pressure Provider Name and Address Organization Details Last Updated DateTime 4 157.48 cm 39.4 kg/m2 00591.1 6 g 98 % 98 % 81 /min 97.9 [degF] 127 mm[Hg] 74 mm[Hg] Sirisha Crowe MA [facility] 4 08:24:37 Date Recorded Body height Body mass index (BMI) Body weight Heart rate Oxygen saturation Oxygen saturation in Arterial blood by Pulse oximetry Body temperature Systolic blood pressure Diastolic blood pressure Provider Name and Address Organization Details Last Updated DateTime 4 157.48 cm 40.1 kg/m2 75833.7 3 g 88 /min 96 % 96 % 98 [degF] 124 mm[Hg] 78 mm[Hg] Adriana jacobson MA [facility] 4 09:50:27 Date Recorded Body height Body mass index (BMI) Body weight Oxygen saturation Oxygen saturation in Arterial blood by Pulse oximetry Heart rate Body temperature Systolic blood pressure Diastolic blood pressure Provider Name and Address Organization Details Last Updated DateTime 4 157.48 cm 40.3 kg/m2 57043.4 2 g 98 % 98 % 69 /min 97.8 [degF] 126 mm[Hg] 79 mm[Hg] Sirisha Crowe MA [facility] 4 09:27:53 Social History Question Answer Notes LastModified by Organizat ion Details LastModified Time Tobacco Smoking Status Never Smoker Leatha austin [facility] 04/01/2014 09:09:42 What Is Your Level Of Alcohol Consumption? Occasional 1-2 A Month Information not available 04/01/2014 Is Blood Transfusion Acceptable In An Emergency? Yes [email or web address] Information not available 04/05/2015 What Is Your Level Of Caffeine Consumption? Moderate Information not available 04/01/2014 How Much Tobacco Do You Chew? None [email or web address] Information not available 04/29/2020 Are You Currently Employed? No Retired 09/2017 Information not available 11/08/2023 What Type Of Diet Are You Following? GLUTENFREE [email or web address] Information not available 04/29/2020 Do You Or Have You Ever Used E-cigarettes Or Vape? Never Used Electronic Cigarettes [email or web address] Information not available 10/19/2021 What Is Your Occupation? Retired 09/2017 [email or web address] Information not available 04/29/2020 Live Alone Or With Others? With Others [email or web address] Information not available 10/19/2021 Do You Take Precautions To Prevent Distracted Driving? Yes [email or web address] Information not available 04/05/2015 How Often Do You Need To Have Someone Help You When You Read Instructions, Pamphlets, Or Other Written Material From Your Doctor Or Pharmacy? Sometimes [email or web address] Information not available 04/05/2015 Have You Served In The ? No [email or web address] Information not available 05/31/2016 Have You Or Anyone In Your Household Had Any Of The Following Symptoms In The Last 14 Days: Sore Throat, Cough, Chills, Body Aches For Unknown Reasons, Shortness Of Breath For Unknown Reasons, Loss Of Smell, Loss Of Taste, Fever At Or Greater Than 100 Degrees Fahrenheit? No Information not available 03/29/2020 Are You Or Anyone In Your Household A Health Care Provider Or Emergency Responder? No Information not available 03/29/2020 To The Best Of Your Knowledge Have You Been In Close Proximity To Any Individual Who Tested Positive For COVID-19? No Information not available 03/29/2020 *AWV ONLY* Are You Presently Prescribed Opioid Medication By PCP Or Specialist? If YES -Provider Assess The Benefit For Other, Non-opioid Pain Therapies Instead, Even If The Patient Does Not Have OUD But Is Possibly At Risk. No [email or web address] Information not available 04/29/2020 Have You Recently Traveled To A COVID-19 High Risk Area Or Gathering In The Last 10 Days? No [email or web address] Information not available 04/29/2020 What Was The Date Of Your Most Recent Tobacco Screening? 07/31/2023 [email or web address] Information not available 07/31/2023 How Many Children Do You Have? 0 [email or web address] Information not available 04/28/2021 Do You Use Protection During Sex? No [email or web address] Information not available 04/29/2020 Do You Use Your Seat Belt Or Car Seat Routinely? Yes [email or web address] Information not available 04/28/2021 Seat Belts Used Routinely Yes [email or web address] Information not available 10/19/2021 Are You Sexually Active? Yes [email or web address] Information not available 05/31/2016 Smoke Alarm In Home Yes [email or web address] Information not available 10/19/2021 Do You Have Smoke And Carbon Monoxide Detectors In Your Home? Yes Information not available 04/28/2021 Are You Passively Exposed To Smoke? No [email or web address] Information not available 05/31/2016 Do You Or Have You Ever Used Smokeless Tobacco? Never Used Smokeless Tobacco Information not available 03/22/2019 How Much Tobacco Do You Smoke? No [email or web address] Information not available 04/29/2020 Do You Use Any Illicit Or Recreational Drugs? No Information not available 11/08/2023 Do You Use Sunscreen Routinely? Yes [email or web address] Information not available 04/05/2015 Do You Or Have You Ever Used Any Other Forms Of Tobacco Or Nicotine? No Information not available 11/08/2023 Sex: Unknown Functional Status Question Answer Note LastModified by Organizat ion Details LastModified Time Are you able to walk? [email or web address] Information not available 10/19/2021 Are you able to care for yourself? Yes [email or web address] Information not available 05/31/2016 What is your exercise level? Moderate water aroebics/PT twice a week Information not available 04/28/2021 Mental Status None recorded. Family History Relationship Description Onset Age of this Age Resolved Age Notes LastModified by Organization Details LastModified Time Mother Carcinoma in situ of stomach [email or web address] Not available 10/19 12:45:22 Father Respiratory distress 73 [email or web address] Not available 10/19 12:45:22 Sister Carcinoma in situ of lung 52 [email or web address] Not available 12:45:22 Sister Obesity [email or web address] Not availabl e 04/29/2020 09:59:23 Brother Heart disease [email or web address] Not available 04/28 10:04:24 Notes:No FH of breast or col on cancer Medical History Condition Response Obesity Y Arthritis Y Ear or Hearing Problems Y Hospitalizations Y Headaches/Migraines Y Asthma Y Allergies Y Chicken Pox Y Gynecological History Statement/Question Response Date of Last Pap Smear 04/02/2018 Date of Last Colonoscopy 09/12/2022 Most Recent Mammogram 11/20/2023 06/15/2010 10/08/2012 Obstetrics History GPAL:G 0 P 0 0 0 0 Immunizations Vaccine Type Date Status Note Provider Nam e and Address Organization Details Recorded Time Influenza, split virus, trivalent, preservative 4 completed Polyrika Barakatnett null, [facility] 12/28/2022 09:38:40 zoster recombinant 8 completed Polystephanie Barakatnett null, [facility] 12/28/2022 09:38:40 Influenza, high-dose, trivalent, PF 8 completed Poly Bailey BarakatRiver null, [facility] 12/28/2022 09:38:40 zoster live 8 completed Poly Bailey BarakatRiver null, [facility] 12/28/2022 09:38:40 Influenza, high-dose, trivalent, PF 8 completed Polystephanie Barakatnett null, [facility] 12/28/2022 09:38:40 Influenza, adjuvanted, trivalent, PF 9 completed Poly Bailey BarakatRiver null, [facility] 12/28/2022 09:38:40 Influenza, high-dose, quadrivalent, PF 0 completed Poly Bailey BarakatRiver null, [facility] 12/28/2022 09:38:40 COVID-19, mRNA, LNP-S, PF, 100 mcg/0.5mL dose or 50 mcg/0.25mL dose 1 completed Polyrika Barakatnett null, [facility] 12/28/2022 09:38:40 zoster recombinant 8 completed Poly L River null, [facility] 12/28/2022 09:38:40 Influenza, high-dose, quadrivalent, PF 1 completed Poly L River null, [facility] 12/28/2022 09:38:40 COVID-19, mRNA, LNP-S, PF, 100 mcg/0.5mL dose or 50 mcg/0.25mL dose 1 completed Poly L River null, [facility] 12/28/2022 09:38:40 Influenza, high-dose, quadrivalent, PF 0 completed Poly L River null, [facility] 12/28/2022 09:38:40 Influenza, split virus, trivalent, PF 6 completed Poly L River null, [facility] 12/28/2022 09:38:40 COVID-19, mRNA, LNP-S, PF, 100 mcg/0.5mL dose or 50 mcg/0.25mL dose 1 completed Poly L River null, [facility] 12/28/2022 09:38:40 Influenza, split virus, trivalent, PF 5 completed Poly L River null, [facility] 12/28/2022 09:38:40 COVID-19, mRNA, LNP-S, PF, 100 mcg/0.5mL dose or 50 mcg/0.25mL dose 2 completed Poly L River null, [facility] 12/28/2022 09:38:40 COVID-19, mRNA, LNP-S, PF, 100 mcg/0.5mL dose or 50 mcg/0.25mL dose 2 completed Poly L River null, [facility] 12/28/2022 09:38:40 Influenza, split virus, quadrivalent, PF 7 completed Poly L River null, [facility] 12/28/2022 09:38:40 pneumococcal polysaccharide PPV23 1 completed Poly L River null, [facility] 12/28/2022 09:38:40 Pneumococcal conjugate PCV 13 8 completed Poly L River null, [facility] 12/28/2022 09:38:40 Tdap 7 completed Poly L River null, [facility] 12/28/2022 09:38:40 Influenza, high-dose, quadrivalent, PF 2 completed Poly austin, [facility] 12/28/2022 09:38:40 Influenza, high-dose, quadrivalent, PF 3 completed Poly austin, [facility] 12/28/2022 09:38:40 RSV, recombinant, protein subunit RSVpreF, adjuvant reconstituted, 0.5 mL, PF 3 completed Poly austin, [facility] 12/28/2022 09:38:40 COVID-19, mRNA, LNP-S, PF, mary-sucrose, 30 mcg/0.3 mL 3 completed HUONG Nieves, [facility] 01/26/2023 09:24:51 COVID-19, mRNA, LNP-S, PF, 50 mcg/0.5 mL 4 completed HUONG Nieves, [facility] 01/10/2024 09:28:14 Influenza, high-dose, trivalent, PF 4 completed HUONG Nieves, [facility] 01/10/2024 09:28:14 Influenza, split virus, trivalent, preservative 7 completed Poly austin, [facility] 12/28/2022 09:38:40 Influenza, split virus, trivalent, preservative 8 completed Poly austin, [facility] 12/28/2022 09:38:40 Tdap 8 completed Poly austin, [facility] 12/28/2022 09:38:40 Influenza, split virus, trivalent, preservative 0 completed Poly austin, [facility] 12/28/2022 09:38:40 Influenza, split virus, trivalent, preservative 1 completed Poly austin, [facility] 12/28/2022 09:38:40 Influenza, split virus, trivalent, preservative 2 completed Poly austin, [facility] 12/28/2022 09:38:40 pneumococcal polysaccharide PPV23 2 completed Poly austin, [facility] 12/28/2022 09:38:40 zoster live 3 completed Poly austin, [facility] 12/28/2022 09:38:40 influenza, seasonal, intradermal, preservative free 3 completed Poly austin, [facility] 12/28/2022 09:38:40 Past Encounters Encounter ID Performer Location Encounter Start Date Encounter Closed Date Diagnosis/Indication Diagnosis SNOMED-CT Code Diagnosis ICD10 Code [id number] auto[facility]Comm [facility]ce [address] [facility] [place] [address] 2006 00:00:00 [id number] [facility] [address] [facility] [place] [address] 07/25/2006 00:00:00 [id number] auto[facility] erce [address] [facility] [place] [address] 07/22/2007 00:00:00 [id number] auto[facility] erce [address] [facility],[address] [place] [address] 08/09/2007 00:00:00 [id number] auto[facility]Comm erce [address] [facility],[address] [place] [address] 02/12/2008 00:00:00 [id number] auto[facility]Comm erce [address] [facility],[address] [place] [address] 08/10/2008 00:00:00 [id number] auto[facility]Comm erce [address] [facility],[address] [place] [address] 09/28/2008 00:00:00 [id number] auto[facility] erce [address] [facility],[address] [place] [address] 05/31/2009 00:00:00 [id number] autoEComm erce [address] [facility] [address] [place] [address] 06/18/2009 00:00:00 [id number] autoEComm erce [address] [facility],[address] [place] [address] 09/10/2009 00:00:00 [id number] auto[facility]Comm erce [address] [facility] [address] [place] [address] 12/13/2009 00:00:00 [id number] auto[facility]Comm erce [address] [facility] [place] [address] 03/09/2010 00:00:00 [id number] auto[facility]Comm erce [address] [facility] [place] [address] 07/08/2010 00:00:00 [id number] autoEComm erce [address] [facility],[address] [place] [address] 12/14/2010 00:00:00 [id number] auto[facility]Comm erce [address] [facility] [place] [address] 02/24/2011 00:00:00 [id number] auto[facility]Comm erce [address] [facility],[address] [place] [address] 12/18/2011 00:00:00 [id number] auto[facility]Comm erce [address] [facility] [place] [address] 06/14/2012 00:00:00 [id number] autoEComm erce [address] [facility] [place] [address] 03/27/2013 00:00:00 [id number] Gayle alonso Main Office [address] [place] [address] 04/01/2014 08:58:11 04/01/2014 09:45:18 Adult health examination 151080000 Asthma 586269789 Allergic rhinitis 385114 04 [id number] Chinedu Araya Main Office [address] [place] [address] 05/27/2014 16:01:16 05/27/2014 16:44:13 Cough 80274371 Acute asthma 697627409 [id number] Alina Sterling MA Main Office [address] [address] [place] [address] 09/10/2014 08:53:32 09/10/2014 09:37:52 Cough 16741685 Allergic rhinitis 576545 04 Ankle pain 537827312 Neck pain 88257435 [id number] Main Office [address] [address] [place] [address] 11/04/2014 10:22:19 11/04/2014 11:22:24 Asthma 226970576 Ankle pain 897402449 Acute asthma 861857556 [id number] Gayle Nick celeste Main Office [address] [facility] [place] [address] 04/05/2015 08:36:52 04/05/2015 09:29:07 Adult health examination 901589076 Z00.00 Asthma 582075722 J45.90 9 Fatigue 92721554 R53.83 Hypercholesterolemia 136 74322 E78.2 Arthritis 7637848 M19.90 [id number] Gayle Nick celeste Main Office [address] [facility] [place] [address] 10/07/2015 08:28:47 10/07/2015 09:39:45 Asthma 950397759 J45.909 Biceps tendinitis 848889 007 M75.22 [id number] Earl Rowley MD Main Office [address] [facility] [place] [address] 04/05/2016 12:42:34 04/05/2016 14:02:45 Palpitations 77264671 R00.2 Fever 459894904 R50.9 Asthma 025695122 J45.21 Dyspnea 434522553 R06.02 [id number] Gayle Nick celeste Main Office [address] [facility] [place] [address] 04/11/2016 08:03:03 04/11/2016 20:14:29 [id number] Gayle Romero celeste Main Office [address] [facility] [place] [address] 04/12/2016 15:47:06 04/12/2016 17:02:49 Dyspnea on exertion 85993070 R06.09 Chest pain 71297727 R07. 9 [id number] [facility] Main Office [address] [facility] [address] [place] [address] 04/18/2016 09:47:58 04/18/2016 12:30:56 [id number] [facility] Main Office [address] [place] [address] [place] [address] 04/18/2016 13:04:45 04/18/2016 14:03:34 Pulmonary embolism 48498088 I26.99 [id number] [facility] Main Office [address] [facility] [place] [address] 05/01/2016 14:03:13 05/01/2016 15:46:10 Pulmonary embolism 97446750 I26.99 Asthma 844122151 J45.90 9 Body mass index 30+ - obesity 088482443 Z68.39 [id number] [facility] Main Office [address] [facility] [place] [address] 05/31/2016 09:02:10 05/31/2016 09:51:15 Adult health examination 430820915 Z00.00 Hypercholesterolemia 136 02498 E78.2 Asthma 014228071 J45.90 9 History of pulmonary embolus 440868843 Z86.711 Body mass index 30+ - obesity 477374834 E66.9 Z68.35 [id number] [facility] Main Office [address] [facility] [place] [address] 06/21/2016 11:16:19 06/21/2016 12:38:52 Cough 13509223 R05 Acute asthma 483380790 J 45.901 Allergic rhinitis 480074 04 J30.9 Pulmonary embolism 66267 003 I26.99 [id number] [facility] [address] [facility] [place] [address] 11/22/2016 08:42:13 11/22/2016 09:44:21 Adult health examination 949128070 Z00.00 Administra tion of diphtheria, pertussis, and tetanus vaccine 016313193 Z23 Needs infl uenza immunization 793412355 Z23 Fatigue 28862218 R53.83 Asthma 222161504 J45.90 9 Body mass index 30+ - obesity 304847415 E66.9 Z68.35 History of pulmonary embolus 178866395 Z86.711 Osteoarthr itis of knee 910123449 M17.0 [id number] [facility] Main Office [address] [address] [place] [address] 04/19/2017 13:30:33 04/19/2017 15:03:15 Shoulder pain 26223830 M25.511 Posterior rhinorrhea 758 36789 R09.82 Osteoarthr itis of knee 576149742 M17.0 [id number] [facility] Main Office [address] [place] [address] [place] [address] 11/22/2017 12:47:55 11/22/2017 14:07:14 Bilateral cataracts 27767045 H26.9 Patient en counter status [id number] Z01.818 Cough 54622368 R05 [id number] [facility] Main Office [address] [place] [address] [place] [address] 03/14/2018 10:13:38 03/14/2018 11:11:49 Adult health examination 697094599 Z00.00 Administra tion of pneumococcal vaccine 14209600 Z23 Asthma 670500983 J45.90 9 Hypercholesterolemia 136 99073 E78.2 History of pulmonary embolus 681316783 Z86.711 [id number] Denis Andrade PA-C Main Office [address] [address] [place] [address] 08/01/2018 12:33:57 08/01/2018 14:12:02 Administration of viral vaccine 88807630 Z23 Cough 69128727 R05 Allergic rhinitis 768445 04 J30.9 Impacted c erumen in right ear 9256110162 737067 H61.21 Moderate p ersistent asthma 922338602 J45.[id number] [facility] Main Office [address] [place] [address] [place] [address] 09/09/2018 10:00:03 09/09/2018 11:45:51 Hypercholesterolemia 39141831 E78.2 Asthma 925525918 J45.90 9 History of pulmonary embolus 077236886 Z86.711 Dyspnea on exertion 6084 5006 R06.09 Pain in right foot 65906 72414 39415 M79.671 [id number] [facility] Main Office [address] [address] [place] [address] 01/16/2019 10:11:03 01/16/2019 11:15:27 History of pulmonary embolus 453747858 Z86.711 Pain in left knee 300126 3424 18876 M25.562 Pain in le ft lower limb 064404277 M79.605 [id number] [facility] Main Office [address] [address] [place] [address] 03/22/2019 09:34:08 03/22/2019 10:34:31 Adult health examination 869296370 Z00.00 Asthma 667717860 J45.90 9 Hypercholesterolemia 136 33285 E78.2 Advance di rective discussed with patient 373112630 Z71.89 Body mass index 30+ - obesity 487647880 E66.9 Z68.38 Pain in finger 87189600 M79.645 [id number] [facility] Main Office [address] [address] [place] [address] 07/16/2019 08:27:38 07/16/2019 10:26:06 Hypercholesterolemia 75533833 E78.2 History of pulmonary embolus 366307875 Z86.711 Moderate p ersistent asthma 176902734 J45.40 Pain of le ft hip joint 3408776673 21484 M25.552 [id number] Delma Jain [facility] [address] [address] [place] [address] 03/04/2020 15:04:20 03/08/2020 07:55:47 Cough 45237295 R05 Counseling 374925238 Z71 .9 Exposure t o viral disease 7610265760 79664 Z03.818 Pneumonia 714010577 J18. 9 Acute asthma 206583702 J 45.901 [id number] Denis Andrade PA-C Main Office [address] [address] [place] [address] 03/29/2020 08:58:43 03/29/2020 12:35:23 Cough 57943625 R05 Moderate p ersistent asthma 057452079 J45.40 [id number] Delma a[facility]in [facility] [address] [address] [place] [address] 04/12/2020 09:47:20 04/13/2020 13:20:49 Persistent cough 339525078 R05 Moderate p ersistent asthma 132385548 J45.40 Counseling 024037790 Z71 .9 Exposure t o viral disease 7206879894 32852 Z03.818 Acute asthma 697917900 J 45.901 [id number] Delma Herringo Main Office [address] [address] [place] [address] 04/29/2020 09:58:44 04/29/2020 10:40:41 Adult health examination 046581142 Z00.00 History of pulmonary embolus 151079986 Z86.711 Hypercholesterolemia 136 84090 E78.2 Moderate p ersistent asthma 146655792 J45.40 Body mass index 40+ - severely obese 515370135 E66.01 Z68.41 Administra tion of pneumococcal vaccine 48654661 Z23 Advance di rective discussed with patient 599782229 Z71.89 Cramp in lower limb 4499 38519 R25.2 [id number] Gayle alonso Main Office [address] [address] [place] [address] 10/28/2020 09:32:15 10/28/2020 10:34:13 Moderate persistent asthma 919573911 J45.40 Pain in right knee 07378 65878 46021 M25.561 History of pulmonary embolus 627563709 Z86.711 [id number] Denis Andrade PA-C Main Office [address] [address] [place] [address] 11/25/2020 15:07:02 11/25/2020 16:24:23 Impaired fasting glycemia 388208790 R73.01 Body mass index 30+ - obesity 759365469 E66.9 Z68.37 Liver enzy mes level above reference range 233638292 R74.01 Serum iron above reference range 172017809 R79.0 [id number] Denis Andrade PA-C Main Office [address] [address] [place] [address] 12/23/2020 09:10:32 12/23/2020 10:30:34 Liver enzymes level above reference range 897392258 R74.01 Body mass index 30+ - obesity 963442394 E66.9 Z68.37 Hereditary hemochromatosis 83293284 E83.110 Prediabetes 209923227 R7 3.03 Pain of ri ght shoulder joint 7242109425 1676450 M25.511 [id number] [facility] Main Office [address] [address] [place] [address] 04/28/2021 09:45:52 04/28/2021 11:00:17 Adult health examination 862344286 Z00.00 Hypercholesterolemia 136 33464 E78.2 Moderate p ersistent asthma 277772363 J45.40 Hereditary hemochromatosis 92171744 E83.110 History of pulmonary embolus 155143007 Z86.711 Body mass index 30+ - obesity 684247667 E66.9 Z68.35 Fatigue [id number] R53.83 Bleeding from nose 32194 6005 R04.0 Osteoarthr itis of right knee joint [id number] 38647 M17.11 Atrophic vaginitis 90312 000 N95.2 [id number] Denis Andrade PA-C Main Office [address] [place] [address] 10/19/2021 12:44:17 10/19/2021 13:38:59 Pre-surgery evaluation [id number] Z01.818 Osteoarthr itis of right knee joint 6423197565 08390 M17.11 Hereditary hemochromatosis 59576860 E83.110 Hypercholesterolemia 136 31513 E78.2 Moderate p ersistent asthma 719831438 J45.40 Prediabetes 587256171 R7 3.03 History of pulmonary embolus 679125868 Z86.711 Body mass index 30+ - obesity 184510950 E66.9 Z68.36 [id number] Gayle Asencioding-Di celeste Main Office [address] [place] [address] 11/04/2021 08:34:45 11/04/2021 10:06:20 [id number] Denis Andrade PA-C [facility]alt [address] [facility] [address] [place] [address] 01/17/2022 08:20:02 01/17/2022 11:55:32 COVID-19 [id number] U07.1 Counseling 935169175 Z71 .9 [id number] Gayle FloresAntonellaElsie celeste Main Office [address] [place] [address] 07/27/2022 10:45:15 07/27/2022 11:39:19 Adult health examination 957293027 Z00.00 Hypercholesterolemia 136 16690 E78.2 Moderate p ersistent asthma 880493071 J45.40 Screening for malignant neoplasm of colon 296255337 Z12.11 Screening for malignant neoplasm of breast 026806290 Z12.39 History of pulmonary embolus 099036664 Z86.711 Hereditary hemochromatosis 41677353 E83.110 [id number] SEBAS FINE MD Main Office [address] [facility] [address] [place] [address] 01/26/2023 09:20:51 01/26/2023 09:45:22 Hereditary hemochromatosis 10296325 E83.110 History of pulmonary embolus 256896085 Z86.711 Hypercholesterolemia 136 25618 E78.2 Moderate p ersistent asthma 225287244 J45.40 Prediabetes 419941843 R7 3.03 History of SARS-CoV-2 29 55834949 84171457 Z86.16 [id number] SEBAS FINE MD Main Office [address] [place] [address] 07/31/2023 08:15:03 07/31/2023 08:47:53 Adult health examination 018170728 Z00.00 Hereditary hemochromatosis 02158964 E83.110 History of pulmonary embolus 450229110 Z86.711 Moderate p ersistent asthma 374211750 J45.40 Prediabetes 824267375 R7 3.03 Hypercholesterolemia 136 80607 E78.2 Bone density finding 385 955717 M85.89 Advance di rective discussed with patient 703232466 Z71.89 [id number] BRANDON Doherty Main Office [address] [facility] [address] [place] [address] 11/08/2023 09:35:17 11/08/2023 10:16:42 Left Achilles tendinitis 7960510886 96507 M76.62 Moderate p ersistent asthma 000563293 J45.40 [id number] SEBAS FINE MD Main Office [address] [place] [address] 01/10/2024 09:19:07 01/10/2024 09:49:18 Hereditary hemochromatosis 26220094 E83.110 History of pulmonary embolus 300033968 Z86.711 Hypercholesterolemia 136 14524 E78.2 Moderate p ersistent asthma 220863567 J45.40 Prediabetes 291842687 R7 3.03 Statin declined 31187745 0 Z53.20 Low back pain 875714958 M54.50 Paresthesi a of lower extremity 669475616 R20.2 Health Concerns Section Related Observation LastModified by Organization Detai ls LastModified Time None Recorded Concern Status LastModified by Organization Details LastModified Time None Recorded Advance Directives Directive None Recorded Payers Encounter Date Sequence Insurance Name Policy Number Policy Ruby Covered Member ID Ruby Member ID Guarantor Name 07/27/2022 1 [place] [facility] Erika keith [id number] Erika Hough 07/27/2022 2 [facility] - PLAN 1 (MEDICARE SUPPLEMENT) [id number] 1 Erika Hough [id number] Erika Hough 01/26/2023 1 [place] [facility] Erika keith [id number] Erika Hough 01/26/2023 2 [facility] - PLAN 1 (MEDICARE SUPPLEMENT) [id number] 1 Erika Hough [id number] Erika Hough 07/31/2023 1 [place] [employer] Erika keith [id number] Erika Hough 07/31/2023 2 [facility] 1 (MEDICARE SUPPLEMENT) [id number] 1 Erika Hough [id number] Erika Hough 11/08/2023 1 [place] [facility] Erika keith [id number] Erika Hough 11/08/2023 2 [facility] 1 (MEDICARE SUPPLEMENT) [id number] 1 Erika Hough [id number] Erika Hough 01/10/2024 1 [place] [facility] Erika keith [id number] Erika Hough 01/10/2024 2 [facility] 1 (MEDICARE SUPPLEMENT) [id number] 1 Erika Hough [id number] Erika Hough Notes Date Note Type Note Provider Name and Address Organization Details Recorded Time 3 text/html Medicare Annual Wellness VisitReported bypatient.Diet and Nutrition:healthy diet Fracture Risk:no history of fractures; no recent explained fracture; no sudden unexplained fractures; no previous musculoskeletal injuries Physical Activity:exercises on a regular basis; recent increase in physical activity; good physical condition Depression Risk:never feels sad, empty, or tearful; no loss of interest in activities; no significant changes in weight; no sleep disturbances or insomnia; no agitation; no loss of energy; no feelings of worthlessness or guilt; no thoughts of suicide; no history of depression; no history of mood disorders Orientation:no disorientation to time; no disorientation to date; no disorientation to place Concentration and Memory:no decreased concentrating ability; no memory lapses or loss; does not forget words Speech/Motor difficulties:no speech difficulties; no difficulty expressing formulated concepts; no difficulty with fine manipulative tasks; no difficulty writing/copying; no slowed reaction time; does not knock things over when trying to pick them up Hearing:no loss of hearing Vision:no vision problems Activities of Daily Living:able to bathe with limited or no assistance; able to contol urination and bowels; able to dress with limited or no assistance; able to feed self with limited or no assistance; able to get out of chair or bed with limited or no assistance; able to groom with limited or no assistance; able to toilet with limited or no assistance Instrumental Activities of Daily Living:able to do house work with limited or no assistance; able to grocery shop with limited or no assistance; able to manage medications with limited or no assistance; able to manage money with limited or no assistance; able to prepare meals with limited or no assistance; able to use the phone with limited or no assistance Falls Risk Assessment:no frequent falls while walking; no fall in the past year; no fall since last visit; no dizziness/vertigo Home Safety:no unsafe ross hazzards; no unsafe stairs; no unsafe gas appliances; working smoke/CO detectors; wears protective head gear for biking/high velocity; use of seatbelts; practicing 'safer sex'; no vision or hearing loss while driving; no fire arms; has hand bars in the bathroom/shower; good lighting in the home PT is here for a Medicare Wellness visit. Pt notes she gets achy and muscle sore. Pt gets leg cramps at night when sleeping, gets one in thigh Gayle Jordan [place], [facility] [place] [place] 07/27/2022 12:05:45 3 text/html Erika Hough is a 72 year old F who presented to the clinic for follow-up on her chronic conditions. Patient has no complaints at this time. Patient recently had a COVID-19 infection diagnosed on 01/14/2023 and patient completed paxlovid treatment. Patient does still have a cough. Will be going to a river cruise in January. SEBAS FINE MD [address] [address], [place], [address], [facility] [place] 01/26/2023 12:35:15 4 text/html Medicare Annual Wellness VisitReported bypatient.Diet and Nutrition:healthy diet; vitamin D, tumeric, dynamic brain Fracture Risk:no history of fractures Physical Activity:exercises on a regular basis; recent increase in physical activity; good physical condition; water aerobics 3 days a week, silver sneakers Depression Risk:no history of depression; no history of mood disorders Orientation:no disorientation to time; no disorientation to date; no disorientation to place Concentration and Memory:no decreased concentrating ability; no memory lapses or loss;forgetting words Speech/Motor difficulties:no speech difficulties; no difficulty expressing formulated concepts; no difficulty with fine manipulative tasks; no difficulty writing/copying; no slowed reaction time; does not knock things over when trying to pick them up Hearing:wears hearing aids Vision:no vision problems Activities of Daily Living:able to bathe with limited or no assistance; able to contol urination and bowels; able to dress with limited or no assistance; able to feed self with limited or no assistance; able to get out of chair or bed with limited or no assistance; able to groom with limited or no assistance; able to toilet with limited or no assistance Instrumental Activities of Daily Living:able to do house work with limited or no assistance; able to grocery shop with limited or no assistance; able to manage medications with limited or no assistance; able to manage money with limited or no assistance; able to prepare meals with limited or no assistance; able to use the phone with limited or no assistance Falls Risk Assessment:no frequent falls while walking; fall(s) in the past year 1; fall(s) since last visit1 Home Safety:no unsafe ross hazzards; no unsafe stairs; no unsafe gas appliances; working smoke/CO detectors; wears protective head gear for biking/high velocity; use of seatbelts; practicing 'safer sex'; no vision or hearing loss while driving; no fire arms; has hand bars in the bathroom/shower; good lighting in the home Medicare Sravanthi Hough is a 73 year old F who presents to complete their Annual Wellness Visit. Visit Type: Annual How would you rate your health? Good Have you been discharged from the hospital recently? Yes- pt had right sided knee replacementHave you been to the emergency room or urgent care recently? NoDo you have any significant previous hospital stays, injuries, or treatment? No Home Safety:Is the tub or shower floor slippery and do you need support? NoDo you need some support when you get in and out of the tub or from the toilet? No however pt has installed sturdy grab bars in the showerDo you have any small rugs or runners that slide or bunch up when you push them with your foot? NoAre there papers, books, towels, shoes, magazines, boxes, blankets, or other objects on the floor? No The patient does have a history of falls. Oral Health: every 6 monthsEye Health: every year (wears glasses)Motor Vehicle: Drives Do you wear a seatbelt when in a car? Yes Screening Tools:Were there any ADL or IADL deficiencies not linked to physical limitations? NoDuring the past 12 months, have you experienced confusion or memory loss that is happening more often or is getting worse? No Advance Directive: none on file SEBAS FINE MD [address], [address], [facility] 07/31/2023 08:54:49 4 text/html Generic HPI TemplateReported bypatient.Notes:Presents for f/u. has been having left ankle pain, does water aerobics 3 x/ week but no new injury or activity. seen at 10/31, normal XR, told symptomatic treatment. Has not taken anything for pain. worse in mornign when getting out of bed. level of pain varies. walking on it causes pain. sitting does not cause much pain.+ swelling, had knee replacement in May on that side. Russ Flores [facility] [address] [address], [place], [address], [facility] 11/08/2023 10:43:11 4 text/html HyperlipidemiaReported bypatient.Type of hyperlipidemia:hypercholest erolemia Duration:chronic Control:not at goal Compliance:compliant with diet;does not exercise Erika Hough is a 72 year old F who presented to the clinic for follow-up on her chronic conditions. Patient is complaining of right sided buttock pain which occurs intermittently and worse at the end of the day. SEBAS FINE MD [address], [address], [facility] 01/10/2024 10:23:21 OBGyn Episode No OBEpisode recorded.
[2024-03-24 10:26] VITALS: BP 114/76; PULSE 67; O2SAT 96; BMI 40.0
== END 2024-03-24 10:53 | disposition home or self-care (01) ==
PROVIDERS: PCP Student in an Organized Health Care Education/Training Program; Visit Provider Nurse Practitioner Family
DX: J45.40 Moderate persistent asthma, uncomplicated (principal); J40 Bronchitis, not specified as acute or chronic
CPT/HCPCS: 99214

== ENCOUNTER → 2024-03-24 10:18 | Outpatient (BNVA) | payer MEDICARE, OTHER, SELFPAY | PROVIDERS: PCP Student in an Organized Health Care Education/Training Program; Visit Provider Nurse Practitioner Family | DX: J45.40 Moderate persistent asthma, uncomplicated (principal); J40 Bronchitis, not specified as acute or chronic | CPT/HCPCS: 99212 ==

== ENCOUNTER 2024-05-02 07:54 | Outpatient (REF) | payer MEDICARE, OTHER, SELFPAY ==
--- OUTSIDE RECORDS SUMMARY | 2024-05-02 07:57 | XMS_ITS | Encounter Summary ---
Author Organization [facility] Address [address] [place] [address] Care Team Providers Care Patient Care Technician Name Role Phone Tanya Barron MD Primary Care Provider Encounter Details Date Type Department Care Team (Late Contact Info) Description 01/22/2024 8:30 AM EDT Hospital Encounter TH HISTORIC ENCOUNTERS EASTERN CONVERSION ONLY Domingo Reeves MD [address] [place] [address] Social History Tobacco Use Types Packs/Day Years Used Date Smoking Tobacco: Never Smokeless Tobacco: Never Alcohol Use Standard Drinks/Week Comments Yes 0 (1 standard drink = 0.6 oz pur e alcohol) Sex and Gender Information Value Date Recorded Sex Assigned at Not on file Gender Identity Not on file Sexual Orientation Not on file documented as of this encounter Plan of Treatment Upcoming Encounters Date Type Department Care Team (Late Contact Info) Description 01/13/2025 9:00 AM EDT Office Visit [facility] Hematology Oncology [address] [place] [phone] Domingo Reeves MD [address] [place] [address] documented as of this encounter Visit Diagnoses Not on filedocumented in this encounter Care Teams Patient Care Technician Relationship Specialty Start Date End Date Tanya Barron MD [address] [phone] PCP - General 01/22/24 documented as of this encounter
--- NOTE | 2024-05-02 07:58 | PFT_ITS ---
Flows: FEV1: 91 % of predicted at 1.91 L FVC: 88 % of predicted at 2.37 L FEV1/FVC: 80 % Bronchodilator response: Present in small to medium airways only Volumes: Total lung capacity: 85 % of predicted at 4.08 L Residual volume: 72 % of predicted at 1.39 L Slow vital capacity: 95 % of predicted at 2.69 L Expiratory reserve volume: 11 % of predicted at 0.08 L Diffusion capacity: Normal Impression: No obstructive or restrictive ventilatory defect. Bronchodilator response present in small to medium airways only. Decreased expiratory reserve volume suggests extrathoracic restriction likely secondary to abdominal obesity. MTDD
--- OUTSIDE RECORDS SUMMARY | 2024-05-02 07:58 | XMS_ITS | Data Portability ---
Author Organization [facility], Main Office Address [address] [facility] [address] [place] [address] Care Team Providers Care Outreach Coordinator Name Role Phone [facility] [employer] [employer] Referring Provider LAMBERTO RÍOS Customer Manager ANTWAN SANTANA Venetian Blind Cleaner And Repairer LORETTA BARKER Foot Roentgenologist JORGE BATES Gynecological/Oncology [facility] Opticianry Teacher [phone] MAGDY GUEVARA Editorial Writer [phone] CHRISTINE MCCORMACK Hand Surgeon TIFFANIE MOELLER Referring Provider GHASSAN DUMONT Medical Oncologist IRMA QUINONEZ Machines Technician EDITH NELSON Orthopedic Surgeon [phone] CLAUDIA VIVAS Editorial Writer [phone] SEBAS FINE Primary Care Provider Assessment No assessment recorded. Plan of Treatment Reminders Order Date Submit Date Provider Last Modified By Organization Details Last Modified Time Details Appointments [id number] 2024 01:00P Cedric FINE MD Not available Not available Not available Lab CBC w/ auto diff 2022 023 [email or web address] [facility], [address], [facility], [place], [address], 08/28/2023 09:01:29 HbA1c (hemog lobin A1c), blood 2022 023 ALEXIS [facility], [address], [address], [place], [place], [address], 01/26/2023 09:42:15 BMP, serum or plasma 2022 023 [email or web address] [facility], [address], [address], [place], [address], 08/28/2023 09:01:29 lipid panel, serum 2022 023 [email or web address] [facility], [address], [address], [place], [address], 08/28/2023 09:01:29 HbA1c (hemog lobin A1c), blood 2023 024 ALEXIS [facility], [address], [address], [place], [address], 08/01/2023 06:08:24 BMP, serum or plasma 2023 024 ALEXIS [facility], [address], [address], [place], [address], 08/01/2023 06:08:23 lipid panel, serum 2023 024 ALEXIS [facility], [address], [address], [place], [address], 08/01/2023 06:08:24 CBC w/ auto diff 2023 024 ALEXIS [facility], [address] [facility], [facility] [address], [place], [address], 08/01/2023 06:08:22 vitami n B12, serum 2023 024 [facility], [address] [place], [address], 01/10/2024 10:23:21 HbA1c (hemog lobin A1c), blood [facility]23 [facility] [employer] [facility], [address] [place], [address], 01/10/2024 10:23:21 folate , serum 2023 024 [facility] [employer] [facility], [address] [place], [address], 01/10/2024 10:23:21 vitami n B1 (kassie ine), blood 2023 [facility] [employer] [facility], [address] [place], [address], 01/10/2024 10:23:21 ESR (eryth rocyte sedime ntatio n rate), blood 2023 024 [facility] [employer] [facility], [address] [place], [address], 01/10/2024 10:23:21 C-reac tive protei n, quanti tative , serum or plasma 2023 024 [facility] [employer] [facility], [address] [place] [address], [address], 01/10/2024 10:23:21 lipid panel, serum 2023 024 [facility] [employer] [facility], [address] [place] [address], [address], 01/10/2024 09:51:16 Referral gastro entero logist referr al - due for colono scopy 2022 023 Nancy Patel MD, [address] [place] [address] [address], [place], [address], 07/27/2022 11:55:53 physic al therap ist referr al - left ankle pain, achill es tendon insert ion site. 2023 024 [email or web address] [facility] [place], [facility] [address], [place], [address], 11/08/2023 10:16:42 Procedures colono scopy screen ing (PROC) 2022 023 In-Office Order, Internal Use Only DO Not Attach Compendium DO Not Attach Compendium, Do Not Delete/merge, [id number] 07/27/2022 11:48:50 Surgeries None record ed. Imaging MAMMO, screen ing, bilate ral - Perfor m Diagno stic Mammog sunny and Breast Ultras ound if needed / Perfor m Ultras ound Guided Aspira tion and/or Breast Biopsy if warran marcelle 2022 023 ATHENAFAX [facility], [address], [place], [address], 07/27/2022 12:00:50 bone densit y 2023 024 Not available 11/23/2023 13:07:31 XR, lumbos acral spine, 2 or 3 view 2023 024 [email or web address] Not available 01/28/2024 11:13:25 Medication Orders tani ukast 10 mg tablet 2022 023 [facility]armacy #[id number], [address] [place], [address], 07/27/2022 11:29:25 Symbic ort 160 mcg-4. 5 mcg/ac tuatio n HFA aeroso l inhale r 2022 023 [email or web address] [facility]/Pharmacy #[id number], [address] [place], [address], 07/31/2023 08:26:08 tani ukast 10 mg tablet 2023 024 [facility] #[id number], [address] [place], [address], 07/31/2023 08:46:25 meloxi cam 15 mg tablet 2023 024 [facility]acy #[id number], [address] [facility], [place], [address], 11/08/2023 10:12:23 Patient TargetsNo targets recorded. Patient Instructions Encounter Date Encounter Id Patient Instructions Last Modified By Organization Details Last Modified Time 07/27/2022 [id number] hemochromatosis: care instructions [email or web address] Not available 07/27/2022 11:30:46 preventing falls: care instructions [email or web address] Not available 07/27/2022 11:29:20 medicare preventive services guide (female 74yrs and under) [email or web address] Not available 07/27/2022 11:29:19 01/26/2023 [id number] medical record request* [email or web address] Not available 01/29/2023 10:26:59 07/31/2023 [id number] well visit, over 65: care instructions Not available 07/31/2023 08:43:19 preventing falls: care instructions Not available 07/31/2023 08:43:19 11/08/2023 [id number] achilles tendon: exercises [email or web address] Not available 11/08/2023 10:10:08 To call or return for worsening or concerns [email or web address] Not available 11/08/2023 10:09:32 01/10/2024 [id number] hemochromatosis: care instructions Not available 01/10/2024 09:45:16 Reason for Referral Editorial Writer Referral for Screening for malignant neoplasm of [...] /uL 3.4-10 .8 Not Available [facility] ([facility]) [address] [facility], [place], [address], 08/01/2023 06:08:22 07/31/19 24 07/31/2023 CBC WITH DIFFE RENTI AL/PL ATELE T RBC 4.57 x10e6 /uL 3.77-5 .28 Not Available [facility] ([facility]) [address] [place], [address], 08/01/2023 06:08:22 07/31/19 24 07/31/2023 CBC WITH DIFFE RENTI AL/PL ATELE T hemoglobin 14.8 g/dL 11.1-1 5.9 Not Available [facility] ([facility]) [address] [place], [address], 08/01/2023 06:08:22 07/31/19 24 07/31/2023 CBC WITH DIFFE RENTI AL/PL ATELE T hematocrit 44.5 % 34.0-4 6.6 Not Available [facility] ([facility]) [address] [place], [address], 08/01/2023 06:08:22 07/31/19 24 07/31/2023 CBC WITH DIFFE RENTI AL/PL ATELE T MCV 97 fL 79-97 Not Available [facility] ([facility]) [address] [place], [address], 08/01/2023 06:08:22 07/31/19 24 07/31/2023 CBC WITH DIFFE RENTI AL/PL ATELE T MCH 32.4 pg 26.6-3 3.0 Not Available [facility] ([facility]) [address] [place], [address], 08/01/2023 06:08:22 07/31/19 24 07/31/2023 CBC WITH DIFFE RENTI AL/PL ATELE T MCHC 33.3 g/dL 31.5-3 5.7 Not Available [facility] ([facility]) [address] [place], [address], 08/01/2023 06:08:22 07/31/19 24 07/31/2023 CBC WITH DIFFE RENTI AL/PL ATELE T RDW 12.1 % 11.7-1 5.4 Not Available [facility] ([facility]) [address] [facility], [place], [address], 08/01/2023 06:08:22 07/31/19 24 07/31/2023 CBC WITH DIFFE RENTI AL/PL ATELE T platelets 258 x10e3 /uL 150-45 0 Not Available [facility] ([facility]) [address] [facility], [place], [address], 08/01/2023 06:08:22 07/31/19 24 07/31/2023 CBC WITH DIFFE RENTI AL/PL ATELE T neutrophils 53 % not estab. Not Available [facility] ([facility]) [address] [facility], [place], [address], 08/01/2023 06:08:22 07/31/19 24 07/31/2023 CBC WITH DIFFE RENTI AL/PL ATELE T lymphs 34 % not estab. Not Available [facility] ([facility]) [address] [facility], [place], [address], 08/01/2023 06:08:22 07/31/19 24 07/31/2023 CBC WITH DIFFE RENTI AL/PL ATELE T monocytes 10 % not estab. Not Available [facility] ([facility]) [address] [facility], [place], [address], 08/01/2023 06:08:22 07/31/19 24 07/31/2023 CBC WITH DIFFE RENTI AL/PL ATELE T eos 2 % not estab. Not Available [facility] ([facility]) [address] [facility], [place], [address], 08/01/2023 06:08:22 07/31/19 24 07/31/2023 CBC WITH DIFFE RENTI AL/PL ATELE T basos 1 % not estab. Not Available [facility] ([facility]) [address] [place], [address], 08/01/2023 06:08:22 07/31/19 24 07/31/2023 CBC WITH DIFFE RENTI AL/PL ATELE T immature cells HVAC JOURNEYMAN Not Available [facility] ([facility]) [address] [facility], [place], [address], 08/01/2023 06:08:22 07/31/19 24 07/31/2023 CBC WITH DIFFE RENTI AL/PL ATELE T neutrophils (absolute) 3.5 x10e3 /uL 1.4-7. 0 Not Available [facility] ([facility]) [address] [facility], [place], [address], 08/01/2023 06:08:22 07/31/19 24 07/31/2023 CBC WITH DIFFE RENTI AL/PL ATELE T lymphs (absolute) 2.2 x10e3 /uL 0.7-3. 1 Not Available [facility] ([facility]) [address] [place], [address], 08/01/2023 06:08:22 07/31/19 24 07/31/2023 CBC WITH DIFFE RENTI AL/PL ATELE T monocytes(ab solute) 0.6 x10e3 /uL 0.1-0. 9 Not Available [facility] ([facility]) [address] [place], [address], 08/01/2023 06:08:22 07/31/19 24 07/31/2023 CBC WITH DIFFE RENTI AL/PL ATELE T eos (absolute) 0.1 x10e3 /uL 0.0-0. 4 Not Available [facility] ([facility]) [address] [place], [address], 08/01/2023 06:08:22 07/31/19 24 07/31/2023 CBC WITH DIFFE RENTI AL/PL ATELE T baso (absolute) 0.0 x10e3 /uL 0.0-0. 2 Not Available [facility] ([facility]) [address] [facility], [place], [address], 08/01/2023 06:08:22 07/31/19 24 07/31/2023 CBC WITH DIFFE RENTI AL/PL ATELE T immature granulocytes 0 % not estab. Not Available [facility] ([facility]) [address] [facility], [place], [address], 08/01/2023 06:08:22 07/31/19 24 07/31/2023 CBC WITH DIFFE RENTI AL/PL ATELE T immature grans (abs) 0.0 x10e3 /uL 0.0-0. 1 Not Available [facility] ([facility]) [address] [facility], [place], [address], 08/01/2023 06:08:22 07/31/19 24 07/31/2023 CBC WITH DIFFE RENTI AL/PL ATELE T NRBC HVAC JOURNEYMAN Not Available [facility] ([facility]) [address] [facility], [place], [address], 08/01/2023 06:08:22 07/31/19 24 07/31/2023 CBC WITH DIFFE RENTI AL/PL ATELE T hematology comments: HVAC JOURNEYMAN Not Available [facility] ([facility]) [address] [facility], [place], [address], 08/01/2023 06:08:22 07/31/19 24 07/31/2023 BASIC METAB OLIC PANEL (8) glucose 116 mg/dL 70-99 above high normal Not Available [facility] ([facility]) [address] [place], [address], 08/01/2023 06:08:23 07/31/19 24 07/31/2023 BASIC METAB OLIC PANEL (8) BUN 21 mg/dL 8-27 Not Available [facility] ([facility]) [address] [facility] [place], [address], 08/01/2023 06:08:23 07/31/19 24 07/31/2023 BASIC METAB OLIC PANEL (8) creatinine 0.88 mg/dL 0.57-1 .00 Not Available [facility] ([facility]) [address] [facility] [place], [address], 08/01/2023 06:08:23 07/31/19 24 07/31/2023 BASIC METAB OLIC PANEL (8) eGFR 70 mL/mi n/1.7 3 >59 Not Available [facility] ([facility]) [address] [facility] [place], [address], 08/01/2023 06:08:23 07/31/19 24 07/31/2023 BASIC METAB OLIC PANEL (8) BUN/creatini ne ratio 24 12-28 Not Available [facility] ([facility]) [address] [facility] [place], [address], 08/01/2023 06:08:23 07/31/19 24 07/31/2023 BASIC METAB OLIC PANEL (8) sodium 142 mmol/ L 134-14 4 Not Available [facility] ([facility]) [address] [place], [address], 08/01/2023 06:08:23 07/31/19 24 07/31/2023 BASIC METAB OLIC PANEL (8) potassium 4.3 mmol/ L 3.5-5. 2 Not Available [facility] ([facility]) [address] [place], [address], 08/01/2023 06:08:23 07/31/19 24 07/31/2023 BASIC METAB OLIC PANEL (8) chloride 105 mmol/ L 96-106 Not Available [facility] ([facility]) [address] [facility] [place], [address], 08/01/2023 06:08:23 07/31/19 24 07/31/2023 BASIC METAB OLIC PANEL (8) carbon dioxide, total 22 mmol/ L 20- Not Available [facility] ([facility]) [address] [place], [address], 08/01/2023 06:08:23 07/31/19 24 07/31/2023 BASIC METAB OLIC PANEL (8) calcium 9.7 mg/dL 8.7-10 .3 Not Available [facility] ([facility]) [address] [place], [address], 08/01/2023 06:08:23 07/31/19 24 07/31/2023 LIPID PANEL cholesterol, total 231 mg/dL 100-19 9 above high normal Not Available [facility] ([facility]) [address] [place], [address], 08/01/2023 06:08:24 07/31/19 24 07/31/2023 LIPID PANEL triglyceride s 53 mg/dL 0-149 Not Available [facility] ([facility]) [address] [place], [address], 08/01/2023 06:08:24 07/31/19 24 07/31/2023 LIPID PANEL HDL cholesterol 72 mg/dL >39 Not Available [facility] ([facility]) [address] [place], [address], 08/01/2023 06:08:24 07/31/19 24 07/31/2023 LIPID PANEL VLDL cholesterol sydney 9 mg/dL 5-40 Not Available [facility] ([facility]) [address] [place], [address], 08/01/2023 06:08:24 07/31/19 24 07/31/2023 LIPID PANEL LDL chol calc ([facility]) 150 mg/dL 0-99 above high normal Not Available [facility] ([facility]) [address] [facility], [place], [address], 08/01/2023 06:08:24 07/31/19 24 07/31/2023 LIPID PANEL comment: HVAC JOURNEYMAN Not Available [facility] ([facility]) [address] [facility], [place], [address], 08/01/2023 06:08:24 07/31/19 24 08/01/2023 HEMOG LOBIN A1C hemoglobin A1C 5.6 % 4.8-5. 6 Predi abete s: 5.7 - 6.4 Diabe nhi: >6.4 Glyce veronica contr ol for adult s with diabe nhi: <7.0 Not Available [facility] ([facility]) [address] [facility], [place], [address], 08/01/2023 06:08:24 11/17/19 23 11/16/2022 MAMMO , [...] 1 (Negat chilango) Lay letter mailed to mandy vasquez I have person ally review ed the images and I agree with this report . WSN: [id number] Orderi ng Physic ryan: Gayle Lopez E Dictat ed By: Ernie Vigil i, DO Dictat ed Date/T nica: 11:14 am Review ed By: Moraima MUHAMMAD, Kuldip Plummer Signed By: Moraima MUHAMMAD, Kuldip Plummer Signed Date/T nica: 11:19 am Transc ribed By: CSB Transc riptio n Date/T nica: 10:53 am Birads : Patien t Class: Outpat ient [email or web address] [facility] (Outpt Imaging) [address], [place], [address], 11/16/2022 11:18:57 04/19/19 24 04/19/2023 XR, knee, weigh tbear ing No observ ation record ed. [email or web address] [place], [address], 04/24/2023 13:39:11 04/19/19 24 04/19/2023 XR, knee, weigh tbear ing No observ ation record ed. [email or web address] [place], [address], 04/24/2023 13:39:36 04/19/19 24 04/19/2023 XR, knee, weigh tbear ing No observ ation record ed. [email or web address] [place], [address], 04/24/2023 13:39:55 04/20/19 24 04/19/2023 XR, chest , 2 view No observ ation record ed. [facility] [address] [place], [address], 04/21/2023 07:59:12 11/20/19 MAMMO , scree katy, bilat eral No observ ation record ed. Not Available 11/19 10:40:13 11/20/1911/20/2023 MAMMO , scree katy, digit al, bilat [...] 1 (Negat chilango) Lay letter mailed to mandy vasquez WSN: [id number] Orderi ng Physic ryan: Milton Ware Dictat ed By: Kuldip Bourne MD Dictat ed Date/T nica: 10:32 am Review ed By: Kuldip Bourne MD Signed By: Kuldip Bourne MD Signed Date/T nica: 10:32 am Transc ribed By: CSB Transc riptio n Date/T nica: 10:24 am Birads : Fayejaimee t Class: Outpat ient [email or web address] [facility] ([facility]) [address] [place], [address], 11/20/2023 10:43:05 11/23/19 24 11/20/2023 DEXA, axial skele ton Name:Siri vasquez ID: [id number] Age:73 years Sex:Fe male Ethnic ity:Wh [...] be consid ered in two years. WSN: [id number] Orderi ng Physic ryan: Milton Ware Dictat ed By: Peyton Castaneda ra, MD Dictat ed Date/T nica: 9:49 am Review ed By: Peyton Castaneda ra, MD Signed By: Peyton Castaneda ra, MD Signed Date/T nica: 9:49 am Transc ribed By: YAELB Transc ribed Date/T nica: 9:48 am [facility] [address] [place] [address], [address], 11/24/2023 18:19:44 01/10/2001/10/2024 XR, lumba r spine [...] ce of an acute proces s. WSN: [id number] Orderi ng Physic ryan: Milton Ware Dictat ed By: Davonte Su MD Dictat ed Date/T nica: 7:15 pm Review ed By: Davonte Su MD Signed By: Davonte Su MD Signed Date/T nica: 7:15 pm Transc ribed By: ROSALINA Transc ribed Date/T nica: 7:15 pm Patien t Class: Outpat ient [facility] (Outpt Imaging) [address] [place], [address], 01/15/2024 05:48:38 Result Notes None recorded. Problems Name Problem SNOMED Code Status Onset Date Resolution Date Notes Provider Name and Address Organization Details Recorded Time Acute bronchit is 26798337 Completed 201110/21/2013 RECORDED 12/18/19 12 8:15AM BY TANNER NIEVES ON/ADDEN DUM Yasmeensamina austin [facility] 6 09:04:36 Bronchos pasm [id number] Completed 200710/21/2013 RECORDED 02/12/20 08 6:53AM BY TANNER SOSA ON/ADDEN DUM Yasmeen Ochoa austin [facility] 6 09:04:36 Allergic rhinitis [id number] Completed 201204/12/2016 IMPRESSI ON: CONTINUE ALLERGY MEDS AND SINGULAI R, SEEM TO BE HELPING. CONTINUE MEDS; RECORDED 03/27/20 13 9:41AM BY GAYLE Kang MD, OFFICE VISIT Alina austin [facility] 7 16:04:21 Patient status finding [id number] Completed 201204/12/2016 Alina austin [facility] 7 16:04:04 Asthma [id number] Completed 201207/16/2019 IMPRESSI ON: DOING WELL ON SINGULAI R CONTINUE ; RECORDED 03/27/20 13 9:41AM BY GAYLE Kang MD, OFFICE VISIT Gayle austin [facility] 0 10:08:22 Screenin g for malignan t neoplasm of breast Completed 200810/21/2013 RECORDED 09/29/19 09 10:57AM BY ADRIANA GUERRERO MA, TANNER ON/ADDEN DUM Yasmeen Ochoa austin [facility] 6 09:04:37 Screenin g for malignan t neoplasm of cervix Completed 201110/21/2013 RECORDED 12/18/19 12 8:16AM BY TANNER NIEVES ON/ADDEN DUM Yasmeen Ochoa null, [facility] 6 09:04:37 Screenin g for malignan t neoplasm of colon Completed 201210/21/2013 RECORDED 03/27/20 13 9:02AM BY LEATHA CRAVEN MA, ANNOTATI ON/ADDEN DUM Yasmeen Packer null, [facility] 6 09:04:37 Cough [id number] Completed 200810/21/2013 IMPRESSI ON: FOR ONE MONTH, SOUNDS RELATED TO ALLERGIE S,SPIROM ETRY DONE TODAY AND IS VERY NORMAL, WILL GET CXR ADD NASAL SPRAY, IF NOT BETTER 4 WEEKS RETURN FOR VISIT; RECORDED 09/29/19 09 10:57AM BY ADRIANA GUERRERO MA, ANNOTATI ON/ADDEN DUM Alina Sterling MA null, [facility] 7 16:04:25 Elevated blood-pr essure reading without diagnosi s of hyperten phong [id number] Completed 201210/21/2013 RECORDED 06/15/19 13 9:26AM BY TURNER PALMATI ON/ADDEN DUM Yasmeen Packer null, [facility] 6 09:04:37 Eustachi an tube disorder [id number] Completed 201210/21/2013 RECORDED 06/15/19 13 9:26AM BY TANNER PALM ON/ADDEN DUM Yasmeen austin, [facility] 6 09:04:36 Influenz a vaccine needed [id number] 06 Completed 201210/21/2013 RECORDED 03/27/20 13 9:22AM BY LEATHA CRAVEN MA, OFFICE VISIT Yasmeen austin [facility] 6 09:04:37 Adult health examinat ion Completed 201204/12/2016 IMPRESSI ON: PAP, MAMMO AND COLONSOC Y UTD, PT TO GET FLU SHOT TODAY; RECORDED 03/27/20 13 12:58PM BY GAYLE Kang MD, OFFICE VISIT Alina austin, [facility] 7 16:04:18 Pure hypercho lesterol emia 879355495 Completed 201204/12/2016 Alina austin, [facility] 7 16:04:37 Shoulder joint pain 746741258 Completed 201110/21/2013 IMPRESSI ON: 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 PT TO SEE ORTHO FOR INJECITO N, DO PT; RECORDED 12/18/19 12 8:15AM BY TANNER NIEVES ON/ADDEN DUM Yasmeen austin, [facility] 6 09:04:37 Cramp in limb 544375743 Completed 201110/21/2013 IMPRESSI ON: GETS THEM AT NIGHT, INCREASE FLUIDS, NL CALCIUM AND K, STRETCH BEFORE BED; RECORDED 12/18/19 12 8:15AM BY TANNER NIEVES ON/ADDEN DUM Yasmeen austin [facility] 6 09:04:37 Malaise and fatigue [id number] Completed 201210/21/2013 RECORDED 06/15/19 13 9:26AM BY TANNER PALM ON/ADDEN DUM Yasmeen austin [facility] 6 09:04:37 Administ ration of bacteria l and viral vaccine Completed 200710/21/2013 RECORDED 02/12/20 08 8:11AM BY HUONG ANGEL, OFFICE VISIT Yasmeen austin [facility] 6 09:04:37 Cramp in lower leg associat ed with rest [id number] Completed 201210/21/2013 IMPRESSI ON: DO AEROBIC EXERCISE BEFORE BED. CALF STRETCH AT BEDTIME REVIEWED . I OFFERED HER LABS BUT SHE WANTS TO WAIT AND TRY THESE MEASURES FIRST AND IF NOT BETTER IN 6 MONTHS AT PHYSICAL SHE WILL DISCUSS WITH PCP ABOUT LABS.; RECORDED 03/27/20 13 9:02AM BY LEATHA CRAVEN MA, ANNOTATI ON/ADDEN DUM Yasmeen austin, [facility] 6 09:04:37 Obesity [id number] Completed 201204/29/2020 IMPRESSI ON: IS EXERCISI NG AND WORKING ON AN EATING PLAN; RECORDED 03/27/20 13 12:58PM BY GAYLE Kang MD, OFFICE VISIT Gayle mattenzo norman [facility] 1 10:25:19 Osteoart hritis of knee 616935984 Completed 201210/21/2013 IMPRESSI ON: PT TO SET UP APPT; RECORDED 03/27/20 13 9:02AM BY LEATHA CRAVEN MA, TURNERATI ON/ADDEN DUM Yasmeen austin, [facility] 6 09:04:37 Joint pain in ankle and foot Completed 200710/21/2013 IMPRESSI ON: HIGH ARCHES, NO ERYTHEMA , WILL SEE PODIATRI ST FOR EVAL, POSSIBLE ORTHOTIC S; RECORDED 02/12/20 08 6:53AM BY TANNER SOSA ON/ADDEN DUM Yasmeen austin, [facility] 6 09:04:37 Knee pain Completed 201210/21/2013 RECORDED 06/15/19 13 9:26AM BY TANNER PALM ON/ADDEN DUM Yasmeen austin [facility] 6 09:04:37 Active or passive immuniza tion Completed 201110/21/2013 RECORDED 12/18/19 12 9:16AM BY GAYLE Kang MD, OFFICE VISIT Yasmeen austin [facility] 6 09:04:37 Presbycu sis [id number] Active 2012 BILATERA L HEARING AIDS; RECORDED 03/27/20 13 9:02AM BY LEATHA CRAVEN MA, OFFICE VISIT Not Available [facility] 03:[facility]59 Adult health examinat ion Completed 201110/21/2013 IMPRESSI ON: PAP, MAMMO COLONOSC OPY UTD, IS EXERCISI NG, EATING REALLY WELL, HELPED BY HYPNOSIS , ON VIT D AND CALCIUM, DEALING WITH FIBROID WITH STERILE INSTRUMENT TECHNICIAN; RECORDED 12/18/19 12 8:15AM BY TANNER NIEVES ON/ADDEN DUM Alina austin, [facility] 7 16:04:18 Wheezing [id number] Completed 201110/21/2013 IMPRESSI ON: PT IS OFF ADVAIR AND FEELS GREAT, WEIGHT LOSS HELPING, PT WILL CONTINUE SINGULAI R, START RAGHU AND I GAVE SAMPLES OF ADVAIR 100/50 IF SHE GETS ANY WHEEZING ; RECORDED 12/18/19 12 8:15AM BY TANNER NIEVES ON/ADDEN DUM Yasmeen Packer null, [facility] 6 09:04:37 Acute bronchit is [id number] Completed 201111/10/2013 RECORDED 12/18/19 12 8:15AM BY TANNER NIEVES ON/ADDEN DUM Yasmeen Packer null, [facility] 6 09:04:36 Bronchos pasm [id number] Completed 200711/10/2013 RECORDED 02/12/20 08 6:53AM BY HUONG ANGEL, TANNER ON/ADDEN DUM Yasmeen Packer null, [facility] 6 09:04:36 Screenin g for malignan t neoplasm of breast Completed 200811/10/2013 RECORDED 09/29/19 09 10:57AM BY ADRIANA GUERRERO MA, TANNER ON/ADDEN DUM Yasmeen Packer null, [facility] 6 09:04:37 Screenin g for malignan t neoplasm of cervix Completed 201111/10/2013 RECORDED 12/18/19 12 8:16AM BY TANNER NIEVES ON/ADDEN DUM Yasmeen Packer null, [facility] 6 09:04:37 Screenin g for malignan t neoplasm of colon Completed 201211/10/2013 RECORDED 03/27/20 13 9:02AM BY LEATHA CRAVEN MA, TURNERATI ON/ADDEN DUM Yasmeensamina Packer null, [facility] 6 09:04:37 Cough [id number] Completed 200811/10/2013 IMPRESSI ON: FOR ONE MONTH, SOUNDS RELATED TO ALLERGIE S,SPIROM ETRY DONE TODAY AND IS VERY NORMAL, WILL GET CXR ADD NASAL SPRAY, IF NOT BETTER 4 WEEKS RETURN FOR VISIT; RECORDED 09/29/19 09 10:57AM BY ADRIANA GUERRERO MA, ANNOTATI ON/ADDEN DUM Alina austin, [facility] 7 16:04:25 Elevated blood-pr essure reading without diagnosi s of hyperten phong [id number] Completed 201211/10/2013 RECORDED 06/15/19 13 9:26AM BY TANNER PALM ON/ADDEN DUM Yasemen Packer null, [facility] 6 09:04:37 Eustachi an tube disorder 47530678 Completed 201211/10/2013 RECORDED 06/15/19 13 9:26AM BY TANNER PALM ON/ADDEN DUM Yasmeen austin, [facility] 6 09:04:36 Influenz a vaccine needed [id number] 06 Completed 201211/10/2013 RECORDED 03/27/20 13 9:22AM BY LEATHA CRAVEN MA, OFFICE VISIT Yasmeen austin, [facility] 6 09:04:37 Shoulder joint pain 508223108 Completed 201111/10/2013 IMPRESSI ON: 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 PT TO SEE ORTHO FOR INJECITO N, DO PT; RECORDED 12/18/19 12 8:15AM BY TANNER NIEVES ON/ADDEN DUM Yasmeen austin, [facility] 6 09:04:37 Cramp in limb 697893695 Completed 201111/10/2013 IMPRESSI ON: GETS THEM AT NIGHT, INCREASE FLUIDS, NL CALCIUM AND K, STRETCH BEFORE BED; RECORDED 12/18/19 12 8:15AM BY TANNER NIEVES ON/ADDEN DUM Yasmeen austin [facility] 6 09:04:37 Malaise and fatigue 730042486 Completed 201211/10/2013 RECORDED 06/15/19 13 9:26AM BY TANNER PALM ON/ADDEN DUM Yasmeen austin [facility] 6 09:04:37 Administ ration of bacteria l and viral vaccine Completed 200711/10/2013 RECORDED 02/12/20 08 8:11AM BY HUONG ANGEL, OFFICE VISIT Yasmeen austin [facility] 6 09:04:37 Cramp in lower leg associat ed with rest [id number] Completed 201211/10/2013 IMPRESSI ON: DO AEROBIC EXERCISE BEFORE BED. CALF STRETCH AT BEDTIME REVIEWED . I OFFERED HER LABS BUT SHE WANTS TO WAIT AND TRY THESE MEASURES FIRST AND IF NOT BETTER IN 6 MONTHS AT PHYSICAL SHE WILL DISCUSS WITH PCP ABOUT LABS.; RECORDED 03/27/20 13 9:02AM BY LEATHA CRAVEN MA, ANNOTATI ON/ADDEN DUM Yasmeen austin [facility] 6 09:04:37 Osteoart hritis of knee 307962879 Completed 201211/10/2013 IMPRESSI ON: PT TO SET UP APPT; RECORDED 03/27/20 13 9:02AM BY LEATHA CRAVEN MA, ANNOTATI ON/ADDEN DUM Yasmeen austin [facility] 6 09:04:37 Joint pain in ankle and foot Completed 200711/10/2013 IMPRESSI ON: HIGH ARCHES, NO ERYTHEMA , WILL SEE PODIATRI ST FOR EVAL, POSSIBLE ORTHOTIC S; RECORDED 02/12/20 08 6:53AM BY HUONG ANGEL, ANNOTATI ON/ADDEN DUM Yasmeensamina austin [facility] 6 09:04:37 Knee pain Completed 201211/10/2013 RECORDED 06/15/19 13 9:26AM BY CHINEDU ENGLISH I, ANNOTATI ON/ADDEN DUM Yasmeen Ochoa austin, [facility] 6 09:04:37 Active or passive immuniza tion Completed 201111/10/2013 RECORDED 12/18/19 12 9:16AM BY GAYLE Kang MD, OFFICE VISIT Yasmeen austin, [facility] 6 09:04:37 Wheezing 43827911 Completed 201111/10/2013 IMPRESSI ON: PT IS OFF ADVAIR AND FEELS GREAT, WEIGHT LOSS HELPING, PT WILL CONTINUE SINGULAI R, START RAGHU AND I GAVE SAMPLES OF ADVAIR 100/50 IF SHE GETS ANY WHEEZING ; RECORDED 12/18/19 12 8:15AM BY SIRISHA CROWE, ANNOTATI ON/ADDEN DUM Yasmeensamina austin [facility] 6 09:04:37 Cough 25745227 Completed 04/12/2016 Alina austin [facility] 7 16:04:25 Acute asthma 681947159 Completed 05/31/2016 Gayle austin [facility] 7 09:32:07 Ankle pain 182051618 Completed 04/12/2016 Alina austin [facility] 7 16:04:07 Neck pain 42277906 Completed 04/12/2016 Alina austin [facility] 7 16:04:27 Fatigue 04257688 Completed 04/12/2016 Alina austin [facility] 7 16:04:30 Hypercho lesterol emia 61127864 Active Not Available [facility] 3 03:52:59 Arthriti s 2325701 Completed 04/12/2016 Alina Sterling MA null, [facility] 7 16:04:14 Biceps tendinit is 416309187 Completed 04/12/2016 Alina Sterling MA null, [facility] 7 16:04:10 Pulmonar y embolism 57978837 Completed 201611/22/2016 Gayle Nick celeste null, [facility] 7 09:42:04 History of pulmonar y embolus 450997801 Active 2017 Not Available [facility] 3 03:52:59 Moderate persiste nt asthma 684655931 Active 2019 Not Available [facility] 3 03:52:59 Advance care planning Active 2020 Not Available [facility] 3 03:52:59 Suspecte d COVID-19 432706400 Completed 10/27/2020 Removal Reason: Problem added by user [email or web address] from the COVID-19 watch flag Eleonora Casanova norman, [facility] 1 10:29:36 Liver enzymes level above referenc e range 995855047 Active 2020 Not Available [facility] 3 03:52:59 Serum iron above referenc e range 006845201 Completed 202001/26/2023 SEBAS FINE MD [address] [facility] [address], [place], [address] , [facility] 3 06:07:16 Heredita ry hemochro matosis 66829184 Active 2020 Not Available [facility] 3 03:52:59 Prediabe nih 018316655 Active 2020 Not Available [facility] 3 03:52:59 Left Achilles tendinit is 15717543408 9102 Active [address] [facility] [address], [facility] [place], [address] , [facility] 4 10:09:48 Osteopen ia 142662796 Active 2023 SEBAS FINE MD [address], [facility] [place], [address] , [facility] 4 16:27:35 Problem Notes None recorded. Procedures Surgical History Date Name Laterality Status Provider Name and Address Organization Details Recorded Time 4 Most Recent Mammogram completed Destinee Powell [facility] 11/20/2023 10:40:28 4 Mammogram both breasts completed Destinee Powell [facility] 11/20/2023 10:40:21 4 Advanced Care Planning completed SEBAS FINE MD [address] [facility] [address], [place], [address], [facility] 07/31/2023 07:58:31 3 Date of Last Colonoscopy completed Sirisha Crowe MA [facility] 07/31/2023 08:27:16 3 Colonoscopy completed Poly River [facility] 09/20/2022 13:31:26 2 total replacement of right knee joint completed Josseline Oh [facility] 11/04/2021 08:50:26 1 Advanced Care Planning completed Delma Jain [facility] 05/03/2020 11:02:18 1 Six-Item Cognitive Test completed Sirisha Crowe MA [facility] 04/29/2020 10:15:59 0 Mammogram Diagnostic Bilateral completed Jennifer Smith [facility] 10/16/2019 15:29:47 9 Mini-Cog Test completed Sirisha Crowe MA [facility] 03/22/2019 09:54:17 9 Advanced Care Planning completed Sirisha Crowe MA [facility] 03/22/2019 09:58:27 9 Date of Last Pap Smear completed Sirisha Crowe MA [facility] 03/22/2019 10:04:09 8 Mini-Cog Test completed Sirisha Crowe MA [facility] 03/14/2018 10:30:14 3 completed Leatha Sunfield [facility] 04/01/2014 08:03:49 1 completed Leatha Craven [facility] 04/01/2014 08:03:49 Imaging Results Imaging Date Name Status LastModified by Organization Details LastModified Time 11/16/2022 MAMMO, screening, digital, bilateral completed [facility] (Outpt Imaging) [address] [place], [address], 11/16/2022 11:18:57 04/19/2023 XR, knee, weightbearing completed [address] [facility] [address] [place] [address] [place], [address], 04/24/2023 13:39:11 04/19/2023 XR, knee, weightbearing completed [address] [facility] [address] [place] [address] [place], [address], 04/24/2023 13:39:36 04/19/2023 XR, knee, weightbearing completed [address] [facility] [address] [place] [address] [place], [address], 04/24/2023 13:39:55 04/19/2023 XR, chest, 2 view completed [address] [place], [address], 04/21/2023 07:59:12 11/20/2023 MAMMO, screening, bilateral completed [email or web address] Information not available 11/20/2023 10:40:13 11/20/2023 MAMMO, screening, digital, bilateral completed [facility] (Outpt Imaging) [address] [place], [address], 11/20/2023 10:43:05 11/20/2023 DEXA, axial skeleton completed [facility] (Outpt Imaging) [address] [place], [address], 11/24/2023 18:19:44 01/10/2024 XR, lumbar spine completed [facility] (Outpt Imaging) [address] [place], [address], 01/15/2024 05:48:38 Procedure Notes None recorded. Medical Equipment None Reported. Allergies Allergen ID Allergen Name Allergen Category Reaction Reaction Severity Criticality Documentation Date Start Date Code Code System Note Provider Name and Address Organization Details Recorded Time 8072 No known allergy (situatio n) Not available Not available Not available Not available 10/14/20132011 00035 6003 SNOMED COMME NT: RECOR DED 12/17 8:42A M BY KYRA LEIVA VISIT ; Not Available [facility] 4 13:25:08 No known drug allergies Medications [...] 1 TABLET BY MOUTH EVERY DAY DIRECTED 2024 active Not Available Not Available Not Avai [...] 13 9:32AM BY CHINEDU ENGLISH I, ANNOTATI ON/ADDJAIMEE DUM; Not Available Not Available Not Available monteluka st 10 mg tablet TAKE 1 TABLET BY MOUTH EVERY DAY 2023 active Not Available Not Available Not Avai lable magnesium 250 mg tablet Take 1 tablet every day by oral route. active Not Available Not Available No t Available norethind janell acetate 5 mg tablet DAILY 03/27 completed RECORDED 03/27/20 13 9:18AM BY LEATHA CRAVEN MA, OFFICE VISIT; Not Available Not Available Not Available Nasonex 50 mcg/actua tion [place] EACH NOSTRIL DAILY 06/07 completed RECORDED 06/19/19 [...] completed RECORDED 03/27/20 13 9:03AM BY LEATHA CRAVEN MA, OFFICE VISIT;3 TIMES A WEEK Not [...] completed RECORDED 03/27/20 13 9:03AM BY LEATHA CRAVEN MA, OFFICE VISIT; Not Available Not Available Not Available Medroxypr og Daren (Antineop last) DAILY 03/27 completed RECORDED 03/27/20 13 9:18AM BY LEATHA CRAVEN MA, OFFICE VISIT; Not Available Not Available Not Available blood pressure monitor DAILY MONITORI NG OF BP FOR HTN 09/05 completed RECORDED 12/15/19 11 8:37AM BY SIRISHA CROWE, MEDICATI ON AUTO-GUANAKO CTIVATIO N; Not Available Not Available Not Available [place] DAILY 05/31 completed RECORDED 03/27/20 13 9:20AM BY LEATHA CRAVEN MA, OFFICE VISIT;15 MG Not Available Not [...] Not Available Not Available OptiChamb er [place] [facility] spacer active Not Available Not [...] Not Available Not Available Not Available Afluria 0483-9237 (PF) 45 mcg(15 mcg x 3)/0.5 mL intramusc ular syringe 04/05 completed Not Available Not Available Not Available Shingrix (PF) 50 mcg/0.5 mL intramusc ular suspensio n, kit 03/14 completed Not Available Not Available Not Available turmeric 1,650 mg -1 tablet po daily active with himanshu and curcumin - Brain suppleme nt Not Available Not Available Not Available Fluad 2018-20 65yr up(PF)45 mcg(15 mcgx3)/0. 5 mL intramusc ular syringe 01/16 completed Not Available Not Available Not Available Fluzone High-Dose Quad 2019- (PF) 240 mcg/0.7 mL IM syringe INJECT IM 03/04 completed Not Available Not Available Not Available Trelegy Ellipta 200 mcg-62.5 mcg-25 mcg powder for [...] Updated DateTime 3 157.48 cm 39 kg/m2 47364.1 7 g 95 % 95 % 75 /min 98 [degF] 121 mm[Hg] 78 mm[Hg] Sirisha Crowe MA [facility] 3 11:08:48 Date Recorded Body height Body mass index (BMI) Body weight Oxygen saturation Oxygen saturation in Arterial blood by Pulse oximetry Heart rate Body temperature Systolic blood pressure Diastolic blood pressure Provider Name and Address Organization Details Last Updated DateTime 3 157.48 cm 39.2 kg/m2 50749.8 7 g 98 % 98 % 69 /min 98.3 [degF] 126 mm[Hg] 82 mm[Hg] Sirisha Crowe MA [facility] 3 09:30:31 Date Recorded Body height Body mass index (BMI) Body weight Oxygen saturation Oxygen saturation in Arterial blood by Pulse oximetry Heart rate Body temperature Systolic blood pressure Diastolic blood pressure Provider Name and Address Organization Details Last Updated DateTime 4 157.48 cm 39.4 kg/m2 12967.1 6 g 98 % 98 % 81 /min 97.9 [degF] 127 mm[Hg] 74 mm[Hg] Sirisha Crowe MA [facility] 4 08:24:37 Date Recorded Body height Body mass index (BMI) Body weight Heart rate Oxygen saturation Oxygen saturation in Arterial blood by Pulse oximetry Body temperature Systolic blood pressure Diastolic blood pressure Provider Name and Address Organization Details Last Updated DateTime 4 157.48 cm 40.1 kg/m2 99428.7 3 g 88 /min 96 % 96 % 98 [degF] 124 mm[Hg] 78 mm[Hg] Adriana jacobson MA [facility] 4 09:50:27 Date Recorded Body height Body mass index (BMI) Body weight Oxygen saturation Oxygen saturation in Arterial blood by Pulse oximetry Heart rate Body temperature Systolic blood pressure Diastolic blood pressure Provider Name and Address Organization Details Last Updated DateTime 4 157.48 cm 40.3 kg/m2 69138.4 2 g 98 % 98 % 69 /min 97.8 [degF] 126 mm[Hg] 79 mm[Hg] Sirisha Crowe MA [facility] 4 09:27:53 Social History Question Answer Notes LastModified by Organizat ion Details LastModified Time Tobacco Smoking Status Never Smoker Leatha austin [facility] 04/01/2014 09:09:42 What Is Your Level Of Alcohol Consumption? Occasional 1-2 A Month Information not available 04/01/2014 Is Blood Transfusion Acceptable In An Emergency? Yes [email or web address] Information not available 04/05/2015 What Is Your Level Of Caffeine Consumption? Moderate Information not available 04/01/2014 How Much Tobacco Do You Chew? None [email or web address] Information not available 04/29/2020 Are You Currently Employed? No Retired 09/2017 Information not available 11/08/2023 What Type Of Diet Are You Following? GLUTENFREE [email or web address] Information not available 04/29/2020 Do You Or Have You Ever Used E-cigarettes Or Vape? Never Used Electronic Cigarettes [email or web address] Information not available 10/19/2021 What Is Your Occupation? Retired 09/2017 [email or web address] Information not available 04/29/2020 Live Alone Or With Others? With Others [email or web address] Information not available 10/19/2021 Do You Take Precautions To Prevent Distracted Driving? Yes Information not available 04/05/2015 How Often Do You Need To Have Someone Help You When You Read Instructions, Pamphlets, Or Other Written Material From Your Doctor Or Pharmacy? Sometimes [email or web address] Information not available 04/05/2015 Have You Served In The ? No [email or web address] Information not available 05/31/2016 Have You Or [...] OUD But Is Possibly At Risk. No [email or web address] Information not available 04/29/2020 Have You Recently Traveled To A COVID-19 High Risk Area Or Gathering In The Last 10 Days? No [email or web address] Information not available 04/29/2020 What Was The Date Of Your Most Recent Tobacco Screening? 07/31/2023 [email or web address] Information not available 07/31/2023 How Many Children Do You Have? 0 [email or web address] Information not available 04/28/2021 Do You Use Protection During Sex? No [email or web address] Information not available 04/29/2020 Do You Use Your Seat Belt Or Car Seat Routinely? Yes [email or web address] Information not available 04/28/2021 Seat Belts Used Routinely Yes [email or web address] Information not available 10/19/2021 Are You Sexually Active? Yes [email or web address] Information not available 05/31/2016 Smoke Alarm In Home Yes [email or web address] Information not available 10/19/2021 Do You Have Smoke And Carbon Monoxide Detectors In Your Home? Yes [email or web address] Information not available 04/28/2021 Are You Passively Exposed To Smoke? No [email or web address] Information not available 05/31/2016 Do You Or Have You Ever Used Smokeless Tobacco? Never Used Smokeless Tobacco [email or web address] Information not available 03/22/2019 How Much Tobacco Do You Smoke? No [email or web address] Information not available 04/29/2020 Do You Use Any Illicit Or Recreational Drugs? No Information not available 11/08/2023 Do You Use Sunscreen Routinely? Yes [email or web address] Information not available 04/05/2015 Do You Or Have You Ever Used Any Other Forms Of Tobacco Or Nicotine? No Information not available 11/08/2023 Sex: Unknown Functional Status Question Answer Note LastModified by [employer] ion Details LastModified Time Are you able to walk? YESWOREST [email or web address] Information not available 10/19/2021 Are you able to care for yourself? Yes [email or web address] Information not available 05/31/2016 What is your exercise level? Moderate water aroebics/PT twice a week [email or web address] Information not available 04/28/2021 Mental Status None recorded. Family History Relationship Description Onset Age of this Age Resolved Age Notes LastModified by Organization Details LastModified Time Mother Carcinoma in situ of stomach [email or web address] Not available 10/19 12:45:22 Father Respiratory distress 73 [email or web address] Not available 10/19 12:45:22 Sister Carcinoma in situ of lung 52 [email or web address] Not available 12:45:22 Sister Obesity [email or web address] Not availabl e 04/29/2020 09:59:23 Brother Heart disease [email or web address] Not available 04/28 10:04:24 Notes:No FH of [...] Influenza, split virus, trivalent, preservative 4 completed Poly L River null, [facility] 12/28/2022 09:38:40 zoster recombinant 8 completed Poly L [place] null, [facility] 12/28/2022 09:38:40 Influenza, high-dose, trivalent, PF 8 completed Poly L [place] null, [facility] 12/28/2022 09:38:40 zoster live 8 completed Poly L [place] null, [facility] 12/28/2022 09:38:40 Influenza, high-dose, trivalent, PF 8 completed Poly L [place] null, [facility] 12/28/2022 09:38:40 Influenza, adjuvanted, trivalent, PF 9 completed Poly L [place] null, [facility] 12/28/2022 09:38:40 Influenza, high-dose, quadrivalent, PF 0 completed Poly L [place] null, [facility] 12/28/2022 09:38:40 COVID-19, mRNA, LNP-S, PF, 100 mcg/0.5mL dose or 50 mcg/0.25mL dose 1 completed Poly L [place] null, [facility] 12/28/2022 09:38:40 zoster recombinant 8 completed Poly L [place] null, [facility] 12/28/2022 09:38:40 Influenza, high-dose, quadrivalent, PF 1 completed Poly L River null, [facility] 12/28/2022 09:38:40 COVID-19, mRNA, LNP-S, PF, 100 mcg/0.5mL dose or 50 mcg/0.25mL dose 1 completed Poly L [place] null, [facility] 12/28/2022 09:38:40 Influenza, high-dose, quadrivalent, PF 0 completed Poly [place] null, [facility] 12/28/2022 09:38:40 Influenza, split virus, trivalent, PF 6 completed Poly L [place] null, [facility] 12/28/2022 09:38:40 COVID-19, mRNA, LNP-S, PF, 100 mcg/0.5mL dose or 50 mcg/0.25mL dose 1 completed Poly L [place] null, [facility] 12/28/2022 09:38:40 Influenza, split virus, trivalent, PF 5 completed Poly L [place] null, [facility] 12/28/2022 09:38:40 COVID-19, mRNA, LNP-S, PF, 100 mcg/0.5mL dose or 50 mcg/0.25mL dose 2 completed Poly L [place] null, [facility] 12/28/2022 09:38:40 COVID-19, mRNA, LNP-S, PF, 100 mcg/0.5mL dose or 50 mcg/0.25mL dose 2 completed Poly L [place] null, [facility] 12/28/2022 09:38:40 Influenza, split virus, quadrivalent, PF 7 completed Poly L [place] null, [facility] 12/28/2022 09:38:40 pneumococcal polysaccharide PPV23 1 completed Poly L River null, [facility] 12/28/2022 09:38:40 Pneumococcal conjugate PCV 13 8 completed Poly L River null, [facility] 12/28/2022 09:38:40 Tdap 7 completed Poly [place] null, [facility] 12/28/2022 09:38:40 Influenza, high-dose, quadrivalent, PF 2 completed [place] null, [facility] 12/28/2022 09:38:40 Influenza, high-dose, quadrivalent, PF 3 completed Poly [place] null, [facility] 12/28/2022 09:38:40 RSV, recombinant, protein subunit RSVpreF, adjuvant reconstituted, 0.5 mL, PF 3 completed Poly [place] null, [facility] 12/28/2022 09:38:40 COVID-19, mRNA, LNP-S, PF, mary-sucrose, 30 mcg/0.3 mL 3 completed HUONG Nieves, [facility] 01/26/2023 09:24:51 COVID-19, mRNA, LNP-S, PF, 50 mcg/0.5 mL 4 completed HUONG Nieves, [facility] 01/10/2024 09:28:14 Influenza, high-dose, trivalent, PF 4 completed HUONG Nieves, [facility] 01/10/2024 09:28:14 Influenza, split virus, trivalent, preservative 7 completed Poly austin, [facility] 12/28/2022 09:38:40 Influenza, split virus, trivalent, preservative 8 completed [place] null, [facility] 12/28/2022 09:38:40 Tdap 8 completed Poly austin, [facility] 12/28/2022 09:38:40 Influenza, split virus, trivalent, preservative 0 completed Poly [place] null, [facility] 12/28/2022 09:38:40 Influenza, split virus, trivalent, preservative 1 completed [place] null, [facility] 12/28/2022 09:38:40 Influenza, split virus, trivalent, preservative 2 completed Poly [place] null, [facility] 12/28/2022 09:38:40 pneumococcal polysaccharide PPV23 2 completed Poly [place] null, [facility] 12/28/2022 09:38:40 zoster live 3 completed Poly [place] null, [facility] 12/28/2022 09:38:40 influenza, seasonal, intradermal, preservative free 3 completed [place] null, [facility] 12/28/2022 09:38:40 Past Encounters Encounter ID Performer Location Encounter Start Date Encounter Closed Date Diagnosis/Indication Diagnosis SNOMED-CT Code Diagnosis ICD10 Code Diagnosis Note [id number] autoEComm erce [address] [facility] [place] [address] 2006 00:00:00 [id number] autoEComm erce [address] [facility] [place] [address] 07/25/2006 00:00:00 [id number] autoEComm erce [address] [facility] [place] [address] 07/22/2007 00:00:00 [id number] autoEComm erce [address] [facility] [place] [address] 08/09/2007 00:00:00 [id number] autoEComm erce [address] [facility] [place] [address] 02/12/2008 00:00:00 [id number] autoEComm erce [address] [facility] [place] [address] 08/10/2008 00:00:00 [id number] [address]EComm erce [address] [place] [address] 09/28/2008 00:00:00 [id number] autoEComm erce [address] [facility] [address] [place] [address] 05/31/2009 00:00:00 [id number] autoEComm erce [address] [facility] [place] [address] 06/18/2009 00:00:00 [id number] autoEComm erce [address] [facility] [place] [address] 09/10/2009 00:00:00 [id number] autoEComm erce [address] [facility] [place] [address] 12/13/2009 00:00:00 [id number] autoEComm erce [address] [facility] [place] [address] 03/09/2010 00:00:00 [id number] autoEComm erce [address] [facility] [place] [address] 07/08/2010 00:00:00 [id number] autoEComm erce [address] [facility] [place] [address] 12/14/2010 00:00:00 [id number] autoEComm erce [address] [facility] [place] [address] 02/24/2011 00:00:00 [id number] autoEComm erce [address] [facility] [place] [address] 12/18/2011 00:00:00 [id number] autoEComm erce [address] [facility] [place] [address] 06/14/2012 00:00:00 [id number] autoEComm erce [address] [facility] [place] [address] 03/27/2013 00:00:00 [id number] Gayle alonso Main Office [address] [place] [address] 04/01/2014 08:58:11 04/01/2014 09:45:18 Adult health examination [id number] all screening is utd, pt is exercising , stays active Asthma 826779825 stable on meds Allergic rhinitis [id number] Chinedu Araya Main Office [address] [address] [place] [address] 05/27/2014 16:01:16 05/27/2014 16:44:13 Cough [id number] only do x-ray if not getting better. will treat empiricall y since 2 months of purulent cough Acute asthma 104344943 [id number] Alina Hallie HUONG Main Office [address] [address] [place] [address] 09/10/2014 08:53:32 09/10/2014 09:37:52 Cough 31058106 Cough since July, likely due to PND, will treat with Flonase and expectoran t, Chest XR today to r/o pneumonia. Lots of fluids Allergic rhinitis 19492045 Ankle pain 247262219 C/o right ankle pain x 3 weeks, likely tendonitis , recommend, compressio n, elevation, ice to area 4 times daily, continue walking at the gym but light walking, ibuprofen around the clock x 5 days then as needed, return for worsening. Neck pain 19104070 Likel y muscular from returning to gym/ overhead weight, ibuprofen as previously discussed, if no improvemen t please return. [id number] Main Office [address] [address] [facility] [place] [address] 11/04/2014 10:22:19 11/04/2014 11:22:24 Asthma 332965760 Patient cannot tolerate prednisone for long periods, states she would rather not use a steroid inhaler for long period if it will cause symptoms similar to prednisone . Will refer to pulm for further eval and management . Ankle pain 317643198 Is back a the gym, tolerating exercise, declines PT referral at this time but if pain worsens she will call. Acute asthma 631638688 S pirometry is normal thought patient does have wheezing- not relieved by coughing. Will treat as asthma exacerbati on-short prednisone burst x 4 days, will prescribe steroid inhaler for patient to use to help prevent symptoms, f/u with pulmonolog y for further eval. [id number] Gayle alonso Main Office [address] [place] [address] 04/05/2015 08:36:52 04/05/2015 09:29:07 Adult health examination 705723379 Z00.00 all screening is utd, pt is exercising , stays active Asthma 297667280 J45.90 9 stable on meds Fatigue 31063098 R53.83 check labs Hypercholesterolemia 136 66365 E78.2 check fasting Arthritis 8346440 M19.90 knee arthritis, losing weight [id number] Gayle FloresAntonellaElsie alonso Main Office [address] [address] [place] [address] 10/07/2015 08:28:47 10/07/2015 09:39:45 Asthma 006302729 J45.909 stable on meds, continue inhalers Biceps tendinitis 292645 007 M75.22 take a rest from biceps lifting [id number] Earl Rowley MD Main Office [address] [address] [place] [address] 04/05/2016 12:42:34 04/05/2016 14:02:45 Palpitations 28956567 R00.2 ? d/t albuterol, but did have one bout of palp prior to using it. if notices worse palp c alb - then change to xoponex Fever 622066164 R50.9 fever of unknown origin - will do full work-up Asthma 085295635 J45.21 cont symbicort as dir c prn albuterol Dyspnea 915657835 R06.02 [id number] Gayle FloresAntonellaElsie alonso Main Office [address] [address] [place] [address] 04/11/2016 08:03:03 04/11/2016 20:14:29 [id number] Gayle FloresAntonellaElsie alonso Main Office [address] [address] [place] [address] 04/12/2016 15:47:06 04/12/2016 17:02:49 Dyspnea on exertion 43817471 R06.09 R/o PE. ? unstable angina symptoms. ON-call [facility] cardiology consulted and pt. will be seen at cardiac urgent care tomorrow in the am. PT. was advised to call an ambulance if developes worsening of symptoms or any chest symptoms over night. ADvised to take ASA 325 mg. Chest pain 28201929 R07. 9 [id number] Gayle mattenzo Main Office [address] [facility] [address] [place] [address] 04/18/2016 09:47:58 04/18/2016 12:30:56 [id number] Gayle mattenzo Main Office [address] [facility] [address] [place] [address] 04/18/2016 13:04:45 04/18/2016 14:03:34 Pulmonary embolism 11650448 I26.99 bilateral quite extensive, pt feeling better, will check INR and call pt with coumadin dose, if over 2.2 will stop lovenox, pt to see heme, brother with 2 DVT's, father with collapse at 71 cause unknown, needs genetic testing, pt was on estrogen patch and provera, now off 2 week followup with me and my nurse to call pt tomorrow to fill in any educaton needs about coumadin, pt knows to call and get seen if any bleeding, SOB, change in status [id number] Gayle FloresElsie mattceleste Main Office [address] [address] [place] [address] 05/01/2016 14:03:13 05/01/2016 15:46:10 Pulmonary embolism 46189294 I26.99 doing better, pt will see cardiology soon to look for right sided heart strain and will see hematology pt met with Debbi to discuss coumadin, is doing well with dosing and level Asthma 669799438 J45.90 9 stable on meds Body mass index 30+ - obesity 177513663 Z68.39 [id number] Gayle mattenzo Main Office [address] [address] [place] [address] 05/31/2016 09:02:10 05/31/2016 09:51:15 Adult health examination 825362672 Z00.00 all screening is utd, pt is exercising , stays active Hypercholesterolemia 136 68617 E78.2 jsut had a bunch of labs by weight management , pt will have them sent form [place] Asthma 385347791 J45.90 9 stable on meds History of pulmonary embolus 251441218 Z86.711 on coumadin, had echo and is followed by cardiology and hematology DR Santana, brother with 2 clots, pt was on estrogen at the time, is off, has not had genetic testing but pt understand s not to come off the coumadin and do precaution s with ankle pumps and walking during long trips Body mass index 30+ - obesity 867300555 E66.9 Z68.35 going to weight loss [place] [id number] [employer] Main Office [address] [facility] [address] [place] [address] 06/21/2016 11:16:19 06/21/2016 12:38:52 Cough 47002863 R05 Acute asthma 175868072 J 45.901 Allergic rhinitis 510899 04 J30.9 Pulmonary embolism 17007 003 I26.99 rec. check inr in 2 days, advised not to wait until next sunday [id number] [employer] Main Office [address] [place] [address] 11/22/2016 08:42:13 11/22/2016 09:44:21 Adult health examination 148025143 Z00.00 all screening is utd, pt is exercising , lost 4lbs through weight loss center [place] Administra tion of diphtheria, pertussis, and tetanus vaccine 857474533 Z23 Needs infl uenza immunization 708078025 Z23 Fatigue 21317470 R53.83 ? sleep apnea with morning MUIR dn fatigue, ptt o arrange visit for sleep eval Asthma 213291827 J45.90 9 stable on meds Body mass index 30+ - obesity 463153350 E66.9 Z68.35 going to weight loss [place] History of pulmonary embolus 833544823 Z86.711 hx of one related to estrogen/p rogesteron e med, is off and brother with hx of clot, pt was taken off coumadin recently by hematology , had teting for hypercoagu lable state, pt will call and verify all testing negative and to stay off coumadin, iso n baby asa, I reinforced prevention of DVT habits. Osteoarthr itis of knee 132069674 M17.0 bilateral, still able to exercise quite a bit, will consider replacemen ts when is more limites [id number] [employer] Main Office [address] [place] [address] 04/19/2017 13:30:33 04/19/2017 15:03:15 Shoulder pain 23240133 M25.511 pt to see ortho, hopefully is a bursitis, Posterior rhinorrhea 758 99566 R09.82 Osteoarthr itis of knee 756445419 M17.0 needs knee replacemen ts [id number] Gayle Nick alonso Main Office [address] [facility] [address] [place] [address] 11/22/2017 12:47:55 11/22/2017 14:07:14 Bilateral cataracts 10344353 H26.9 right 12/04/17, left 12/13/17 Patient en counter status 102052751 Z01.818 Low cardiac risk for cataract surgery, no labs or EKG requested, should proceed as scheduled Cough 32891396 R05 chronic cough, hx bronchitis , feels the same, thick mucousy cough, x 2 weeks, and getting worse. denies fever, chills. will tx with 5 day prednisone burst. call/ return if sx persist of worsen after prednisone [id number] Gayle Nick alonso Main Office [address] [address] [place] [address] 03/14/2018 10:13:38 03/14/2018 11:11:49 Adult health examination 360839886 Z00.00 all screening is utd, pt is exercising , lost 4lbs through [facility] [place] Administra tion of pneumococcal vaccine 89338361 Z23 Asthma 706821922 J45.90 9 stable on meds, very rarely has a flare Hypercholesterolemia 136 14675 E78.2 level in 2016 was high, will recheck History of pulmonary embolus 851296683 Z86.711 was on hormone at time of PE, pt is off anticoagul ants, Cardiology Dr Barker gave prescripti on for 48 hours before a long trip of antiicoagu lation and 48 hours after,, DVT precaution s [id number] Denis Andrade PA-C Main Office [address] [facility] [address] [place] [address] 08/01/2018 12:33:57 08/01/2018 14:12:02 Administration of viral vaccine 86331786 Z23 Cough 70855896 R05 check cxr to r/o pna - rx if + ? likely d/t pnd - rec nasal saline spray prn and take mucinex qd - see below 25 minute office visit with greater than 50% of the visit face-to-fa ce with the patient and/or family providing counseling and/or coordinati on of care. Allergic rhinitis 874971 04 J30.9 cont singulair as dir Impacted c erumen in right ear 0501036116 503918 H61.21 Moderate p ersistent asthma 527280784 J45.40 stable - cont meds as dir, encouraged use of alb x few days to head off any possible early pna [id number] Gayle FloresElsie mojave Main Office [address] [facility] [address] [facility] [address] 09/09/2018 10:00:03 09/09/2018 11:45:51 Hypercholesterolemia 69972238 E78.2 LDL 141 earlier in month, working on better eating Asthma 410700015 J45.90 9 stable on meds, very rarely has a flare History of pulmonary embolus 579797279 Z86.711 was on hormone at time of PE, pt is off anticoagul ants, Cardiology Dr Barker gave prescripti on for 48 hours before a long trip of [employer] and 48 hours after,, DVT precaution s this does not sound like PE symptoms Dyspnea on exertion 6084 5006 R06.09 sounds related to allergies flaring asthma, will check EKG to be thorough EKG and spirometry are fine, sounds allergic Pain in right foot 58312 90379 84808 M79.671 better with otc orthotic, if not improving referred to Brad [id number] Gayle Romero mojave Main Office [address] [facility] [address] [facility] [place] [address] 01/16/2019 10:11:03 01/16/2019 11:15:27 History of pulmonary embolus 129499043 Z86.711 will check US of left leg to rule out DVt in pt with hx of PE. no sob today Pain in left knee 509926 2586 41998 M25.562 refer to ortho Pain in le ft lower limb 494486776 M79.605 rule out DVT [id number] Gayle FloresElsie mojave Main Office [address] [facility] [address] [facility] [place] [address] 03/22/2019 09:34:08 03/22/2019 10:34:31 Adult health examination 719924990 Z00.00 all screening is utd, pt is exercising , is losing weight on own Asthma 795434831 J45.90 9 stable on meds, very rarely has a flare Hypercholesterolemia 136 59703 E78.2 LDL 141 earlier in month, working on better eating Advance di rective discussed with patient 727406300 Z71.89 MOLST form reviewed by Sirisha, pt will complete and return Body mass index 30+ - obesity 736901057 E66.9 Z68.38 lost weight Pain in finger 96847606 M79.645 middle finger had stitches, now finger does not fully extend, will see ortho [id number] Gayle alonso Main Office [address] [facility] [address] [place] [address] 07/16/2019 08:27:38 07/16/2019 10:26:06 Hypercholesterolemia 36001751 E78.2 LDL 141, working on better eating History of pulmonary embolus 425052179 Z86.711 not on anticoagul ation, just baby aspirin Moderate p ersistent asthma 582568422 J45.40 asthma is a bit more active with allergies, pt will increase symbicort to 3 puffs bid for the short term, call for refill when runs short since just got it, keep on allergy meds, Pain of le ft hip joint 0094886374 63011 M25.552 better with PT and water aerobics. [id number] Delma Jain [facility] [address] [facility] [address] [place] [address] 03/04/2020 15:04:20 03/08/2020 07:55:47 Cough 95093424 R05 Counseling 965949374 Z71 .9 Health advice, education or counseling done for COVID 19 cont otc meds (prn tyl, robitussin ) as dir, cont self-isola tion - reviewed guidelines and advised pt to check our website and will send to portal advised pt only to go to ER if significan t sob where may need to be admitted, o/w avoid going to hospital if at all possible Exposure t o viral disease 6419329087 96870 Z03.818 Pneumonia 722882763 J18. 9 recommend probiotics while on abx Acute asthma 915718100 J 45.901 [id number] Denis Andrade PA-C Main Office [address] [facility] [address] [place] [address] 03/29/2020 08:58:43 03/29/2020 12:35:23 Cough 89177693 R05 lingers - likely d/t post-viral cough - trial c mucinex dm c prn tessalon Moderate p ersistent asthma 040445837 J45.40 see above - cont meds, inhalers as dir [id number] Delma Mercedesvedo [facility] [address] [facility] [address] [place] [address] 04/12/2020 09:47:20 04/13/2020 13:20:49 Persistent cough 646244734 R05 Will do cxr, start different antibiotic , pred taper and change inhaler. Moderate p ersistent asthma 272143054 J45.40 Steroid tapere, use inhalers with a spacer Counseling 469657298 Z71 .9 Health advice, education or counseling done for COVID 19 Exposure t o viral disease 2560610209 37283 Z03.818 pt advised to be tested for covid at an outpatient drive through site. She is advise to quarantine until the results come back. Acute asthma 714627205 J 45.901 change symbicort dose from 80 to 160 with a spacer to see if this helps. Call if not improving within a few days to a week, sooner if worsening. ED if acute changes. [id number] Delma Jain Main Office [address] [facility] [address] [place] [address] 04/29/2020 09:58:44 04/29/2020 10:40:41 Adult health examination 995605569 Z00.00 all screening is utd, pt gained weight from overeating , History of pulmonary embolus 119754056 Z86.711 not on anticoagul ation, just baby aspirin no active symptoms. Hypercholesterolemia 136 02337 E78.2 LDL 141 in past, working on better eating check fasting Moderate p ersistent asthma 067758169 J45.40 continue higher dose of symbicort, is feeling better Body mass index 40+ - severely obese 939317458 E66.01 Z68.41 pt is interested in working with Dr Dumont, she will arrange appt Administra tion of pneumococcal vaccine 19624454 Z23 Advance di rective discussed with patient 348105752 Z71.89 MOLST form reviewed by Sirisha, pt will complete and return Cramp in lower limb 4499 47326 R25.2 stretch, hydrate check labs [id number] Gayle alonso Main Office [address] [facility] [address] [place] [address] 10/28/2020 09:32:15 10/28/2020 10:34:13 Moderate persistent asthma 822547556 J45.40 continue higher dose of symbicort, pt notes feels winded with exercise, lost weight, no evidence of recurrent dvt/PE by hx of on exam, will refer to pulmaonry pt will be getting right knee replacemen t, needs to tune up pulmonary status. Pain in right knee 02407 12416 58176 M25.561 steroid injection 2 months ago by Edith Nelson, did not hold very long, will see Omar in 2 months and discuss knee replacemen t. History of pulmonary embolus 431413718 Z86.711 not on anticoagul ation, just baby aspirin no active symptoms. no leg pain or pleuritic pain [id number] Denis Andrade PA-C Main Office [address] [facility] [address] [place] [address] 11/25/2020 15:07:02 11/25/2020 16:24:23 Impaired fasting glycemia 021029933 R73.01 glucose 113 on 10.15 - will check a1c Body mass index 30+ - obesity 183649281 E66.9 Z68.37 pt has lost ~ 24 lbs in past [address] Moeller's office - cont to f/u c him *will fwd copy of this note to Dr. Moeller* Liver enzy mes level above reference range 572217198 R74.01 ast/alt 25/30 on 04.05.16, now up to 35/45 on 10.15.21 - offered re-assuran ce since minimally elevated, could be due to fatty liver disease vs other (see above and below) Serum iron above reference range 619802035 R79.0 pt is not on an iron supplement --- iron 181 on 10.15 but had nl ferritin of 265 -- will recheck iron studies as well as r/o hemochroma tosis (no FH of such) [id number] Denis Andrade PA-C Main Office [address] [facility] [address] [facility] [place] [address] 12/23/2020 09:10:32 12/23/2020 10:30:34 Liver enzymes level above reference range 921948102 R74.01 lft's stable Body mass index 30+ - obesity 103988893 E66.9 Z68.37 pt has lost ~ 24 lbs in past [address] Moeller's office - cont to f/u c him Hereditary hemochromatosis 96427418 E83.110 pending see heme on 01.04 Prediabetes 901619744 R7 3.03 Erika - unfortunat gina you have evidence of pre-diabet es - rec. less sugar intake (candy, ice cream, soda/juice , etc), follow a low carb diet and get plenty of aerobic exercise to help you to lose weight. rec less chocolate Pain of ri ght shoulder joint 0827509673 2312221 M25.511 x 2-3 months - no sig help c hep/water aerobics - pain persists, + pain c provocativ e RTC maneuvers - will get ortho eval [id number] Gayle alonso Main Office [address] [facility] [address] [facility] [address] 04/28/2021 09:45:52 04/28/2021 11:00:17 Adult health examination 438285460 Z00.00 all screening is utd, pt gained weight from overeating , work on exercise and weight loss Hypercholesterolemia 136 29597 E78.2 LDL 158 in past, working on better eating check fasting Moderate p ersistent asthma 103488109 J45.40 stable on meds, followed by Dr Quinonez had workup, no new PE's Hereditary hemochromatosis 15082424 E83.110 hx of elevated iron and mild elevation in lfts, never did phlepbotom y but when went back to hematology was told her levels are borderoine and she can see hematology in a year. History of pulmonary embolus 617356911 Z86.711 negative workup for hypercoagu [place] state, had PE on b matthieu aspirin, continue Body mass index 30+ - obesity 441303905 E66.9 Z68.35 gained weight due to boredom. Fatigue 83803647 R53.83 check labs Bleeding from nose 44221 6005 R04.0 sounds related to dryness, use vaseline Osteoarthr itis of right knee joint 3303897205 [address] Nelson Atrophic vaginitis 87291 000 N95.2 [id number] Denis Andrade PA-C Main Office [address] [facility] [address] [place] [address] 10/19/2021 12:44:17 10/19/2021 13:38:59 Pre-surgery evaluation 019532903 Z01.818 Osteoarthr itis of right knee joint 1208819761 04982 M17.11 Hereditary hemochromatosis 81479357 E83.110 stable, cont f/u c heme Hypercholesterolemia 136 76145 E78.2 Moderate p ersistent asthma 826995770 J45.40 stable - cont meds, inhalers as dir, cont f/u c pulm Prediabetes 978895622 R7 3.03 Erika - unfortunat gina you have evidence of pre-diabet es - rec. less sugar intake (candy, ice cream, soda/juice , etc), follow a low carb diet and get plenty of aerobic exercise to help you to lose weight. rec less chocolate History of pulmonary embolus 391534005 Z86.711 seen by heme in past, no need for lifelong AC -- will fwd heme note in case anesthesia wishes to review it Body mass index 30+ - obesity 192114424 E66.9 Z68.36 pt has lost ~ 27 lbs in past 1.[address] Moeller's office - cont to f/u c him [id number] Gayle alonso Main Office [address] [facility] [address] [place] [address] 11/04/2021 08:34:45 11/04/2021 10:06:20 [id number] Denis Andrade PA-C [facility] [address] [facility] [address] [place] [address] 01/17/2022 08:20:02 01/17/2022 11:55:32 COVID-19 171214505 U07.1 will rx c paxlovid, also advised pt to increase vit D intake x several days to help immune system Counseling 257238490 Z71 .9 Health advice, education or counseling done for COVID 19 [id number] Gayle alonso Main Office [address] [facility] [address] [place] [address] 07/27/2022 10:45:15 07/27/2022 11:39:19 Adult health examination 002460406 Z00.00 all screening is utd, pt gained weight from overeating , work on exercise and weight loss Hypercholesterolemia 136 16405 E78.2 LDL 158 in past, working on better eating check fasting Moderate p ersistent asthma 164253569 J45.40 stable on meds, followed by Dr Quinonez had workup, no new PE's Screening for malignant neoplasm of colon 223596022 Z12.11 Screening for malignant neoplasm of breast 903268815 Z12.39 History of pulmonary embolus 465708563 Z86.711 negative workup for hypercoagu [place] state, pt is not on anticoagul ation, will restart baby aspirin, is followed by hematology Hereditary hemochromatosis 17865983 E83.110 hx of elevated iron and mild elevation in lfts, never did phlepbotom y but when went back to hematology was told her levels are borderline and she can see hematology in a year. has appt for december. [id number] SEBAS FINE MD Main Office [address] [facility] [address] [place] [address] 01/26/2023 09:20:51 01/26/2023 09:45:22 Hereditary hemochromatosis 34882057 E83.110 - homozygous gene mutation- has never needed phlebotomy - following with heme, last seen on 02/21- patient recently had blood work with [facility], will request History of pulmonary embolus 081332833 Z86.711 - no longer on any anticoagul ation, was on anticoagul ation for 6 months- unsure of cause, nothing provoked- on ASA 81mg Hypercholesterolemia 136 96142 E78.2 Moderate p ersistent asthma 581786023 J45.40 - under good control- c/w symbicort 2 puff BID- pt will use albuterol pump as needed -> exercise- c/w singular 10mg QD Prediabetes 190827017 R7 3.03 - last hbA1c was 5.8 History of SARS-CoV-2 29 00771236 41017329 Z86.16 - diagnosed on 01/14/2023 - patient completed paxlovid treatment- patient does still have a cough but is slowly improving [id number] SEBAS FINE MD Main Office [address] [facility] [address] [place] [address] 07/31/2023 08:15:03 07/31/2023 08:47:53 Adult health examination 396435837 Z00.00 Health Maintenanc e FemaleA) Patient was counseled on healthy diet, exercise and nutrition due to BMI of 39.4 B) ScreeningL ast Mammogram: start at age 50 stop at 76Date: 11/16/2022R esult: BIRADS-1Ne xt: 11/2023 Last Pap smear: aged out Last Colonoscop y: start at age 45-75Date: 09/12/2022R esult: diverticul i, internal hemorrhoid sNext: 10 years Last DEXA scan:Date: due at 67Result: ???Next: ordered C) Vaccines:I nfluenza: 12/26/2022T dAP: 11/22/2016Z kassandra: 11/23/2017, 02/08/2018 PCV13: 03/14/2018 PPSV23: 12/18/2011, 04/29/2020 COVID: 06/03/2020. 07/01/2020, 01/28/2021 , 07/19/2021, 12/27/2021, 01/06/2023 RSV: 12/26/2022 D) Routine blood work orderedE) Updated patient's history RTC in one year for annual exam or sooner if any acute complaints Hereditary hemochromatosis 57754917 E83.110 - homozygous gene mutation- has never needed phlebotomy - following with heme, follows once a year History of pulmonary embolus 123344346 Z86.711 - no longer on any anticoagul ation, was on anticoagul ation for 6 months- unsure of cause, nothing provoked- on ASA 81mg Moderate p ersistent asthma 337848933 J45.40 - under good control- symbicort 2 puff BID was switched to trelegy- pt will use albuterol pump as needed -> exercise- c/w singular 10mg QD- pt follows with pulm last seen on 04/11/2023 Prediabetes 735492472 R7 3.03 - last hbA1c was 5.8- ordered repeat blood work Hypercholesterolemia 136 31190 E78.2 Bone density finding 385 314514 M85.89 Advance di rective discussed with patient 541293598 Z71.89 - discussed MOLST and HCP [id number] BRANDON Doherty Main Office [address] [facility] [address] [facility] [place] [address] 11/08/2023 09:35:17 11/08/2023 10:16:42 Left Achilles tendinitis 8658241721 63157 M76.62 suspect achilles tendonitis , she states XR was negative so not likely heel spur.Recom mend RICE, meloxicam daily x 14 days, gentle stretching / exercises as tolerated, heel insert, supportive shoes, PT. She has appt with ortho on 11/21 for knee/ hip and will bring it up at that point. If any severe/ worsening pain, unable to walk, erythema, swelling, fever please go to ED Moderate p ersistent asthma 964329836 J45.40 [id number] SEBAS FINE MD Main Office [address] [facility] [address] [place] [address] 01/10/2024 09:19:07 01/10/2024 09:49:18 Hereditary hemochromatosis [id number] E83.110 - homozygous gene mutation- has never needed phlebotomy - following with heme, follows once a year History of pulmonary embolus [id number] Z86.711 - no longer on any anticoagul ation, was on anticoagul ation for 6 months- unsure of cause, nothing provoked- on ASA 81mg Hypercholesterolemia 136 44651 E78.2 - ASCVD score of 10.4%- lipid panel 07/2023: cholestero l-231, triglyceri gem-53, LDL-150, HDL-53- pt declined statin therapy Pt counselled on:- Eat a heart-heal thy diet- Choose healthy fats. Avoid saturated fats that are found primarily in red meat, guillen, sausage, and full-fat dairy products. Advised to choose lean proteins like chicken, turkey, and fish when possible. Switch to low-fat or fat-free dairy. And use monounsatu rated fats like olive and canola oil for cooking.- Cut out the trans fats. Trans fats are found in fried food and processed foods, like cookies, crackers, and other snacks.- Eat more omega-3s. Counseled on eating more fish, including salmon, mackerel, de guzman ,nuts and seeds, like walnuts and flax seeds.- Increase your fiber intake. By eating more oats, brain, fruits, beans, and vegetables , can lower your LDL cholestero l levels.- Eat more fruits and veggies. Moderate p ersistent asthma [id number] J45.40 - under good control- symbicort 2 puff BID was switched to trelegy- pt will use albuterol pump as needed -> exercise- c/w singular 10mg QD- pt follows with marga last seen on 04/11/2023 Prediabetes [id number] R7 3.03 - last hbA1c was 5.8- ordered repeat blood work -> please see below Statin declined [id number] Z53.20 Low back pain [id number] M54.50 - pt is having radiating pain to her buttock- will check x-ray of lumbar spine- pt advised to continue with physical activity Paresthesi a of lower extremity [id number] R20.2 - worse on the left foot and intermitte nt- ordered blood work Health Concerns Section Related Observation LastModified by Organization Detai ls LastModified Time None Recorded Concern Status LastModified by Organization Details LastModified Time None Recorded Advance Directives Directive None Recorded Payers Encounter Date Sequence Insurance Name Policy Number Policy Ruby Covered Member ID Ruby Member ID Guarantor Name 07/27/2022 1 [place] [employer] [employer] Erika keith [id number] Erika Hough 07/27/2022 2 [facility] - PLAN 1 (MEDICARE SUPPLEMENT) [id number] 1 Erika Hough [id number] Erika Hough 01/26/2023 1 [place] Erika keith [id number] Erika Hough 01/26/2023 2 [facility] 1 (MEDICARE SUPPLEMENT) [id number] 1 Erika Hough [id number] Erika Hough 07/31/2023 1 [place] [facility] Erika keith [id number] Erika Hough 07/31/2023 2 [facility] - PLAN 1 (MEDICARE SUPPLEMENT) [id number] 1 Erika Hough [id number] Erika Hough 11/08/2023 1 [place] [facility] Erika keith [id number] Erika Hough 11/08/2023 2 [facility] 1 (MEDICARE SUPPLEMENT) [id number] 1 Erika Hough [id number] Erika Hough 01/10/2024 1 [place] [facility] Erika keith [id number] Erika Hough 01/10/2024 2 [facility] 1 (MEDICARE SUPPLEMENT) [id number] 1 Erika Hough [id number] Erika Hough Notes Date Note Type Note [...] when sleeping, gets one in thigh [facility]le [place]ore [place] - [facility] 07/27/2022 12:05:45 3 text/html Erika Hough is a 72 year old F who presented to the clinic for follow-up on her chronic conditions. Patient has no complaints at this time. Patient recently had a COVID-19 infection diagnosed on 01/14/2023 and patient completed paxlovid treatment. Patient does still have a cough. Will be going to a river cruise in January. SEBAS FINE MD [address] [place] [address], [phone], [facility] 01/26/2023 12:35:15 4 text/html Medicare Annual Wellness [...] bathroom/shower; good lighting in the home Medicare visitAbeba Hough is a 73 year old F [...] none on file SEBAS FINE MD [address] [address], [place], [phone], [facility] 07/31/2023 08:54:49 4 text/html Generic HPI TemplateReported [...] knee replacement in May on that side. BRANDON Doherty [address] [address], [place], [phone], [facility] 11/08/2023 10:43:11 4 text/html HyperlipidemiaReported bypatient.Type of hyperlipidemia:hypercholest erolemia Duration:chronic Control:not at goal Compliance:compliant with diet;does not exercise Erika Hough is a 72 year old F who presented to the clinic for follow-up on her chronic conditions. Patient is complaining of right sided buttock pain which occurs intermittently and worse at the end of the day. SEBAS FINE MD [address], [phone], [facility] 01/10/2024 10:23:21 OBGyn Episode No OBEpisode recorded.
--- OUTSIDE RECORDS SUMMARY | 2024-05-02 07:58 | XMS_ITS | Clinical Summary ---
Author Organization [facility] Address [address] [place] [address] Care Team Providers Care Fieldwork Coordinator Name Role Phone Tanya Barron MD Primary Care Provider [phone] Allergies No known active allergies Medications Medication Sig Dispensed Refills Start Date End Date Status fexofenadine (RAGHU ALLERGY) 180 MG tablet Take 1 tablet (180 mg total) by mouth daily. 0 Active cholecalciferol (VITAMIN D3) 1000 UNITS tablet Take 2 tablets (2,000 Units total) by mouth daily. 0 Active montelukast (SINGULAIR) 10 MG tablet Take 5 tablets (50 mg total) by mouth every night at bedtime. 0 Active Magnesium 250 MG TABS Take 1 tablet by mouth daily. 0 Active aspirin EC 81 MG tablet Take 1 tablet (81 mg total) by mouth daily. 0 Active loratadine (Claritin) 10 MG tablet Take 1 tablet (10 mg total) by mouth daily. 0 Active albuterol 108 (90 Base) MCG/ACT inhaler Inhale 2 puffs into the lungs every 6 (six) hours as needed for wheezing. 0 Active Fluticasone-Umeclidin- Vilant (TRELEGY ELLIPTA IN) Inhale into the lungs. 0 Active Active Problems Problem Noted Date Diagnosed Date Hypercholesterolemia 01/04/2021 Hereditary hemochromatosis 12/23/2020 Prediabetes 12/23/2020 Moderate persistent asthma 03/29/2020 History of pulmonary embolism 03/14/2018 Secondary hypercoagulable state 09/15/2016 Immunizations Name Administration Dates Next Due Covid-19 (Moderna 12+) 100mcg/0.5mL dosage 07/01,06/13/2020 Family History Medical History Relation Name Comments Cancer Mother Cancer Sister Relation Name Status Comments Mother Sister Social History Tobacco Use Types Packs/Day Years Used Date Smoking Tobacco: Never Smokeless Tobacco: Never Alcohol Use Standard Drinks/Week Comments Yes 0 (1 standard drink = 0.6 oz pur e alcohol) Social Sex and Gender Information Value Date Recorded Sex Assigned at Not on file Gender Identity Not on file Sexual Orientation Not on file Job Start Date Occupation Industry Not on file Not on file Not on file Last Filed Vital Signs Vital Sign Reading Time Taken Comments Blood Pressure 139/94 01/22/2024 8:46 AM EDT Pulse 72 01/22/2024 8:46 AM EDT Temperature 36.8 ??C (98.3 ??F) 01/22/2024 8:46 AM ED T Respiratory Rate - - Oxygen Saturation 97% 01/22/2024 8:46 AM EDT Inhaled Oxygen Concentration - - Weight 99.8 kg (220 lb) 01/22/2024 8:46 AM EDT Height 160 cm (5' 3 ) 01/31/2023 1:04 PM EDT Body Mass Index 38.97 01/31/2023 1:04 PM EDT Plan of Treatment Health Maintenance Due Date Last Done Comments Hepatitis C Screening 1950 Depression Screening 1964 Preventative Health Evaluation 1970 Colon Cancer Screening (Colonoscopy) 1997 Breast Cancer Screening (Mammogram) 2002 Fall Risk Assessment 2017 Osteoporosis Screening (DEXA Scan) 2017 DTap / Tdap / Td (3 - Td or Tdap) 11/22/2026 11/22/2016, 02/12/2008 Shingrix-Zoster Vaccine Completed 02/08/2018, 11/23 Pneumococcal Vaccine Completed 04/29/2020, 03/14/2018, 12/18/2011 RSV Adult > 60+ Yrs or Completed 12/26/2022 COVID-19 Vaccine Completed 12/18/2023, 04/2020, 06/13/2020 Influenza Vaccine Completed 12/18/2023, , 12/27/2021, Additional history exists Hepatitis B Vaccines Aged Out No long er eligible based on patient's age to complete this topic RSV Ped < 20 months Aged Out No longe r eligible based on patient's age to complete this topic Care Teams Fieldwork Coordinator Relationship Specialty Start Date End Date Tanya Barron MD [address] [address] PCP - General Internal Medicine 01/22/24
--- OUTSIDE RECORDS SUMMARY | 2024-05-02 07:58 | XMS_ITS | Clinical Summary ---
Author Organization [facility] [place] [address] Phone Care Team Providers Care Campus Monitor Name Role Phone Tanya Barron MD Primary Care Provider [phone] Medical History Medical History Date Comments Asthma DX:Asthma Arthritis DX:Arthritis Clotting disorder ([facility]) DX:C lotting disorder ([facility]);COMMENT:Blood clots in lungs Emphysema of lung ([facility]) DX:E mphysema of lung ([facility]) Family History Medical History Relation Name Comments [...] on file Sexual Orientation Not on file Obstetrics History Last Filed Vital Signs Vital Sign Reading Time Taken Comments Blood Pressure 139/94 01/22/2024 8:46 AM EDT Sit ting Left arm Pulse 72 01/22/2024 8:46 AM EDT Temperature - - Respiratory Rate - - Oxygen Saturation - - Inhaled Oxygen Concentration - - Weight 99.8 kg (220 lb) 01/22/2024 8:46 AM EDT Height 160 cm (5' 3 ) 01/31/2023 1:04 PM EDT Body Mass Index 38.97 01/31/2023 1:04 PM EDT Plan of Treatment Upcoming Encounters Date Type Department Care Team (Late st Contact Info) Description 01/13/2025 9:00 AM EDT Office Visit [facility] Hematology Oncology [address] [place] [phone] Dom[place] Reeves MD [address] [place] [address] Health Maintenance Due Date Last Done Comments Breast Cancer Screening 1950 DTaP,Tdap,and Td Vaccines (1 - Tdap) 07/04/1971 Zoster Vaccines (1 of 2) 2002 RSV Immunization Patients 60 + Years Old (1 - Risk 60-74 years 1-dose series) 2012 Cholesterol Screening (Lipid Panel) 03/01/2022 Colorectal Cancer Screening: Colonoscopy 03/01/2022 Depression Screening 03/01/2022 Falls Risk Assessment 03/01/2022 Hepatitis C Screening 03/01/2022 Osteoporosis Screening (Bone Density Screening) 03/01/2022 Social Influencers of Health Screening 03/01/2022 Medicare Annual Wellness Visit 07/28/2023 07/27/2022 COVID-19 Vaccine (3 - 2023-2 5 season) 2023 07/01/2020, 06/13/2020 Influenza Vaccine (#1) 2023 2, 12/20/2020, 11/14/2019 Pneumococcal Vaccine: 65+ Years Completed 04/29/2020, 03/14/2018 HIB Vaccines Aged Out No longer eligi ble based on patient's age to complete this topic HPV Vaccines Aged Out No longer eligi ble based on patient's age to complete this topic Hepatitis A Vaccines Aged Out No long er eligible based on patient's age to complete this topic Hepatitis B Vaccines Aged Out No long er eligible based on patient's age to complete this topic IPV Vaccines Aged Out No longer eligi ble based on patient's age to complete this topic MMR Vaccines Aged Out No longer eligi ble based on patient's age to complete this topic Meningococcal ACWY Vaccine Aged Out N o longer eligible based on patient's age to complete this topic RSV Immunization Patients Under 20 months Aged Out No longer eligible b ased on patient's age to complete this topic Varicella Vaccines Aged Out No longer eligible based on patient's age to complete this topic Care Teams Campus Monitor Relationship Specialty Start Date End Date Tanya Barron MD [address] [address] [place] [phone] PCP - General 01/22/24
--- OUTSIDE RECORDS SUMMARY | 2024-05-02 07:58 | XMS_ITS | Encounter Summary ---
Author Organization [facility] [place] [address] Care Team Providers Care Operations Coordinator Name Role Phone Tanya Barron MD Primary Care Provider Encounter Details Date Type Department Care Team (Late st Contact Info) Description 01/22/2024 8:12 AM EDT Hospital Encounter TH HISTORIC ENCOUNTERS EASTERN CONVERSION ONLY Domingo Reeves MD [address] [place] [id number] Social History Tobacco Use Types Packs/Day Years Used Date Smoking Tobacco: Never Smokeless Tobacco: Never Alcohol Use Standard Drinks/Week Comments Yes 0 (1 standard drink = 0.6 oz pur e alcohol) Sex and Gender Information Value Date Recorded Sex Assigned at Not on file Gender Identity Not on file Sexual Orientation Not on file documented as of this encounter Last Filed Vital Signs Vital Sign Reading [...] Mass Index 38.97 01/31/2023 1:04 PM EDT documented in this encounter Progress Notes * Domingo Reeves MD - 01/22/2024 8:30 AM EDT CHIEF COMPLAINT: No chief complaint on file. IDENTIFIER:Erika Hough is a 73 y.o. female. HPI: Patient is a very pleasant 73-year-old female who has homozygous gene mutation for hemochromatosis, fortunately patient never had therapeutic phlebotomy and still have ferritin is less [id number]. Patient came for yearly follow-up ROS: Has been feeling great No anorexia or weight loss No chest pain shortness of breath No new unusual aches and pains No significant GI symptom No significant symptom No significant neurological symptom PAST MEDICAL HISTORY: Patient Active Problem List Diagnosis SNOMED CT(R) ??? Secondary hypercoagulable state (HCC) HYPERCOAGULABILITY STATE ??? History of pulmonary embolism H/O: PULMONARY EMBOLUS ??? Hereditary hemochromatosis (HCC) HEREDITARY HEMOCHROMATOSIS ??? Hypercholesterolemia HYPERCHOLESTEROLEMIA ??? Moderate persistent asthma MODERATE PERSISTENT ASTHMA ??? Prediabetes PREDIABETES Past Medical History: Diagnosis Date ??? Arthritis ??? Asthma ??? Clotting disorder (HCC) Blood clots in lungs ??? Emphysema of lung (HCC) SOCIAL HISTORY: Social History Tobacco Use ??? Smoking status: Never ??? Smokeless tobacco: Never Substance Use Topics ??? Alcohol use: Yes Comment: Social FAMILY HISTORY: Family History Problem Relation Age of Onset ??? Cancer Mother ??? Cancer Sister Family Status Relation Name Status ??? Mother (Not Specified) ??? Sister (Not Specified) Current Outpatient Medications: ??? albuterol 108 (90 Base) MCG/ACT inhaler, Inhale 2 puffs into the lungs every 6 (six) hours as needed for wheezing., Disp: , Rfl: ??? aspirin EC 81 MG tablet, Take 1 tablet (81 mg total) by mouth daily., Disp: , Rfl: ??? cholecalciferol (VITAMIN D3) 1000 UNITS tablet, Take 2 tablets (2,000 Units total) by mouth daily., Disp: , Rfl: ??? fexofenadine (RAGHU ALLERGY) 180 MG tablet, Take 1 tablet (180 mg total) by mouth daily., Disp: , Rfl: ??? Nfozrvrmpur-Jbmqlrixg-Jbrsdl (TRELEGY ELLIPTA IN), Inhale into the lungs., Disp: , Rfl: ??? loratadine (Claritin) 10 MG tablet, Take 1 tablet (10 mg total) by mouth daily., Disp: , Rfl: ??? Magnesium 250 MG TABS, Take 1 tablet by mouth daily., Disp: , Rfl: ??? montelukast (SINGULAIR) 10 MG tablet, Take 5 tablets (50 mg total) by mouth every night at bedtime., Disp: , Rfl: You are allergic to the following Date Reviewed: 01/22/2024 No active allergies PHYSICAL EXAM: BP (!) 139/94 (BP Location: Left arm) Pulse 72 Temp 98.3 ??F (36.8 ??C) (Temporal) Wt 99.8 kg(220 lb) SpO2 97% BMI 38.97 kg/m?? ECOG 0 APPEARANCE: Alert and oriented x 3 in no acute distress EYES: nonicteric sclera pink conjunctiva ORAL CAVITY: No erythema or exudates NECK: Neck supple, no significant adenopathy, HEART: normal S1 and S2 LUNG: clear to auscultation bilaterally LYMPH NODES: No palpable superficial adenopathy ABDOMEN: Obese, soft, nontender and no organomegaly appreciated EXTREMITIES: No significant arthritic changes, no significant edema LABS: Ferritin 88 Iron saturation 91% Hemoglobin 14 g Normal liver function test, SGPT is 55 IMPRESSION: SNOMED CT(R) 1. Hereditary hemochromatosis (HCC) HEREDITARY HEMOCHROMATOSIS 73-year-old female who has homozygous gene mutation for hemochromatosis (C282Y), patient never had therapeutic phlebotomy and patient ferritin is still less than 100 plans patient is elevated. I explained patient again about her recent lab that showed stable total ferritin as well as normal liver function test. I told patient since there is no evidence of significant iron overload or endorgan damage, I would not recommend any therapeutic phlebotomy but I would like to watch for few year, her iron studies liver function etc. PLAN: Continue without therapeutic phlebotomy We will check labs prior to next visit in 1 year Domingo Reeves MD documented in this encounter Plan of Treatment Upcoming Encounters Date Type Department Care Team (Late st Contact Info) Description 01/13/2025 9:00 AM EDT Office Visit [facility] Hematology Oncology [address] [place] [phone] Domingo Reeves MD [address] [place] [address] documented as of this encounter Procedures Procedure Name Priority Date/Time Associated Diagnosis Comments ..MISCELLANEOUS REFERENCE LAB TEST 01/22/2024 documented in this encounter Results * Miscellaneous reference lab test (01/22/2024) Provider Onbase MD LAB BLOOD ORDERABLES documented in this encounter Visit Diagnoses Not on filedocumented in this encounter Care Teams Operations Coordinator Relationship Specialty Start Date End Date Tanya Barron MD [address] [phone] PCP - General 01/22/24 documented as of this encounter
== END 2024-05-02 07:55 | disposition home or self-care (01) ==
LOC: HO.RESP 07:54
PROVIDERS: PCP Student in an Organized Health Care Education/Training Program; Visit Provider Hospitalist
DX: J40 Bronchitis, not specified as acute or chronic (principal)
CPT/HCPCS: 94010; 94640; 94727; 94729

== ENCOUNTER → 2024-05-02 07:58 | Outpatient (BNV) | payer MEDICARE, OTHER, SELFPAY | PROVIDERS: PCP Student in an Organized Health Care Education/Training Program; Visit Provider Internal Medicine Pulmonary Disease | DX: J40 Bronchitis, not specified as acute or chronic (principal) | CPT/HCPCS: 94060; 94727; 94729 ==

== ENCOUNTER 2024-07-11 09:54 | Outpatient (AMB) | payer MEDICARE, OTHER, SELFPAY ==
[2024-07-11 09:58] VITALS: BP 122/62; PULSE 80; O2SAT 96; BMI 39.1
--- NOTE | 2024-07-11 09:58 | A.OFFVIS_ITS ---
Vital Signs 07/11/24 09:58 Height 5 ft 3 in Weight 221 lb BMI 39.1 BP 122/62 Blood Pressure Location Rt brachial Position Sitting Pulse 80 Pulse Source Doppler Pulse Oximetry (%) 96 Oxygen Delivery Method Room Air Intake Visit Reasons: Asthma Allergies No Known Allergies Allergy (Verified 07/11/24 10:02) HPI Comments Details: The patient is a 74-year-old woman with a known history of asthma in addition to pulmonary emboli. the patient states that back in 2017 she was becoming progressively short of breath. She had an abnormal D-dimer initially referred to the hospital where she had a CTA. She actually had extensive bilateral pulmonary emboli. We personally reviewed the CT scan in the office. She did have central emboli with significant clot burden and a dilated right ventricle along with a dilated pulmonary trunk. the patient was placed on anticoagulation and did not require lysis. Ultimately her echocardiogram normalized and she did follow-up with cardiology. Based on the description it appears that she has an unprovoked pulmonary emboli putting her at risk for additional clots. After an extensive evaluation and management it was decided to take her off anticoagulation. She has done well ever since. Has not had any evidence of any recurrence. Now however she is developing increasing shortness of breath again. Denies any chest pains. Denies any leg swellings. She did have a lower extremity Doppler about a year ago that did demonstrate she had a left Ernst cyst but no evidence of any blood clots. She continues to use her respiratory therapy which includes Symbicort in addition to Xopenex. apparently she had gone to the ER at some point and they did prescribe her Advair but she has not used it. She also uses her allergy medications. 01/13/2021 the patient is here for a pulmonary follow-up visit. The patient continues to have some dyspnea on exertion. She is also describes chest discomfort. At this moment she does not have any chest discomfort. She did undergo blood work recently demonstrating an elevated D-dimer. With a history of blood clots in the elevated D-dimer she needs to have a repeat CT scan of the chest PE protocol. We will request 1 as soon as possible. In the meantime she continues to use Symbicort with good effect. She has not had to use her rescue inhaler at this time. We also reviewed her pulmonary function studies demonstrating normal diffusing capacity was issue reassuring in addition to that no obstructive nor restrictive ventilatory defects. 03/01/2021 the patient is here for a pulmonary follow-up visit. Since we last spoke the patient has been doing better. She has been using her respiratory inhalers with good response. Due to the fact that she had an elevated D-dimer she did undergo a CTA. No evidence of any blood clots which is reassuring and her lung parenchyma appear to be normal without any evidence of any i nterstitial lung disease. However she did have some degree of atelectasis at the bases. She does have some slight elevations of the diaphragm particularly the right 1 due to increased abdominal pressures. We did review her pulmonary function studies with no definitive obstructive nor restrictive ventilatory defects and a normal diffusing capacity. Her forced vital capacity was decreased and also her expiratory reserve volume. Overall the patient has been doing well at this point will continue with current therapy. will plan to continue current respiratory therapy until we follow-up in the fall of 2021. If she has any issues prior to that she needs to call the office for an earlier evaluation. 02/02/2022 the patient is here for a pulmonary follow-up visit. The patient had been doing very well until recently when she developed COVID-19. the patient did take her antiviral medicine. She tolerated for the 5 days except for the medical taste in her mouth. Subsequently after that he started developing a cough chest congestion with yellow sputum. Moderate severity. She has been using her rescue inhaler more often. On examination she does have increased rhonchi and wheezing. Patient definitely has postviral bacterial bronchitis along with bronchospasms. She does not have a nebulizer right now home. If her symptoms do not improve she is to call the office and at that point nebulized the will be helpful. In the meantime she is going to continue with rescue inhaler send her a Medrol pack in some doxycycline. 04/11/2023 the patient is here for a pulmonary follow-up visit. Overall the patient complains of a cough. The cough is moderate severe. Typically nonproductive but sometimes she does expectorate some. Not like her bronchitis. She has been using Symbicort. Symbicort does not seem to work in all the way and now is not covered by insurance. Which will further optimize respiratory therapy at this time. She is also looking to having total knee replacement so will optimize respiratory therapy in order for to tolerated surgery well. Will go ahead and start her on Trelegy 200. We did teach how to use it. In the meantime she did have a chest x-ray back from 2021 will have the repeat her x- ray. The patient also will continue with her rescue inhaler and her Singulair. Once the patient recovers from her surgery and rehabilitation she will return with perform PFTs at that time. 10/09/2023 the patient is here for a pulmonary follow-up visit. The patient has been doing well. She did have her total knee replacement sometime early 2023 she tolerated the surgery well. She completed physical therapy and feeling well. She also switched over from Symbicort to Trelegy. This has been affecting beneficial. She has doing the higher dose, 200 mcg. Will try to decrease it down to 100 mcg during her next visit. In the meantime she is starting to get more mobile so we will want to make any changes. From an imaging study she did have a chest x-ray this year which we personally reviewed. Appears that her lung volumes are decreased. And also has some degenerative disc disease in her back. We talked about the importance of deep breathing exercises and also stretching. She is going to be working on these things. She is also working on weight loss and exercise. Overall she is doing well will follow-up in the spring with pulmonary function studies. 07/11/2024 the patient is here for a pulmonary follow-up visit. She has been having hard time with the wheezing. She is getting more shortness of breath. Kzak-sq-haumrxdf severity. In the wheezing is persistent on a daily basis. She has been using her rescue inhaler regularly. In addition to that she continues on the Trelegy inhaler. Seems like his partially helpful. But, she wishes the wheezing with subside. We did look at her blood work no significant elevations in the IgE or eosinophils. We can also rechecked us in the future. But for now does not appear to be a candidate for biologic. The patient does have wheezing on examination. I do believe a nebulizer be effective for her. Will provide her while in the office so she can hopefully provide better aeration to the smaller airways. When we look at her pulmonary function studies that she had back in April and subsequent studies in the past it appears that she does have small airways disease and she does respond to bronchodilator. In addition to that she does bring up phlegm. She has evidence of chronic bronchitis. In view of the chronic bronchitis and already maximize her respiratory therapy do believe that Daliresp will be very good option for her. She has had to start slow so she can develop tolerance and then start taking regularly. If she continues to be symptomatic or any difficulty tolerating the medicine she will call for further recommendations. [facility] Medical History (Updated 07/13/24 @ 22:00 by Adebayo Quinonez MD) Asthma-COPD overlap syndrome Personal history of COVID-19 (~12/2021) Chronic cough Hearing loss Arthritis Prediabetes Hereditary hemochromatosis Hypercholesterolemia Asthma Pulmonary emboli Dyspnea (~02/02/22) History of blood clots Surgical History (Updated 11/22/23 @ 09:33 by Lindsay Rodarte [facility]) Status post total left knee replacement (05/23/23) History of total right knee replacement (TKR) (~10/2021) Hx of colonoscopy Social History Household Members: Spouse Housing: House Are you a primary customer care specialist to a significant other at home: No Do you presently have visiting nurse or other home services: No 75 years or older and lives alone: No Alcohol intake: current Alcohol intake frequency: a few times a week Comment: aware of trip hazard Patient Tobacco Use Status: Never used Tobacco service: No Current occupational status: retired Current occupation: right handed Review of Systems Const Denies night sweats ENT Denies change in voice, Denies lip swelling, Denies mouth pain, Reports nasal congestion, Reports nasal discharge and Denies tongue swelling Card Denies chest pain and Reports dyspnea on exertion Resp Denies change in phlegm color, Denies chest congestion, Reports cough, Reports dyspnea on exertion and Reports wheezing GI Denies abdominal pain Musc Reports as per HPI Neuro Denies Neuro-related abnormal movements Psych Denies no additional complaints Bandar/Lymph Denies easy bleeding and Denies lymphadenopathy Aller/Immun Denies lip swelling, Denies tongue swelling and Reports wheezing Physical Exam Vital Signs: Last Vital Signs Pulse 80 07/11/24 09:58 BP 122/62 07/11/24 09:58 Pulse Ox 96 07/11/24 09:58 Oxygen Delivery Method Room Air 07/11/24 09:58 BMI result Body Mass Index 39.1 Const General: alert Neck Neck: Yes normal visual inspection, Yes full ROM and Yes no lymphadenopathy Chest Chest palpation & inspection: normal inspection of the chest Resp Effort & Inspection: normal respiratory effort Auscultation: no rhonchi, no wheezes and diminished lung sounds Cardio Rate: regular rate Rhythm: regular rhythm Heart sounds: S1 normal heart sound present and S2 normal heart sound present GI Palpation (GI): Soft to palpation and nontender Auscultation: normal bowel sounds Skin General skin exam: rashes and/or lesions noted Assessment & Plan Assessment & Plan (1) Asthma: Code(s): J45.909 - Unspecified asthma, uncomplicated Category: Medical Qualifiers: Asthma complication type: uncomplicated Asthma persistence: persistent Asthma severity: moderate Qualified Code(s): J45.40 - Moderate persistent asthma, uncomplicated (2) Dyspnea: Onset Date: ~02/02/22 Code(s): R06.00 - Dyspnea, unspecified Category: Medical Qualifiers: Dyspnea type: dyspnea on exertion Qualified Code(s): R06.09 - Other forms of dyspnea (3) Chronic cough: Code(s): R05.3 - Chronic cough Category: Medical (4) Asthma-COPD overlap syndrome: Code(s): J44.89 - Other specified chronic obstructive pulmonary disease Category: Medical Plan continue Trelegy 200 Xopenex as needed start nebulizer with xopenex Continue Singulair in addition to antihistamine therapy start Daliresp 250 to develop tolerance Follow up in 4 months Medications: New roflumilast (Daliresp) 250 mcg PO DAILY 30 tabs 11RF 30 days J44.9 - Chronic obstructive pulmonary disease, unspecified levalbuterol HCl 1.25 mg (3 mL) inhalation BID 180 mL 11RF 30 days J44.9 - Chronic obstructive pulmonary disease, unspecified Refilled griuvlkehxs-yxjllpxxb-ewvfmyxr 200-62.5-25 mcg (Trelegy Ellipta) 1 inh inhalation DAILY 60 ea 12RF 30 days Coding Level of Care Code Est Pt Level 4 (24723) Complex EM visit Add On G2211 Diagnoses Moderate persistent asthma without complication J45.40 Asthma complication type: uncomplicated Asthma persistence: persistent Asthma severity: moderate Dyspnea on exertion R06.09 Dyspnea type: dyspnea on exertion Chronic cough R05.3 Asthma-COPD overlap syndrome J44.89 Time Spent (min) 16
--- OUTSIDE RECORDS SUMMARY | 2024-07-11 10:31 | XMS_ITS | Data Portability ---
Author Organization [facility], Main Office Address [address] [place] [address] Care Team Providers Care Circular Stuffer Name Role Phone [facility] T MANAGEMENT PROGRAM Referring Provider LAMBERTO RÍOS Hand Crown Pouncer ANTWAN SANTANA Ultrasonic Tester LORETTA BARKER Laborer Filter Plant JORGE BATES Gynecological/Oncology [facility] Discharge Door Operator MAGDY GUEVARA Office Clerk Assistant CHRISTINE MCCORMACK Hand Surgeon TIFFANIE MOELLER Referring Provider GHASSAN DUMONT Medical Oncologist IRMA QUINONEZ Towel Inspector EDITH NELSON Orthopedic Surgeon [phone] CLAUDIA VIVAS Office Clerk Assistant SEBAS FINE Primary Care Provider Assessment No assessment recorded. Plan of Treatment Reminders Order Date Submit Date Provider Last Modified By Organization Details Last Modified Time Details Appointments [id number] 2024 01:00P Cedric FINE MD Not available Not available Not available Lab vitami n B12, serum 2023 024 [facility], [address] [facility], [place], [address], 01/10/2024 10:23:21 HbA1c (hemog lobin A1c), blood 2023 [facility], [address] [place] [address], [id number], 01/10/2024 10:23:21 folate , serum 2023 [facility], [address] [place] [address], [id number], 01/10/2024 10:23:21 vitami n B1 (kassie ine), blood 2023 ATHENABee Ware [facility], [address] [place] [address], [address], 01/10/2024 10:23:21 ESR (eryth rocyte sedime ntatio n rate), blood 2023 [facility], [address] [place] [address], [id number], 01/10/2024 10:23:21 C-reac tive protei n, quanti tative , serum or plasma 2023 [facility], [address] [place] [address], [address], 01/10/2024 10:23:21 lipid panel, serum 2023 [facility], [address] [place] [address], [id number], 01/10/2024 09:51:16 HbA1c (hemog lobin A1c), blood 2023 ALEXIS [facility], [address], [place], [address], 08/01/2023 06:08:24 BMP, serum or plasma 2023 024 [facility], [address], [place], [address], 08/01/2023 06:08:23 lipid panel, serum 04/30/ 2024 04/30/2 024 [facility], [address], [place], [address], 08/01/2023 06:08:24 CBC w/ auto diff 2023 024 ALEXIS [facility] (Centralized Electronic Ordering - All Locations), Patient Can Go To The Location Of Their Choice, [id number] 08/01/2023 06:08:22 CBC w/ auto diff 2022 023 [email or web address] [facility], [address], [place], [address], 08/28/2023 09:01:29 HbA1c (hemog lobin A1c), blood 2022 023 [facility]LEX[facility], [address], [place], [address], 01/26/2023 09:42:15 BMP, serum or plasma 2022 023 [email or web address] [facility], [address], [place], [address], 08/28/2023 09:01:29 lipid panel, serum 2022 023 [email or web address] [facility], [address], [place], [address], 08/28/2023 09:01:29 Referral physic al therap ist referr al - left ankle pain, achill es tendon insert ion site. 2023 024 [email or web address] [facility] [place], [facility] [address], [place], [address], 05/12/2024 11:27:36 gastro entero logist referr al - due for colono scopy 2022 023 Nancy Patel MD, [address] [facility] [address], [place], [address], 07/27/2022 11:55:53 Procedures colono scopy screen ing (PROC) 2022 023 safia In-Office Order, Internal Use Only DO Not Attach Compendium DO Not Attach Compendium, Do Not Delete/merge, [id number] 07/27/2022 11:48:50 Surgeries None record ed. Imaging XR, lumbos acral spine, 2 or 3 view 2023 024 [email or web address] Not available 01/28/2024 11:13:25 bone densit y 2023 024 Not available 11/23/2023 13:07:31 MAMMO, screen ing, bilate ral - Perfor m Diagno stic Mammog sunny and Breast Ultras ound if needed / Perfor m Ultras ound Guided Aspira tion and/or Breast Biopsy if warran marcelle 2022 [facility]23 [facility], [address], [place], [address], 07/27/2022 12:00:50 Medication Orders meloxi cam 15 mg tablet 2023 024 [facility]/Pharmacy #[id number], [address] [place], [address], 11/08/2023 10:12:23 tani ukast 10 mg tablet 2023 024 [facility]/Pharmacy #[id number], [address] [place], [address], 07/31/2023 08:46:25 Symbic ort 160 mcg-4. 5 mcg/ac tuatio n HFA aeroso l inhale r 2022 023 [email or web address] [facility]/Pharmacy #[id number], [address] [place], [address], 07/31/2023 08:26:08 tani ukast 10 mg tablet 2022 023 [facility]/Pharmacy #[id number], [address] [place], [address], 07/27/2022 11:29:25 Patient TargetsNo targets recorded. Patient Instructions Encounter Date Encounter Id Patient Instructions Last Modified By Organization Details Last Modified Time 07/27/2022 [id number] hemochromatosis: care instructions [email or web address] Not available 07/27/2022 11:30:46 preventing falls: care instructions [email or web address] Not available 07/27/2022 11:29:20 medicare preventive services guide (female 74yrs and under) [email or web address] Not available 07/27/2022 11:29:19 01/26/2023 [id number] medical record request* [email or web address] Not available 01/29/2023 10:26:59 07/31/2023 [id number] well visit, over 65: care instructions Not available 07/31/2023 08:43:19 preventing falls: care instructions Not available 07/31/2023 08:43:19 11/08/2023 [id number] achilles tendon: exercises [email or web address] Not available 11/08/2023 10:10:08 To call or return for worsening or concerns [email or web address] Not available 11/08/2023 10:09:32 01/10/2024 [id number] hemochromatosis: care instructions Not available 01/10/2024 09:45:16 Reason for Referral Office Clerk Assistant Referral for Screening for malignant neoplasm of [...] x10e3 /uL 3.4-10 .8 Not Available [facility] ([facility]) [address] [facility], [place], [address], 08/01/2023 06:08:22 07/31/19 24 07/31/2023 CBC WITH DIFFE RENTI AL/PL ATELE T RBC 4.57 x10e6 /uL 3.77-5 .28 Not Available [facility] ([facility]) [address] [facility], [place], [address], 08/01/2023 06:08:22 07/31/19 24 07/31/2023 CBC WITH DIFFE RENTI AL/PL ATELE T hemoglobin 14.8 g/dL 11.1-1 5.9 Not Available [facility] ([facility]) [address] [facility], [place], [address], 08/01/2023 06:08:22 07/31/19 24 07/31/2023 CBC WITH DIFFE RENTI AL/PL ATELE T hematocrit 44.5 % 34.0-4 6.6 Not Available [facility] ([facility]) [address] [facility], [place], [address], 08/01/2023 06:08:22 07/31/19 24 07/31/2023 CBC WITH DIFFE RENTI AL/PL ATELE T MCV 97 fL 79-97 Not Available [facility] ([facility]) [address] [place], [address], 08/01/2023 06:08:22 07/31/19 24 07/31/2023 CBC WITH DIFFE RENTI AL/PL ATELE T MCH 32.4 pg 26.6-3 3.0 Not Available [facility] ([facility]) [address] [place], [address], 08/01/2023 06:08:22 07/31/19 24 07/31/2023 CBC WITH DIFFE RENTI AL/PL ATELE T MCHC 33.3 g/dL 31.5-3 5.7 Not Available [facility] ([facility]) [address] [place], [address], 08/01/2023 06:08:22 07/31/19 24 07/31/2023 CBC WITH DIFFE RENTI AL/PL ATELE T RDW 12.1 % 11.7-1 5.4 Not Available [facility] ([facility]) [address] [facility], [place], [address], 08/01/2023 06:08:22 07/31/19 24 07/31/2023 CBC WITH DIFFE RENTI AL/PL ATELE T platelets 258 x10e3 /uL 150-45 0 Not Available [facility] ([facility]) [address] [facility], [place], [address], 08/01/2023 06:08:22 07/31/19 24 07/31/2023 CBC WITH DIFFE RENTI AL/PL ATELE T neutrophils 53 % not estab. Not Available [facility] ([facility]) [address] [facility], [place], [address], 08/01/2023 06:08:22 07/31/19 24 07/31/2023 CBC WITH DIFFE RENTI AL/PL ATELE T lymphs 34 % not estab. Not Available [facility] ([facility]) [address] [facility], [place], [address], 08/01/2023 06:08:22 07/31/19 24 07/31/2023 CBC WITH DIFFE RENTI AL/PL ATELE T monocytes 10 % not estab. Not Available [facility] ([facility]) [address] [facility], [place], [address], 08/01/2023 06:08:22 07/31/19 24 07/31/2023 CBC WITH DIFFE RENTI AL/PL ATELE T eos 2 % not estab. Not Available [facility] ([facility]) [address] [facility], [place], [address], 08/01/2023 06:08:22 07/31/19 24 07/31/2023 CBC WITH DIFFE RENTI AL/PL ATELE T basos 1 % not estab. Not Available [facility] ([facility]) [address] [place], [address], 08/01/2023 06:08:22 07/31/19 24 07/31/2023 CBC WITH DIFFE RENTI AL/PL ATELE T immature cells LEAD WEB DEVELOPER Not Available [facility] ([facility]) [address] [place], [address], 08/01/2023 06:08:22 07/31/19 24 07/31/2023 CBC WITH DIFFE RENTI AL/PL ATELE T neutrophils (absolute) 3.5 x10e3 /uL 1.4-7. 0 Not Available [facility] ([facility]) [address] [place], [address], 08/01/2023 06:08:22 07/31/19 24 07/31/2023 CBC WITH DIFFE RENTI AL/PL ATELE T lymphs (absolute) 2.2 x10e3 /uL 0.7-3. 1 Not Available [facility] ([facility]) [address] [place], [address], 08/01/2023 06:08:22 07/31/19 24 07/31/2023 CBC WITH DIFFE RENTI AL/PL ATELE T monocytes(ab solute) 0.6 x10e3 /uL 0.1-0. 9 Not Available [facility] ([facility]) [address] [place], [address], 08/01/2023 06:08:22 07/31/19 24 07/31/2023 CBC WITH DIFFE RENTI AL/PL ATELE T eos (absolute) 0.1 x10e3 /uL 0.0-0. 4 Not Available [facility] ([facility]) [address] [place], [address], 08/01/2023 06:08:22 04/30/20 24 07/31/2023 CBC WITH DIFFE RENTI AL/PL ATELE T baso (absolute) 0.0 x10e3 /uL 0.0-0. 2 Not Available [facility] ([facility]) [address] [facility], [place], [address], 08/01/2023 06:08:22 07/31/19 24 07/31/2023 CBC WITH DIFFE RENTI AL/PL ATELE T immature granulocytes 0 % not estab. Not Available [facility] ([facility]) [address] [facility], [place], [address], 08/01/2023 06:08:22 07/31/19 24 07/31/2023 CBC WITH DIFFE RENTI AL/PL ATELE T immature grans (abs) 0.0 x10e3 /uL 0.0-0. 1 Not Available [facility] ([facility]) [address] [facility], [place], [address], 08/01/2023 06:08:22 07/31/19 24 07/31/2023 CBC WITH DIFFE RENTI AL/PL ATELE T NRBC LEAD WEB DEVELOPER Not Available [facility] ([facility]) [address] [facility], [place], [address], 08/01/2023 06:08:22 07/31/19 24 07/31/2023 CBC WITH DIFFE RENTI AL/PL ATELE T hematology comments: LEAD WEB DEVELOPER Not Available [facility] ([facility]) [address] [facility], [place], [address], 08/01/2023 06:08:22 07/31/19 24 07/31/2023 BASIC METAB OLIC PANEL (8) glucose 116 mg/dL 70-99 above high normal Not Available [facility] ([facility]) [address] [facility], [place], [address], 08/01/2023 06:08:23 07/31/19 24 07/31/2023 BASIC METAB OLIC PANEL (8) BUN 21 mg/dL 8-27 Not Available [facility] ([facility]) [address] [facility] [place] [place], [address], 08/01/2023 06:08:23 07/31/19 24 07/31/2023 BASIC METAB OLIC PANEL (8) creatinine 0.88 mg/dL 0.57-1 .00 Not Available [facility] ([facility]) [address] [facility], [place], [address], 08/01/2023 06:08:23 07/31/19 24 07/31/2023 BASIC METAB OLIC PANEL (8) eGFR 70 mL/mi n/1.7 3 >59 Not Available [facility] ([facility]) [address] [facility], [place], [address], 08/01/2023 06:08:23 07/31/19 24 07/31/2023 BASIC METAB OLIC PANEL (8) BUN/creatini ne ratio 24 12-28 Not Available [facility] ([facility]) [address] [facility], [place], [address], 08/01/2023 06:08:23 07/31/19 24 07/31/2023 BASIC METAB OLIC PANEL (8) sodium 142 mmol/ L 134-14 4 Not Available [facility] ([facility]) [address] [place], [address], 08/01/2023 06:08:23 07/31/19 24 07/31/2023 BASIC METAB OLIC PANEL (8) potassium 4.3 mmol/ L 3.5-5. 2 Not Available [facility] ([facility]) [address] [place], [address], 08/01/2023 06:08:23 07/31/19 24 07/31/2023 BASIC METAB OLIC PANEL (8) chloride 105 mmol/ L 96-106 Not Available [facility] ([facility]) [address] [place], [address], 08/01/2023 06:08:23 07/31/19 24 07/31/2023 BASIC METAB OLIC PANEL (8) carbon dioxide, total 22 mmol/ L 20-29 Not Available [facility] ([facility]) [address] [facility] [place] [place], [address], 08/01/2023 06:08:23 07/31/19 24 07/31/2023 BASIC METAB OLIC PANEL (8) calcium 9.7 mg/dL 8.7-10 .3 Not Available [facility] ([facility]) [address] [facility] [place] [place], [address], 08/01/2023 06:08:23 07/31/19 24 07/31/2023 LIPID PANEL cholesterol, total 231 mg/dL 100-19 9 above high normal Not Available [facility] ([facility]) [address] [place], [address], 08/01/2023 06:08:24 07/31/19 24 07/31/2023 LIPID PANEL triglyceride s 53 mg/dL 0-149 Not Available [facility] ([facility]) [address] [place], [address], 08/01/2023 06:08:24 07/31/19 24 07/31/2023 LIPID PANEL HDL cholesterol 72 mg/dL >39 Not Available [facility] ([facility]) [address] [place], [address], 08/01/2023 06:08:24 07/31/19 24 07/31/2023 LIPID PANEL VLDL cholesterol sydney 9 mg/dL 5-40 Not Available [facility] ([facility]) [address] [place], [address], 08/01/2023 06:08:24 07/31/19 24 07/31/2023 LIPID PANEL LDL chol [facility] 150 mg/dL 0-99 above high normal Not Available [facility] ([facility]) [address] [facility], [place], [address], 08/01/2023 06:08:24 07/31/1907/31/2023 LIPID PANEL comment: LEAD WEB DEVELOPER Not Available [facility] ([facility]) [address] [facility], [place], [address], 08/01/2023 06:08:24 07/31/1908/01/2023 HEMOG LOBIN A1C hemoglobin A1C 5.6 % 4.8-5. 6 Predi abete s: 5.7 - 6.4 Diabe nhi: >6.4 Glyce veronica contr ol for adult s with diabe nhi: <7.0 Not Available [facility] ([facility]) [address] [facility], [place], [address], 08/01/2023 06:08:24 11/17/19 23 11/16/2022 MAMMO , [...] (Negat chilango) Lay letter mailed to med t I have person ally review ed the images and I agree with this report . WSN: [id number] Orderi ng Physic ryan: Gayle Lopez Dictat ed By: Ernie Vigil i, DO Dictat ed Date/T nica: 11:14 am Review ed By: Moraima MUHAMMAD, Kuldip Plummer Signed By: Moraima MUHAMMAD, Kuldip Plummer Signed Date/T nica: 11:19 am Transc ribed By: CSSuzanne Transc riptio n Date/T nica: 10:53 am Birads : Med t Class: Outpat ient [facility] (Outpt Imaging) [address] , [place], [address], 11/16/2022 11:18:57 04/19/19 24 04/19/2023 XR, knee, weigh tbear ing No observ ation record ed. [email or web address] [place], [address], 04/24/2023 13:39:11 04/19/19 24 04/19/2023 XR, knee, weigh tbear ing No observ ation record ed. [email or web address] [place], [address], 04/24/2023 13:39:36 04/19/19 24 04/19/2023 XR, knee, weigh tbear ing No observ ation record ed. [email or web address] [place], [address], 04/24/2023 13:39:55 04/20/19 24 04/19/2023 XR, chest , 2 view No observ ation record ed. [facility] [address] [place], [address], 04/21/2023 07:59:12 11/20/19 24 MAMMO , scree katy, bilat eral No observ ation record ed. [email or web address] Not Available 11/19 10:40:13 11/20/19 24 11/20/2023 MAMMO , scree katy, digit al, bilat eral PROCED URE: MM Digita l Mammo Screen ing INDICA TION: Screen ing for breast cancer . No known palpab le abnorm alitie s. COMPAR ESCOBRA: Multip le priors , the most recent [...] Lay letter mailed to med vasquez WSN: [id number] Orderi ng Physic ryan: Milton Ware Dictat ed By: Kuldip Bourne MD Dictat ed Date/T nica: 10:32 am Review ed By: Kuldip Bourne MD Signed By: Kuldip Bourne MD Signed Date/T nica: 10:32 am Transc ribed By: CSB Transc riptio n Date/T nica: 10:24 am Birads : Med t Class: Outpat ient [email or web address] [facility] (Outpt Imaging) [address] , [place], [address], 11/20/2023 10:43:05 11/23/19 24 11/20/2023 DEXA, axial skele ton Name:Siri vasquez ID: [id number] Age:73 years Sex:Fe male Ethnic ity:Wh [...] be consid ered in two years. WSN: [id number] Orderjanel ng Physic ryan: Milton Ware Dictat ed By: Peyton Castaneda ra, MD Dictat ed Date/T nica: 9:49 am Review ed By: Peyton Castaneda ra, MD Signed By: Peyton Castaneda ra, MD Signed Date/T nica: 9:49 am Transc ribed By: YAELB Transc ribed Date/T nica: 9:48 am [facility] [address] [place] [address], [address], 11/24/2023 18:19:44 01/10/2001/10/2024 XR, lumba r spine [...] ce of an acute proces s. WSN: [id number] Orderi ng Physic ryan: Milton Ware Dictat ed By: Davonte Su MD Dictat ed Date/T nica: 7:15 pm Review ed By: Davonte Su MD Signed By: Davonte Su MD Signed Date/T nica: 7:15 pm Transc ribed By: ROSALINA Transc ribed Date/T nica: 7:15 pm Patien t Class: Outpat ient [facility] (Outpt Imaging) [address] [place], [address], 01/15/2024 05:48:38 Result Notes None recorded. Problems Name Problem SNOMED Code Status Onset Date Resolution Date Notes Provider Name and Address Organization Details Recorded Time Acute bronchit is 58915751 Completed 201110/21/2013 RECORDED 12/18/19 12 8:15AM BY TANNER NIEVES ON/ADDEN DUM Yasmeen austin [facility] 6 09:04:36 Bronchos pasm [id number] Completed 200710/21/2013 RECORDED 02/12/20 08 6:53AM BY TANNER SOSA ON/ADDEN DUM Yasmeensamina austin [facility] 6 09:04:36 Allergic rhinitis 81043454 Completed 201204/12/2016 IMPRESSI ON: CONTINUE ALLERGY MEDS AND SINGULAI R, SEEM TO BE HELPING. CONTINUE MEDS; RECORDED 03/27/20 13 9:41AM BY GAYLE Kang MD, OFFICE VISIT Alina austin [facility] 7 16:04:21 Patient status finding [id number] Completed 201204/12/2016 Alina austin [facility] 7 16:04:04 Asthma [id number] Completed 201207/16/2019 IMPRESSI ON: DOING WELL ON SINGULAI R CONTINUE ; RECORDED 03/27/20 13 9:41AM BY GAYLE Kang MD, OFFICE VISIT Gayle austin [facility] 0 10:08:22 Screenin g for malignan t neoplasm of breast Completed 200810/21/2013 RECORDED 09/29/19 09 10:57AM BY ADRIANA GUERRERO MA, TANNER ON/ADDEN DUM Yasmeen austin [facility] 6 09:04:37 Screenin g for malignan t neoplasm of cervix Completed 201110/21/2013 RECORDED 12/18/19 12 8:16AM BY TANNER NIEVES ON/ADDEN DUM Yasmeen austin [facility] 6 09:04:37 Screenin g for malignan t neoplasm of colon Completed 201210/21/2013 RECORDED 03/27/20 13 9:02AM BY LEATHA JOHNSON MA, ANNOTATI ON/ADDEN DUM Yasmeen austin, [facility] 6 09:04:37 Cough [id number] Completed 200810/21/2013 IMPRESSI ON: FOR ONE MONTH, SOUNDS RELATED TO ALLERGIE S,SPIROM ETRY DONE TODAY AND IS VERY NORMAL, WILL GET CXR ADD NASAL SPRAY, IF NOT BETTER 4 WEEKS RETURN FOR VISIT; RECORDED 09/29/19 09 10:57AM BY ADRIANA GUERRERO MA, ANNOTATI ON/ADDEN DUM Alina austin, [facility] 7 16:04:25 Elevated blood-pr essure reading without diagnosi s of hyperten phong [id number] Completed 201210/21/2013 RECORDED 06/15/19 13 9:26AM BY TURNER PALMATI ON/ADDEN DUM Yasmeen austin, [facility] 6 09:04:37 Eustachi an tube disorder 63734525 Completed 201210/21/2013 RECORDED 06/15/19 13 9:26AM BY UTRNER PALMATI ON/ADDEN DUM Yasmeen austin, [facility] 6 09:04:36 Influenz a vaccine needed 58227916035 06 Completed 201210/21/2013 RECORDED 03/27/20 13 9:22AM BY LEATHA JOHNSON MA, OFFICE VISIT Yasmeen austin, [facility] 6 09:04:37 Adult health examinat ion Completed 201204/12/2016 IMPRESSI ON: PAP, MAMMO AND COLONSOC Y UTD, PT TO GET FLU SHOT TODAY; RECORDED 03/27/20 13 12:58PM BY GAYLE Kang MD, OFFICE VISIT Alina austin [facility] 7 16:04:18 Pure hypercho lesterol emia 543447002 Completed 201204/12/2016 Alina austin, [facility] 7 16:04:37 Shoulder joint pain 839440622 Completed 201110/21/2013 IMPRESSI ON: 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 PT TO SEE ORTHO FOR INJECITO N, DO PT; RECORDED 12/18/19 12 8:15AM BY TANNER NIEVES ON/ADDEN DUM Yasmeen austin [facility] 6 09:04:37 Cramp in limb 609264745 Completed 201110/21/2013 IMPRESSI ON: GETS THEM AT NIGHT, INCREASE FLUIDS, NL CALCIUM AND K, STRETCH BEFORE BED; RECORDED 12/18/19 12 8:15AM BY TANNER NIEVES ON/ADDEN DUM Yasmeen austin [facility] 6 09:04:37 Malaise and fatigue 218708669 Completed 201210/21/2013 RECORDED 06/15/19 13 9:26AM BY TANNER PALM ON/ADDEN DUM Yasmeen austin [facility] 6 09:04:37 Administ ration of bacteria l and viral vaccine Completed 200710/21/2013 RECORDED 02/12/20 08 8:11AM BY HUONG ANGEL, OFFICE VISIT Yasmeen austin [facility] 6 09:04:37 Cramp in lower leg associat ed with rest 571369847 Completed 201210/21/2013 IMPRESSI ON: DO AEROBIC EXERCISE BEFORE BED. CALF STRETCH AT BEDTIME REVIEWED . I OFFERED HER LABS BUT SHE WANTS TO WAIT AND TRY THESE MEASURES FIRST AND IF NOT BETTER IN 6 MONTHS AT PHYSICAL SHE WILL DISCUSS WITH PCP ABOUT LABS.; RECORDED 03/27/20 13 9:02AM BY LEATHA JOHNSON MA, ANNOTATI ON/ADDEN DUM Yasmeen Packer null, [facility] 6 09:04:37 Obesity 845276809 Completed 201204/29/2020 IMPRESSI ON: IS EXERCISI NG AND WORKING ON AN EATING PLAN; RECORDED 03/27/20 13 12:58PM BY GAYLE Kang MD, OFFICE VISIT Gayle Romero celeste norman [facility] 1 10:25:19 Osteoart hritis of knee 671397506 Completed 201210/21/2013 IMPRESSI ON: PT TO SET UP APPT; RECORDED 03/27/20 13 9:02AM BY LEATHA JOHNSON MA, ANNOTATI ON/ADDEN DUM Yasmeen austin, [facility] 6 09:04:37 Joint pain in ankle and foot Completed 200710/21/2013 IMPRESSI ON: HIGH ARCHES, NO ERYTHEMA , WILL SEE PODIATRI ST FOR EVAL, POSSIBLE ORTHOTIC S; RECORDED 02/12/20 08 6:53AM BY TANNER SOSA ON/ADDEN DUM Yasmeen austin, [facility] 6 09:04:37 Knee pain Completed 201210/21/2013 RECORDED 06/15/19 13 9:26AM BY TANNER PALM ON/ADDEN DUM Yasmeen austin, [facility] 6 09:04:37 Active or passive immuniza tion Completed 201110/21/2013 RECORDED 12/18/19 12 9:16AM BY GAYLE Kang MD, OFFICE VISIT Yasmeen austin [facility] 6 09:04:37 Presbycu sis [id number] Active 2012 BILATERA L HEARING AIDS; RECORDED 03/27/20 13 9:02AM BY LEATHA JOHNSON MA, OFFICE VISIT Not Available [facility] 3 03:52:59 Adult health examinat ion Completed 201110/21/2013 IMPRESSI ON: PAP, MAMMO COLONOSC OPY UTD, IS EXERCISI NG, EATING REALLY WELL, HELPED BY HYPNOSIS , ON VIT D AND CALCIUM, DEALING WITH FIBROID 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 TECHNICIAN; RECORDED 12/18/19 12 8:15AM BY SIRISHA CROWE, TANNER ON/ADDEN DUM Alina austin, [facility] 7 16:04:18 Wheezing 97759749 Completed 201110/21/2013 IMPRESSI ON: PT IS OFF ADVAIR AND FEELS GREAT, WEIGHT LOSS HELPING, PT WILL CONTINUE SINGULAI R, START RAGHU AND I GAVE SAMPLES OF ADVAIR 100/50 IF SHE GETS ANY WHEEZING ; RECORDED 12/18/19 12 8:15AM BY TANNER NIEVES ON/ADDEN DUM Yasmeen Packer null, [facility] 6 09:04:37 Acute bronchit is [id number] Completed 201111/10/2013 RECORDED 12/18/19 12 8:15AM BY TANNER NIEVES ON/ADDEN DUM Yasmeen Packer null, [facility] 6 09:04:36 Bronchos pasm [id number] Completed 200711/10/2013 RECORDED 02/12/20 08 6:53AM BY HUONG ANGEL, TURNERATI ON/ADDEN DUM Yasmeen Packer null, [facility] 6 09:04:36 Screenin g for malignan t neoplasm of breast Completed 200811/10/2013 RECORDED 09/29/19 09 10:57AM BY ADRIANA GUERRERO MA, TURNERATI ON/ADDEN DUM Yasmeen Packer null, [facility] 6 09:04:37 Screenin g for malignan t neoplasm of cervix Completed 201111/10/2013 RECORDED 12/18/19 12 8:16AM BY TANNER NIEVES ON/ADDEN DUM Yasmeen Packer null, [facility] 6 09:04:37 Screenin g for malignan t neoplasm of colon Completed 201211/10/2013 RECORDED 03/27/20 13 9:02AM BY LEATHA JOHNSON MA, ANNOTATI ON/ADDEN DUM Yasmeensamina Packer null, [facility] 6 09:04:37 Cough 48532750 Completed 200811/10/2013 IMPRESSI ON: FOR ONE MONTH, SOUNDS RELATED TO ALLERGIE S,SPIROM ETRY DONE TODAY AND IS VERY NORMAL, WILL GET CXR ADD NASAL SPRAY, IF NOT BETTER 4 WEEKS RETURN FOR VISIT; RECORDED 09/29/19 09 10:57AM BY ADRIANA GUERRERO MA, ANNOTATI ON/ADDEN DUM Alina austin, [facility] 7 16:04:25 Elevated blood-pr essure reading without diagnosi s of hyperten phong 858854158 Completed 201211/10/2013 RECORDED 06/15/19 13 9:26AM BY TANNER PALM ON/ADDEN DUM Yasmeen austin, [facility] 6 09:04:37 Eustachi an tube disorder 99008834 Completed 201211/10/2013 RECORDED 06/15/19 13 9:26AM BY TANNER PALM ON/ADDEN DUM Yasmeen austin, [facility] 6 09:04:36 Influenz a vaccine needed 20914895004 06 Completed 201211/10/2013 RECORDED 03/27/20 13 9:22AM BY LEATHA JOHNSON MA, OFFICE VISIT Yasmeen austin [facility] 6 09:04:37 Shoulder joint pain 024303566 Completed 201111/10/2013 IMPRESSI ON: 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 PT TO SEE ORTHO FOR INJECITO N, DO PT; RECORDED 12/18/19 12 8:15AM BY TANNER NIEVES ON/ADDEN DUM Yasmeen austin, [facility] 6 09:04:37 Cramp in limb 858380230 Completed 201111/10/2013 IMPRESSI ON: GETS THEM AT NIGHT, INCREASE FLUIDS, NL CALCIUM AND K, STRETCH BEFORE BED; RECORDED 12/18/19 12 8:15AM BY TANNER NIEVES ON/ADDEN DUM Yasmeen austin [facility] 6 09:04:37 Malaise and fatigue 075759994 Completed 201211/10/2013 RECORDED 06/15/19 13 9:26AM BY TANNER PALM ON/ADDEN DUM Yasmeen austin, [facility] 6 09:04:37 Administ ration of bacteria l and viral vaccine Completed 200711/10/2013 RECORDED 02/12/20 08 8:11AM BY HUONG ANGEL, OFFICE VISIT Yasmeen austin [facility] 6 09:04:37 Cramp in lower leg associat ed with rest 163971073 Completed 201211/10/2013 IMPRESSI ON: DO AEROBIC EXERCISE BEFORE BED. CALF STRETCH AT BEDTIME REVIEWED . I OFFERED HER LABS BUT SHE WANTS TO WAIT AND TRY THESE MEASURES FIRST AND IF NOT BETTER IN 6 MONTHS AT PHYSICAL SHE WILL DISCUSS WITH PCP ABOUT LABS.; RECORDED 03/27/20 13 9:02AM BY LEATHA JOHNSON MA, ANNOTATI ON/ADDEN DUM Yasmeen austin [facility] 6 09:04:37 Osteoart hritis of knee 259534547 Completed 201211/10/2013 IMPRESSI ON: PT TO SET UP APPT; RECORDED 03/27/20 13 9:02AM BY LEATHA JOHNSON MA, ANNOTATI ON/ADDEN DUM Yasmeen austin [facility] 6 09:04:37 Joint pain in ankle and foot Completed 200711/10/2013 IMPRESSI ON: HIGH ARCHES, NO ERYTHEMA , WILL SEE PODIATRI ST FOR EVAL, POSSIBLE ORTHOTIC S; RECORDED 02/12/20 08 6:53AM BY HUONG ANGEL, ANNOTATI ON/ADDEN DUM Yasmeen austin [facility] 6 09:04:37 Knee pain Completed 201211/10/2013 RECORDED 06/15/19 13 9:26AM BY CHINEDU ENGLISH I, ANNOTATI ON/ADDEN DUM Yasmeen Ochoa austin [facility] 6 09:04:37 Active or passive immuniza tion Completed 201111/10/2013 RECORDED 12/18/19 12 9:16AM BY GAYLE Kang MD, OFFICE VISIT Yasmeen austin [facility] 6 09:04:37 Wheezing 44311181 Completed 201111/10/2013 IMPRESSI ON: PT IS OFF ADVAIR AND FEELS GREAT, WEIGHT LOSS HELPING, PT WILL CONTINUE SINGULAI R, START RAGHU AND I GAVE SAMPLES OF ADVAIR 100/50 IF SHE GETS ANY WHEEZING ; RECORDED 12/18/19 12 8:15AM BY SIRISHA CROWE, ANNOTATI ON/ADDEN DUM Yasmeen austin [facility] 6 09:04:37 Cough 69854881 Completed 04/12/2016 Alina austin [facility] 7 16:04:25 Acute asthma 696673128 Completed 05/31/2016 Gayle austin [facility] 7 09:32:07 Ankle pain 665192223 Completed 04/12/2016 Alina austin [facility] 7 16:04:07 Neck pain 53088613 Completed 04/12/2016 Alina austin [facility] 7 16:04:27 Fatigue 46595901 Completed 04/12/2016 Alina austin [facility] 7 16:04:30 Hypercho lesterol emia 84443826 Active Not Available [facility] 3 03:52:59 Arthriti s 1567542 Completed 04/12/2016 Alina Sterling MA null, [facility] 7 16:04:14 Biceps tendinit is 112622187 Completed 04/12/2016 Alina Sterling MA null, [facility] 7 16:04:10 Pulmonar y embolism 77317729 Completed 201611/22/2016 Gayle alonso null, [facility] 7 09:42:04 History of pulmonar y embolus 802422647 Active 2017 Not Available [facility] 3 03:52:59 Moderate persiste nt asthma 742958330 Active 2019 Not Available [facility] 3 03:52:59 Advance care planning Active 2020 Not Available [facility] 3 03:52:59 Suspecte d COVID-19 024459176 Completed 10/27/2020 Removal Reason: Problem added by user [email or web address] from the COVID-19 watch flag Eleonora Casanova [facility], [facility] 1 10:29:36 Liver enzymes level above referenc e range 039034471 Active 2020 Not Available [facility] 3 03:52:59 Serum iron above referenc e range 162616096 Completed 202001/26/2023 SEBAS FINE MD [address], [place], [address] , [facility] 3 06:07:16 Heredita ry hemochro matosis 34884852 Active 2020 Not Available [facility] 3 03:52:59 Prediabe nhi 395506492 Active 2020 Not Available [facility] 3 03:52:59 Left Achilles tendinit is 18653093249 9102 Active 2023 Russ Flores [facility] [address], [place], [address] , [facility] 4 10:09:48 Osteopen ia 447972211 Active 2023 SEBAS FINE MD [address], [place], [address] , [facility] 4 16:27:35 Problem Notes None recorded. Procedures Surgical History Date Name Laterality Status Provider Name and Address Organization Details Recorded Time 4 Most Recent Mammogram completed Destinee Powell [facility] 11/20/2023 10:40:28 4 Mammogram both breasts completed Destinee Powell [facility] 11/20/2023 10:40:21 4 Advanced Care Planning completed SEBAS FINE MD [address], [place], [address], [facility] 07/31/2023 07:58:31 3 Date of Last Colonoscopy completed Sirisha Crowe MA [facility] 07/31/2023 08:27:16 3 Colonoscopy completed Poly River [facility] 09/20/2022 13:31:26 2 total replacement of right knee joint completed Josseline Oh [facility] 11/04/2021 08:50:26 1 Advanced Care Planning completed Delma Jain [facility] 05/03/2020 11:02:18 1 Six-Item Cognitive Test completed Sirisha Crowe MA [facility] 04/29/2020 10:15:59 0 Mammogram Diagnostic Bilateral completed Jennifer Smith [facility] 10/16/2019 15:29:47 9 Mini-Cog Test completed Sirisha Crowe MA [facility] 03/22/2019 09:54:17 9 Advanced Care Planning completed Sirisha Crowe MA [facility] 03/22/2019 09:58:27 9 Date of Last Pap Smear completed Sirisha Crowe MA [facility] 03/22/2019 10:04:09 8 Mini-Cog Test completed Sirisha Crowe MA [facility] 03/14/2018 10:30:14 3 completed Leatha Tulsa [facility] 04/01/2014 08:03:49 1 completed Leatha Barakatoit [facility] 04/01/2014 08:03:49 Imaging Results Imaging Date Name Status LastModified by Organization Details LastModified Time 11/16/2022 MAMMO, screening, digital, bilateral completed [email or web address] [facility] (Outpt Imaging) [address] [place] [address], [address], 11/16/2022 11:18:57 04/19/2023 XR, knee, weightbearing completed [address] [facility] [address] [place] [address] [place], [address], 04/24/2023 13:39:11 04/19/2023 XR, knee, weightbearing completed [address] [facility] [address] [place] [address] [place], [address], 04/24/2023 13:39:36 04/19/2023 XR, knee, weightbearing completed [address] [facility] [address] [place] [address] [place], [address], 04/24/2023 13:39:55 04/19/2023 XR, chest, 2 view completed [address] [place], [address], 04/21/2023 07:59:12 11/20/2023 MAMMO, screening, bilateral completed [email or web address] Information not available 11/20/2023 10:40:13 11/20/2023 MAMMO, screening, digital, bilateral completed [email or web address] [facility] ([facility] Imaging) [address] [place], [address], 11/20/2023 10:43:05 11/20/2023 DEXA, axial skeleton completed [facility] (Out[facility] Imaging) [address] [place], [address], 11/24/2023 18:19:44 01/10/2024 XR, lumbar spine completed [facility] (Out[facility] Imaging) [address] [place], [address], 01/15/2024 05:48:38 Procedure Notes None recorded. Medical Equipment None Reported. Allergies Allergen ID Allergen Name Allergen Category Reaction Reaction Severity Criticality Documentation Date Start Date Code Code System Note Provider Name and Address Organization Details Recorded Time 8072 No known allergy (situatio n) Not available Not available Not available Not available 10/14/20132011 25523 6003 SNOMED COMME NT: RECOR DED 12/17 8:42A M BY KYRA LEIVA VISIT ; Not Available [facility] 4 13:25:08 No known drug [...] 13 9:32AM BY CHINEDU ENGLISH I, ANNOTATI ON/ADDEN DUM; Not Available Not Available Not Available [...] Available Not Available Nasonex 50 mcg/actua tion [place] EACH NOSTRIL DAILY 06/07 completed RECORDED 06/19/19 [...] Not Available Not Available OptiChamb er [place] [facility] spacer active Not Available Not Available Not [...] Not Available Not Available Not Available Afluria 1914-3392 (PF) 45 mcg(15 mcg x 3)/0.5 mL intramusc ular syringe 04/05 completed Not Available Not Available Not Available Shingrix (PF) 50 mcg/0.5 mL intramusc ular suspensio n, kit 03/14 completed Not Available Not Available Not Available turmeric 1,650 mg -1 tablet po daily active with himanshu and curcumin - Brain suppleme nt Not Available Not Available Not Available Fluad 2018- 65yr up(PF)45 mcg(15 mcgx3)/0. 5 mL intramusc [...] Updated DateTime 3 157.48 cm 39 kg/m2 95374.1 7 g 95 % 95 % 75 /min 98 [degF] 121 mm[Hg] 78 mm[Hg] Sirisha Crowe MA [facility] 3 11:08:48 Date Recorded Body height Body mass index (BMI) Body weight Oxygen saturation Oxygen saturation in Arterial blood by Pulse oximetry Heart rate Body temperature Systolic blood pressure Diastolic blood pressure Provider Name and Address Organization Details Last Updated DateTime 3 157.48 cm 39.2 kg/m2 24788.8 7 g 98 % 98 % 69 /min 98.3 [degF] 126 mm[Hg] 82 mm[Hg] Sirisha Crowe MA [facility] 3 09:30:31 Date Recorded Body height Body mass index (BMI) Body weight Oxygen saturation Oxygen saturation in Arterial blood by Pulse oximetry Heart rate Body temperature Systolic blood pressure Diastolic blood pressure Provider Name and Address Organization Details Last Updated DateTime 4 157.48 cm 39.4 kg/m2 86649.1 6 g 98 % 98 % 81 /min 97.9 [degF] 127 mm[Hg] 74 mm[Hg] Sirisha Crowe MA [facility] 4 08:24:37 Date Recorded Body height Body mass index (BMI) Body weight Heart rate Oxygen saturation Oxygen saturation in Arterial blood by Pulse oximetry Body temperature Systolic blood pressure Diastolic blood pressure Provider Name and Address Organization Details Last Updated DateTime 4 157.48 cm 40.1 kg/m2 83024.7 3 g 88 /min 96 % 96 % 98 [degF] 124 mm[Hg] 78 mm[Hg] Adriana jacobson MA [facility] 4 09:50:27 Date Recorded Body height Body mass index (BMI) Body weight Oxygen saturation Oxygen saturation in Arterial blood by Pulse oximetry Heart rate Body temperature Systolic blood pressure Diastolic blood pressure Provider Name and Address Organization Details Last Updated DateTime 4 157.48 cm 40.3 kg/m2 28784.4 2 g 98 % 98 % 69 /min 97.8 [degF] 126 mm[Hg] 79 mm[Hg] Sirisha Crowe MA [facility] 4 09:27:53 Social History Question Answer Notes LastModified by Organizat ion Details LastModified Time Tobacco Smoking Status Never Smoker Leatha austin [facility] 04/01/2014 09:09:42 What Is Your Level Of Alcohol Consumption? Occasional 1-2 A Month Information not available 04/01/2014 Is Blood Transfusion Acceptable In An Emergency? Yes [email or web address] Information not available 04/05/2015 What Is Your Level Of Caffeine Consumption? Moderate Information not available 04/01/2014 How Much Tobacco Do You Chew? None [email or web address] Information not available 04/29/2020 Are You Currently Employed? No Retired 09/2017 Information not available 11/08/2023 What Type Of Diet Are You Following? GLUTENFREE [email or web address] Information not available 04/29/2020 Do You Or Have You Ever Used E-cigarettes Or Vape? Never Used Electronic Cigarettes [email or web address] Information not available 10/19/2021 What Is Your Occupation? Retired 09/2017 [email or web address] Information not available 04/29/2020 Live Alone Or With Others? With Others [email or web address] Information not available 10/19/2021 Do You Take Precautions To Prevent Distracted Driving? Yes [email or web address] Information not available 04/05/2015 How Often Do You Need To Have Someone Help You When You Read Instructions, Pamphlets, Or Other Written Material From Your Doctor Or Pharmacy? Sometimes [email or web address] Information not available 04/05/2015 Have You Served In The ? No [email or web address] Information not available 05/31/2016 Have You Or [...] OUD But Is Possibly At Risk. No [email or web address] Information not available 04/29/2020 Have You Recently Traveled To A COVID-19 High Risk Area Or Gathering In The Last 10 Days? No [email or web address] Information not available 04/29/2020 What Was The Date Of Your Most Recent Tobacco Screening? 07/31/2023 [email or web address] Information not available 07/31/2023 How Many Children Do You Have? 0 [email or web address] Information not available 04/28/2021 Do You Use Protection During Sex? No [email or web address] Information not available 04/29/2020 Do You Use Your Seat Belt Or Car Seat Routinely? Yes [email or web address] Information not available 04/28/2021 Seat Belts Used Routinely Yes Information not available 10/19/2021 Are You Sexually Active? Yes [email or web address] Information not available 05/31/2016 Smoke Alarm In Home Yes [email or web address] Information not available 10/19/2021 Do You Have Smoke And Carbon Monoxide Detectors In Your Home? Yes Information not available 04/28/2021 Are You Passively Exposed To Smoke? No [email or web address] Information not available 05/31/2016 Do You Or Have You Ever Used Smokeless Tobacco? Never Used Smokeless Tobacco [email or web address] Information not available 03/22/2019 How Much Tobacco Do You Smoke? No [email or web address] Information not available 04/29/2020 Do You Use Any Illicit Or Recreational Drugs? No Information not available 11/08/2023 Do You Use Sunscreen Routinely? Yes [email or web address] Information not available 04/05/2015 Do You Or Have You Ever Used Any Other Forms Of Tobacco Or Nicotine? No Information not available 11/08/2023 Sex: Unknown Functional Status Question Answer Note LastModified by Organizat ion Details LastModified Time Are you able to walk? YESWOREST [email or web address] Information not available 10/19/2021 Are you able to care for yourself? Yes [email or web address] Information not available 05/31/2016 What is your exercise level? Moderate water aroebics/PT twice a week [email or web address] Information not available 04/28/2021 Mental Status None recorded. Family History Relationship Description Onset Age of this Age Resolved Age Notes LastModified by Organization Details LastModified Time Mother Carcinoma in situ of stomach [email or web address] Not available 10/19 12:45:22 Father Respiratory distress 73 [email or web address] Not available 10/19 12:45:22 Sister Carcinoma in situ of lung 52 [email or web address] Not available 12:45:22 Sister Obesity [email or web address] Not availabl e 04/29/2020 09:59:23 Brother Heart disease [email or web address] Not available 04/28 10:04:24 Notes:No FH of [...] preservative 4 completed Poly L River null, [facility] 12/28/2022 09:38:40 zoster recombinant 8 completed Poly L River null, [facility] 12/28/2022 09:38:40 Influenza, high-dose, trivalent, PF 8 completed Poly L River null, [facility] 12/28/2022 09:38:40 zoster live 8 completed Poly L [place] null, [facility] 12/28/2022 09:38:40 Influenza, high-dose, trivalent, PF 8 completed Poly L [place] null, [facility] 12/28/2022 09:38:40 Influenza, adjuvanted, trivalent, PF 9 completed Poly L River null, [facility] 12/28/2022 09:38:40 Influenza, high-dose, quadrivalent, PF 0 completed Poly L River null, [facility] 12/28/2022 09:38:40 COVID-19, mRNA, LNP-S, PF, 100 mcg/0.5mL dose or 50 mcg/0.25mL dose 1 completed Poly L River null, [facility] 12/28/2022 09:38:40 zoster recombinant 8 completed Poly L Rvier null, [facility] 12/28/2022 09:38:40 Influenza, high-dose, quadrivalent, PF 1 completed Poly L River null, [facility] 12/28/2022 09:38:40 COVID-19, mRNA, LNP-S, PF, 100 mcg/0.5mL dose or 50 mcg/0.25mL dose 1 completed Poly L Irver null, [facility] 12/28/2022 09:38:40 Influenza, high-dose, quadrivalent, PF 0 completed Poly L River null, [facility] 12/28/2022 09:38:40 Influenza, split virus, trivalent, PF 6 completed Poly L River null, [facility] 12/28/2022 09:38:40 COVID-19, mRNA, LNP-S, PF, 100 mcg/0.5mL dose or 50 mcg/0.25mL dose 1 completed Poly L River null, [facility] 12/28/2022 09:38:40 Influenza, split virus, trivalent, PF 5 completed Poly L River null, [facility] 12/28/2022 09:38:40 COVID-19, mRNA, LNP-S, PF, 100 mcg/0.5mL dose or 50 mcg/0.25mL dose 2 completed Poly L River null, [facility] 12/28/2022 09:38:40 COVID-19, mRNA, LNP-S, PF, 100 mcg/0.5mL dose or 50 mcg/0.25mL dose 2 completed Poly L River null, [facility] 12/28/2022 09:38:40 Influenza, split virus, quadrivalent, PF 7 completed Poly L River null, [facility] 12/28/2022 09:38:40 pneumococcal polysaccharide PPV23 1 completed Poly L River null, [facility] 12/28/2022 09:38:40 Pneumococcal conjugate PCV 13 8 completed Poly L River null, [facility] 12/28/2022 09:38:40 Tdap 7 completed Poly austin, [facility] 12/28/2022 09:38:40 Influenza, high-dose, quadrivalent, PF 2 completed Poly [place] null, [facility] 12/28/2022 09:38:40 Influenza, high-dose, quadrivalent, PF 3 completed Poly [place] null, [facility] 12/28/2022 09:38:40 RSV, recombinant, protein subunit RSVpreF, adjuvant reconstituted, 0.5 mL, PF 3 completed Poly austin, [facility] 12/28/2022 09:38:40 COVID-19, mRNA, LNP-S, PF, mary-sucrose, 30 mcg/0.3 mL 3 completed HUONG Nieves, [facility] 01/26/2023 09:24:51 COVID-19, mRNA, LNP-S, PF, 50 mcg/0.5 mL 4 completed HUONG Nieves, [facility] 01/10/2024 09:28:14 Influenza, high-dose, trivalent, PF 4 completed HUONG Nieves, [facility] 01/10/2024 09:28:14 Influenza, split virus, trivalent, preservative 7 completed Poly austin, [facility] 12/28/2022 09:38:40 Influenza, split virus, trivalent, preservative 8 completed Poly austin, [facility] 12/28/2022 09:38:40 Tdap 8 completed Poly austin, [facility] 12/28/2022 09:38:40 Influenza, split virus, trivalent, preservative 0 completed Poly austin, [facility] 12/28/2022 09:38:40 Influenza, split virus, trivalent, preservative 1 completed Poly [place] null, [facility] 12/28/2022 09:38:40 Influenza, split virus, trivalent, preservative 2 completed Poly [place] null, [facility] 12/28/2022 09:38:40 pneumococcal polysaccharide PPV23 2 completed Poly River null, [facility] 12/28/2022 09:38:40 zoster live 3 completed Poly River null, [facility] 12/28/2022 09:38:40 influenza, seasonal, intradermal, preservative free 3 completed Poly River null, [facility] 12/28/2022 09:38:40 Past Encounters Encounter ID Performer Location Encounter Start Date Encounter Closed Date Diagnosis/Indication Diagnosis SNOMED-CT Code Diagnosis ICD10 Code Diagnosis Note [id number] autoEComm erce [address] [facility] [place] [address] 2006 00:00:00 [id number] autoEComm erce [address] [facility] [place] [address] 07/25/2006 00:00:00 [id number] auto[facility]Comm erce [address] [facility] [place] [address] 07/22/2007 00:00:00 [id number] auto[facility] erce [address] [facility] [place] [address] 08/09/2007 00:00:00 [id number] auto[facility]Comm erce [address] [facility] [place] [address] 02/12/2008 00:00:00 [id number] auto[facility]Comm erce [address] [facility] [place] [address] 08/10/2008 00:00:00 [id number] auto[facility]Comm erce [address] [facility] [place] [address] 09/28/2008 00:00:00 [id number] autoEComm erce [address] [facility] [address] [place] [address] 05/31/2009 00:00:00 [id number] auto[facility]Comm erce [address] [facility] [address] [place] [address] 06/18/2009 00:00:00 [id number] auto[facility] erce [address] [facility] [address] [place] [address] 09/10/2009 00:00:00 [id number] auto[facility]Comm erce [address] [facility] [place] [address] 12/13/2009 00:00:00 [id number] auto[facility]Comm erce [address] [facility] [place] [address] 03/09/2010 00:00:00 [id number] autoEComm erce [address] [facility] [place] [address] 07/08/2010 00:00:00 [id number] auto[facility]Comm erce [address] [facility] [place] [address] 12/14/2010 00:00:00 [id number] autoEComm erce [address] [facility] [place] [address] 02/24/2011 00:00:00 [id number] autoEComm erce [address] [facility] [place] [address] 12/18/2011 00:00:00 [id number] auto[facility]Comm erce [address] [facility] [place] [address] 06/14/2012 00:00:00 [id number] auto[facility]Comm erce [address] [facility] [place] [address] 03/27/2013 00:00:00 [id number] Gayle alonso Main Office [address] [place] [address] 04/01/2014 08:58:11 04/01/2014 09:45:18 Adult health examination [id number] all screening is utd, pt is exercising , stays active Asthma 085949476 stable on meds Allergic rhinitis 90642342 [id number] Chinedu Araya Main Office [address] [address] [place] [address] 05/27/2014 16:01:16 05/27/2014 16:44:13 Cough 08625440 only do x-ray if not getting better. will treat empiricall y since 2 months of purulent cough Acute asthma 450108059 [id number] Alina Sterling MA Main Office [address] [address] [place] [address] 09/10/2014 08:53:32 09/10/2014 09:37:52 Cough 55946718 Cough since July, likely due to PND, will treat with Flonase and expectoran t, Chest XR today to r/o pneumonia. Lots of fluids Allergic rhinitis 19754721 Ankle pain 617317489 C/o right ankle pain x 3 weeks, likely tendonitis , recommend, compressio n, elevation, ice to area 4 times daily, continue walking at the gym but light walking, ibuprofen around the clock x 5 days then as needed, return for worsening. Neck pain 24531138 Likel y muscular from returning to gym/ overhead weight, ibuprofen as previously discussed, if no improvemen t please return. [id number] Main Office [address] [address] [place] [address] 11/04/2014 10:22:19 11/04/2014 11:22:24 Asthma 381478717 Patient cannot tolerate prednisone for long periods, states she would rather not use a steroid inhaler for long period if it will cause symptoms similar to prednisone . Will refer to pulm for further eval and management . Ankle pain [id number] Is back a the gym, tolerating exercise, declines PT referral at this time but if pain worsens she will call. Acute asthma 150124446 S pirometry is normal thought patient does have wheezing- not relieved by coughing. Will treat as asthma exacerbati on-short prednisone burst x 4 days, will prescribe steroid inhaler for patient to use to help prevent symptoms, f/u with pulmonolog y for further eval. [id number] Gayle alonso Main Office [address] [address] [place] [address] 04/05/2015 08:36:52 04/05/2015 09:29:07 Adult health examination 675902835 Z00.00 all screening is utd, pt is exercising , stays active Asthma 904473112 J45.90 9 stable on meds Fatigue 11491422 R53.83 check labs Hypercholesterolemia 136 30642 E78.2 check fasting Arthritis 4775016 M19.90 knee arthritis, losing weight [id number] Gayle FloresAntonellaElsie mattceleste Main Office [address] [facility] [address] [place] [address] 10/07/2015 08:28:47 10/07/2015 09:39:45 Asthma 045971436 J45.909 stable on meds, continue inhalers Biceps tendinitis 342311 007 M75.22 take a rest from biceps lifting [id number] Earl Rowley MD Main Office [address] [address] [place] [address] 04/05/2016 12:42:34 04/05/2016 14:02:45 Palpitations 54033131 R00.2 ? d/t albuterol, but did have one bout of palp prior to using it. if notices worse palp c alb - then change to xoponex Fever 299437781 R50.9 fever of unknown origin - will do full work-up Asthma 026118874 J45.21 cont symbicort as dir c prn albuterol Dyspnea 611548453 R06.02 [id number] Gayle FloresAntonellaElsie mattceleste Main Office [address] [facility] [address] [place] [address] 04/11/2016 08:03:03 04/11/2016 20:14:29 [id number] Gayle FloresAntonellaElsie mattceleste Main Office [address] [address] [place] [address] 04/12/2016 15:47:06 04/12/2016 17:02:49 Dyspnea on exertion 77218758 R06.09 R/o PE. ? unstable angina symptoms. ON-call [facility] cardiology consulted and pt. will be seen at cardiac urgent care tomorrow in the am. PT. was advised to call an ambulance if developes worsening of symptoms or any chest symptoms over night. ADvised to take ASA 325 mg. Chest pain 12943609 R07. 9 [id number] Gayle mattenzo Main Office [address] [facility] [address] [place] [address] 04/18/2016 09:47:58 04/18/2016 12:30:56 [id number] Gayle alfaroo Main Office [address] [facility] [address] [place] [address] 04/18/2016 13:04:45 04/18/2016 14:03:34 Pulmonary embolism 92857443 I26.99 bilateral quite extensive, pt feeling better, [...] if any bleeding, SOB, change in status [id number] Gayle mattenzo Main Office [address] [facility] [address] [place] [address] 05/01/2016 14:03:13 05/01/2016 15:46:10 Pulmonary embolism 54929840 I26.99 doing better, pt will see cardiology soon to look for right sided heart strain and will see hematology pt met with Debbi to discuss coumadin, is doing well with dosing and level Asthma 265063073 J45.90 9 stable on meds Body mass index 30+ - obesity 507191613 Z68.39 [id number] Gayle mattenzo Main Office [address] [facility] [address] [place] [address] 05/31/2016 09:02:10 05/31/2016 09:51:15 Adult health examination 490510482 Z00.00 all screening is utd, pt is exercising , stays active Hypercholesterolemia 136 45844 E78.2 jsut had a bunch of labs by weight management , pt will have them sent form [facility] Asthma 036032800 J45.90 9 stable on meds History of pulmonary embolus 361945544 Z86.711 on coumadin, had echo and is followed by cardiology and hematology DR Santana, brother with 2 clots, pt was on estrogen at the time, is off, has not had genetic testing but pt understand s not to come off the coumadin and do precaution s with ankle pumps and walking during long trips Body mass index 30+ - obesity 545245842 E66.9 Z68.35 going to weight loss center [id number] [facility] Main Office [address] [facility] [address] [facility] [place] [address] 06/21/2016 11:16:19 06/21/2016 12:38:52 Cough 81198047 R05 Acute asthma 556696563 J 45.901 Allergic rhinitis 102484 04 J30.9 Pulmonary embolism 37140 003 I26.99 rec. check inr in 2 days, advised not to wait until next sunday [id number] [facility] Main Office [address] [facility] [address] [place] [address] 11/22/2016 08:42:13 11/22/2016 09:44:21 Adult health examination 053581408 Z00.00 all screening is utd, pt is exercising , lost 4lbs through weight loss center [facility] Administra tion of diphtheria, pertussis, and tetanus vaccine 339983442 Z23 Needs infl uenza immunization 488239633 Z23 Fatigue 42032728 R53.83 ? sleep apnea with morning MUIR dn fatigue, ptt o arrange visit for sleep eval Asthma 795065813 J45.90 9 stable on meds Body mass index 30+ - obesity 446365224 E66.9 Z68.35 going to weight loss center History of pulmonary embolus 503947521 Z86.711 hx of one related to estrogen/p rogesteron e med, is off and brother with hx of clot, pt was taken off coumadin recently by hematology , had teting for hypercoagu lable state, pt will call and verify all testing negative and to stay off coumadin, iso n baby asa, I reinforced prevention of DVT habits. Osteoarthr itis of knee 708063986 M17.0 bilateral, still able to exercise quite a bit, will consider replacemen ts when is more limites [id number] Gayle MarkElsie celeste Main Office [address] [place] [address] 04/19/2017 13:30:33 04/19/2017 15:03:15 Shoulder pain 40360654 M25.511 pt to see ortho, hopefully is a bursitis, Posterior rhinorrhea 758 66470 R09.82 Osteoarthr itis of knee 816276845 M17.0 needs knee replacemen ts [id number] [facility] Main Office [address] [address] [place] [address] 11/22/2017 12:47:55 11/22/2017 14:07:14 Bilateral cataracts 42840795 H26.9 right 12/04/17, left 12/13/17 Patient en counter status 179862504 Z01.818 Low cardiac risk for cataract surgery, no labs or EKG requested, should proceed as scheduled Cough 03241802 R05 chronic cough, hx bronchitis , feels the same, thick mucousy cough, x 2 weeks, and getting worse. denies fever, chills. will tx with 5 day prednisone burst. call/ return if sx persist of worsen after prednisone [id number] Gayle MarkElsie hopkins Main Office [address] [address] [place] [address] 03/14/2018 10:13:38 03/14/2018 11:11:49 Adult health examination 733146599 Z00.00 all screening is utd, pt is exercising , lost 4lbs through weight loss center [facility] Administra tion of pneumococcal vaccine 11793383 Z23 Asthma 226317396 J45.90 9 stable on meds, very rarely has a flare Hypercholesterolemia 136 35318 E78.2 level in 2016 was high, will recheck History of pulmonary embolus 154292017 Z86.711 was on hormone at time of PE, pt is off anticoagul ants, Cardiology Dr Barker gave prescripti on for 48 hours before a long trip of antiicoagu lation and 48 hours after,, DVT precaution s [id number] Denis Andrade PA-C Main Office [address] [address] [place] [address] 08/01/2018 12:33:57 08/01/2018 14:12:02 Administration of viral vaccine 63828038 Z23 Cough 34871016 R05 check cxr to r/o pna - rx if + ? likely d/t pnd - rec nasal saline spray prn and take mucinex qd - see below 25 minute office visit with greater than 50% of the visit face-to-fa ce with the patient and/or family providing counseling and/or coordinati on of care. Allergic rhinitis 723839 04 J30.9 cont singulair as dir Impacted c erumen in right ear 8334900393 209200 H61.21 Moderate p ersistent asthma 157531277 J45.40 stable - cont meds as dir, encouraged use of alb x few days to head off any possible early pna [id number] Gayle Romero celeste Main Office [address] [facility] [address] [place] [address] 09/09/2018 10:00:03 09/09/2018 11:45:51 Hypercholesterolemia 22359799 E78.2 LDL 141 earlier in month, working on better eating Asthma 605930786 J45.90 9 stable on meds, very rarely has a flare History of pulmonary embolus 355847827 Z86.711 was on hormone at time of PE, pt is off anticoagul ants, Cardiology Dr Barker gave prescripti on for 48 hours before a long trip of [place] and 48 hours after,, DVT precaution s this does not sound like PE symptoms Dyspnea on exertion 6084 5006 R06.09 sounds related to allergies flaring asthma, will check EKG to be thorough EKG and spirometry are fine, sounds allergic Pain in right foot 80264 40981 00496 M79.671 better with otc orthotic, if not improving referred to Brad 200780 Gayle mattenzo Main Office [address] [facility] [address] [place] [address] 01/16/2019 10:11:03 01/16/2019 11:15:27 History of pulmonary embolus 123829564 Z86.711 will check US of left leg to rule out DVt in pt with hx of PE. no sob today Pain in left knee 364591 6406 61763 M25.562 refer to ortho Pain in le ft lower limb 179949621 M79.605 rule out DVT [id number] Gayle Romero celeste Main Office [address] [place] [address] 03/22/2019 09:34:08 03/22/2019 10:34:31 Adult health examination 652930848 Z00.00 all screening is utd, pt is exercising , is losing weight on own Asthma 419980387 J45.90 9 stable on meds, very rarely has a flare Hypercholesterolemia 136 57061 E78.2 LDL 141 earlier in month, working on better eating Advance di rective discussed with patient 668193711 Z71.89 MOLST form reviewed by Sirisha, pt will complete and return Body mass index 30+ - obesity 612331998 E66.9 Z68.38 lost weight Pain in finger 29980539 M79.645 middle finger had stitches, now finger does not fully extend, will see ortho [id number] Gayle alonso Main Office [address] [facility] [address] [place] [address] 07/16/2019 08:27:38 07/16/2019 10:26:06 Hypercholesterolemia 57512613 E78.2 LDL 141, working on better eating History of pulmonary embolus 214036410 Z86.711 not on anticoagul ation, just baby aspirin Moderate p ersistent asthma 313750831 J45.40 asthma is a bit more active with allergies, pt will increase symbicort to 3 puffs bid for the short term, call for refill when runs short since just got it, keep on allergy meds, Pain of le ft hip joint 2036781237 94380 M25.552 better with PT and water aerobics. [id number] Delma Jain [facility] [address] [facility] [address] [place] [address] 03/04/2020 15:04:20 03/08/2020 07:55:47 Cough 99811730 R05 Counseling 511957923 Z71 .9 Health advice, education or counseling [...] all possible Exposure t o viral disease 2418635844 39326 Z03.818 Pneumonia 081198838 J18. 9 recommend probiotics while on abx Acute asthma 158126528 J 45.901 [id number] Denis Andrade PA-C Main Office [address] [address] [place] [address] 03/29/2020 08:58:43 03/29/2020 12:35:23 Cough 89537316 R05 lingers - likely d/t post-viral cough - trial c mucinex dm c prn tessalon Moderate p ersistent asthma 756203891 J45.40 see above - cont meds, inhalers as dir [id number] Delma Mercedesvedo [facility] [address] [address] [place] [address] 04/12/2020 09:47:20 04/13/2020 13:20:49 Persistent cough 878997374 R05 Will do cxr, start different antibiotic , pred taper and change inhaler. Moderate p ersistent asthma 996495825 J45.40 Steroid tapere, use inhalers with a spacer Counseling 207860849 Z71 .9 Health advice, education or counseling done for COVID 19 Exposure t o viral disease 7384712077 53324 Z03.818 pt advised to be tested for covid at an outpatient drive through site. She is advise to quarantine until the results come back. Acute asthma 276806381 J 45.901 change symbicort dose from 80 to 160 with a spacer to see if this helps. Call if not improving within a few days to a week, sooner if worsening. ED if acute changes. [id number] Delma Jain Main Office [address] [address] [place] [address] 04/29/2020 09:58:44 04/29/2020 10:40:41 Adult health examination 451359957 Z00.00 all screening is utd, pt gained weight from overeating , History of pulmonary embolus 176694204 Z86.711 not on anticoagul ation, just baby aspirin no active symptoms. Hypercholesterolemia 136 06042 E78.2 LDL 141 in past, working on better eating check fasting Moderate p ersistent asthma 574825296 J45.40 continue higher dose of symbicort, is feeling better Body mass index 40+ - severely obese 419816716 E66.01 Z68.41 pt is interested in working with Dr Dumont, she will arrange appt Administra tion of pneumococcal vaccine 25347562 Z23 Advance di rective discussed with patient 171125615 Z71.89 MOLST form reviewed by Sirisha, pt will complete and return Cramp in lower limb 4499 20554 R25.2 stretch, hydrate check labs [id number] Gayle alonso Main Office [address] [facility] [address] [facility] [place] [place] [address] 10/28/2020 09:32:15 10/28/2020 10:34:13 Moderate persistent asthma 529458880 J45.40 continue higher dose of symbicort, pt notes feels winded with exercise, lost weight, no evidence of recurrent dvt/PE by hx of on exam, will refer to pulmaonry pt will be getting right knee replacemen t, needs to tune up pulmonary status. Pain in right knee 90934 84208 40516 M25.561 steroid injection 2 months ago by Edith Nelson, did not hold very long, will see Omar in 2 months and discuss knee replacemen t. History of pulmonary embolus 670006088 Z86.711 not on anticoagul ation, just baby aspirin no active symptoms. no leg pain or pleuritic pain [id number] Denis Andrade PA-C Main Office [address] [facility] [address] [place] [address] 11/25/2020 15:07:02 11/25/2020 16:24:23 Impaired fasting glycemia 081294768 R73.01 glucose 113 on 10.15 - will check a1c Body mass index 30+ - obesity 644824557 E66.9 Z68.37 pt has lost ~ 24 lbs in past [address] Moeller's office - cont to f/u c him *will fwd copy of this note to Dr. Moeller* Liver enzy mes level above reference range 952412380 R74.01 ast/alt 25/30 on 04.05.16, now up to 35/45 on 10.15.21 - offered re-assuran ce since minimally elevated, could be due to fatty liver disease vs other (see above and below) Serum iron above reference range 074746334 R79.0 pt is not on an iron supplement --- iron 181 on 10.15 but had nl ferritin of 265 -- will recheck iron studies as well as r/o hemochroma tosis (no FH of such) [id number] Denis Andrade PA-C Main Office [address] [facility] [address] [place] [address] 12/23/2020 09:10:32 12/23/2020 10:30:34 Liver enzymes level above reference range 714727024 R74.01 lft's stable Body mass index 30+ - obesity 637078029 E66.9 Z68.37 pt has lost ~ 24 lbs in past [address] Moeller's office - cont to f/u c him Hereditary hemochromatosis 67139930 E83.110 pending see heme on 01.04 Prediabetes 942547255 R7 3.03 Erika - unfortunat gnia you have evidence of pre-diabet es - rec. less sugar intake (candy, ice cream, soda/juice , etc), follow a low carb diet and get plenty of aerobic exercise to help you to lose weight. rec less chocolate Pain of ri ght shoulder joint 0983809690 6690131 M25.511 x 2-3 months - no sig help c hep/water aerobics - pain persists, + pain c provocativ e RTC maneuvers - will get ortho eval [id number] Gayle alonso Main Office [address] [facility] [address] [place] [address] 04/28/2021 09:45:52 04/28/2021 11:00:17 Adult health examination 686411708 Z00.00 all screening is utd, pt gained weight from overeating , work on exercise and weight loss Hypercholesterolemia 136 77471 E78.2 LDL 158 in past, working on better eating check fasting Moderate p ersistent asthma 100175311 J45.40 stable on meds, followed by Dr Quinonez had workup, no new PE's Hereditary hemochromatosis 09316882 E83.110 hx of elevated iron and mild elevation in lfts, never did phlepbotom y but when went back to hematology was told her levels are borderoine and she can see hematology in a year. History of pulmonary embolus 248784677 Z86.711 negative workup for hypercoagu [place] state, had PE on b matthieu aspirin, continue Body mass index 30+ - obesity 730900698 E66.9 Z68.35 gained weight due to boredom. Fatigue 51991483 R53.83 check labs Bleeding from nose 59139 6005 R04.0 sounds related to dryness, use vaseline Osteoarthr itis of right knee joint 5189547523 [address] Nelson Atrophic vaginitis 27409 000 N95.2 [id number] Denis Andrade PA-C Main Office [address] [facility] [address] [place] [address] 10/19/2021 12:44:17 10/19/2021 13:38:59 Pre-surgery evaluation 649693334 Z01.818 Osteoarthr itis of right knee joint 7866293379 96283 M17.11 Hereditary hemochromatosis 89652941 E83.110 stable, cont f/u c heme Hypercholesterolemia 136 51231 E78.2 Moderate p ersistent asthma 292153963 J45.40 stable - cont meds, inhalers as dir, cont f/u c pulm Prediabetes 239103928 R7 3.03 Erika - unfortunat gina you have evidence of pre-diabet es - rec. less sugar intake (candy, ice cream, soda/juice , etc), follow a low carb diet and get plenty of aerobic exercise to help you to lose weight. rec less chocolate History of pulmonary embolus 247801175 Z86.711 seen by heme in past, no need for lifelong AC -- will fwd heme note in case anesthesia wishes to review it Body mass index 30+ - obesity 914311976 E66.9 Z68.36 pt has lost ~ 27 lbs in past 1.[address] Moeller's office - cont to f/u c [facility] [id number] Gayle alonso Main Office [address] [facility] [address] [place] [address] 11/04/2021 08:34:45 11/04/2021 10:06:20 [id number] Denis Andrade PA-C [facility] [address] [facility] [address] [place] [address] 01/17/2022 08:20:02 01/17/2022 11:55:32 COVID-19 715899464 U07.1 will rx c paxlovid, also advised pt to increase vit D intake x several days to help immune system Counseling 040346839 Z71 .9 Health advice, education or counseling done for COVID 19 [id number] Gayle Nick alonso Main Office [address] [facility] [address] [facility] [place] [address] 07/27/2022 10:45:15 07/27/2022 11:39:19 Adult health examination 477535012 Z00.00 all screening is utd, pt gained weight from overeating , work on exercise and weight loss Hypercholesterolemia 136 56326 E78.2 LDL 158 in past, working on better eating check fasting Moderate p ersistent asthma 536914746 J45.40 stable on meds, followed by Dr Quinonez had workup, no new PE's Screening for malignant neoplasm of colon 087457655 Z12.11 Screening for malignant neoplasm of breast 715972174 Z12.39 History of pulmonary embolus 376652447 Z86.711 negative workup for hypercoagu [place] state, pt is not on anticoagul ation, will restart baby aspirin, is followed by hematology Hereditary hemochromatosis 17518980 E83.110 hx of elevated iron and mild elevation in lfts, never did phlepbotom y but when went back to hematology was told her levels are borderline and she can see hematology in a year. has appt for december. [id number] SEBAS FINE MD Main Office [address] [facility] [address] [place] [address] 01/26/2023 09:20:51 01/26/2023 09:45:22 Hereditary hemochromatosis 40048360 E83.110 - homozygous gene mutation- has never needed phlebotomy - following with heme, last seen on 02/21- patient recently had blood work with [facility], will request History of pulmonary embolus 373688270 Z86.711 - no longer on any anticoagul ation, was on anticoagul ation for 6 months- unsure of cause, nothing provoked- on ASA 81mg Hypercholesterolemia 136 84956 E78.2 Moderate p ersistent asthma 663700097 J45.40 - under good control- c/w symbicort 2 puff BID- pt will use albuterol pump as needed -> exercise- c/w singular 10mg QD Prediabetes 845153409 R7 3.03 - last hbA1c was 5.8 History of SARS-CoV-2 29 75730556 94554662 Z86.16 - diagnosed on 01/14/2023 - patient completed paxlovid treatment- patient does still have a cough but is slowly improving [id number] SEBAS FINE MD Main Office [address] [facility] [address] [place] [address] 07/31/2023 08:15:03 07/31/2023 08:47:53 Adult health examination 368907503 Z00.00 Health Maintenanc e FemaleA) Patient was [...] sooner if any acute complaints Hereditary hemochromatosis 07910125 E83.110 - homozygous gene mutation- has never needed phlebotomy - following with heme, follows once a year History of pulmonary embolus 215832940 Z86.711 - no longer on any anticoagul ation, was on anticoagul ation for 6 months- unsure of cause, nothing provoked- on ASA 81mg Moderate p ersistent asthma 661112396 J45.40 - under good control- symbicort 2 puff BID was switched to trelegy- pt will use albuterol pump as needed -> exercise- c/w singular 10mg QD- pt follows with marga last seen on 04/11/2023 Prediabetes 504379803 R7 3.03 - last hbA1c was 5.8- ordered repeat blood work Hypercholesterolemia 136 11405 E78.2 Bone density finding 385 432191 M85.89 Advance di rective discussed with patient 199074497 Z71.89 - discussed MOLST and HCP [id number] BRANDON Doherty Main Office [address] [facility] [address] [place] [address] 11/08/2023 09:35:17 11/08/2023 10:16:42 Left Achilles tendinitis 6745348395 87311 M76.62 suspect achilles tendonitis , she states [...] go to ED Moderate p ersistent asthma 701795954 J45.40 [id number] SEBAS FINE MD Main Office [address] [facility] [address] [place] [address] 01/10/2024 09:19:07 01/10/2024 09:49:18 Hereditary hemochromatosis 81454702 E83.110 - homozygous gene mutation- has never needed phlebotomy - following with heme, follows once a year History of pulmonary embolus 179852553 Z86.711 - no longer on any anticoagul ation, was on anticoagul ation for 6 months- unsure of cause, nothing provoked- on ASA 81mg Hypercholesterolemia 136 16064 E78.2 - ASCVD score of 10.4%- lipid [...] fruits and veggies. Moderate p ersistent asthma 174385499 J45.40 - under good control- symbicort 2 puff BID was switched to trelegy- pt will use albuterol pump as needed -> exercise- c/w singular 10mg QD- pt follows with marga last seen on 04/11/2023 Prediabetes 099988318 R7 3.03 - last hbA1c was 5.8- ordered repeat blood work -> please see below Statin declined 70890862 0 Z53.20 Low back pain 413673481 M54.50 - pt is having radiating pain to her buttock- will check x-ray of lumbar spine- pt advised to continue with physical activity Paresthesi a of lower extremity 729254336 R20.2 - worse on the left foot and intermitte nt- ordered blood work Health Concerns Section Related Observation LastModified by Organization Detai ls LastModified Time None Recorded Concern Status LastModified by Organization Details LastModified Time None Recorded Advance Directives Directive None Recorded Payers Encounter Date Sequence Insurance Name Policy Number Policy Ruby Covered Member ID Ruby Member ID Guarantor Name 07/27/2022 1 [place] [employer] Erika keith [id number] Erika Hough 07/27/2022 2 [facility] - PLAN 1 (MEDICARE SUPPLEMENT) [id number] 1 Erika Hough [id number] Erika Hough 01/26/2023 1 [place] [employer] Erika keith [id number] Erika Hough 01/26/2023 2 [facility] 1 (MEDICARE SUPPLEMENT) [id number] 1 Erika Hough [id number] Erika Hough 07/31/2023 1 [place] [facility] Erika keith [id number] Erika Hough 07/31/2023 2 [facility] 1 (MEDICARE SUPPLEMENT) [id number] 1 Erika Hough [id number] Erika Hough 11/08/2023 1 [place] [facility] Erika keith [id number] Erika Hough 11/08/2023 2 [place] [id number] (MEDICARE SUPPLEMENT) [id number] 1 Erika Hough [id number] Erika Hough 01/10/2024 1 [place] [facility] Erika keith [id number] Erika Hough 01/10/2024 2 [place] [address] (MEDICARE SUPPLEMENT) [id number] 1 Erika Hough [id number] Erika Hough Notes Date Note Type Note [...] sleeping, gets one in thigh [facility] 07/27/2022 12:05:45 3 text/html Erika Hough [...] cruise in January. SEBAS FINE MD [address], [phone], [facility] 01/26/2023 12:35:15 4 text/html Medicare Annual Wellness [...] none on file SEBAS FINE MD [address] [address], [place], [phone], [facility] 07/31/2023 08:54:49 4 text/html Generic HPI [...] May on that side. BRANDON Doherty [address] [address], [place], [phone], [facility] 11/08/2023 10:43:11 4 text/html HyperlipidemiaReported bypatient.Type of hyperlipidemia:hypercholest erolemia Duration:chronic Control:not at goal Compliance:compliant with diet;does not exercise Erika Hough is a 72 year old F who presented to the clinic for follow-up on her chronic conditions. Patient is complaining of right sided buttock pain which occurs intermittently and worse at the end of the day. SEBAS FINE MD [address] [address], [place], [phone], [facility] 01/10/2024 10:23:21 OBGyn Episode No OBEpisode recorded.
--- OUTSIDE RECORDS SUMMARY | 2024-07-11 10:31 | XMS_ITS | Clinical Summary ---
Author Organization [facility] Address [address] [place] [address] Care Team Providers Care Plate Corrector Name Role Phone Tanya Barron MD Primary Care Provider [phone] Allergies No known active allergies Medications Medication [...] age to complete this topic Care Teams Plate Corrector Relationship Specialty Start Date End Date Tanya Barron MD [address] [phone] PCP - General Internal Medicine 01/22/24
--- OUTSIDE RECORDS SUMMARY | 2024-07-11 10:31 | XMS_ITS | Clinical Summary ---
Author Organization [facility] [place] [address] Phone Care Team Providers Care Plasterer Spray Gun Name Role Phone Tanya Barron MD Primary Care Provider Medical History Medical History Date Comments Asthma DX:Asthma Arthritis DX:Arthritis Clotting disorder (CMS/HCC V24) DX:Clotting disorder (HCC);COMMENT:Blood clots in lungs Emphysema of lung (CMS/HCC V 24, CMS/HCC V28) DX:Emphysema of lung (HCC) Family History Medical History Relation Name Comments Cancer Mother Cancer Sister Relation Name Status Comments Mother Sister Social History Tobacco Use Types Packs/Day Years Used Date Smoking Tobacco: Never Smokeless Tobacco: Never Alcohol Use Standard Drinks/Week Comments Yes 0 (1 standard drink = 0.6 oz pur e alcohol) Comments Unknown Sex and Gender Information Value Date Recorded Sex Assigned at Not on file Legal Sex Female 3:51 PM EST Gender Identity Not on file Sexual Orientation [...] Description 01/13/2025 9:00 AM EDT Office Visit [facility] Hematology Oncology [address] [place] [address] Domingo Reeves MD [address] [place] [address] Health Maintenance Due Date Last Done Comments Breast Cancer Screening 1950 DTaP,Tdap,and Td Vaccines (1 - Tdap) 07/04/1971 Zoster Vaccines (1 of 2) 2002 RSV Immunization Adult Patients (1 - Risk 60-74 years 1-dose series) 2012 Cholesterol Screening (Lipid Panel) 03/01/2022 Colorectal Cancer Screening: Colonoscopy 03/01/2022 Depression Screening 03/01/2022 Falls Risk Assessment 03/01/2022 Hepatitis C Screening 03/01/2022 Osteoporosis Screening (Bone Density Screening) 03/01/2022 Social Influencers of Health Screening 03/01/2022 Medicare Annual Wellness Visit 07/28/2023 07/27/2022 COVID-19 Vaccine (3 - 2023-2 5 season) 2023 07/01/2020, 06/13/2020 Influenza Vaccine (Season Ended) 2024 12/27/2021, 12/20/2020, 11/14/2019 Pneumococcal Vaccine: 50+ Years Completed 04/29/2020, 03/14/2018 HIB Vaccines Aged [...] patient's age to complete this topic Meningococcal B Vaccine Aged Out No l onger eligible based on patient's age to complete this topic RSV Immunization Patients Under 20 months Aged Out No longer eligible b ased on patient's age to complete this topic Varicella Vaccines Aged Out No longer eligible based on patient's age to complete this topic Insurance MEDICARE Care Teams Plasterer Spray Gun Relationship Specialty Start Date End Date Tanya Barron MD [address] [address] [place] [phone] PCP - General 01/22/24
--- OUTSIDE RECORDS SUMMARY | 2024-07-11 10:31 | XMS_ITS | Encounter Summary ---
Author Organization [facility] Address [address] [place] [address] Care Team Providers Care Logging Truck Driver Name Role Phone Tanya Barron MD Primary Care Provider Encounter Details Date Type Department Care Team (Late Contact Info) Description 01/22/2024 8:30 AM EDT Hospital Encounter TH HISTORIC ENCOUNTERS EASTERN CONVERSION ONLY Domingo Reeves MD [address] [place] [address] Social History Tobacco Use Types Packs/Day Years [...] Description 01/13/2025 9:00 AM EDT Office Visit [facility] Hematology Oncology [address] [place] [phone] Domingo Reeves MD [address] [place] [address] documented as of this encounter Visit Diagnoses Not on filedocumented in this encounter Care Teams Logging Truck Driver Relationship Specialty Start Date End Date Tanya Barron MD NPI: [id number] [place] [id number] PCP - General 01/22/24 documented as of this encounter
--- OUTSIDE RECORDS SUMMARY | 2024-07-11 10:31 | XMS_ITS | Encounter Summary ---
Author Organization [facility] [address] Care Team Providers Care Steel Rule Die Maker Name Role Phone Tanya Barron MD Primary Care Provider Encounter Details Date Type Department Care Team (Late st Contact Info) Description 01/22/2024 8:12 AM EDT Hospital Encounter TH HISTORIC ENCOUNTERS EASTERN CONVERSION ONLY Domingo Reeves MD [address] [place] [address] Social History Tobacco Use Types Packs/Day Years [...] phlebotomy and still have ferritin is less [id number]. Patient came for yearly follow-up ROS: Has [...] by mouth daily., Disp: , Rfl: ??? Ixrtszfhmuo-Gkcizvnfn-Bpanfo (TRELEGY ELLIPTA IN), Inhale into the lungs., [...] prior to next visit in 1 year Domnigo Reeves MD documented in this encounter Plan of Treatment Upcoming Encounters Date Type Department Care Team (Late st Contact Info) Description 01/13/2025 9:00 AM EDT Office Visit [facility] Hematology Oncology [address] [place] [phone] Domingo Reeves MD [address] [place] [address] documented as of this encounter Procedures Procedure Name Priority Date/Time Associated Diagnosis Comments ..MISCELLANEOUS REFERENCE LAB TEST 01/22/2024 documented in this encounter Results * Miscellaneous reference lab test (01/22/2024) us Provider Onbase LAB BLOOD ORDERABLES Final Re sult documented in this encounter Visit Diagnoses Not on filedocumented in this encounter Care Teams Steel Rule Die Maker Relationship Specialty Start Date End Date Tanya Barron MD [address] [phone] PCP - General 01/22/24 documented as of this encounter
== END 2024-07-11 10:28 | disposition home or self-care (01) ==
LOC: HO.HPS 09:54
PROVIDERS: PCP Student in an Organized Health Care Education/Training Program; Visit Provider Hospitalist
DX: J45.40 Moderate persistent asthma, uncomplicated (principal); R06.09 Other forms of dyspnea; R05.3 Chronic cough; J44.89 Other specified chronic obstructive pulmonary disease
CPT/HCPCS: 99214; G2211

== ENCOUNTER → 2024-07-11 09:54 | Outpatient (BNVA) | payer MEDICARE, OTHER, SELFPAY | PROVIDERS: PCP Student in an Organized Health Care Education/Training Program; Visit Provider Hospitalist | DX: J44.89 Other specified chronic obstructive pulmonary disease (principal); J45.40 Moderate persistent asthma, uncomplicated; R05.3 Chronic cough; R06.09 Other forms of dyspnea; Z86.711 Personal history of pulmonary embolism; Z79.899 Other long term (current) drug therapy | CPT/HCPCS: 99212 ==

== ENCOUNTER 2024-11-04 13:02 | Outpatient (AMB) | payer MEDICARE, OTHER, SELFPAY ==
[2024-11-04 13:09] VITALS: BP 130/86; PULSE 76; O2SAT 95; BMI 37.1
--- NOTE | 2024-11-04 13:09 | A.OFFVIS_ITS ---
Vital Signs 11/04/24 13:09 Height 5 ft 3 in Weight 209 lb 7.026 oz BMI 37.1 BP 130/86 Blood Pressure Location Lt brachial Position Sitting Pulse 76 Pulse Source Pulse Oximeter Pulse Oximetry (%) 95 Oxygen Delivery Method Room Air Intake Visit Reasons: Asthma Director Career Required: No Accompanied by: Self / Same As Patient Allergies No Known Allergies Allergy (Verified 11/04/24 13:12) HPI Comments Details: The patient is a 74-year-old woman with a known history of asthma in addition to pulmonary emboli. the patient states that back in 2017 she was becoming progressively short of breath. She had an abnormal D-dimer initially referred to the hospital where she had a CTA. She actually had extensive bilateral pulmonary emboli. We personally reviewed the CT scan in the office. She did have central emboli with significant clot burden and a dilated right ventricle along with a dilated pulmonary trunk. the patient was placed on anticoagulation and did not require lysis. Ultimately her echocardiogram normalized and she did follow-up with cardiology. Based on the description it appears that she has an unprovoked pulmonary emboli putting her at risk for additional clots. After an extensive evaluation and management it was decided to take her off anticoagu lation. She has done well ever since. Has not had any evidence of any recurrence. Now however she is developing increasing shortness of breath again. Denies any chest pains. Denies any leg swellings. She did have a lower extremity Doppler about a year ago that did demonstrate she had a left Ernst cyst but no evidence of any blood clots. She continues to use her respiratory therapy which includes Symbicort in addition to Xopenex. apparently she had gone to the ER at some point and they did prescribe her Advair but she has not used it. She also uses her allergy medications. 01/13/2021 the patient is here for a pulmonary follow-up visit. The patient continues to have some dyspnea on exertion. She is also describes chest discomfort. At this moment she does not have any chest discomfort. She did undergo blood work recently demonstrating an elevated D-dimer. With a history of blood clots in the elevated D-dimer she needs to have a repeat CT scan of the chest PE protocol. We will request 1 as soon as possible. In the meantime she continues to use Symbicort with good effect. She has not had to use her rescue inhaler at this time. We also reviewed her pulmonary function studies demonstrating normal diffusing capacity was issue reassuring in addition to that no obstructive nor restrictive ventilatory defects. 03/01/2021 the patient is here for a pulmonary follow-up visit. Since we last spoke the patient has been doing better. She has been using her respiratory inhalers with good response. Due to the fact that she had an elevated D-dimer she did undergo a CTA. No evidence of any blood clots which is reassuring and her lung parenchyma appear to be normal without any evidence of any interstitial lung disease. However she did have some degree of atelectasis at the bases. She does have some slight elevations of the diaphragm particularly the right 1 due to increased abdominal pressures. We did review her pulmonary function studies with no definitive obstructive nor restrictive ventilatory defects and a normal diffusing capacity. Her forced vital capacity was decreased and also her expiratory reserve volume. Overall the patient has been doing well at this point will continue with current therapy. will plan to continue current respiratory therapy until we follow-up in the fall of 2021. If she has any issues prior to that she needs to call the office for an earlier evaluation. 02/02/2022 the patient is here for a pulmonary follow-up visit. The patient had been doing very well until recently when she developed COVID-19. the patient d id take her antiviral medicine. She tolerated for the 5 days except for the medical taste in her mouth. Subsequently after that he started developing a cough chest congestion with yellow sputum. Moderate severity. She has been using her rescue inhaler more often. On examination she does have increased rhonchi and wheezing. Patient definitely has postviral bacterial bronchitis along with bronchospasms. She does not have a nebulizer right now home. If her symptoms do not improve she is to call the office and at that point nebulized the will be helpful. In the meantime she is going to continue with rescue inhaler send her a Medrol pack in some doxycycline. 04/11/2023 the patient is here for a pulmonary follow-up visit. Overall the patient complains of a cough. The cough is moderate severe. Typically nonproductive but sometimes she does expectorate some. Not like her bronchitis. She has been using Symbicort. Symbicort does not seem to work in all the way and now is not covered by insurance. Which will further optimize respiratory therapy at this time. She is also looking to having total knee replacement so will optimize respiratory therapy in order for to tolerated surgery well. Will go ahead and start her on Trelegy 200. We did teach how to use it. In the meantime she did have a chest x-ray back from 2021 will have the repeat her x- ray. The patient also will continue with her rescue inhaler and her Singulair. Once the patient recovers from her surgery and rehabilitation she will return with perform PFTs at that time. 10/09/2023 the patient is here for a pulmonary follow-up visit. The patient has been doing well. She did have her total knee replacement sometime early 2023 she tolerated the surgery well. She completed physical therapy and feeling well . She also switched over from Symbicort to Trelegy. This has been affecting beneficial. She has doing the higher dose, 200 mcg. Will try to decrease it down to 100 mcg during her next visit. In the meantime she is starting to get more mobile so we will want to make any changes. From an imaging study she did have a chest x-ray this year which we personally reviewed. Appears that her lung volumes are decreased. And also has some degenerative disc disease in her back. We talked about the importance of deep breathing exercises and also stretching. She is going to be working on these things. She is also working on weight loss and exercise. Overall she is doing well will follow-up in the spring of 2024 with pulmonary function studies. 07/11/2024 the patient is here for a pulmonary follow-up visit. She has been having hard time with the wheezing. She is getting more shortness of breath. Mjot-or-zthvxatg severity. In the wheezing is persistent on a daily basis. She has been using her rescue inhaler regularly. In addition to that she continues on the Trelegy inhaler. Seems like his partially helpful. But, she wishes the wheezing with subside. We did look at her blood work no significant elevations in the IgE or eosinophils. We can also rechecked us in the future. But for now does not appear to be a candidate for biologic. The patient does have wheezing on examination. I do believe a nebulizer be effective for her. Will provide her while in the office so she can hopefully provide better aeration to the smaller airways. When we look at her pulmonary function studies that she had back in April and subsequent studies in the past it appears that she does have small airways disease and she does respond to bronchodilator. In addition to that she does bring up phlegm. She has evidence of chronic bronchitis. In view of the chronic bronchitis and already maximize her respiratory therapy do believe that Daliresp will be very good option for her. She has had to start slow so she can develop tolerance and then start taking regularly. If she continues to be symptomatic or any difficulty tolerating the medicine she will call for further recommendations. 11/04/2024 the patient is here for pulmonary follow-up visit. Overall she is feeling better. She is working on weight loss and she is staying active. She does continue to use the Trelegy with good response. The patient did have a fall and she was having left-sided chest discomfort. She was concerned about the potential blood clots and she did go to [facility]. They did a CAT scan of her chest PE protocol which I personally reviewed. She did have some calcified granulomas that were noted back in 2016 without any significant changes. Some atelectasis noted on the left lung likely from the fall into slightly displaced rib fractures which are small. Seem to be healing already. Overall her CAT scan is reassuring. She responded well to the Daliresp. She was taken to 250 mcg dose. Will go ahead increase it to 500 mcg dose. She also did try the nebulizer with the levo albuterol with that also caused her to have some increased tremulousness and palpitations so she opted on stopping it. She can always consider ipratropium solution for her nebulizer as needed if it comes to needing something else. Will follow-up in 6 months. If the patient has any issues prior to this she will call for an earlier assessment. [facility] Medical History (Updated 11/04/24 @ 22:51 by Adebayo Quinonez MD) Rib fractures Asthma-COPD overlap syndrome Personal history of COVID-19 (~12/2021) Chronic cough Hearing loss Arthritis Prediabetes Hereditary hemochromatosis Hypercholesterolemia Asthma Pulmonary emboli Dyspnea (~02/02/22) History of blood clots Surgical History (Updated 11/22/23 @ 09:33 by Lindsay Rodarte CMA) Status post total left knee replacement (05/23/23) History of total right knee replacement (TKR) (~10/2021) Hx of colonoscopy Social History Household Members: Spouse Housing: House Are you a primary manager urgent care to a significant other at home: No Do you presently have visiting nurse or other home services: No 75 years or older and lives alone: No Alcohol intake: current Alcohol intake frequency: a few times a week Comment: aware of trip hazard Patient Tobacco Use Status: Never used Tobacco service: No Current occupational status: retired Current occupation: right handed Review of Systems Const Denies night sweats ENT Denies change in voice, Denies lip swelling, Denies mouth pain, Reports nasal congestion, Reports nasal discharge and Denies tongue swelling Card Reports chest pain and Reports dyspnea on exertion Resp Denies change in phlegm color, Denies chest congestion, Reports cough, Reports pain on inspiration, Reports pain with cough, Reports dyspnea on exertion and Denies wheezing GI Denies abdominal pain Musc Reports as per HPI Neuro Denies Neuro-related abnormal movements Psych Denies no additional complaints Bandar/Lymph Denies easy bleeding and Denies lymphadenopathy Aller/Immun Denies lip swelling, Denies tongue swelling and Denies wheezing Physical Exam Vital Signs: Last Vital Signs Pulse 76 11/04/24 13:09 BP 130/86 11/04/24 13:09 Pulse Ox 95 11/04/24 13:09 Oxygen Delivery Method Room Air 11/04/24 13:09 BMI result Body Mass Index 37.1 Const General: alert Neck Neck: Yes normal visual inspection, Yes full ROM and Yes no lymphadenopathy Chest Chest palpation & inspection: normal inspection of the chest Resp Effort & Inspection: normal respiratory effort Auscultation: no rhonchi, no wheezes and diminished lung sounds Cardio Rate: regular rate Rhythm: regular rhythm Heart sounds: S1 normal heart sound present and S2 normal heart sound present GI Palpation (GI): Soft to palpation and nontender Auscultation: normal bowel sounds Skin General skin exam: rashes and/or lesions noted Assessment & Plan Assessment & Plan (1) Asthma: Code(s): J45.909 - Unspecified asthma, uncomplicated Category: Medical Qualifiers: Asthma complication type: uncomplicated Asthma persistence: persistent Asthma severity: moderate Qualified Code(s): J45.40 - Moderate persistent asthma, uncomplicated (2) Dyspnea: Onset Date: ~02/02/22 Code(s): R06.00 - Dyspnea, unspecified Category: Medical Qualifiers: Dyspnea type: dyspnea on exertion Qualified Code(s): R06.09 - Other forms of dyspnea (3) Chronic cough: Code(s): R05.3 - Chronic cough Category: Medical (4) Asthma-COPD overlap syndrome: Code(s): J44.89 - Other specified chronic obstructive pulmonary disease Category: Medical (5) Rib fractures: Code(s): S22.49XA - Multiple fractures of ribs, unspecified side, initial encounter for closed fracture Category: Medical Qualifiers: Encounter type: initial encounter Fracture type: closed Laterality: left Qualified Code(s): S22.42XA - Multiple fractures of ribs, left side, initial encounter for closed fracture Plan continue Trelegy 200 Xopenex as needed stop nebulizer with xopenex Continue Singulair in addition to antihistamine therapy Increase Daliresp 500mcg Follow up in 6-8 months Medications: New roflumilast (Daliresp) 500 mcg PO DAILY 30 tabs 11RF 30 days Discontinued roflumilast (Daliresp) Discontinued Reason: Doctor's Order 250 mcg PO DAILY 30 days 30 tabs 11RF J44.9 - Chronic obstructive pulmonary disease, unspecified Coding Level of Care Code Est Pt Level 4 (86040) Complex EM visit Add On G2211 Diagnoses Moderate persistent asthma without complication J45.40 Asthma complication type: uncomplicated Asthma persistence: persistent Asthma severity: moderate Dyspnea on exertion R06.09 Dyspnea type: dyspnea on exertion Chronic cough R05.3 Asthma-COPD overlap syndrome J44.89 Closed fracture of multiple ribs of left side, initial encounter S22.42XA Encounter type: initial encounter Fracture type: closed Laterality: left Time Spent (min) 17
--- OUTSIDE RECORDS SUMMARY | 2024-11-04 13:40 | XMS_ITS | Clinical Summary ---
Author Organization [facility] [place] [address] Phone Care Team Providers Care Cone Machine Operator Name Role Phone Tanya Barron MD Primary Care Provider [phone] Medical History Medical History Date Comments Asthma [...] Description 01/13/2025 9:00 AM EDT Office Visit [facility] Hematology Oncology [address] [place] [address] Domingo Reeves MD [address] [place] [address] Health Maintenance Due Date Last Done Comments Breast Cancer Screening 1950 DTaP,Tdap,and Td Vaccines (1 - Tdap) 07/04/1971 Zoster Vaccines (1 of 2) 2002 RSV Immunization Adult Patients (1 - Risk 60-74 years 1-dose series) 2012 Cholesterol Screening (Lipid Panel) 03/01/2022 Colorectal Cancer Screening: Colonoscopy 03/01/2022 Falls Risk Assessment 03/01/2022 Hepatitis C Screening 03/01/2022 Osteoporosis Screening (Bone Density Screening) 03/01/2022 Social Influencers of Health Screening 03/01/2022 Medicare Annual Wellness Visit 07/28/2023 07/27/2022 COVID-19 Vaccine (3 - 2023-2 5 season) 2023 07/01/2020, 06/13/2020 Depression Screening 04/02/2024 Influenza Vaccine (#1) 2024 , 12/20/2020, 11/14/2019 Pneumococcal Vaccine: 50+ Years Completed [...] complete this topic Insurance MEDICARE Care Teams Cone Machine Operator Relationship Specialty Start Date End Date Tanya Barron MD [address] [address] [place] [phone] PCP - General 01/22/24
--- OUTSIDE RECORDS SUMMARY | 2024-11-04 13:40 | XMS_ITS | Clinical Summary ---
Author Organization [facility] Address [address] [place] [address] Care Team Providers Care Food Service Representative Name Role Phone Tanya Barron MD Primary Care Provider [phone] Allergies No known active allergies Medications Medication [...] 74 01/22/2024 8:46 AM EDT Temperature 36.8 C (98.3 F) 01/22/2024 8:46 AM EDT Respiratory Rate - - Oxygen Saturation 97% [...] Assessment 2017 Osteoporosis Screening (DEXA Scan) 2017 Influenza Vaccine (#1) 2024 , 12/26/2022, 12/27/2021, Additional history exists DTap / Tdap / Td (3 - Td or Tdap) 11/22/2026 11/22/2016, 02/12/2008 Shingrix-Zoster Vaccine Completed 02/08/2018, 11/23 Pneumococcal Vaccine Completed 04/29/2020, 03/14/2018, 12/18/2011 RSV Adult > 60+ Yrs or Completed 12/26/2022 COVID-19 Vaccine Completed 12/18/2023, 04/2020, 06/13/2020 Hepatitis B Vaccines Aged Out No long er eligible based on patient's age to complete this topic RSV Ped < 20 months Aged Out No longe r eligible based on patient's age to complete this topic Care Teams Food Service Representative Relationship Specialty Start Date End Date Tanya Barron MD [address] [phone] PCP - General Internal Medicine 01/22/24
== END 2024-11-04 13:35 | disposition home or self-care (01) ==
LOC: HO.HPS 13:02
PROVIDERS: PCP Student in an Organized Health Care Education/Training Program; Visit Provider Hospitalist
DX: J45.40 Moderate persistent asthma, uncomplicated (principal); R06.09 Other forms of dyspnea; R05.3 Chronic cough; J44.89 Other specified chronic obstructive pulmonary disease; S22.42XA Multiple fractures of ribs, left side, initial encounter for closed fracture
CPT/HCPCS: 99214; G2211

== ENCOUNTER → 2024-11-04 13:02 | Outpatient (BNVA) | payer MEDICARE, OTHER, SELFPAY | PROVIDERS: PCP Student in an Organized Health Care Education/Training Program; Visit Provider Hospitalist | DX: J44.89 Other specified chronic obstructive pulmonary disease (principal); J45.40 Moderate persistent asthma, uncomplicated; S22.42XA Multiple fractures of ribs, left side, initial encounter for closed fracture; R06.09 Other forms of dyspnea; R05.3 Chronic cough | CPT/HCPCS: 99212 ==